=== PATIENT | male | born 1945 | race Caucasian/White ===

== ENCOUNTER → 2020-05-18 11:01 | Outpatient (BNVA) | payer MEDICARE, OTHER, SELFPAY | PROVIDERS: PCP Physician Assistant; Visit Provider Internal Medicine Cardiovascular Disease | DX: R00.1 Bradycardia, unspecified (principal) | CPT/HCPCS: 93005; 99212 ==

== ENCOUNTER 2020-07-14 10:42 | Outpatient (REF) | payer MEDICARE, OTHER, SELFPAY ==
--- NOTE | ~2020-07-14 | MR_ITS ---
EXAMINATION: MR CERVICAL SPINE WITHOUT CONTRAST CLINICAL INFORMATION: Cervical disc degeneration. COMPARISON: Cervical spine MRI from 12/13/2017. TECHNIQUE: MRI of the cervical spine was obtained using routine sequences without contrast. FINDINGS: Mild degenerative retrolisthesis of C3 on C4. Mild degenerative anterolisthesis of C4 on C5. Otherwise, normal anatomic alignment. Moderate degenerative disc disease at C5-C6. Mild degenerative disc disease at all additional cervical levels. Associated mild mixed Modic type discogenic endplate changes including minimal Modic type I discogenic edema at C5-C6. Mild marrow edema within the C5-C6 facets suggestive of degenerative stress reaction. The vertebral body heights are well-maintained. No spinal cord signal abnormalities. Limited evaluation of the soft tissues of the neck without demonstrated abnormalities. The flow voids of the major cervical vessels are maintained. Normal appearance of the cervicomedullary junction and visualized posterior fossa. SPINAL LEVELS: C2-C3: Mild disc-osteophyte complex. There is moderate left and mild right uncovertebral joint arthropathy. There is severe left and mild right facet joint arthropathy. There is moderate left and no right neural foraminal stenosis. There is no spinal canal stenosis. C3-C4: Moderate disc-osteophyte complex. There is moderate bilateral uncovertebral joint arthropathy. There is mild bilateral facet joint arthropathy. There is moderate to severe bilateral neural foraminal stenosis. There is no spinal canal stenosis. C4-C5: Moderate disc-osteophyte complex. There is mild right and no left uncovertebral joint arthropathy. There is moderate bilateral facet joint arthropathy. There is mild to moderate left and no right neural foraminal stenosis. There is no spinal canal stenosis. C5-C6: Moderate disc-osteophyte complex eccentric to the right. There is moderate bilateral uncovertebral joint arthropathy. There is moderate to severe left and moderate right facet joint arthropathy. There is moderate to severe bilateral neural foraminal stenosis. There is flattening the ventral cord with no overt spinal canal stenosis. C6-C7: Mild disc-osteophyte complex. There is mild bilateral uncovertebral joint arthropathy. There is severe left and deca-hc-ahdbhbcb right facet joint arthropathy. There is moderate to severe left and mild right neural foraminal stenosis. There is no spinal canal stenosis. C7-T1: Mild disc-osteophyte complex. There is no uncovertebral joint arthropathy. There is moderate to severe left and mild right facet joint arthropathy. There is no neural foraminal stenosis. There is no spinal canal stenosis. 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 Most notably, there are moderate to severe neural foraminal stenoses from C2-C7. No overt spinal canal stenosis. Overall, degenerative changes are similar to exam from 2018.
== END 2020-07-14 10:43 | disposition home or self-care (01) ==
LOC: HO.MRI 10:42
PROVIDERS: PCP Physician Assistant; Visit Provider Physician Assistant
DX: M50.30 Other cervical disc degeneration, unspecified cervical region (principal)
CPT/HCPCS: 72141

== ENCOUNTER 2020-09-04 21:35 | Emergency (ER) | payer OTHER, MEDICARE, SELFPAY ==
[2020-09-04 21:57] VITALS: BP 196/90; PULSE 51; RESP 18; TEMP 36.7; O2SAT 99; BMI 25.1
--- NOTE | 2020-09-04 22:46 | ECG_ITS ---
Test Reason : HTN Blood Pressure : / mmHG Vent. Rate : 041 BPM Atrial Rate : 041 BPM P-R Int : 210 ms QRS Dur : 112 ms QT Int : 450 ms P-R-T Axes : 032 -37 006 degrees QTc Int : 371 ms Marked sinus bradycardia with 1st degree A-V block Left axis deviation Abnormal ECG When compared with ECG of 21-OCT-2018 13:18, No significant change was found Referred By: Nguyen Phillip Electronically Signed By:CLAUDIA ORTIZ
--- NOTE | 2020-09-04 23:28 | ED_ITS ---
HPI - General Adult General Chief complaint: General Medical Stated complaint: High blood pressure Time Seen by Provider: 09/04/20 22:46 Source: patient Mode of arrival: ambulatory History of Present Illness HPI narrative: 75-year-old male who presents with noted hypertension. Patient states that he was having a spirited discussion with a friend of his on the phone and noted that when he brought his head up that he had a slight visual d isturbance that was very transient in nature and never recurred after that isolated incident. He states he has had a similar sensation previously when his contacts have become dry and denies any associated lightheadedness, headache, dizziness, chest pain/palpitations, or any gait instability afterwards while walking or changing position. Patient sources that he has a known condition where if he keeps his head in a flexed position it causes an affect on his neck such that when he extends his head backwards he can have headache as well as feeling somewhat lightheaded. This slight visual disturbance prompted him to take his blood pressure at which time he noted that it was elevated with a sy stolic in the 190s. Patient has longstanding bradycardia, ?all my life?, and currently is being treated for hypertension with losartan and endorses that he does not usually take his blood pressure late in the evening. Patient denies any further episodes of visual disturbance, any feelings of dizziness or lightheadedness, or gait instability since the transient event. To be clear, patient denies any loss of vision/partial loss of vision or double vision. Related Data Home Medications Medication Instructions Recorded Confirmed acetaminophen 325 mg tablet 650 mg PO Q6H PRN 03/04/20 03/04/20 celecoxib 200 mg capsule 200 mg PO DAILY 03/04/20 03/04/20 Previous Rx's Medication Instructions Recorded losartan 25 mg tablet 25 mg PO DAILY #90 tab 06/20/20 Allergies Allergy/AdvReac Type Severity Reaction Status Date / Time No Known Allergies Allergy Verified 05/18/20 11:20 Review of Systems Review of Systems: Pertinent positives and negatives as stated in HPI and 10 point review of systems is otherwise negative. [facility] Past Medical History Source: nursing notes reviewed Medical History Bradycardia Chronic back pain Chronic neck pain Hypertension Surgical History H/O hemicolectomy History of hernia surgery History of shoulder surgery S/P excision of lipoma Family History Family History Father No problems noted. Mother Colon cancer Social History Social History Smoking Status: Never smoker Advance Directives: No Advance Directives Information Provided: No Physical Exam Vital Signs: Vital Signs: Last Vital Signs Temp 98.1 F 09/04/20 21:57 Pulse 51 09/04/20 21:57 Resp 18 09/04/20 21:57 BP 196/90 H 09/04/20 21:57 Pulse Ox 99 09/04/20 21:57 Body Mass Index 25.1 VITAL SIGNS: Reviewed. GENERAL: Well developed, well nourished, in no acute distress. HEAD: Normocephalic/atraumatic EYES: PERRLA, EOMI intact without pain, no nystagmus OROPHARYNX: no oral lesions noted, posterior pharynx clear NECK: Supple, no adenopathy LUNGS: Normal breath sounds. No adventitious sounds or accessory muscle use. SpO2<99> CARDIOVASCULAR: Regular rate and rhythm without noted murmurs, no JVD or lower extremity edema. ABDOMEN: Soft, non-tender, non-distended with bowel sounds. NEUROLOGIC: Alert and oriented x 4. Strength and sensation to light touch were grossly intact x 4, no pronator drift, no facial asymmetry, cranial nerves 2-12 are grossly intact, past pointing without deficits, heel to moscoso without deficits, no observed gait/trunk ataxia. Course Course Course Narrative: 75-year-old male with history and clinical presentation hypertensive episode noted when patient experienced transient visual disturbance to suggest intracranial pathology. Review of all investigations negative for any acute findings and at this time no indication for imaging studies. All results discussed with the patient at bedside and he was strongly encouraged to follow-up with his primary care provider for re-evaluation as well as being encouraged to return should he experience any recurrence or new symptoms. Medical Decision Making Lab Data Result diagrams: 09/04/20 23:35 09/04/20 23:35 Labs: Lab Results 09/04/20 09/04/20 09/04/20 Range/Units 23:35 23:35 23:37 WBC 6.0 (4.8-10.8) X10*3/uL RBC 5.26 (4.60-5.80) X10*6/uL Hgb 15.7 (14.0-18.0) g/dl Hct 45.3 (42-52) % MCV 86.1 (80-98) fL MCH 29.8 (27.0-33.0) pg MCHC 34.7 (31.0-36.0) g/dl RDW 12.5 (11.0-16.0) % Plt Count 185 (160-400) X10*3/uL MPV 9.4 (9.4-12.4) fL Immature Gran % (Auto) 0.3 (0.0-0.4) % Neut % (Auto) 50.9 (45-73) % Lymph % (Auto) 36.3 (20-40) % [place] % (Auto) 9.5 (2-11) % Eos % (Auto) 2.7 (0-4) % Baso % (Auto) 0.3 (0-2) % Lymph # (Auto) 2.2 (1.2-4.9) X10*3/uL [place] # (Auto) 0.6 (0.1-1.2) X10*3/uL Eos # (Auto) 0.2 (0.0-0.4) X10*3/uL Baso # (Auto) 0.0 (0.0-0.2) X10*3/uL Abs Immat Gran (auto) 0.02 (0.00-0.03) X10*3/uL Absolute Neuts (auto) 3.1 (2.0-8.3) X10*3/uL Absolute Nucleated RBC 0.000 (0.0-0.012) X10*3/uL Nucleated RBC % (auto) 0.0 (0.0-0.2) /100WBC Sodium 143 (135-145) mmol/L Potassium 4.6 (3.3-5.1) mmol/L Chloride 105 (96-108) mmol/L Carbon Dioxide 28 (22-29) mmol/L Anion Gap 15 (12-20) BUN 13 (9-16) mg/dL Creatinine 1.00 (0.5-1.4) mg/dL Estim Creat Clear Calc 67.9 Estimated GFR > 60 Random Glucose 100 (60-115) mg/dL Calcium 9.4 (8.4-10.2) mg/dL Total Bilirubin 0.6 (0.0-1.0) mg/dL AST 27 (5-37) U/L ALT 30 (0-40) U/L Alkaline Phosphatase 66 (39-117) U/L Total Protein 7.7 (6.5-8.0) g/dL Albumin 4.7 (3.5-5.0) g/dL Urine Color COLORLESS Urine Appearance CLEAR Urine pH 6.5 (5.0-8.0) Ur Specific [place] <= 1.005 (1.005-1.025) Urine Protein NEG (NEG-TRACE) MG/DL Urine Glucose (UA) NEG (NEG) MG/DL Urine Ketones NEG (NEG) MG/DL Urine Blood NEG (NEG) Urine Nitrite NEG (NEG) Ur Leukocyte Esterase NEG (NEG) ECG Data Attestation: I personally reviewed and interpreted this ECG as follows: Prior ECG tracings: available for review (10/21/2018 no acute changes on comparison.) Interpretation: Sinus bradycardia, HR-41, no evidence of acute ischemia, CA is prolonged but chronic, QRS-112 and consistent on comparison, QTC within normal limits Discharge Plan Discharge Clinical Impression: HTN (hypertension), Visual disturbance Patient Disposition: Home, Self-Care Instructions: Hypertension in the Older Adult (ED) Additional Instructions: 1. Resume all home medications as prescribed. 2. Please follow-up with your primary care provider for re-evaluation in the next 2-3 days. 3. Please do not hesitate to return to the emergency department should you have recurrence or new symptoms. Prescriptions: No Action losartan 25 mg tablet 25 mg PO DAILY Qty: 90 RF: 0 celecoxib 200 mg capsule 200 mg PO DAILY RF: 0 acetaminophen [Tylenol] 325 mg tablet 650 mg PO Q6H PRNRF: 0 Referrals: Jose Peñaloza PA-C [Primary Care Provider] - 2 days
[2020-09-04 23:38] LABS: Basophils Percent Auto 0.3 % (0-2); Eosinophils Absolute Auto 0.2 X10*3/uL (0.0-0.4); Eosinophils Percent Auto 2.7 % (0-4); Hematocrit 45.3 % (42-52); Hemoglobin 15.7 g/dl (14.0-18.0); Imm Gran Abs Auto 0.02 X10*3/uL (0.00-0.03); Imm Gran Pct Auto 0.3 % (0.0-0.4); Lymphocytes Absolute Auto 2.2 X10*3/uL (1.2-4.9); Lymphocytes Percent Auto 36.3 % (20-40); MANUAL DIFF FLAG NO; Mean Corpuscular HGB Conc 34.7 g/dl (31.0-36.0); Mean Corpuscular Hemoglobin 29.8 pg (27.0-33.0); Mean Corpuscular Volume 86.1 fL (80-98); Mean Platelet Volume 9.4 fL (9.4-12.4); Monocytes Absolute Auto 0.6 X10*3/uL (0.1-1.2); Monocytes Percent Auto 9.5 % (2-11); Neutrophils Absolute Auto 3.1 X10*3/uL (2.0-8.3); Neutrophils Percent Auto 50.9 % (45-73); Platelet Count 185 X10*3/uL (160-400); Red Blood Count 5.26 X10*6/uL (4.60-5.80); Red Cell Distribution Width 12.5 % (11.0-16.0)
[2020-09-04 23:51] LABS: Glucose Urine UA NEG (NEG); Leukocyte Esterase Urine NEG (NEG); Nitrite Urine NEG (NEG); PH 6.5 (5.0-8.0); Specific Gravity - Urine <= 1.005 (1.005-1.025); Urine Blood NEG (NEG); Urine Ketones NEG (NEG); Urine Protein NEG (NEG-TRACE)
[2020-09-04 23:53] LABS: Appearance Urine CLEAR; Color Urine COLORLESS; UACC Culture Trigger NO
[2020-09-05 00:16] LABS: Alanine Aminotransferase 30 U/L (0-40); Albumin Level 4.7 g/dL (3.5-5.0); Alkaline Phosphatase 66 U/L (39-117); Anion Gap 15 (12-20); Aspartate Amino Transferase 27 U/L (5-37); Bilirubin Total 0.6 mg/dL (0.0-1.0); Blood Urea Nitrogen 13 mg/dL (9-16); Calcium 9.4 mg/dL (8.4-10.2); Carbon Dioxide 28 mmol/L (22-29); Chloride 105 mmol/L (96-108); Creatinine Clr Calc Pharmacy 67.9; Estimated Glomerular Filt Rate > 60; Glucose Random 100 mg/dL (60-115); Potassium 4.6 mmol/L (3.3-5.1); Sodium 143 mmol/L (135-145); Total Protein 7.7 g/dL (6.5-8.0)
[2020-09-05 01:07] VITALS: BP 161/85; PULSE 45; RESP 16; O2SAT 96
== END 2020-09-05 01:36 | disposition home or self-care (01) ==
PROVIDERS: Emergency Provider Student in an Organized Health Care Education/Training Program; PCP Physician Assistant
DX: I10 Essential (primary) hypertension (principal); H53.9 Unspecified visual disturbance
CPT/HCPCS: 36415; 80053; 81003; 85025; 93005; 99283

== ENCOUNTER 2020-10-28 11:09 | Outpatient (REF) | payer MEDICARE, SELFPAY ==
[2020-10-28 12:59] LABS: Hematocrit 42.9 % (42-52); Hemoglobin 14.5 g/dl (14.0-18.0); Mean Corpuscular HGB Conc 33.8 g/dl (31.0-36.0); Mean Corpuscular Hemoglobin 29.2 pg (27.0-33.0); Mean Corpuscular Volume 86.5 fL (80-98); Mean Platelet Volume 10.1 fL (9.4-12.4); Platelet Count 174 X10*3/uL (160-400); Red Blood Count 4.96 X10*6/uL (4.60-5.80); Red Cell Distribution Width 12.6 % (11.0-16.0); White Blood Count 4.9 X10*3/uL (4.8-10.8)
[2020-10-28 13:15] LABS: Alanine Aminotransferase 20 U/L (0-40); Albumin Level 4.3 g/dL (3.5-5.0); Alkaline Phosphatase 61 U/L (39-117); Anion Gap 12 (12-20); Aspartate Amino Transferase 19 U/L (5-37); Blood Urea Nitrogen 18 mg/dL (9-16); Calcium 9.2 mg/dL (8.4-10.2); Carbon Dioxide 28 mmol/L (22-29); Chloride 104 mmol/L (96-108); Cholesterol 188 mg/dL; Estimated Glomerular Filt Rate > 60; Glucose Fasting 93 mg/dL (60-99); HDL Cholesterol 54 mg/dL; LDL Cholesterol Calculated 118 mg/dl; Potassium 4.3 mmol/L (3.3-5.1); Sodium 140 mmol/L (135-145); Total Protein 6.7 g/dL (6.5-8.0); Triglycerides 80 mg/dL
[2020-10-28 13:34] LABS: Creatinine Urine 48.93 mg/dL; Microalbumin Urine < 5.0 mg/L
[2020-10-28 13:37] LABS: Prostate Specific Antigen Scr 0.91 ng/mL (<0.05-4.0); TSH reflex Free T4 0.46 uIU/mL (0.32-4.0)
== END 2020-10-28 11:10 | disposition home or self-care (01) ==
LOC: HO.LAB 11:09
PROVIDERS: PCP Physician Assistant; Visit Provider Physician Assistant
DX: Z12.5 Encounter for screening for malignant neoplasm of prostate (principal); I10 Essential (primary) hypertension
CPT/HCPCS: 36415; 80053; 80061; 82043; 84153; 84443; 85027

== ENCOUNTER 2020-11-24 16:21 | Outpatient (REF) | payer MEDICARE, OTHER, SELFPAY ==
--- NOTE | ~2020-11-24 | XR_ITS ---
EXAMINATION: XR FOOT, RIGHT CLINICAL INFORMATION: Pain right foot COMPARISON: None TECHNIQUE: AP, lateral, and oblique views of the right foot. FINDINGS: No acute fracture or dislocation. Probable sesamoid occurring off the proximal medial navicular. Mild degeneration first MTP joint. No bony erosion or osteopenia. XR/XR foot RT min 3V IMPRESSION: No acute fracture or dislocation. There is probable sesamoid bone occurring off the proximal navicular medially. Point palpation would be recommended here. There is some mild lucency but again this may represent the patient's baseline
== END 2020-11-24 16:22 | disposition home or self-care (01) ==
LOC: HO.HMGCX 16:21
PROVIDERS: PCP Physician Assistant; Visit Provider Hospitalist
DX: M79.671 Pain in right foot (principal)
CPT/HCPCS: 73630

== ENCOUNTER → 2021-03-27 10:06 | Outpatient (BNVA) | payer MEDICARE, OTHER, SELFPAY | PROVIDERS: PCP Physician Assistant; Referring Provider Physician Assistant; Visit Provider Internal Medicine Cardiovascular Disease | DX: I10 Essential (primary) hypertension (principal); R00.1 Bradycardia, unspecified; I44.0 Atrioventricular block, first degree; G89.29 Other chronic pain; M54.9 Dorsalgia, unspecified; M54.2 Cervicalgia; Z79.899 Other long term (current) drug therapy | CPT/HCPCS: 99212 ==

== ENCOUNTER 2021-07-12 11:38 | Outpatient (REF) | payer MEDICARE, OTHER, SELFPAY ==
[2021-07-12 12:12] LABS: Hematocrit 46.9 % (42.0-52.0); Mean Corpuscular HGB Conc 34.1 g/dl (31.0-36.0); Mean Corpuscular Volume 85.1 fL (80.0-98.0); Mean Platelet Volume 9.8 fL (9.4-12.4); Platelet Count 185 X10*3/uL (160-400); Red Blood Count 5.51 X10*6/uL (4.60-5.80); Red Cell Distribution Width 12.3 % (11.0-16.0); White Blood Count 5.9 X10*3/uL (4.8-10.8)
[2021-07-12 12:42] LABS: Alanine Aminotransferase 27 U/L (0-40); Albumin Level 4.7 g/dL (3.5-5.0); Alkaline Phosphatase 68 U/L (39-117); Anion Gap 12 (12-20); Aspartate Amino Transferase 26 U/L (5-37); Bilirubin Total 0.9 mg/dL (0.0-1.0); Blood Urea Nitrogen 14 mg/dL (9-16); Carbon Dioxide 29 mmol/L (22-29); Chloride 102 mmol/L (96-108); Cholesterol 209 mg/dL; Estimated Glomerular Filt Rate > 60; Glucose Fasting 104 mg/dL (60-99); HDL Cholesterol 49 mg/dL; LDL Cholesterol Calculated 139 mg/dl; Potassium 4.3 mmol/L (3.3-5.1); Sodium 139 mmol/L (135-145); Total Protein 7.4 g/dL (6.5-8.0); Triglycerides 105 mg/dL
[2021-07-12 12:44] LABS: Creatinine Urine 150.41 mg/dL; Microalbum/Creatinine Ratio Ur 3.3 ug/mg cr
[2021-07-12 13:02] LABS: Prostate Specific Antigen Scr 1.16 ng/mL (<0.05-4.0); TSH reflex Free T4 1.25 uIU/mL (0.32-4.0)
== END 2021-07-12 11:39 | disposition home or self-care (01) ==
LOC: HO.LAB 11:38
PROVIDERS: PCP Physician Assistant; Visit Provider Physician Assistant
DX: Z12.5 Encounter for screening for malignant neoplasm of prostate (principal); I10 Essential (primary) hypertension
CPT/HCPCS: 36415; 80053; 80061; 82043; 84153; 84443; 85027

== ENCOUNTER 2022-03-07 18:54 | Outpatient (REF) | payer MEDICARE, OTHER, SELFPAY ==
--- NOTE | ~2022-03-07 | MR_ITS ---
EXAMINATION: MR SHOULDER WITHOUT CONTRAST, RIGHT CLINICAL INFORMATION: Right shoulder pain. Prior decompression. Pain with movement. COMPARISON: Most recent right shoulder radiographs dated 08/20/2017 and right shoulder MRI dated 05/06/2015. TECHNIQUE: MRI of the shoulder without contrast was performed on a high-field scanner. FINDINGS: ROTATOR CUFF: Complete, full-thickness supraspinatus tendon tear extending into the anterior aspect of the infraspinatus tendon, similar or slightly more prominent when compared to the prior MRI. This measures up to 3.9 cm in AP dimension with retraction of the torn tendon fibers proximal to the glenohumeral articulation. Prominent subscapularis tendinosis with distal articular surface partial tearing measuring up to 3.3 cm in ML dimension, increased in prominence when compared to the prior examination. Moderate supraspinatus muscle atrophy. BICEPS: Proximal long head biceps tendinosis with flattening and medial subluxation as it drapes over the lesser tuberosity consistent with longitudinal partial tearing. Findings are similar when compared to the prior examination. CORACOACROMIAL ARCH: The undersurface of the acromion is flat with lateral downsloping and bony remodeling of the acromial undersurface consistent with chronic superior humeral head subluxation. Findings are increased when compared to the prior examination. Fxhibbsz-ov-vnltws acromioclavicular osteoarthritis. LABRUM/CAPSULE: Degenerative signal redemonstrated within the superior labrum with possible nondisplaced undersurface tearing of the posterosuperior labrum, increased in prominence when compared to the prior examination. Intact inferior joint capsule. GLENOHUMERAL JOINT/MARROW: Chronic superior subluxation of the humeral head with bony remodeling of the acromial undersurface related to the rotator cuff tendon tears. Diffuse articular cartilage thinning and signal heterogeneity with areas of near full-thickness loss. Marginal osteophytes. Jtqsf-jd-[id number] joint effusion with synovitis. Findings have progressed when compared to the prior MRI. MR/MR shoulder RT wo con IMPRESSION: 1. Complete, full-thickness tear of the supraspinatus tendon extending into the anterior aspect of the infraspinatus tendon, similar or slightly more prominent when compared to the prior examination. The torn tendon fibers are retracted proximal to the glenohumeral articulation. Moderate supraspinatus muscle atrophy. 2. Prominent subscapularis tendinosis with distal articular surface partial tearing, increased in prominence when compared to the prior examination. 3. Proximal long head biceps tendinosis with medial subluxation as it drapes over the lesser tuberosity, similar when compared to the prior examination. 4. Moderate glenohumeral osteoarthritis with a [id number]-[id number] joint effusion and synovitis, progressed when compared to the prior examination. Chronic superior subluxation of the humeral head with bony remodeling of the acromial undersurface, increased. 5. Qpdyereu-ee-ykqioj acromioclavicular osteoarthritis, increased when compared to the prior examination. 6. Degenerative signal within the superior labrum with possible nondisplaced undersurface tearing of the posterosuperior labrum, increased in prominence when compared to the prior examination.
== END 2022-03-07 18:55 | disposition home or self-care (01) ==
LOC: HO.MRI 18:54
PROVIDERS: Visit Provider Physician Assistant
DX: M75.121 Complete rotator cuff tear or rupture of right shoulder, not specified as traumatic (principal)
CPT/HCPCS: 73221

== ENCOUNTER → 2022-04-09 10:53 | Outpatient (BNVA) | payer MEDICARE, OTHER, SELFPAY | PROVIDERS: PCP Physician Assistant; Visit Provider Internal Medicine Cardiovascular Disease | DX: I10 Essential (primary) hypertension (principal); R00.1 Bradycardia, unspecified | CPT/HCPCS: 93005; 99212 ==

== ENCOUNTER 2022-08-28 10:56 | Outpatient (REF) | payer MEDICARE, OTHER, SELFPAY ==
[2022-08-28 12:20] LABS: Hematocrit 42.8 % (42.0-52.0); Hemoglobin 14.5 g/dl (14.0-18.0); Mean Corpuscular HGB Conc 33.9 g/dl (31.0-36.0); Mean Corpuscular Hemoglobin 29.2 pg (27.0-33.0); Mean Corpuscular Volume 86.1 fL (80.0-98.0); Mean Platelet Volume 9.9 fL (9.4-12.4); Platelet Count 185 X10*3/uL (160-400); Red Blood Count 4.97 X10*6/uL (4.60-5.80); Red Cell Distribution Width 12.7 % (11.0-16.0); White Blood Count 7.1 X10*3/uL (4.8-10.8)
[2022-08-28 12:59] LABS: Alanine Aminotransferase 16 U/L (0-40); Albumin Level 4.2 g/dL (3.5-5.0); Alkaline Phosphatase 68 U/L (39-117); Anion Gap 14 (12-20); Aspartate Amino Transferase 16 U/L (5-37); Bilirubin Total 1.1 mg/dL (0.0-1.0); Blood Urea Nitrogen 18 mg/dL (9-16); Calcium 9.1 mg/dL (8.4-10.2); Carbon Dioxide 27 mmol/L (22-29); Chloride 105 mmol/L (96-108); Cholesterol 178 mg/dL; Estimated Glomerular Filt Rate > 60; Glucose Fasting 93 mg/dL (60-99); HDL Cholesterol 46 mg/dL; LDL Cholesterol Calculated 118 mg/dl; Potassium 4.5 mmol/L (3.3-5.1); Prostate Specific Antigen Scr 1.02 ng/mL (<0.05-4.0); Sodium 141 mmol/L (135-145); TSH reflex Free T4 0.81 uIU/mL (0.32-4.0); Total Protein 6.4 g/dL (6.5-8.0); Triglycerides 71 mg/dL
== END 2022-08-28 10:57 | disposition home or self-care (01) ==
LOC: HO.LAB 10:56
PROVIDERS: PCP Physician Assistant; Visit Provider Physician Assistant
DX: I10 Essential (primary) hypertension (principal); Z12.5 Encounter for screening for malignant neoplasm of prostate
CPT/HCPCS: 36415; 80053; 80061; 84153; 84443; 85027

== ENCOUNTER → 2022-09-12 09:44 | Outpatient (REF) | payer MEDICARE, OTHER, SELFPAY ==
--- NOTE | 2022-09-12 09:48 | CA_ITS ---
Transthoracic Echocardiogram Patient (Last, First, Middle): Shantanu Phillips W Gender: Male Date of : 1945 Age: 77 Procedure Date: 09/12/2022 Procedure Type: Transthoracic Echocardiogram Location: OP Height: 177.8 cm Weight: 77.11 kg BSA: 1.95 m2 Heart Rate: 45 bpm BP: 138 / 70 mmHg Design Inserter: SB Referring MD: Jose Peñaloza PA-C Symptoms: R01.1 - Cardiac murmur, unspecified Study Quality: Adequate ECG Rhythm: Bradycardia Conclusions: - The left ventricular systolic function is normal. The calculated ejection fraction is 68% by biplane method. - There is moderate septal asymmetric hypertrophy. - Mildly increased right ventricular cavity size. Some hypokinesis towards the apical portion. - There is mild aortic valve regurgitation. - There is mild dilatation of the ascending aorta measuring 4.00 cm. Findings Left Ventricle Normal left ventricular cavity size. There is mildly increased left ventricular wall thickness. The left ventricular systolic function is normal. The calculated ejection fraction is 68% by biplane method. There is no evidence of regional wall motion abnormalities. Diastolic function is normal for age. There is moderate septal asymmetric hypertrophy. LV peak GLS 20.9% (normal). Right Ventricle Mildly increased right ventricular cavity size. There is normal right ventricular systolic function. Some hypokinesis towards the apical portion. Atria Both atria are normal in size. Aortic Valve There is a normal trileaflet aortic valve. There is mild calcification of the aortic valve. There is no aortic valve stenosis. There is mild aortic valve regurgitation. Mitral Valve The mitral valve appears normal. There is trace mitral valve regurgitation. There is no mitral valve stenosis. Pulmonic Valve There is trace pulmonic valve regurgitation. Tricuspid Valve Normal tricuspid valve structure. There is mild tricuspid valve regurgitation. There is no evidence of pulmonary hypertension. Great Vessels There is mild dilatation of the ascending aorta measuring 4.00 cm. Small plaque is seen in the sino tubular ridge. Venous The inferior vena cava is mildly dilated and collapses greater than 50% with inspiration. Pericardium/Pleural There is no evidence of pericardial effusion. Prior Study Comparison No prior study available for comparison. Measurements 2D Linear Measurements IVSd: 1.52 0.6-0.9/0.6-1.0 cm LVIDd: 5.29 3.9-5.3/4.2-5.9 cm LVIDd Index: 2.71 2.4-3.2/2.2-3.1 cm/m2 LVIDs: 3.33 2.0-3.6 cm LVPWd: 1.04 0.7-1.1 cm LA Diam: 4.20 2.7-3.8/3.0-4.0 cm LAIDs Index: 2.15 1.5-2.3 cm/m2 LV Mass: 349.13 67-162/88-224 g LV Mass Index: 179.04 43-95/49-115 g/m2 LVOT Diam: 2.00 3.0+(-)1.3 cm 2D Systolic Function EF 4C: 69.30 >55% EF 2C: 68.60 >55% EF BiP: 68.20 >55% Mitral Valve MV Pk E: 0.81 MV PK A: 0.63 MV Decel Time: 253.00 E/A: 1.30 E'Lateral: 9.25 E'Medial: 5.77 E/E' Med: 14.10 E/E' Lat: 8.80 PHT: 74.00 MVA PHT: 2.97 Decel Limestone: 3.21 Aortic Valve AoV Pk Godwin: 2.13 AoV Mn Godwin: 1.37 AoV VTI: 0.46 AoV Pk Grad: 18.00 Aov Mn Grad: 9.00 HANNAH Cont.VTI: 2.16 AI Pk Godwin: 4.54 AI VTI: 3.82 AI Limestone: 1.65 AI Alias Godwin: 0.39 AI RV - PISA: 19.00 ERO - PISA: 5.00 LVOT LVOT Pk Godwin: 1.31 LVOT Mn Godwin: 0.88 LVOT VTI: 0.32 LVOT Pk Grad: 7.00 LVOT Mn Grad: 4.00 LVOT Diam: 2.00 LVOT Area: 3.14 Diastolic Function MV Pk E: 0.81 MV Pk A: 0.63 E/A: 1.30 E'Medial: 5.77 E/E' Med: 14.10 E' Laterial: 9.25 E/E' Lat: 8.80 Right Ventricle TAPSE (mm): 29.50 TVS' Godwin: 14.80 Tricuspid Valve TR Pk Godwin: 2.51 TR Pk Grad: 25.00 RA Press: 8.00 RVSP: 33.00 Great Vessels Aorta Sinus of Valsalva: 3.30 2.0-3.5 cm Ao Asc: 4.00 2.1-3.4 cm Pulmonary Veins Pulm Vein S/D 0.60 Pulmonary Valve PV Pk Godwin: 1.32 Peak PV Grad: 7.00 Updated in Other Vendor System with Status of Final Thuan Hunt MD electronically signed on 09/14/2022 12:02:30 PM with status of Final
== END ==
LOC: HO.CARD 09:44
PROVIDERS: PCP Physician Assistant; Visit Provider Physician Assistant
DX: R01.1 Cardiac murmur, unspecified (principal)
CPT/HCPCS: 93306; 93356

== ENCOUNTER 2023-04-10 09:48 | Outpatient (AMB) | payer MEDICARE, OTHER, SELFPAY ==
--- NOTE | 2023-04-10 09:51 | MHC.OFFVIS ---
Intake Vital Signs 04/10/23 09:53 Height 5 ft 11 in Weight 174 lb 2.643 oz BMI 24.3 BP 154/84 H Blood Pressure Location Lt brachial Position Sitting Pulse 36 L Intake Visit Reasons: 1 year fu Intake Note: 1 year follow up Clinic Physician Required: No Accompanied by: Self / Same As Patient Allergies No Known Allergies Allergy (Verified 04/10/23 12:33) Medication List - Last Reconciled 04/10/23 by Raul Winter MD acetaminophen (Tylenol) 650 mg PO BID PRN carisoprodol (Soma) 250 mg PO BEDTIME PRN 30 days losartan 50 mg PO BID 90 days meloxicam 7.5 mg PO DAILY 30 days HPI HPI Comments History of Present Illness Details 78-year-old gentleman who was seen for management of bradycardia. He said he has had slow heart rates all his life. His average heart rate is in 40s to 50s. He has been active and exercises regularly without any functional limitations. He has no exertional shortness of breath or chest discomfort. He has no dizziness episode with exertion. Recently he had a viral illness and while he was sick he had lightheadedness when changing his posture. This has improved and he does not have any further symptoms. 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 ECG 04/2019: Sinus bradycardia with first degree AV block, HR 41/min, LAFB. He was sent for a Holter monitor. Holter monitor showed underlying rhythm of sinus bradycardia with average heart rate of 48 beats per minute. 80% time his heart rate was under 60 beats per minute. 1.2 sec pause was noticed and 770 PVCs were noticed. Patient had no symptoms. 04/10/23: Today he returns for follow-up. He has no chest discomfort shortness of breath. Continues to be active without any exertional issues. In particular no dizziness or syncope. EKG in the office is showing heart rate of 36. With just leg raises for few seconds his heart rate went to 60s. Interestingly he has right bundle-branch block on the ECG along with left anterior fascicular block. [facility] Medical History (Updated 10/26/22 @ 10:32 by MEL Wne) Medicare annual wellness visit, initial Hypertension Chronic neck pain Chronic back pain Bradycardia Right otitis media Surgical History History of colonoscopy S/P excision of lipoma History of shoulder surgery H/O hemicolectomy History of hernia surgery Family History Father No problems noted. Mother Colon cancer Social History Housing: House Alcohol intake: former Patient Tobacco Use Status: Never used Tobacco e-Cigarette/Vaping Use: Never Used Second Hand Smoke Exposure: No service: Yes Current occupational status: retired Cognitive needs: No Hearing needs: No Vision needs: No Review of Systems Const Denies weakness ENT Denies dizziness Card Denies chest pain, Denies chest pain with activity, Denies syncope, Denies rapid heart rate, Denies pedal edema, Denies edema, Denies leg edema, Denies lightheadedness, Denies palpitations, Denies dyspnea, Denies dyspnea on exertion and Denies orthopnea Resp Denies cough, Denies dyspnea and Denies dyspnea on exertion GI Denies hematochezia and Denies change in stool character Musc Denies abnormal gait, Denies muscle cramps, Denies muscle weakness, Denies numbness, Denies radiating pain into limb and Denies tingling Neuro Denies abnormal gait, Denies dizziness, Denies syncope, Denies numbness, Denies tingling and Denies weakness Endo Denies palpitations Physical Exam Vital Signs: Last Vital Signs Pulse 36 L 04/10/23 09:53 BP 154/84 H 04/10/23 09:53 BMI result Body Mass Index 24.3 GENERAL APPEARANCE: in no acute distress, well developed, well nourished. NECK/THYROID: no carotid bruit, no jugular venous distention. SKIN: no suspicious lesions, warm and dry. HEART: no murmurs, regular rate, bradycardic. LUNGS: clear to auscultation bilaterally. ABDOMEN: normal, bowel sounds present, soft, nontender, nondistended. EXTREMITIES: no clubbing, cyanosis, or edema. PERIPHERAL PULSES: equal. NEUROLOGIC: nonfocal, alert and oriented. PSYCH: mood/affect full range. Office Procedures EKG Details: Sinus bradycardia 36 beats per minute, right bundle-branch block, left anterior fascicular block, QTC 395 milliseconds. Right bundle-branch block is new compared to before. [id number], Complete Assessment & Plan Assessment & Plan (1) HTN (hypertension): Code(s): I10 - Essential (primary) hypertension Qualifiers: Hypertension type: primary hypertension Qualified Code(s): I10 - Essential (primary) hypertension (2) Sinus bradycardia: Code(s): R00.1 - Bradycardia, unspecified Plan Pleasant 78 year gentleman who is here for follow-up. He has history of asymptomatic sinus bradycardia. His heart rate by ECG today is 36. During the examination it is heart rate was in 40s which increased to 60s just by simple leg raises for few seconds. He is asymptomatic. He does have right bundle-branch block which is new compared to before. Previously had left anterior fascicular block. I have discussed with him that he has progressive conduction system disease. He continues to be active and asymptomatic. His home heart rate readings are as high as 80s at times with activity. I will check a 7 day Holter monitor on him to make sure that he is not getting any long pauses. He will see us back in few months. Thank you for allowing me to participate in the care of your patient. Please feel free to contact me if you have any questions. Orders: Orders ECG 7 day holter monitor Today R00.1 - Bradycardia, unspecified Coding Level of Care Code Est Pt Level 4 (44574) Diagnoses Primary hypertension I10 Hypertension type: primary hypertension Sinus bradycardia R00.1 CPT Codes EKG - CPT: 74816-[id number], Complete ([id number])
[2023-04-10 09:53] VITALS: BP 154/84; PULSE 36; BMI 24.3
== END 2023-04-10 10:23 | disposition home or self-care (01) ==
PROVIDERS: Visit Provider Internal Medicine Cardiovascular Disease
DX: I10 Essential (primary) hypertension (principal); R00.1 Bradycardia, unspecified
CPT/HCPCS: 93010; 99214

== ENCOUNTER → 2023-04-10 09:48 | Outpatient (BNVA) | payer MEDICARE, OTHER, SELFPAY | PROVIDERS: Visit Provider Internal Medicine Cardiovascular Disease | DX: I10 Essential (primary) hypertension (principal); R00.1 Bradycardia, unspecified | CPT/HCPCS: 93005; 99212 ==

== ENCOUNTER 2023-04-10 11:39 | Outpatient (AMB) | payer MEDICARE, OTHER, SELFPAY ==
--- NOTE | 2023-04-10 11:53 | MHC.PC.OV ---
Vital Signs 04/10/23 11:54 Height 5 ft 11 in Weight 173 lb BMI 24.1 BP 126/60 Blood Pressure Location Lt brachial Position Sitting Pulse 48 L Pulse Source Pulse Oximeter Oxygen Delivery Method Room Air Intake Visit Reasons: f/u HTN Filler Wiper Required: No Accompanied by: Self / Same As Patient Allergies No Known Allergies Allergy (Verified 04/10/23 12:33) Medication List - Last Reconciled 04/10/23 by Jose Peñaloza PA-C acetaminophen (Tylenol) 650 mg PO BID PRN carisoprodol (Soma) 250 mg PO BEDTIME PRN 30 days losartan 50 mg PO BID 90 days meloxicam 7.5 mg PO DAILY 30 days Tobacco use date assessed: 09/27/22 Fall risk assessment: No Falls in past year Last assessed Fall Risk: 04/10/23 Dental Screening Dental Screen Date: 04/10/23 Did you have a dental visit in the last 12 months?: Yes Did you have a dental problem in the last 6 months where you did not have access to dental care?: No Was dental information given to patient?: Patient has dentist HPI f/u HTN HPI Details Apolinar is a 78-year-old male here today for a follow-up visit.? Patient has a past medical history significant for hypertension and degenerative disc disease of the cervical spine, h/o of colon cancer. . Bradycardia: , has been asymptomatic, Has been undergoing testing with cardiology. Echocardiogram and Holter monitor without significant findings. .. HTN: Patient's blood pressure today in office acceptable. .. History of colon cancer:? Has had a history of a colectomy and has been in remission? 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 recently had a CEA through the [place] and it was not elevated. .. Degenerative disc disease of the spine:? He is followed by neck specialist.? Has done multiple rounds of physical therapy with decent affect.? He does use Soma on a p.r.n. basis for his pain. [facility] Medical History (Updated 10/26/22 @ 10:32 by MEL Wen) Medicare annual wellness visit, initial Hypertension Chronic neck pain Chronic back pain Bradycardia Right otitis media Surgical History History of colonoscopy S/P excision of lipoma History of shoulder surgery H/O hemicolectomy History of hernia surgery Family History Father No problems noted. Mother Colon cancer Social History Housing: House Alcohol intake: former Patient Tobacco Use Status: Never used Tobacco e-Cigarette/Vaping Use: Never Used Second Hand Smoke Exposure: No service: Yes Current occupational status: retired Cognitive needs: No Hearing needs: No Vision needs: No Questionnaire Thrive Questionnaire Date Thrive assessed: 08/28/22 SHWETHA-7 AMB Questionnaire SHWETHA-7 Date SHWETHA - 7 assessed: 08/28/22 Source: Developed by Drs. Lee Hines, Zahra Joseph, Fitz Stephenson and colleagues, with an educational mayank from [employer]. Review of Systems Const Denies headache(s) Eyes Denies loss of vision ENT Denies vertigo, Denies dizziness, Denies headache(s) and Denies sore throat Card Denies chest pain, Denies leg edema and Denies lightheadedness Resp Denies cough, Denies hemoptysis and Denies wheezing GI Denies abdominal pain, Denies melena, Denies constipation, Denies diarrhea and Denies vomiting Denies dysuria, Denies urinary frequency and Denies urinary urgency Musc Denies arthralgias, Denies joint swelling, Denies numbness and Denies tingling Neuro Denies Abnormal speech present, Denies behavioral changes, Denies vertigo, Denies dizziness, Denies headache(s), Denies loss of vision, Denies memory loss, Denies numbness and Denies tingling Psych Denies anxiety, Denies behavioral changes, Denies depression, Denies memory loss and Denies panic attacks Loco/Lymph Denies easy bleeding and Denies easy bruising Aller/Immun Denies wheezing Physical exam (Primary Care) Vital Signs: Last Vital Signs Pulse 48 L 04/10/23 11:54 BP 126/60 04/10/23 11:54 Oxygen Delivery Method Room Air 04/10/23 11:54 BMI result Body Mass Index 24.1 Tobacco/Smoking Status: Tobacco use Status Tobacco use date assessed 09/27/22 04/10/23 11:55 Patient Tobacco Use Status Never used Tobacco 04/10/23 11:55 e-Cigarette/Vaping Use Never Used 04/10/23 11:55 Thrive Assessment: Date of Thrive Assessment Date Thrive assessed 08/28/22 04/10/23 11:55 Const General: healthy appearing, no acute distress, alert and awake Nutritional Appearance: well nourished Orientation/consciousness: oriented to person, oriented to place and oriented to time HENMT Ears: TM's normal bilaterally General nose exam: Normal nasal mucous membranes and turbinates present Eyes Conjunctivae: conjunctivae normal Sclerae: sclerae normal Pupils: Equal, round and reactive pupils present Neck Neck: Yes no lymphadenopathy and Yes no JVD Thyroid: Thyroid normal Carotids: no bruits Resp Effort & Inspection: normal respiratory effort and not tachypneic Auscultation: no crackles, no rales, no rhonchi and no wheezes Cardio Rate: regular rate Rhythm: regular rhythm Heart sounds: no murmurs and normal S1 and S2 GI Palpation (GI): Soft to palpation, nontender, no hepatomegaly and no splenomegaly Auscultation: normal bowel sounds Skin General skin exam: no rashes or lesions noted and dry skin Neuro General: oriented to person, oriented to place and oriented to time Cranial nerves: Yes Equal, round and reactive pupils present Speech: No Abnormal speech present Gait exam (Neuro): Normal gait present Motor exam (neuro): no tremor noted Extrem Right upper extremity: full ROM Left upper extremity: full ROM Right lower extremity: full ROM; no edema Left lower extremity: full ROM; no edema Psych Mental Status: mental status grossly normal Speech and movement: Normal speech and movement present Affect: normal affect Attitude: cooperative Thought process: Normal thought process present Office Procedures Flu Questionnaire Does the patient have a severe egg allergy?: No Does the patient have severe life threatening allergies?: No Does the patient have a fever or illness today?: No Has the patient ever had Guillain-Byron Syndrome?: No Has the patient ever had any past reaction to a flu shot?: No Immunizations flu vacc [id number] 6mos up(PF) 60 mcg(15 mcgx4)/0.5 mL IM syringe Performing Provider: Jose Peñaloza PA-C Performing Location: [facility] Administered by: GAY Sebastian on 04/10/23 12:23 Dose Route Admin Location Dispensed Lot Number Expiration Date 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 Home blood pressures have been stable. Will continues current dose of losartan with goal blood pressure remain below 140/90 (2) DDD (degenerative disc disease), cervical: Code(s): M50.30 - Other cervical disc degeneration, unspecified cervical region Plan: Continues with the use of meloxicam 7.5 mg and p.r.n. use of Soma for his degenerative disc disease in his cervical spine. (3) Insomnia: Code(s): G47.00 - Insomnia, unspecified Qualifiers: Insomnia type: primary Qualified Code(s): F51.01 - Primary insomnia Plan: He does use zolpidem on a very limited p.r.n. basis for his sleep. Orders: Orders Influenza [id number] Immunization 04/10/23 Z23 - Encounter for immunization Microalbumin, Random (w Creat) 04/10/23 I10 - Essential (primary) hypertension Complete Blood Count no Diff 04/10/23 I10 - Essential (primary) hypertension Prostate Specific Antigen Scr 04/10/23 I10 - Essential (primary) hypertension, Z12.5 - Encounter for screening for malignant neoplasm of prostate Comprehensive [place]. Panel Fast 04/10/23 I10 - Essential (primary) hypertension Medications: New zolpidem 10 mg PO BEDTIME 10 days PRN 10 tabs 0RF sleep F51.01 - Primary insomnia Changed From carisoprodol (Soma) 250 mg PO BEDTIME 30 days PRN 30 tabs 0RF muscle pain M50.30 - Other cervical disc degeneration, unspecified cervical region To carisoprodol (Soma) 250 mg PO BEDTIME 14 days 14 tabs 0RF muscle pain M50.30 - Other cervical disc degeneration, unspecified cervical region Coding Level of Care Code Est Pt Level 4 (40125) Diagnoses Primary hypertension I10 Hypertension type: primary hypertension DDD (degenerative disc disease), cervical M50.30 Primary insomnia F51.01 Insomnia type: primary
[2023-04-10 11:54] VITALS: BP 126/60; PULSE 48; BMI 24.1
== END 2023-04-10 12:50 | disposition home or self-care (01) ==
PROVIDERS: PCP Nurse Practitioner Family; Visit Provider Physician Assistant
DX: Z23 Encounter for immunization (principal)
CPT/HCPCS: 90471; 90686; 99214

== ENCOUNTER → 2023-04-22 10:42 | Outpatient (REF) | payer MEDICARE, OTHER, SELFPAY ==
--- NOTE | 2023-04-22 10:46 | HM_ITS ---
Conclusion: 1. Patient was monitored for total period of 7 days and 22 hours 2. Baseline was normal sinus rhythm with average heart rate of 52 beats per minute 3. Frequent sinus bradycardia noted with 77% of time heart rate below 60 beats per minute with no significant pauses 4. Occasional PACs noted with total burden of 0.35% and rare PVCs noted 5. Patient marked the diary multiple times but no reported symptoms, correlating with sinus rhythm or sinus bradycardia MTDD
== END ==
LOC: HO.CARD 10:42
PROVIDERS: PCP Physician Assistant; Visit Provider Internal Medicine Cardiovascular Disease
DX: R00.1 Bradycardia, unspecified (principal)
CPT/HCPCS: 93242

== ENCOUNTER → 2023-04-22 10:46 | Outpatient (BNV) | payer MEDICARE, OTHER, SELFPAY | PROVIDERS: PCP Physician Assistant; Visit Provider Internal Medicine Cardiovascular Disease | DX: R00.1 Bradycardia, unspecified (principal) | CPT/HCPCS: 93248 ==

== ENCOUNTER 2023-04-22 12:22 | Emergency (ER) | payer OTHER, MEDICARE, SELFPAY ==
--- NOTE | 2023-04-22 13:03 | ED.EAR ---
HPI - Ear Problem General Chief complaint: Ear Problems Stated complaint: Loss of hearing in right ear Time Seen by Provider: 04/22/23 13:10 Source: patient Mode of arrival: ambulatory Limitations: no limitations History of Present Illness HPI Narrative: 78 yo male with a history of hypertension presents the ER with complaints of muffled hearing to the right ear and mild earache. Patient reports in the last 2 weeks he had a recent URI which seems to be resolved. Since recovering from that he has noticed some change in his hearing to the right ear and a mild earache. He has been using a topical nasal spray with continued symptoms. Related Data Home Medications Medication Instructions Recorded Confirmed acetaminophen 325 mg tablet 650 mg PO BID PRN 03/27/21 04/10/23 (Tylenol) Previous Rx's Medication Instructions Recorded meloxicam 7.5 mg tablet 7.5 mg PO DAILY 30 days #30 tabs 08/28/22 losartan 50 mg tablet 50 mg PO BID 90 days #180 tabs 03/20/23 carisoprodol 250 mg tablet (Soma) 250 mg PO BEDTIME muscle pain 14 04/10/23 days #14 tabs doxycycline monohydrate 100 mg 200 mg (2 x 100 mg) PO ONCE 1 day 04/16/23 capsule #2 caps ramelteon 8 mg tablet 8 mg PO BEDTIME 15 days #15 tabs 04/16/23 Allergies Allergy/AdvReac Type Severity Reaction Status Date / Time No Known Allergies Allergy Verified 04/10/23 12:33 Review of Systems Review of Systems: Yes all other systems are reviewed and are negative Constitutional: Constitutional: Reports no additional constitutional complaints, Denies body ache(s), Denies chills, Denies fever(s), Denies headache(s) and Denies weakness Eyes: Eyes: Reports no additional eye complaints and Denies change in vision ENT: Reports system reviewed and no additional complaints, except as documented, Denies dizziness, Reports otalgia, Denies headache(s), Reports hearing loss, Denies nasal congestion, Denies nasal discharge and Denies neck pain Cardiovascular: Cardiovascular: Reports no additional cardiovascular complaints, Denies chest pain, Denies leg edema and Denies dyspnea Respiratory: Respiratory: Reports no additional respiratory complaints, Denies cough and Denies dyspnea Gastrointestinal: Gastrointestinal: Reports no additional gastrointestinal complaints, Denies abdominal pain, Denies diarrhea, Denies nausea and Denies vomiting Genitourinary: Genitourinary: Denies urinary incontinence Musculoskeletal: Musculoskeletal: Reports no additional musculoskeletal complaints, Denies back pain, Denies arthralgias, Denies joint swelling, Denies neck pain, Denies numbness and Denies tingling Integumentary/Breasts: Skin/Breast: Reports system reviewed and no additional complaints, except as docu and Denies rash Neurologic: Reports system reviewed and no additional complaints, except as documented, Denies Abnormal speech present, Denies dizziness, Denies headache(s), Denies numbness, Denies tingling and Denies weakness [facility] Past Medical History Attestation statement: The following information was validated with the patient. Source: old records reviewed and nursing notes reviewed Medical History Medicare annual wellness visit, initial Hypertension Chronic neck pain Chronic back pain Bradycardia Right otitis media Surgical History History of colonoscopy S/P excision of lipoma History of shoulder surgery H/O hemicolectomy History of hernia surgery Family History Family History Father No problems noted. Mother Colon cancer Social History Housing: House Alcohol intake: former Patient Tobacco Use Status: Never used Tobacco e-Cigarette/Vaping Use: Never Used Second Hand Smoke Exposure: No Advance Directives: No Advance Directives Information Provided: Yes service: Yes Current occupational status: retired Cognitive needs: No Hearing needs: No Vision needs: No Physical Exam Vital Signs: Vital Signs: Last Vital Signs Temp 97.4 F 04/22/23 13:04 Pulse 50 04/22/23 13:04 Resp 18 04/22/23 13:04 BP 145/72 H 04/22/23 13:04 Pulse Ox 99 04/22/23 13:04 O2 Del Method Room Air 04/22/23 13:04 BMI result Body Mass Index 25.6 Const: General: cooperative, healthy appearing, comfortable and no acute distress Orientation/consciousness: patient oriented x3 Limitations: no limitations HEENT: Head: Yes normal to inspection Ears: hearing grossly normal bilaterally, TM normal on the left, EAC's normal, mastoids normal, no periauricular adenopathy and TM abnormal bulging and wth effusion; not erythematous and not perforated General nose exam: Normal external nose present Face and sinus: Yes normal facial exam Mouth: Normal oral and palatal mucosa present Throat: Yes posterior oropharynx normal, Yes tonsils normal and Yes uvula midline Eyes: General: appearance normal, both eyes and all related structures Pupils: Equal, round and reactive pupils present Neck: Neck: Yes normal visual inspection, Yes full ROM, Yes no lymphadenopathy and Yes no meningeal signs Chest: Chest palpation & inspection: normal inspection of the chest Resp: Effort & Inspection: normal respiratory effort Auscultation: clear to auscultation bilaterally Cardio: Rate: regular rate Rhythm: regular rhythm Peripheral pulses: Peripheral pulses 2+ throughout GI: Inspection: Yes normal to inspection Palpation (GI): Soft to palpation and nontender Auscultation: normal bowel sounds Back/Spine/Pelvis: Thoracic/Lumbar Spine: thoracic and lumbar spine normal to inspection Skin: General skin exam: no rashes or lesions noted Neuro: General: patient oriented x3, no meningeal signs, no focal motor deficits and normal sensation to monofilament Cranial nerves: Yes Equal, round and reactive pupils present Cognition (Neuro): normal cognition Speech: No Abnormal speech present Gait exam (Neuro): Normal gait present Motor exam (neuro): 5/5 motor strength present throughout Extrem: General: Yes normal to inspection Course Course Course Narrative: \ Medical Decision Making Medical Decision Making [facility] Narrative: 78 yo male with a history of hypertension presents the ER with complaints of muffled hearing to the right ear and mild earache. Patient reports in the last 2 weeks he had a recent URI which seems to be resolved. Since recovering from that he has noticed some change in his hearing to the right ear and a mild earache. He has been using a topical nasal spray with continued symptoms. Right ear effusion. No evidence of AOM or otitis externa. Mastoids normal. No periauricular lymphadenopathy. Likely secondary to recent URI Recommend continue nasal spray, recommend add Claritin or Zyrtec, recommend follow-up with primary care in several weeks for any continued symptoms as he may need outpatient hearing testing. Differential Diagnosis Differential Diagnoses: The differential diagnosis associated with the presentation includes Ear effusion No evidence of AOM, otitis externa, malignant otitis externa, mastoiditis Admission/Observation Consideration of admission/observation: Escalation of care including admission/observation considered No evidence of mastoiditis, malignant otitis externa requiring advanced imaging, emergent ENT consultation Tests considered The following testing was considered but not selected: No evidence of mastoiditis, malignant otitis externa requiring advanced imaging, Prescription Management I considered prescription management with: Antibiotic Chronic Conditions Patient?s care impacted by: Hypertension Discharge Plan Discharge Clinical Impression: Acute effusion of right ear Patient Disposition: Home, Self-Care Instructions: Hearing Loss (ED), Earache (ED) Additional Instructions: Continue nasal spray Consider adding Claritin or Zyrtec For any continued symptoms follow-up with primary care doctor for outpatient hearing test Prescriptions: No Action losartan 50 mg tablet 50 mg PO BID 90 Days Qty: 180 0RF ramelteon 8 mg tablet 8 mg PO BEDTIME 15 Days Qty: 15 0RF doxycycline monohydrate 100 mg capsule 200 mg PO ONCE 1 Days Qty: 2 0RF acetaminophen [Tylenol] 325 mg tablet 650 mg PO BID PRN carisoprodol [Soma] 250 mg tablet 250 mg PO BEDTIME 14 Days Qty: 14 0RF meloxicam 7.5 mg tablet 7.5 mg PO DAILY 30 Days Qty: 30 3RF Referrals: Jose Peñaloza PA-C [Primary Care Provider] - 2 weeks
[2023-04-22 13:04] VITALS: BP 145/72; PULSE 50; RESP 18; TEMP 36.3; O2SAT 99; BMI 25.6
== END 2023-04-22 13:26 | disposition home or self-care (01) ==
PROVIDERS: Emergency Provider Emergency Medicine; PCP Physician Assistant
DX: H92.01 Otalgia, right ear (principal); I10 Essential (primary) hypertension
CPT/HCPCS: 99282

== ENCOUNTER 2023-04-25 11:43 | Outpatient (AMB) | payer MEDICARE, OTHER, SELFPAY ==
[2023-04-25 11:44] VITALS: BP 126/70; PULSE 44; O2SAT 99; BMI 25.5
--- NOTE | 2023-04-25 11:44 | A.OFFPC_ITS ---
Vital Signs 04/25/23 11:44 Height 5 ft 10 in Weight 178 lb BMI 25.5 BP 126/70 Blood Pressure Location Lt brachial Position Sitting Pulse 44 L Pulse Source Pulse Oximeter Pulse Oximetry (%) 99 Oxygen Delivery Method Room Air Intake Visit Reasons: Right Ear Blockage Intake Note: pt seen in the ER 04/22 with right ear discomfort, no relief. Allergies No Known Allergies Allergy (Verified 04/25/23 11:47) Tobacco use date assessed: 04/25/23 Fall risk assessment: No Falls in past year Last assessed Fall Risk: 04/25/23 HPI Right Ear Blockage HPI Details Patient is a 78-year-old male who presents today with right ear blocked sensation for the past 5 days and fullness, no pain. Patient of BERYL Peñaloza. patient reports that he went to the emergency department couple days ago for the same symptoms and was discharged home with Claritin and told to take nasal spray. Patient reports still continued symptoms. No problems with his left ear. Here for an evaluation. Reports intermittent dizziness. Was diagnosed with effusion of right ear. Reports intermittent clear nasal discharge. Would like to have a ENT referral. [facility] Medical History Medicare annual wellness visit, initial Hypertension Chronic neck pain Chronic back pain Bradycardia Right otitis media Surgical History History of colonoscopy S/P excision of lipoma History of shoulder surgery H/O hemicolectomy History of hernia surgery Family History Father No problems noted. Mother Colon cancer Social History Housing: House Alcohol intake: former Patient Tobacco Use Status: Never used Tobacco e-Cigarette/Vaping Use: Never Used Second Hand Smoke Exposure: No service: Yes Current occupational status: retired Cognitive needs: No Hearing needs: No Vision needs: No Questionnaire Thrive Questionnaire Date Thrive assessed: 08/28/22 AUDIT C Alcohol Use Questionnaire (AUDIT-C) 1. How often do you have a drink containing alcohol?: Never 2. How many drinks containing alcohol do you have on a typical day when you are drinking?: 1 or 2 (0) 3. How often do you have six or more drinks on one occasion?: Never Total Score: 0 Score Reviewed/Action Taken: No SHWETHA-7 AMB Questionnaire SHWETHA-7 Date SHWETHA - 7 assessed: 08/28/22 Source: Developed by Drs. Lee Hines, Zahra Joseph, Fitz Stephenson and colleagues, with an educational mayank from [employer]. Review of Systems Const Denies body aches, Denies chills, Denies fever(s) and Denies headache(s) ENT Reports as per HPI, Denies dizziness, Denies otalgia, Denies headache(s), Reports nasal discharge, Denies sinus pain and Denies sore throat Card Denies chest pain, Denies edema, Denies lightheadedness and Denies dyspnea Resp Denies cough, Denies dyspnea and Denies wheezing GI Denies abdominal pain Musc Denies myalgias Neuro Denies dizziness and Denies headache(s) Aller/Immun Denies wheezing Physical exam (Primary Care) Vital Signs: Last Vital Signs Pulse 44 L 04/25/23 11:44 BP 126/70 04/25/23 11:44 Pulse Ox 99 04/25/23 11:44 Oxygen Delivery Method Room Air 04/25/23 11:44 BMI result Body Mass Index 25.5 Tobacco/Smoking Status: Tobacco use Status Tobacco use date assessed 04/25/23 04/25/23 11:50 Patient Tobacco Use Status Never used Tobacco 04/25/23 11:50 e-Cigarette/Vaping Use Never Used 04/25/23 11:50 Thrive Assessment: Date of Thrive Assessment Date Thrive assessed 08/28/22 04/25/23 11:50 Const General: cooperative and no acute distress Orientation/consciousness: patient oriented x3 HENMT Other: Mild fluid noted behind right TM, no erythema, no cerumen Head: Yes normocephalic and Yes atraumatic Ears: TM normal on the left Face and sinus: Yes sinuses nontender Mouth: oropharynx normal and moist mucous membranes Throat: Yes posterior oropharynx normal Eyes General: appearance normal, both eyes and all related structures Neck Neck: Yes normal visual inspection and Yes full ROM Resp Effort & Inspection: normal respiratory effort and able to speak in complete sentences Auscultation: clear to auscultation bilaterally, no crackles, no rales, no rhonchi and no wheezes Cardio Rate: regular rate Rhythm: regular rhythm Heart sounds: S1 normal heart sound present and S2 normal heart sound present GI Auscultation: normal bowel sounds Neuro General: patient oriented x3 Gait exam (Neuro): Normal gait present Extrem General: Yes full ROM Assessment and Plan Assessment & Plan (1) Sensation of fullness in right ear: Code(s): H93.8X1 - Other specified disorders of right ear Plan: Mild fluid noted behind right TM, no erythema. Patient is to continue Claritin daily. He also has been using nasal spray daily - does not remember the name- reports similar to Flonase. ENT referral placed per patient's request. Signs and symptoms reviewed when to notify provider or go to the emergency department. No need for antibiotic at this time. Orders: Referrals Ear/Nose/Throat Referral H93.8X1 - Other specified disorders of right ear Coding Level of Care Code Est Pt Level 3 (97644) Diagnoses Sensation of fullness in right ear H93.8X1
== END 2023-04-25 12:37 | disposition home or self-care (01) ==
LOC: HO.HMGH 11:43
PROVIDERS: PCP Physician Assistant; Visit Provider Nurse Practitioner Family
DX: H93.8X1 Other specified disorders of right ear (principal)
CPT/HCPCS: 99213

== ENCOUNTER 2023-05-28 11:11 | Outpatient (REF) | payer MEDICARE, OTHER, SELFPAY ==
[2023-05-28 11:46] LABS: Hematocrit 43.5 % (42.0-52.0); Mean Corpuscular HGB Conc 34.5 g/dl (31.0-36.0); Mean Corpuscular Hemoglobin 29.6 pg (27.0-33.0); Mean Platelet Volume 9.8 fL (9.4-12.4); Platelet Count 174 X10*3/uL (160-400); Red Blood Count 5.06 X10*6/uL (4.60-5.80); White Blood Count 4.7 X10*3/uL (4.8-10.8)
[2023-05-28 12:39] LABS: Alanine Aminotransferase 24 U/L (0-40); Albumin Level 4.3 g/dL (3.5-5.0); Alkaline Phosphatase 64 U/L (39-117); Anion Gap 10 (12-20); Aspartate Amino Transferase 25 U/L (5-37); Bilirubin Total 0.7 mg/dL (0.0-1.0); Blood Urea Nitrogen 15 mg/dL (9-16); Calcium 9.2 mg/dL (8.4-10.2); Carbon Dioxide 28 mmol/L (22-29); Chloride 107 mmol/L (96-108); Estimated Glomerular Filt Rate > 60; Glucose Fasting 88 mg/dL (60-99); Potassium 3.8 mmol/L (3.3-5.1); Sodium 141 mmol/L (135-145); Total Protein 6.9 g/dL (6.5-8.0)
[2023-05-28 12:59] LABS: Creatinine Urine 75.68 mg/dL; Microalbumin Urine < 5.0 mg/L
[2023-05-28 13:22] LABS: Prostate Specific Antigen Scr 1.37 ng/mL (<0.05-4.0)
[2023-05-29 09:24] LABS: Lyme Abs Screen <0.90 index
== END 2023-05-28 11:12 | disposition home or self-care (01) ==
LOC: HO.LAB 11:11
PROVIDERS: PCP Physician Assistant; Visit Provider Physician Assistant
DX: I10 Essential (primary) hypertension (principal); T14.8XXA Other injury of unspecified body region, initial encounter; W57.XXXA Bitten or stung by nonvenomous insect and other nonvenomous arthropods, initial encounter; Y93.9 Activity, unspecified; Y92.9 Unspecified place or not applicable; Y99.9 Unspecified external cause status; Z12.5 Encounter for screening for malignant neoplasm of prostate
CPT/HCPCS: 36415; 80053; 82570; 84153; 85027; 86617; 86618

== ENCOUNTER 2023-10-10 09:46 | Outpatient (AMB) | payer MEDICARE, OTHER, SELFPAY ==
--- NOTE | 2023-10-10 10:06 | A.OFFPC_ITS ---
Vital Signs 10/10/23 10:07 10/10/23 10:28 Height 5 ft 10 in Weight 172 lb BMI 24.7 BP 150/72 H 140/86 H Blood Pressure Location Lt brachial Position Sitting Pulse 47 L Pulse Source Pulse Oximeter Pulse Oximetry (%) 99 Oxygen Delivery Method Room Air Intake Visit Reasons: 6mth f/u Drying Room Supervisor Required: No Accompanied by: Self / Same As Patient Allergies No Known Allergies Allergy (Verified 10/10/23 10:29) Medication List - Last Reconciled 10/10/23 by Jose Peñaloza PA-C acetaminophen (Tylenol) 650 mg PO BID PRN carisoprodol (Soma) 250 mg PO BEDTIME 14 days losartan 50 mg PO BID 90 days meloxicam 7.5 mg PO DAILY 30 days ramelteon 8 mg PO BEDTIME 15 days zolpidem 10 mg PO BEDTIME PRN Tobacco use date assessed: 10/10/23 Fall risk assessment: No Falls in past year Last assessed Fall Risk: 10/10/23 Dental Screening Dental Screen Date: 10/10/23 Did you have a dental visit in the last 12 months?: Yes Did you have a dental problem in the last 6 months where you did not have access to dental care?: No Was dental information given to patient?: Patient has dentist HPI 6mth f/u HPI Details Apolinar is a 78-year-old male here today for a follow-up visit.? Patient has a past medical history significant for hypertension and degenerative disc disease of the cervical spine, h/o of colon cancer. Concern--> does receive been found to have sensorineural hearing loss in his right ear to which she attributes to his time in the . He is considering amplification and will soon be seeing a specialist in [place] for his hearing issue. He does get disoriented at times especially when he changes in head movements. The symptoms are concerning for vertigo and we did discuss possibly starting vestibular therapy. Bradycardia: , has been asymptomatic, Has been undergoing testing with cardiology. Echocardiogram and Holter monitor without significant findings. .. HTN: Patient's blood pressure today in office slightly elevated. He reports that home blood pressures have been 120s to 130 systolic. .. History of colon cancer:? Has had a history of a colectomy and has been in remission? 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 recently had a CEA through the [facility] and it was not elevated. .. Degenerative disc disease of the spine:? He is followed by neck specialist.? Has done multiple rounds of physical therapy with decent affect.? He does use Soma on a p.r.n. basis for his pain [facility] Medical History Medicare annual wellness visit, initial Hypertension Chronic neck pain Chronic back pain Bradycardia Right otitis media Surgical History History of colonoscopy S/P excision of lipoma History of shoulder surgery H/O hemicolectomy History of hernia surgery Family History Father No problems noted. Mother Colon cancer Social History Housing: House Alcohol intake: former Patient Tobacco Use Status: Never used Tobacco e-Cigarette/Vaping Use: Never Used Second Hand Smoke Exposure: No service: Yes Current occupational status: retired Cognitive needs: No Hearing needs: No Vision needs: No Questionnaire PHQ-9 Over the last 2 weeks, how often have you been bothered by any of the following problems? 1. Little interest or pleasure in doing things: not at all 2. Feeling down, depressed, or hopeless: not at all 3. Trouble falling or staying asleep, or sleeping too much: not at all 4. Feeling tired or having little energy: not at all 5. Poor appetite or overeating: not at all 6. Feeling bad about yourself - or that you are a failure or have let yourself or your family down: not at all 7. Trouble concentrating on things, such as reading the newspaper or watching television: not at all 8. Moving or speaking so slowly that other people could have noticed. Or the opposite - being so fidgety or restless that you have been moving around a lot more than usual: not at all 9. Thoughts that you would be better off or of hurting yourself in some way: not at all Total score: 0 Depression Screening Interpretation: Negative Depression Screening Done: Yes 35828 - PHQ-9 Billing: Yes Source: Developed by Drs. Lee Hines, Zahra Joseph, Fitz Stephenson and colleagues, with an educational mayank from [employer]. Thrive Questionnaire Date Thrive assessed: 10/10/23 I am a: Patient What is your living situation today?: I have a steady place to live Within the past 12 months, did the food you bought not last and you didn't have the money to get more?: Never true Within the past 12 months, did you worry whether your food would run out before you got money to buy more?: Never true Do you have trouble paying for medicines?: No Do you have trouble getting transportation to medical appointments?: No Do you have trouble paying your heating and electricity bill?: No Do you have trouble taking care of your child, family member or friend?: No Do you have trouble with day-to-day activities such as bathing, preparing meals, shopping, managing finances, etc.?: No Are you currently unemployed and looking for a job?: No Are you interested in more education?: No Please select the resources that you would like help with: None Currently or been in a relationship where the following occur: no concerns reported THRIVE Score: 0 AUDIT C Alcohol Use Questionnaire (AUDIT-C) 1. How often do you have a drink containing alcohol?: Never 2. How many drinks containing alcohol do you have on a typical day when you are drinking?: 1 or 2 (0) 3. How often do you have six or more drinks on one occasion?: Never Total Score: 0 Score Reviewed/Action Taken: No SHWETHA-7 AMB Questionnaire SHWETHA-7 Date SHWETHA - 7 assessed: 10/10/23 Feeling nervous, anxious, or on edge: 0 = Not at all Not being able to stop or control worryin = Not at all Worrying too much about different things: 0 = Not at all Trouble relaxin = Not at all Being so restless that it is hard to sit still: 0 = Not at all Becoming easily annoyed or irritable: 0 = Not at all Feeling afraid as if something awful might happen: 0 = Not at all Total SHWETHA-7 score (0-4 normal; 5-9 mild; 10-14 moderate; 15-21 severe): 0 Source: Developed by Zahra VasquesW. Jake, Fitz Stephenson and colleagues, with an educational mayank from [employer]. SHWETHA-7 Assessment Billing SHWETHA-7 Assessment Tool: SHWETHA-7 Assessment 89043 Review of Systems Const Denies headache(s) Eyes Denies loss of vision ENT Reports vertigo, Reports dizziness, Denies headache(s), Reports neck pain and Denies sore throat Card Denies chest pain, Denies leg edema and Denies lightheadedness Resp Denies cough, Denies hemoptysis and Denies wheezing GI Denies abdominal pain, Denies melena, Denies constipation, Denies diarrhea and Denies vomiting Denies dysuria, Denies urinary frequency and Denies urinary urgency Musc Details: + neck pain Denies arthralgias, Denies joint swelling, Reports neck pain, Denies numbness and Denies tingling Neuro Denies Abnormal speech present, Denies behavioral changes, Reports vertigo, Reports dizziness, Denies headache(s), Denies loss of vision, Denies memory loss, Denies numbness and Denies tingling Psych Denies anxiety, Denies behavioral changes, Denies depression, Denies memory loss and Denies panic attacks Loco/Lymph Denies easy bleeding and Denies easy bruising Aller/Immun Denies wheezing Physical exam (Primary Care) Vital Signs: Last Vital Signs Pulse 47 L 10/10/23 10:07 BP 140/86 H 10/10/23 10:28 Pulse Ox 99 10/10/23 10:07 Oxygen Delivery Method Room Air 10/10/23 10:07 BMI result Body Mass Index 24.7 Tobacco/Smoking Status: Tobacco use Status Tobacco use date assessed 10/10/23 10/10/23 10:21 Patient Tobacco Use Status Never used Tobacco 10/10/23 10:07 e-Cigarette/Vaping Use Never Used 10/10/23 10:07 PHQ-9: PHQ-9 Score PHQ-9: Total score 0 10/10/23 10:24 Depression Screening Interpretation: Negative Thrive Assessment: Date of Thrive Assessment Date Thrive assessed 10/10/23 10/10/23 10:21 Currently or been in a relationship where the following occur: no concerns reported Const General: healthy appearing, no acute distress, alert and awake Nutritional Appearance: well nourished Orientation/consciousness: oriented to person, oriented to place and oriented to time HENNH Ears: TM's normal bilaterally General nose exam: Normal nasal mucous membranes and turbinates present Eyes Conjunctivae: conjunctivae normal Sclerae: sclerae normal Pupils: Equal, round and reactive pupils present Neck Neck: Yes no lymphadenopathy and Yes no JVD Thyroid: Thyroid normal Carotids: no bruits Resp Effort & Inspection: normal respiratory effort and not tachypneic Auscultation: no crackles, no rales, no rhonchi and no wheezes Cardio Rate: regular rate Rhythm: regular rhythm Heart sounds: no murmurs and normal S1 and S2 GI Palpation (GI): Soft to palpation, nontender, no hepatomegaly and no splenomegaly Auscultation: normal bowel sounds Skin General skin exam: no rashes or lesions noted and dry skin Neuro General: oriented to person, oriented to place and oriented to time Cranial nerves: Yes Equal, round and reactive pupils present Speech: No Abnormal speech present Gait exam (Neuro): Normal gait present Motor exam (neuro): no tremor noted Extrem Right upper extremity: full ROM Left upper extremity: full ROM Right lower extremity: full ROM; no edema Left lower extremity: full ROM; no edema Psych Mental Status: mental status grossly normal Speech and movement: Normal speech and movement present Affect: normal affect Attitude: cooperative Thought process: Normal thought process present Assessment and Plan Assessment & Plan (1) HTN (hypertension): Code(s): I10 - Essential (primary) hypertension Qualifiers: Hypertension type: primary hypertension Qualified Code(s): I10 - Essential (primary) hypertension Plan: Patient blood pressure slightly elevated today in office. Home blood pressures at home have been stable. Will continues current dose of losartan with goal blood pressure remain below 140/90 (2) DDD (degenerative disc disease), cervical: Code(s): M50.30 - Other cervical disc degeneration, unspecified cervical region Plan: Continues with the use of meloxicam 7.5 mg and p.r.n. use of Soma for his degenerative disc disease in his cervical spine. (3) Insomnia: Code(s): G47.00 - Insomnia, unspecified Qualifiers: Insomnia type: primary Qualified Code(s): F51.01 - Primary insomnia Plan: He does use zolpidem on a very limited p.r.n. basis for his sleep. (4) Borderline high cholesterol: Code(s): E78.9 - Disorder of lipoprotein metabolism, unspecified Plan: Has a history of borderline high cholesterol. Will continue to follow fasting lipid panel. Goal total cholesterol to be below 200 (5) Sensorineural hearing loss (SNHL) of right ear: Code(s): H90.5 - Unspecified sensorineural hearing loss Qualifiers: Contralateral hearing status: unspecified Qualified Code(s): H90.5 - Unspecified sensorineural hearing loss Plan: As per HPI patient has been found to have sensorineural hearing loss in his right ear. Has follow-up with ENT specialist. He is interested in a 2nd opinion in [place] . Due to his hearing deficit in his right ear he does often become disoriented especially with changes in his head movements. Signs and symptoms concerning for vertigo and is willing to try vestibular therapy (6) BPPV (benign paroxysmal positional vertigo): Code(s): H81.10 - Benign paroxysmal vertigo, unspecified ear Qualifiers: Laterality: right Qualified Code(s): H81.11 - Benign paroxysmal vertigo, right ear Orders: Orders Lipid Panel Today E78.9 - Disorder of lipoprotein metabolism, unspecified Complete Blood Count no Diff Today I10 - Essential (primary) hypertension Comprehensive [place]. Panel Fast Today I10 - Essential (primary) hypertension PT Evaluation and Treatment Today H81.11 - Benign paroxysmal vertigo, right ear Medications: Refilled carisoprodol (Soma) 250 mg PO BEDTIME 14 days 14 tabs 0RF muscle pain M50.30 - Other cervical disc degeneration, unspecified cervical region ramelteon 8 mg PO BEDTIME 15 days 15 tabs 0RF F51.01 - Primary insomnia Patient Instructions: Goal: Blood pressure to remain below 140/90 Barriers: Adherence to physical activity and healthy eating habits. Coding Level of Care Code Est Pt Level 4 (51293) Diagnoses Primary hypertension I10 Hypertension type: primary hypertension DDD (degenerative disc disease), cervical M50.30 Primary insomnia F51.01 Insomnia type: primary Borderline high cholesterol E78.9 Sensorineural hearing loss (SNHL) of right ear, unspecified hearing status on contralateral side H90.5 Contralateral hearing status: unspecified Benign paroxysmal positional vertigo of right ear H81.11 Laterality: right Additional Codes SHWETHA-7 Assessment Billing - SHWETHA-7 Assessment Tool: SHWETAH-7 Assessment 85389 ([id number])
[2023-10-10 10:07] VITALS: BP 150/72; PULSE 47; O2SAT 99; BMI 24.7
[2023-10-10 10:28] VITALS: BP 140/86
== END 2023-10-10 10:53 | disposition home or self-care (01) ==
PROVIDERS: PCP Physician Assistant; Visit Provider Physician Assistant
DX: I10 Essential (primary) hypertension (principal); M50.30 Other cervical disc degeneration, unspecified cervical region; F51.01 Primary insomnia; E78.9 Disorder of lipoprotein metabolism, unspecified; H90.5 Unspecified sensorineural hearing loss; H81.11 Benign paroxysmal vertigo, right ear
CPT/HCPCS: 99214

== ENCOUNTER 2023-10-10 10:57 | Outpatient (REF) | payer MEDICARE, OTHER, SELFPAY ==
[2023-10-10 11:46] LABS: Hematocrit 42.4 % (42.0-52.0); Hemoglobin 14.5 g/dl (14.0-18.0); Mean Corpuscular HGB Conc 34.2 g/dl (31.0-36.0); Mean Corpuscular Hemoglobin 29.5 pg (27.0-33.0); Mean Corpuscular Volume 86.2 fL (80.0-98.0); Platelet Count 179 X10*3/uL (160-400); Red Blood Count 4.92 X10*6/uL (4.60-5.80); Red Cell Distribution Width 12.7 % (11.0-16.0); White Blood Count 5.7 X10*3/uL (4.8-10.8)
[2023-10-10 12:51] LABS: Alanine Aminotransferase 20 U/L (0-40); Albumin Level 4.3 g/dL (3.5-5.0); Alkaline Phosphatase 65 U/L (39-117); Anion Gap 9 (12-20); Aspartate Amino Transferase 20 U/L (5-37); Bilirubin Total 0.8 mg/dL (0.0-1.0); Blood Urea Nitrogen 18 mg/dL (9-16); Carbon Dioxide 28 mmol/L (22-29); Chloride 109 mmol/L (96-108); Cholesterol 175 mg/dL (<200); Estimated Glomerular Filt Rate > 60; Glucose Fasting 93 mg/dL (60-99); HDL Cholesterol 52 mg/dL (>40); LDL Cholesterol Calculated 110 mg/dL (<100); Potassium 4.3 mmol/L (3.3-5.1); Sodium 142 mmol/L (135-145); Total Protein 6.7 g/dL (6.5-8.0); Triglycerides 69 mg/dL (<150)
[2023-10-10 12:53] LABS: Creatinine Urine 212.31 mg/dL; Microalbum/Creatinine Ratio Ur 3.2 ug/mg cr (<30)
== END 2023-10-10 10:58 | disposition home or self-care (01) ==
LOC: HO.LAB 10:57
PROVIDERS: PCP Physician Assistant; Visit Provider Physician Assistant
DX: E78.9 Disorder of lipoprotein metabolism, unspecified (principal); I10 Essential (primary) hypertension
CPT/HCPCS: 36415; 80053; 80061; 82043; 82570; 85027

== ENCOUNTER 2023-11-26 11:08 | Outpatient (AMB) | payer MEDICARE, OTHER, SELFPAY ==
--- NOTE | 2023-11-26 11:15 | A.OFFPC_ITS ---
Intake Visit Reasons: SWV G0439 Allergies No Known Allergies Allergy (Verified 10/10/23 10:29) Tobacco use date assessed: 10/10/23 Dental Screening Dental Screen Date: 10/10/23 [facility] Medical History Medicare annual wellness visit, initial Hypertension Chronic neck pain Chronic back pain Bradycardia Right otitis media Surgical History History of colonoscopy S/P excision of lipoma History of shoulder surgery H/O hemicolectomy History of hernia surgery Family History Father No problems noted. Mother Colon cancer Social History Housing: House Alcohol intake: former Patient Tobacco Use Status: Never used Tobacco e-Cigarette/Vaping Use: Never Used Second Hand Smoke Exposure: No service: Yes Current occupational status: retired Cognitive needs: No Hearing needs: No Vision needs: No Questionnaire Thrive Questionnaire Date Thrive assessed: 10/10/23 SHWETHA-7 AMB Questionnaire SHWETHA-7 Date SHWETHA - 7 assessed: 10/10/23 Source: Developed by Drs. Lee Hines, Zahra Joseph, Fitz Stephenson and colleagues, with an educational mayank from [employer]. Physical exam (Primary Care) Tobacco/Smoking Status: Tobacco use Status Tobacco use date assessed 10/10/23 10/10/23 10:21 Patient Tobacco Use Status Never used Tobacco 10/10/23 10:07 e-Cigarette/Vaping Use Never Used 10/10/23 10:07 Thrive Assessment: Date of Thrive Assessment Date Thrive assessed 10/10/23 10/10/23 10:21 Coding
[2023-11-26 11:29] VITALS: BP 120/60; PULSE 60; O2SAT 97; BMI 25.0
--- NOTE | 2023-11-26 11:29 | A.OFFVIS_ITS ---
Intake Vital Signs 11/26/23 11:29 Height 5 ft 10 in Weight 174 lb BMI 25.0 BP 120/60 Blood Pressure Location Lt brachial Position Sitting Pulse 60 Pulse Source Pulse Oximeter Pulse Oximetry (%) 97 Oxygen Delivery Method Room Air Intake Visit Reasons: [facility] G0439 Supervisor Filling And Packing Required: No Accompanied by: Self / Same As Patient Allergies No Known Allergies Allergy (Verified 11/26/23 11:41) Medication List - Last Reconciled 11/26/23 by Jose Pñealoza PA-C acetaminophen (Tylenol) 650 mg PO BID PRN carisoprodol (Soma) 250 mg PO BEDTIME 14 days losartan 50 mg PO BID 90 days meloxicam 7.5 mg PO DAILY 30 days ramelteon 8 mg PO BEDTIME 15 days zolpidem 10 mg PO BEDTIME PRN HPI SWV G0439 HPI Details Apolinar is a 78-year-old male here today for an annual wellness visit. ? Patient has a past medical history significant for hypertension and degenerative disc disease of the cervical spine, h/o of colon cancer. [place] of care was reviewed with the patient and he was provided with a screening schedule. End of life planning was discussed with the patient and he was provided with healthcare proxy and MOLST forms - patient unsure if he has these forms at home, so new forms were given to the patient. Colon cancer screening: Has a personal history colon cancer, Followed by gastroenterology and gets colonoscopies every 3-5 years Vaccines up-to-date with all vaccines HPI Comments History of Present Illness Details reviewed past medical history- yes reviewed surgical / hospitalization history- yes reviewed current medications- yes reviewed family history- yes home safety throw rugs? grab bars? raised toilet seat? working smoke detectors? activities of daily living difficulty bathing or showering? difficulty dressing? difficulty using the toilet? difficulty getting in and out of bed? difficulty walking? receives help from other person's with any of the above tasks? instrumental activities of daily living uses telephone - gets to place out of walking distance- go shopping for groceries- repairs own meals- does own minor home maintenance- does own laundry- does own housework- manages own money- currently takes medication- end of life planning discussed advanced directives- yes advanced directives on file? discussed wishes expressed in advanced directives. fall risk have you had any falls with injuries in the past year? have you had 2 or more falls in the past year? fall risk assessment: [facility] Medical History Medicare annual wellness visit, initial Hypertension Chronic neck pain Chronic back pain Bradycardia Right otitis media Surgical History History of colonoscopy S/P excision of lipoma History of shoulder surgery H/O hemicolectomy History of hernia surgery Family History Father No problems noted. Mother Colon cancer Social History Housing: House Alcohol intake: former Patient Tobacco Use Status: Never used Tobacco e-Cigarette/Vaping Use: Never Used Second Hand Smoke Exposure: No service: Yes Current occupational status: retired Cognitive needs: No Hearing needs: No Vision needs: No Questionnaire Medicare Wellness Checkup [age] What gender do you identify with?: male During the past 4 weeks, how much have you been bothered by emotional problems such as feeling anxious, depressed, irritable, sad or downhearted, and blue?: not at all During the past 4 weeks, has your physical & emotional health limited your social activities with family, friends, neighbors, or groups?: not at all During the past 4 weeks, how much bodily pain have you generally had?: mild pain During the past 4 weeks, was someone available to help you if you needed & wanted help?: yes, as much as I wanted During the past 4 weeks, what was the hardest physical activity you could do for at least 2 minutes?: heavy Can you get to places out of walking distance without help? (For eg., can you travel alone on buses, taxis or drive your car?): Yes Can you go shopping for groceries or clothes without someone's help?: Yes Can you prepare your own meals?: Yes Can you do your housework without help?: Yes Because of any health problems, do you need the help of another person with your personal care needs such as eating, bathing, dressing or getting around the house?: No Can you handle your own money without help?: Yes During the past 4 weeks, how would you rate your health in general?: excellent During the past 4 weeks how have things been going for you?: very well; could hardly better Are you having difficulties driving your car?: no Do you always fasten your seat belt when you are in a car?: yes, usually During past 4 weeks, have you been bothered by the following: never: Falling or dizzy when standing up, Sexual problems?, Trouble eating well?, Teeth or denture problems? and Problems using the telephone? and seldom: Tiredness or fatigue? Have you fallen 2 or more times in the past year?: No Are you afraid of falling?: No Are you a smoker?: no During the past 4 weeks, how many drinks of wine, beer, or other alcoholic beverages did you have?: no alcohol at all Do you exercise for about 20 minutes 3 or more times a week?: yes, all the time Have you been given information to help with the following?: yes: Keeping track of your medications? and no: Hazards in your house that might hurt you? How often do you have trouble taking medicines the way you have been told to take them?: I always take medicine as prescribed How confident are you that you can control & manage most of your health problems?: very confident What is your race?: White Mini Mental State Exam (MMSE) Orientation What is the (year) (season) (date) (day) (month)?: year Where are we (state) (county) (town or city) (hospital) (floor)?: county and town or city Attention & Calculation (CHOOSE ONE) Spell WORLD backwards (DLROW): 5 letters Score Score: 8 Activity of Daily Living Bathing - sponge bath, tub bath or shower: receives no assistance (gets in/out by self, if usual bathing means Dressing - getting clothes from closets & drawers, including inner/outer garments & fasteners.: gets clothes & gets completely dressed without help Toileting - going to the 'toilet room' for urine/bowel elimination & cleaning self/arranging clothes: goes to toilet room, cleans self, arranges clothes without help Transfer: moves in & out of bed and chair without help (may use support object) Continence: controls urination/bowel movements completely by self Feeding: feeds self without help Total Score: 0 Information obtained from: patient Using telephone: independent Traveling: independent Shopping: independent Preparing meals: independent Housework: independent Taking medicine: independent Managing money: independent PHQ-9 Over the last 2 weeks, how often have you been bothered by any of the following problems? 1. Little interest or pleasure in doing things: not at all 2. Feeling down, depressed, or hopeless: not at all 3. Trouble falling or staying asleep, or sleeping too much: several days 4. Feeling tired or having little energy: several days 5. Poor appetite or overeating: not at all 6. Feeling bad about yourself - or that you are a failure or have let yourself o r your family down: not at all 7. Trouble concentrating on things, such as reading the newspaper or watching television: not at all 8. Moving or speaking so slowly that other people could have noticed. Or the opposite - being so fidgety or restless that you have been moving around a lot more than usual: not at all 9. Thoughts that you would be better off or of hurting yourself in some way: not at all Total score: 2 Depression Screening Interpretation: Negative Depression Screening Done: Yes 51346 - PHQ-9 Billing: Yes Source: Developed by Drs. Lee Hines, Zahra Joseph, Fitz henry nd colleagues, with an educational mayank from [employer]. Physical Exam Vital Signs: Last Vital Signs Pulse 60 11/26/23 11:29 BP 120/60 11/26/23 11:29 Pulse Ox 97 11/26/23 11:29 Oxygen Delivery Method Room Air 11/26/23 11:29 BMI result Body Mass Index 25.0 HEENT Other: hearing screening whisper test- past Eyes Other: vision screening- 20/20 OS OD OU Other: urinary incontinence? no Neuro Other: balance Romberg- normal tandem walk test- able walk-in turned test- able rise from sit to stand- within 2 seconds Assessment & Plan Assessment & Plan (1) Medicare annual wellness visit, subsequent: Code(s): Z00.00 - Encounter for general adult medical examination without abnormal findings Plan: As per HPI Plan As per HPI Orders: Orders Comprehensive [place]. Panel Fast 3 Months I10 - Essential (primary) hypertension Complete Blood Count no Diff 3 Months I10 - Essential (primary) hypertension Lipid Panel 3 Months E78.9 - Disorder of lipoprotein metabolism, unspecified Medications: Changed From zolpidem 10 mg PO BEDTIME insomnia To zolpidem 10 mg PO BEDTIME PRN 15 tabs 0RF insomnia 15 days From carisoprodol (Soma) 250 mg PO BEDTIME 14 days 14 tabs 0RF muscle pain M50.30 - Other cervical disc degeneration, unspecified cervical region To carisoprodol (Soma) 250 mg PO BEDTIME PRN 20 tabs 0RF muscle pain 20 days M50.30 - Other cervical disc degeneration, unspecified cervical region Quality Reporting (2019) Depression/Bipolar (159/160/161/177) PHQ-9: Total score: 2 Coding Level of Care Code Medicare Subsequent (G0439) Diagnoses Medicare annual wellness visit, subsequent Z00.00
== END 2023-11-26 12:11 | disposition home or self-care (01) ==
PROVIDERS: PCP Physician Assistant; Visit Provider Physician Assistant
DX: Z00.00 Encounter for general adult medical examination without abnormal findings (principal)
CPT/HCPCS: G0439

== ENCOUNTER 2023-11-27 08:00 | Outpatient (RCR) | payer MEDICARE, OTHER, SELFPAY ==
[2023-10-16 09:23] VITALS: BP 158/73
== END 2024-01-20 08:24 | disposition home or self-care (01) ==
LOC: HO.PT 08:00
PROVIDERS: PCP Physician Assistant; Visit Provider Physician Assistant
DX: H81.11 Benign paroxysmal vertigo, right ear (principal)
CPT/HCPCS: 95992; 97112; 97161

== ENCOUNTER 2024-01-01 08:36 | Outpatient (REF) | payer MEDICARE, OTHER, SELFPAY ==
--- NOTE | ~2024-01-01 | XR_ITS ---
EXAMINATION: XR LUMBOSACRAL SPINE XR SACRUM AND COCCYX XR HIP, LEFT CLINICAL INFORMATION: Low back pain. Left hip pain. COMPARISON: None available. TECHNIQUE: Three views of the lumbosacral spine. 2 views of the sacrum and 2 views of the coccyx were obtained. Two views of the left hip. FINDINGS: There is a question of vague, patchy sclerotic densities involving the iliac bones, proximal left femur, and possibly the lumbar spine, equivocal. Cannot confirm or exclude subtle sclerotic neoplasm (for example, prostate cancer). Recommend clinical correlation. Nuclear bone scan may be of use for further evaluation if clinically indicated. Moderate multilevel lumbar disc and facet degenerative change. Mild lumbar levocurvature. Vertebral body heights appear maintained. No spondylolysis or spondylolisthesis is seen. No hip fracture or dislocation is identified. The soft tissues appear unremarkable. XR/XR sacrum coccyx min 2V IMPRESSION: Findings as above. Electronically signed by: Gunnar Dwyer MD 01/26/2024 01:59 PM EDT RP
--- NOTE | ~2024-01-01 | XR_ITS ---
EXAMINATION: XR LUMBOSACRAL SPINE XR SACRUM AND COCCYX XR HIP, LEFT CLINICAL INFORMATION: Low back pain. Left hip pain. COMPARISON: None available. TECHNIQUE: Three views of the lumbosacral spine. 2 views of the sacrum and 2 views of the coccyx were obtained. Two views of the left hip. FINDINGS: There is a question of vague, patchy sclerotic densities involving the iliac bones, proximal left femur, and possibly the lumbar spine, equivocal. Cannot confirm or exclude subtle sclerotic neoplasm (for example, prostate cancer). Recommend clinical correlation. Nuclear bone scan may be of use for further evaluation if clinically indicated. Moderate multilevel lumbar disc and facet degenerative change. Mild lumbar levocurvature. Vertebral body heights appear maintained. No spondylolysis or spondylolisthesis is seen. No hip fracture or dislocation is identified. The soft tissues appear unremarkable. XR/XR hip LT min 2V IMPRESSION: Findings as above. Electronically signed by: Gunnar Dwyer MD 01/26/2024 01:59 PM EDT
--- NOTE | ~2024-01-01 | XR_ITS ---
EXAMINATION: XR LUMBOSACRAL SPINE XR SACRUM AND COCCYX XR HIP, LEFT CLINICAL INFORMATION: Low back pain. Left hip pain. COMPARISON: None available. TECHNIQUE: Three views of the lumbosacral spine. 2 views of the sacrum and 2 views of the coccyx were obtained. Two views of the left hip. FINDINGS: There is a question of vague, patchy sclerotic densities involving the iliac bones, proximal left femur, and possibly the lumbar spine, equivocal. Cannot confirm or exclude subtle sclerotic neoplasm (for example, prostate cancer). Recommend clinical correlation. Nuclear bone scan may be of use for further evaluation if clinically indicated. Moderate multilevel lumbar disc and facet degenerative change. Mild lumbar levocurvature. Vertebral body heights appear maintained. No spondylolysis or spondylolisthesis is seen. No hip fracture or dislocation is identified. The soft tissues appear unremarkable. XR/XR lumbar spine 2-3V IMPRESSION: Findings as above. Electronically signed by: Gunnar Dwyer MD 01/26/2024 01:59 PM EDT
== END 2024-01-01 08:37 | disposition home or self-care (01) ==
LOC: HO.XRAY 08:36
PROVIDERS: PCP Physician Assistant; Visit Provider Physician Assistant
DX: M25.552 Pain in left hip (principal); M54.50 Low back pain, unspecified; M53.3 Sacrococcygeal disorders, not elsewhere classified
CPT/HCPCS: 72100; 72220; 73502

== ENCOUNTER 2024-02-09 16:42 | Outpatient (REF) | payer MEDICARE, OTHER, SELFPAY ==
--- NOTE | ~2024-02-09 | MR_ITS ---
EXAMINATION: MR PELVIS WITHOUT AND WITH CONTRAST CLINICAL INFORMATION: Question sclerotic densities on recent radiographs COMPARISON: Radiographs 01/01/2024 TECHNIQUE: MRI of the pelvis is performed without and with intravenous administration of 7 mL of Gadavist. FINDINGS: There are no suspicious bone lesions. No stress reaction, fracture, or evidence of avascular necrosis. No hip joint effusion. Mild bilateral hip osteoarthritis. Gluteus minimus insertional tendinitis, left greater than right. Tendinopathy/tendinitis of the left hamstring origin with edema/enhancement and minimal partial tearing. No acute muscle strain or tear. No adenopathy. Mildly enlarged and heterogeneous prostate. Sigmoid diverticulosis. Multilevel degenerative disc disease and facet arthrosis of the visualized lumbar spine. MR/MR pelvis wo/w con IMPRESSION: 1. No suspicious bone lesions. 2. Mild bilateral hip osteoarthritis. 3. Gluteus minimus insertional tendinitis, left greater than right. 4. Tendinopathy/tendinitis of the left hamstring origin with minimal partial tearing. Electronically signed by: Rodrigo Chavez MD 02/14/2024 10:24 AM EDT
[2024-02-09] MEDS: gadobutroL 7.5 ML VIAL IVPUSH (17:32)
== END 2024-02-09 16:43 | disposition home or self-care (01) ==
LOC: HO.MRI 16:42
PROVIDERS: PCP Physician Assistant; Visit Provider Physician Assistant
DX: M89.9 Disorder of bone, unspecified (principal)
CPT/HCPCS: 72197; A9585

== ENCOUNTER 2024-02-20 08:43 | Outpatient (AMB) | payer MEDICARE, OTHER, SELFPAY ==
--- NOTE | 2024-02-20 08:44 | MHC.PC.OV ---
Intake Visit Reasons: Discuss MRI results Intake Note: Patient is here to follow up on Discuss MRI results. 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: No Medical Social Worker: Not Required per policy Accompanied by: Self / Same As Patient Allergies No Known Allergies Allergy (Verified 02/20/24 09:27) Medication List - Last Reconciled 02/20/24 by Jose Peñaloza PA-C acetaminophen (Tylenol) 650 mg PO BID PRN carisoprodol (Soma) 250 mg PO BEDTIME PRN 20 days losartan 50 mg PO BID 90 days meloxicam 7.5 mg PO DAILY 30 days ramelteon 8 mg PO BEDTIME 15 days zolpidem 10 mg PO BEDTIME PRN 15 days Tobacco use date assessed: 10/10/23 Fall risk assessment: No Falls in past year Last assessed Fall Risk: 02/20/24 Dental Screening Dental Screen Date: 10/10/23 HPI Discuss MRI results HPI Details Patient is a 79-year-old male being evaluated today via telephone. Recently gotten MRI of pelvis due to a noted bone lesion on his pelvis, of note had history of colon cancer. Fortunately is pelvis MRI did not show any concerning pelvic bone lesion He reports he is more interested in his SI joint and low back as he has been having lower back pain with radicular symptoms. Of note in his pelvis MRI does show a gluteus tendinitis to which he would like physical therapy for. [facility] Medical History Medicare annual wellness visit, initial Hypertension Chronic neck pain Chronic back pain Bradycardia Right otitis media Surgical History History of colonoscopy S/P excision of lipoma History of shoulder surgery H/O hemicolectomy History of hernia surgery Family History Father No problems noted. Mother Colon cancer Social History Housing: House Alcohol intake: former Patient Tobacco Use Status: Never used Tobacco e-Cigarette/Vaping Use: Never Used Second Hand Smoke Exposure: No service: Yes Current occupational status: retired Cognitive needs: No Hearing needs: No Vision needs: No Questionnaire Thrive Questionnaire Date Thrive assessed: 10/10/23 SHWETHA-7 AMB Questionnaire SHWETHA-7 Date SHWETHA - 7 assessed: 10/10/23 Source: Developed by Drs. Lee Hines, Zahra Joseph, Fitz Stephenson and colleagues, with an educational mayank from [email or web address]. Review of Systems Const Denies headache(s) Eyes Denies loss of vision ENT Denies vertigo, Denies dizziness, Denies headache(s) and Denies sore throat Card Denies chest pain, Denies leg edema and Denies lightheadedness Resp Denies cough, Denies hemoptysis and Denies wheezing GI Denies abdominal pain, Denies melena, Denies constipation, Denies diarrhea and Denies vomiting Denies dysuria, Denies urinary frequency and Denies urinary urgency Musc Reports back pain, Reports arthralgias, Denies joint swelling, Denies numbness and Denies tingling Neuro Denies behavioral changes, Denies vertigo, Denies dizziness, Denies headache(s), Denies loss of vision, Denies memory loss, Denies numbness and Denies tingling Psych Denies anxiety, Denies behavioral changes, Denies depression, Denies memory loss and Denies panic attacks Loco/Lymph Denies easy bleeding and Denies easy bruising Aller/Immun Denies wheezing Physical exam (Primary Care) Tobacco/Smoking Status: Tobacco use Status Tobacco use date assessed 10/10/23 02/20/24 08:45 Patient Tobacco Use Status Never used Tobacco 02/20/24 08:45 e-Cigarette/Vaping Use Never Used 02/20/24 08:45 Thrive Assessment: Date of Thrive Assessment Date Thrive assessed 10/10/23 02/20/24 08:45 Telehealth Telehealth Telehealth Platform: Telephone Location of provider rendering services: practice address Location of patient: address on file Patient Identification confirmed using: Name, : Yes Telehealth method: voice only Patient verbally consented to treatment: Yes Patient verbally consented to billing insurance company: Yes Patient informed of any privacy concerns related to visit: Yes Minutes spent on Phone/Video with Pt.: 11 Assessment and Plan Assessment & Plan (1) Gluteal tendinitis: Code(s): M76.00 - Gluteal tendinitis, unspecified hip Qualifiers: Laterality: left Qualified Code(s): M76.02 - Gluteal tendinitis, left hip Plan: As per HPI patient MRI of his pelvis did show gluteus minimus tendinosis on the left side. He will likely benefit from formal physical therapy Orders: Orders PT Evaluation and Treatment 02/20/24 M76.02 - Gluteal tendinitis, left hip Coding Level of Care Code Tele Est Pt Level 3 (90898) Diagnoses Gluteal tendinitis of left buttock M76.02 Laterality: left
== END 2024-02-20 12:46 | disposition home or self-care (01) ==
LOC: HO.HMCH 08:43
PROVIDERS: PCP Physician Assistant; Visit Provider Physician Assistant
DX: M76.02 Gluteal tendinitis, left hip (principal)

== ENCOUNTER → 2024-02-20 08:43 | Outpatient (BNVA) | payer MEDICARE, OTHER, SELFPAY | PROVIDERS: PCP Physician Assistant; Visit Provider Physician Assistant ==

== ENCOUNTER 2024-04-13 09:42 | Outpatient (AMB) | payer MEDICARE, OTHER, SELFPAY ==
--- NOTE | 2024-04-13 09:46 | A.OFFVIS_ITS ---
Vital Signs 04/13/24 09:47 Height 5 ft 10 in Weight 170 lb 3.15 oz BMI 24.4 BP 130/62 Blood Pressure Location Lt brachial Position Sitting Pulse 56 Pulse Source Monitor Intake Visit Reasons: 1 yr f/up Intake Note: 1 yr f/up Book Agent Required: No Accompanied by: Self / Same As Patient Allergies No Known Allergies Allergy (Verified 02/20/24 09:27) Medication List - Last Reconciled 04/13/24 by Raul Winter MD acetaminophen (Tylenol) 650 mg PO BID PRN carisoprodol (Soma) 250 mg PO BEDTIME PRN 20 days losartan 50 mg PO BID 90 days meloxicam 7.5 mg PO DAILY 30 days zolpidem 10 mg PO BEDTIME PRN 15 days HPI Comments Details: 79-year-old gentleman who was seen for management of bradycardia. He said he has had slow heart rates all his life. His average heart rate is in 40s to 50s. He has been active and exercises regularly without any functional limitations. He has no exertional shortness of breath or chest discomfort. He has no dizziness episode with exertion. Recently he had a viral illness and while he was sick he had lightheadedness when changing his posture. This has improved and he does not have any further symptoms. 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 ECG 04/2019: Sinus bradycardia with first degree AV block, HR 41/min, LAFB. He was sent for a Holter monitor. Holter monitor showed underlying rhythm of sinus bradycardia with average heart rate of 48 beats per minute. 80% time his heart rate was under 60 beats per minute. 1.2 sec pause was noticed and 770 PVCs were noticed. Patient had no symptoms. 04/10/23: Today he returns for follow-up. He has no chest discomfort shortness of breath. Continues to be active without any exertional issues. In particular no dizziness or syncope. EKG in the office is showing heart rate of 36. With just leg raises for few seconds his heart rate went to 60s. Interestingly he has right bundle-branch block on the ECG along with left anterior fascicular block. 04/13/2024: He is here for follow-up. He had 7 day Holter monitor in 03/2023. He was noted to have frequent sinus bradycardia with 77% of time heart rate below 60 beats per minute without any significant pauses. He was completely asymptomatic throughout the 7 day period. He continues to be asymptomatic. No chest pain or shortness of breath. No syncope. He has some vertigo like feeling and also had some issue with his right ear and has lost hearing in that ear. [facility] Medical History Medicare annual wellness visit, initial Hypertension Chronic neck pain Chronic back pain Bradycardia Right otitis media Surgical History History of colonoscopy S/P excision of lipoma History of shoulder surgery H/O hemicolectomy History of hernia surgery Family History Father No problems noted. Mother Colon cancer Social History Housing: House Alcohol intake: former Patient Tobacco Use Status: Never used Tobacco e-Cigarette/Vaping Use: Never Used Second Hand Smoke Exposure: No service: Yes Current occupational status: retired Cognitive needs: No Hearing needs: No Vision needs: No Review of Systems Const Denies chills, Denies fatigue, Denies fever(s), Denies frequent falls, Denies weakness, Denies weight gain and Denies weight loss ENT Denies dizziness Card Denies chest pain, Denies leg edema, Denies lightheadedness, Denies palpitations, Denies dyspnea and Denies dyspnea on exertion Resp Denies cough, Denies dyspnea and Denies dyspnea on exertion GI Denies hematochezia Musc Denies abnormal gait, Denies muscle weakness, Denies numbness, Denies radiating pain into limb and Denies tingling Neuro Denies abnormal gait, Denies dizziness, Denies frequent falls, Denies numbness, Denies tingling and Denies weakness Endo Denies fatigue and Denies palpitations Physical Exam Vital Signs: BMI result Body Mass Index 24.4 GENERAL APPEARANCE: in no acute distress, well developed, well nourished. NECK/THYROID: no carotid bruit, no jugular venous distention. SKIN: no suspicious lesions, warm and dry. HEART: no murmurs, regular rate, bradycardic. LUNGS: clear to auscultation bilaterally. ABDOMEN: normal, bowel sounds present, soft, nontender, nondistended. EXTREMITIES: no clubbing, cyanosis, or edema. PERIPHERAL PULSES: equal. NEUROLOGIC: nonfocal, alert and oriented. PSYCH: mood/affect full range. Office Procedures EKG Details: Sinus bradycardia 56 beats per minute, left anterior fascicular block, right bundle-branch block, QRS duration 160 millisecond, QTC 426 milliseconds. [id number], Complete Assessment & Plan Assessment & Plan (1) HTN (hypertension): Code(s): I10 - Essential (primary) hypertension Category: Medical Qualifiers: Hypertension type: primary hypertension Qualified Code(s): I10 - Essential (primary) hypertension (2) Sinus bradycardia: Code(s): R00.1 - Bradycardia, unspecified Category: Medical (3) Bifascicular block: Code(s): I45.2 - Bifascicular block Category: Medical Plan 79 year gentleman with chronic sinus bradycardia with bifascicular block on EKG. He has been asymptomatic. Physically active and has no exertional issues. EKGs showing right bundle-branch block and left anterior fascicular block with heart rate in 50s. He has vertigo but no lightheadedness or syncopal episode. I have discussed in detail that with bifascicular block if he has any syncopal episode or gets lightheaded or dizzy we may have to have some discussions and further workup and he may require pacemaker placement at that stage. Currently, stable and we will continue to monitor closely. He will see us back in a year. Thank you for allowing me to participate in the care of your patient. Please feel free to contact me if you have any questions. Coding Level of Care Code Est Pt Level 4 (34065) Diagnoses Primary hypertension I10 Hypertension type: primary hypertension Sinus bradycardia R00.1 Bifascicular block I45.2 CPT Codes EKG - CPT: 62258-[id number], Complete ([id number])
[2024-04-13 09:47] VITALS: BP 130/62; PULSE 56; BMI 24.4
== END 2024-04-13 10:27 | disposition home or self-care (01) ==
PROVIDERS: PCP Nurse Practitioner Family; Visit Provider Internal Medicine Cardiovascular Disease
DX: I10 Essential (primary) hypertension (principal); R00.1 Bradycardia, unspecified; I45.2 Bifascicular block
CPT/HCPCS: 93010; 99214

== ENCOUNTER → 2024-04-13 09:42 | Outpatient (BNVA) | payer MEDICARE, OTHER, SELFPAY | PROVIDERS: PCP Nurse Practitioner Family; Visit Provider Internal Medicine Cardiovascular Disease | DX: I10 Essential (primary) hypertension (principal); I45.2 Bifascicular block; R00.1 Bradycardia, unspecified; R94.31 Abnormal electrocardiogram [ECG] [EKG] | CPT/HCPCS: 93005; 99212 ==

== ENCOUNTER 2024-04-14 07:48 | Outpatient (RCR) | payer MEDICARE, OTHER, SELFPAY ==
--- NOTE | 2024-03-18 10:28 | MHC.PT.EP ---
[facility] [place] Office [place] Office [place] Office [address] [phone] F: [phone] F: [phone] F: [phone] F: [phone] Physical Therapy Plan of Care Date of Evaluation: 03/18/24 Date of Surgery: Diagnosis: gluteal tendonitis L hip Assessment: 79 y/o male referred to PT with gluteal tendinopathy L side. S/s consistent with lumbar dysfunction, gluteal tendinopathy resulting in pain and difficulty with prolonged driving, prolonged sitting, walking, stairs, and sleeping secondary to decreased lumbar/ hip AROM, decreased core/ hip strength, pain, impaired posture and impaired gait pattern. Recommend PT 2x/week for 6 weeks to address impairments, implement HEP, and optimize functional mobility Frequency and Duration: The patient will be seen 2x/week for 6 weeks Short Term Goals: 3 weeks I with HEP Pt will demonstrate SLR with no hip pain x 20 reps Rubber Cutter Goals: 6 weeks I with hEP and self management of sx Pt will be able to ambulate > 20 minutes with pain < 3/10 Pt will be able to drive > 20 minutes with pain < 3/10 Pt will improve LEFS to 64/80 (IR 54/80) Treatment Plan: Modalities to reduce pain, spasms and effusion. Manual therapy to restore motion and function. Therapeutic exercise to improve strength and flexibility. Neuromuscular re-education for posture and balance. Therapeutic activities to return to functional activities of daily living. Electronically signed by: Yoli Haynes PT Please sign and return to therapist. Thank you for your referral.
--- NOTE | 2024-06-04 10:42 | MHC.PT.DC ---
[facility] [place] Office [place] Office [place] Office [address] Mariana Aranda [address] [phone] F: [phone] F: [phone] F: [phone] F: [phone] Physical Therapy Discharge Report Diagnosis: gluteal tendonitis L hip Date of Surgery: Date of Evaluation: 03/18/24 Date of Discharge: 06/04/24 Treatments to Date: 6 Cancellations to Date: 0 No Shows to Date: 0 Discharge Status: Independent with HEP Discharge Summary: Pt appropriate for d/c to I HEP. Reviewed tendon and muscle healing performing nonaggressive stretches and finding correct amount of load to improve muscle healing and strength (should be tired by last 2 reps). Discussed which exercises most beneficial to focus on HEP. Electronically signed by: Yoli Haynes PT Please sign and return to therapist. Thank you for your referral.
== END 2024-06-04 10:42 | disposition home or self-care (01) ==
LOC: HO.PT 07:48
PROVIDERS: PCP Physician Assistant; Visit Provider Physician Assistant
DX: M76.02 Gluteal tendinitis, left hip (principal)
CPT/HCPCS: 97110; 97162; 97530

== ENCOUNTER 2024-04-14 09:23 | Outpatient (AMB) | payer MEDICARE, OTHER, SELFPAY ==
[2024-04-14 09:58] VITALS: BP 128/60; PULSE 60; O2SAT 98; BMI 24.1
--- NOTE | 2024-04-14 09:58 | MHC.PC.OV ---
Vital Signs 04/14/24 09:58 Height 5 ft 10 in Weight 168 lb BMI 24.1 BP 128/60 Blood Pressure Location Lt brachial Position Sitting Pulse 60 Pulse Source Pulse Oximeter Pulse Oximetry (%) 98 Oxygen Delivery Method Room Air Intake Visit Reasons: f/u htn Cutter Machine Tender Required: No Accompanied by: Self / Same As Patient Allergies No Known Allergies Allergy (Verified 04/14/24 10:00) Medication List - Last Reconciled 04/14/24 by Jose Peñaloza PA-C acetaminophen (Tylenol) 650 mg PO BID PRN carisoprodol (Soma) 250 mg PO BEDTIME PRN 20 days losartan 50 mg PO BID 90 days meloxicam 7.5 mg PO DAILY 30 days zolpidem 10 mg PO BEDTIME PRN 15 days Tobacco use date assessed: 10/10/23 Fall risk assessment: No Falls in past year Last assessed Fall Risk: 04/14/24 Dental Screening Dental Screen Date: 10/10/23 HPI f/u htn HPI Details Apolinar is a 79-year-old male here today for a follow-up visit.? Patient has a past medical history significant for hypertension and degenerative disc disease of the cervical spine, h/o of colon cancer. Concern--> currently in physical therapy for his left gluteal tendinitis. He feels it is helping some. Bradycardia: , has been asymptomatic, Has been undergoing testing with cardiology. Echocardiogram and Holter monitor without significant findings. Otherwise asymptomatic He did discuss the possibility of getting a pacemaker down line. .. HTN: Patient's blood pressure today in office acceptable. He reports that home blood pressures have been 120s to 130 systolic. .. History of colon cancer:? Has had a history of a colectomy and has been in remission? 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 [facility]. .. Degenerative disc disease of the spine:? He is followed by neck specialist.? Has done multiple rounds of physical therapy with decent affect.? He does use Soma on a p.r.n. basis for his pain [facility] Medical History Medicare annual wellness visit, initial Hypertension Chronic neck pain Chronic back pain Bradycardia Right otitis media Surgical History History of colonoscopy S/P excision of lipoma History of shoulder surgery H/O hemicolectomy History of hernia surgery Family History Father No problems noted. Mother Colon cancer Social History Housing: House Alcohol intake: former Patient Tobacco Use Status: Never used Tobacco e-Cigarette/Vaping Use: Never Used Second Hand Smoke Exposure: No service: Yes Current occupational status: retired Cognitive needs: No Hearing needs: No Vision needs: No Questionnaire Thrive Questionnaire Date Thrive assessed: 10/10/23 SHWETHA-7 AMB Questionnaire SHWETHA-7 Date SHWETHA - 7 assessed: 10/10/23 Source: Developed by Drs. Lee Hines, Zahra Joseph, Fitz Stephenson and colleagues, with an educational mayank from [employer]. Review of Systems Const Denies headache(s) Eyes Denies loss of vision ENT Denies vertigo, Denies dizziness, Denies headache(s) and Denies sore throat Card Denies chest pain, Denies leg edema and Denies lightheadedness Resp Denies cough, Denies hemoptysis and Denies wheezing GI Denies abdominal pain, Denies melena, Denies constipation, Denies diarrhea and Denies vomiting Denies dysuria, Denies urinary frequency and Denies urinary urgency Musc Denies arthralgias, Denies joint swelling, Denies numbness and Denies tingling Neuro Denies Abnormal speech present, Denies behavioral changes, Denies vertigo, Denies dizziness, Denies headache(s), Denies loss of vision, Denies memory loss, Denies numbness and Denies tingling Psych Denies anxiety, Denies behavioral changes, Denies depression, Denies memory loss and Denies panic attacks Loco/Lymph Denies easy bleeding and Denies easy bruising Aller/Immun Denies wheezing Physical exam (Primary Care) Vital Signs: Last Vital Signs Pulse 60 04/14/24 09:58 BP 128/60 04/14/24 09:58 Pulse Ox 98 04/14/24 09:58 Oxygen Delivery Method Room Air 04/14/24 09:58 BMI result Body Mass Index 24.1 Tobacco/Smoking Status: Tobacco use Status Tobacco use date assessed 10/10/23 04/14/24 09:59 Patient Tobacco Use Status Never used Tobacco 04/14/24 09:59 e-Cigarette/Vaping Use Never Used 04/14/24 09:59 Thrive Assessment: Date of Thrive Assessment Date Thrive assessed 10/10/23 04/14/24 09:59 Const General: healthy appearing, no acute distress, alert and awake Nutritional Appearance: well nourished Orientation/consciousness: oriented to person, oriented to place and oriented to time HENMT Ears: TM's normal bilaterally General nose exam: Normal nasal mucous membranes and turbinates present Eyes Conjunctivae: conjunctivae normal Sclerae: sclerae normal Pupils: Equal, round and reactive pupils present Neck Neck: Yes no lymphadenopathy and Yes no JVD Thyroid: Thyroid normal Carotids: no bruits Resp Effort & Inspection: normal respiratory effort and not tachypneic Auscultation: no crackles, no rales, no rhonchi and no wheezes Cardio Rate: regular rate Rhythm: regular rhythm Heart sounds: no murmurs and normal S1 and S2 GI Palpation (GI): Soft to palpation, nontender, no hepatomegaly and no splenomegaly Auscultation: normal bowel sounds Skin General skin exam: no rashes or lesions noted and dry skin Neuro General: oriented to person, oriented to place and oriented to time Cranial nerves: Yes Equal, round and reactive pupils present Speech: No Abnormal speech present Gait exam (Neuro): Normal gait present Motor exam (neuro): no tremor noted Extrem Right upper extremity: full ROM Left upper extremity: full ROM Right lower extremity: full ROM; no edema Left lower extremity: full ROM; no edema Psych Mental Status: mental status grossly normal Speech and movement: Normal speech and movement present Affect: normal affect Attitude: cooperative Thought process: Normal thought process present Coding Level of Care Code Est Pt Level 4 (59383) Diagnoses Primary hypertension I10 Hypertension type: primary hypertension Borderline high cholesterol E78.9 Primary insomnia F51.01 Insomnia type: primary Gluteal tendinitis of left buttock M76.02 Laterality: left Assessment & Plan Assessment & Plan (1) HTN (hypertension): Code(s): I10 - Essential (primary) hypertension Category: Medical Qualifiers: Hypertension type: primary hypertension Qualified Code(s): I10 - Essential (primary) hypertension Plan: Patient's blood pressure acceptable today in office. Will continue his current dose of losartan 50 mg. Goal blood pressures to be below 140/90 (2) Borderline high cholesterol: Code(s): E78.9 - Disorder of lipoprotein metabolism, unspecified Category: Medical Plan: Patient's most recent lipid panel showing borderline high cholesterol. He will continue on doing dietary modifications to reduce his cholesterol. (3) Insomnia: Code(s): G47.00 - Insomnia, unspecified Category: Medical Qualifiers: Insomnia type: primary Qualified Code(s): F51.01 - Primary insomnia Plan: Patient continues to suffer with insomnia and does use zolpidem half to a quarter tablet on an as needed basis with good effect. (4) Gluteal tendinitis: Code(s): M76.00 - Gluteal tendinitis, unspecified hip Category: Medical Qualifiers: Laterality: left Qualified Code(s): M76.02 - Gluteal tendinitis, left hip Plan: As per HPI patient currently in physical therapy for gluteal tendinitis Orders: Orders Magnesium 04/14/24 M76.02 - Gluteal tendinitis, left hip, R25.2 - Cramp and spasm Vitamin B12 and Folate 04/14/24 E53.8 - Deficiency of other specified B group vitamins, M76.02 - Gluteal tendinitis, left hip, R25.2 - Cramp and spasm Medications: Refilled zolpidem 10 mg PO BEDTIME 15 days PRN 15 tabs 0RF insomnia zolpidem 10 mg PO BEDTIME PRN 15 tabs 0RF insomnia 15 days F51.01 - Primary insomnia
== END 2024-04-14 10:19 | disposition home or self-care (01) ==
PROVIDERS: PCP Physician Assistant; Visit Provider Physician Assistant
DX: I10 Essential (primary) hypertension (principal); E78.9 Disorder of lipoprotein metabolism, unspecified; F51.01 Primary insomnia; M76.02 Gluteal tendinitis, left hip

== ENCOUNTER → 2024-04-14 09:23 | Outpatient (BNVA) | payer MEDICARE, OTHER, SELFPAY | PROVIDERS: PCP Physician Assistant; Visit Provider Physician Assistant | DX: I10 Essential (primary) hypertension (principal); E78.9 Disorder of lipoprotein metabolism, unspecified; F51.01 Primary insomnia; M76.02 Gluteal tendinitis, left hip | CPT/HCPCS: 99212 ==

== ENCOUNTER 2024-07-27 14:02 | Outpatient (RCR) | payer MEDICARE, OTHER, SELFPAY | END 2024-10-28 08:44 | disposition home or self-care (01) | LOC: HO.PT 14:02 | PROVIDERS: PCP Physician Assistant; Visit Provider Otolaryngology | DX: R42 Dizziness and giddiness (principal) | CPT/HCPCS: 95992; 97161 ==

== ENCOUNTER 2024-10-12 10:42 | Outpatient (RCR) | payer MEDICARE, OTHER, SELFPAY ==
--- NOTE | 2024-09-15 10:55 | MHC.PT.EP ---
[facility] [place] Office [place] Office [place] Office [address] Mariana Aranda [address] [phone] F: [phone] F: [phone] F: [phone] F: [phone] Physical Therapy Plan of Care Date of Evaluation: 09/15/24 Date of Surgery: N/A Diagnosis: lumbar spine pain (RL) Assessment: pt is a 79 y/o male presenting to physical therapy w/ referring diagnosis of lumbar spine pain. His signs and symptoms seem to be related to multiple LE impairments leading to dysfunction in his lumbar spine/SI area. Impairments include pain, decreased range of motion, decreased strength, impaired functional mobility, impaired postural awareness, and altered ambulation mechanics. pt is a good candidate for skilled PT due to age, potential remediation of impairments, typical disease/condition progression and prognosis, comorbidities, and motivation. pt would benefit from skilled PT intervention to provide a tailored strengthening and stretching exercise program, functional training, gait training, postural re-training, neuromuscular re-education, modalities as needed for pain, equipment safety demonstration. Frequency and Duration: The patient will be seen 2x/wk for 4 wks Short Term Goals: pt will be I w/ HEP to promote self-management of condition. pt will demo proper sitting posture w/ lumbar roll to promote neutral spine w/ seated ADLs/driving. Group Home Goals: pt will report a statistically significant improvement in self-reported outcome measure, [place], to promote return to PLOF. pt will improve B hip IR by at least 10* to promote ease in terminal stance phase during ambulation for reduced back pain w/ walking. Treatment Plan: Modalities to reduce pain, spasms and effusion. Manual therapy to restore motion and function. Therapeutic exercise to improve strength and flexibility. Neuromuscular re-education for posture and balance. Therapeutic activities to return to functional activities of daily living. Electronically signed by: Soo Blanco PT, DPT Please sign and return to therapist. Thank you for your referral.
--- NOTE | 2024-11-10 10:15 | MHC.PT.DC ---
[facility] [place] Office [place] Office [place] Office [address] Mariana Aranda 140 [facility] [phone] F: [phone] F: [phone] F: [phone] F: [phone] Physical Therapy Discharge Report Diagnosis: lumbar spine pain (RL) Date of Surgery: N/A Date of Evaluation: 09/15/24 Date of Discharge: 11/10/24 Treatments to Date: 8 Cancellations to Date: 0 No Shows to Date: 1 Discharge Status: Improved Function Independent with HEP Recommend MD Follow-up Discharge Summary: The patient overall was reporting some improvement in his back pain. He was instructed in a home exercise program focusing on hip mobility and core stability. This therapist also reviewed his personal exercise routine and made modifications for improved spine health. Some barriers to his rehab progression included dizziness with certain positions and situations. He is able to return demonstration of his HEP and is discharged from this plan of care with the recommendation to stay active within his dizziness tolerance. Electronically signed by: Soo Blanco PT, DPT Please sign and return to therapist. Thank you for your referral.
== END 2024-11-10 10:15 | disposition home or self-care (01) ==
LOC: HO.PT 10:42
PROVIDERS: PCP Physician Assistant; Visit Provider Physician Assistant
DX: M48.062 Spinal stenosis, lumbar region with neurogenic claudication (principal)
CPT/HCPCS: 97110; 97112; 97162; 97530

== ENCOUNTER 2024-10-13 09:29 | Outpatient (REF) | payer MEDICARE, OTHER, SELFPAY ==
[2024-10-13 09:52] LABS: Hematocrit 44.3 % (42.0-52.0); Hemoglobin 15.1 g/dl (14.0-18.0); Mean Corpuscular HGB Conc 34.1 g/dl (31.0-36.0); Mean Platelet Volume 9.5 fL (9.4-12.4); Platelet Count 190 X10*3/uL (160-400); Red Blood Count 5.21 X10*6/uL (4.60-5.80); White Blood Count 5.4 X10*3/uL (4.8-10.8)
--- OUTSIDE RECORDS SUMMARY | 2024-10-13 10:24 | XMS_ITS ---
Author Organization [facility] Address [address] [place] [address] Care Team Providers Care Gear Lapper Name Role Phone Jose Peñaloza Primary Care Provider Fernando Ceja Jr Unavailable [phone] Allergies No Known Allergies REASON FOR VISIT Patient presents today for a screening colonoscopy Medications Medication SIG (Take, Route, Frequency, Duration) Notes Start Date End Date Status Losartan Potassium 50 MG TAKE 1 TABLET BY MOUTH TWICE A DAY Oral for 90 Active Tylenol 8 Hour 650 MG as needed Orally every 8 hrs/prn Active Glucosamine Chondr 1500 Complx - 1 capsule Orally BID Active Multi Vitamin/Minerals - as directed Orally once a day Active B Complex - 1/2 capsule Orally once a day Active Vitamin D 1000 UNIT 1 tablet Orally Once a day Active Ambien 10 MG 1/2 tablet at bedtim e as needed Orally prn as needed/rarely use it Active Soma 350 MG 1/2tablet as needed Orally as needed as needed/rarely use it Active Electrolyte SR - as directed Orally Active Social History Alcohol Screen Question Answer Notes Did you have a drink containing alcohol in the p ast year? No Points 0 Interpretation Negative Problems Problem Type SNOMED Code ICD Code Onset Dates Problem Status W/U Status Risk Notes Problem 248628096 Gastroesophageal reflux disease, unspecified whether esophagitis present (K21.9) Active confirmed Vital Signs Temperature 97.7 degrees Fahrenheit 03/23/20 24 Blood pressure systolic 000 mm Hg 03/23/20 24 Blood pressure diastolic 00 mm Hg 024 Height 70 in 03/23/2024 Weight 173 lbs 03/23/2024 BMI 24.82 kg/m2 03/23/2024 Encounters Encounter Location Date Provider Diagnosis [facility] [address] [place] [id number] 03/23/2024 Fernando Thao Jr Gastroesophageal reflux disease, unspecified whether esophagitis present K21.9 and Colon cancer screening Z12.11 Assessments Encounter Date Diagnosis (ICD Code) Assessment Notes Treatment Notes Treatment Clinical Notes Section Notes 03/23/2024 Gastroesophageal reflux disease, unspecified whether esophagitis present (ICD-10 - K21.9) We discussed gastroesophageal reflux disease today. We discussed diet, lifestyle modifications, and weight management regarding the treatment of reflux. We will arrange upper endoscopy at the same time as colonoscopy. We discussed risks and benefits of both procedures today. He understands these and agrees to proceed. 03/23/2024 Colon cancer screening (ICD-10 - Z12.11) We discussed gastroesophageal reflux disease today. We discussed diet, lifestyle modifications, and weight management regarding the treatment of reflux. We will arrange upper endoscopy at the same time as colonoscopy. We discussed risks and benefits of both procedures today. He understands these and agrees to proceed. Plan Of Treatment Future Test Test Name Order Date UPPER GI ENDOSCOPY 03/23/2024 COLONOSCOPY 03/23/2024 Next Appt Details Follow Up: 1 Year, Reason: Progress Notes * LYDIA FERGUSON WDOB:1945 (79 yo M)Acc No.[id number]:03/23/2024 Progress Notes Patient:?LYDIA FERGUSON Provider:?Fernando Thao MD :1945???Age:79 Y???Sex:Male Frank e:03/23/2024 Address:[facility] [place], [place] Pcp:Jose Peñaloza Subjective: * Chief Complaints: * ???1. Patient presents today for a screening colonoscopy. * HPI: ???New symptom(s):? 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 He has long-standing history of gastroesophageal reflux disease with substernal burning precipitated by typical foods including spicy foods and fatty foods. Symptoms have generally been well-controlled on diet. He has no complaints of dysphagia, hematemesis, or melena. Weight and appetite have been stable. ?He also has a history of colon cancer and last underwent colonoscopy 5 years ago. He is due for followup. He has no complaints of rectal bleeding or change in his bowel habits. There is no abdominal pain. * ROS:?General/Constitutional:?Change in appetite?denies.?Fatigue?denies.?ENT:?Patient denies?difficulty swallowing.?Respiratory:?Patient denies?shortness of breath.?Cardiovascular:?Patient denies?chest pain.?Gastrointestinal:?Comments?See HPI for details.?Genitourinary:?Difficulty urinating?denies.?Incontinence?denies.?Musculoskeletal:?Patient denies?muscle aches.?Skin:?Patient denies?pruritis.?Neurologic:?Patient denies?low back pain.?Psychiatric:?Patient denies?mental or physical abuse.? * Medical History:?Colonoscopy 02/12, normal, five-year followup, Degenerative disc disease involving the neck, colon cancer, status post right colectomy 2005 chemotherapy with Xeloda, Hearing loss right ear. * Surgical History:?inguinal h ernia repair , colectomy, partial , both shoulder surgery , carpal tunnel release-left . * Family History:?Father: dece ased.?Mother: , colon cancer at age 50, diagnosed with Colon cancer.? No family history of liver cancer. * Social History:?Tobacco Use:?Tobacco Use/Smoking?Are you a: nonsmoker.?Drugs/Alcohol:?Alcohol Screen?Did you have a drink containing alcohol in the past year??No,?Points?0,?Interpretation?Negative.?Miscellaneous:?Marital status: . Occupation: retired. * Medications:?Taking Electrol yte SR - Tablet Extended Release as directed Orally , Taking Soma 350 MG Tablet 1/2tablet as needed Orally as needed, Notes: as needed/rarely use it, Taking Ambien 10 MG Tablet 1/2 tablet at bedtime as needed Orally prn, Notes: as needed/rarely use it, Taking Vitamin D 1000 UNIT Tablet 1 tablet Orally Once a day, Taking B Complex - Capsule 1/2 capsule Orally once a day, Taking Multi Vitamin/Minerals - Tablet as directed Orally once a day, Taking Glucosamine Chondr 1500 Complx - Capsule 1 capsule Orally BID, Taking Tylenol 8 Hour 650 MG Tablet Extended Release as needed Orally every 8 hrs/prn, Taking Losartan Potassium 50 MG Tablet TAKE 1 TABLET BY MOUTH TWICE A DAY Oral , Medication List reviewed and reconciled with the patient * Allergies:?N.K.D.A. Objective: * Vitals:?Wt: 173 lbs, Ht: 70 in, BMI:24.82 Index, BP: 000/00 mm Hg, Temp: 97.7. * Examination: ???General Examination: ?GENERAL APPEARANCE:?in no acute distress.?HEAD:?normocephalic.?EYES:?sclera non-icteric.?ORAL CAVITY:?mucosa moist.?NECK/THYROID:?no lymphadenopathy.?SKIN:?anicteric.?HEART:?S1, S2 normal, no murmurs.?LUNGS:?clear to auscultation bilaterally.?CHEST:?normal shape and expansion.?ABDOMEN:?soft, nontender, nondistended, bowel sounds present, no organomegaly .?EXTREMITIES:?no clubbing, cyanosis, or edema.?PSYCH:?cognitive function intact.? Assessment: * Assessment: 1.?Gastroesophageal reflux d isease, unspecified whether esophagitis present - K21.9 (Primary)?2.?Colon cancer screening - Z12.11? We discussed gastroesophagea l reflux disease today. We discussed diet, lifestyle modifications, and weight management regarding the treatment of reflux. We will arrange upper endoscopy at the same time as colonoscopy. We discussed risks and benefits of both procedures today. He understands these and agrees to proceed. Plan: * Treatment: 2.?Colon cancer screening?Procedure: COLONOSCOPY (Ordered for 03/23/2024)* Marleen Miller 03/23/2024 11:1 1:36 AM EDT >pt calling back to book, no med adjustments * Preventive Medicine:? ??Screenings:?Fall Risk Screening?Fall Risk Assessment:?No falls in the past year,?Screening:?No falls in the past year,?Assessment:?Not performed, no reason specified,?Plan of Care:?Not documented, no reason specified.? 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 He has long-standing history of gastroesophageal reflux disease with substernal burning precipitated by typical foods including spicy foods and fatty foods. Symptoms have generally been well-controlled on diet. He has no complaints of dysphagia, hematemesis, or melena. Weight and appetite have been stable. He also has a history of colon cancer and last underwent colonoscopy 5 years ago. He is due for followup. He has no complaints of rectal bleeding or change in his bowel habits. There is no abdominal pain. Examination Category Sub-Category Detail Notes Category Not es General Examination GENERAL APPEARANCE: in no acute di stress HEAD: normocephalic EYES: sclera non-icteric NECK/THYROID: no lymphadenopathy HEART: S1, S2 normal, no mu rmurs CHEST: normal shape and exp ansion LUNGS: clear to auscultatio n bilaterally ABDOMEN: soft, nontender, non distended, bowel sounds present, no organomegaly SKIN: anicteric EXTREMITIES: no clubbing, cyanosi s, or edema PSYCH: cognitive function i ntact ORAL CAVITY: mucosa moist
--- OUTSIDE RECORDS SUMMARY | 2024-10-13 10:24 | XMS_ITS | Patient Health Record ---
Author Organization [facility] Address [address] [place] [address] Care Team Providers Care International Project Manager Name Role Phone Jose Peñaloza Primary Care Provider UnavailFernando Falk Jr Unavailable Allergies No Known Allergies Reason For Referral No Information Medications Medication SIG (Take, Route, Frequency, Duration) [...] Electrolyte SR - as directed Orally Active Immunizations Vaccine Route Administration Date Status Comme nts Influenza Unknown 03/05/2018 Administered Influenza Unknown 02/25/2024 Administered Social History Alcohol Screen Question Answer Notes Did you have a drink containing alcohol in the p ast year? No Points 0 Interpretation Negative Problems Problem Type SNOMED Code ICD Code Onset Dates Problem Status W/U Status Risk Notes Problem [id number] Colon cancer screening (Z12.11) Active confirmed Problem 236252143 Gastroesophageal reflux disease, unspecified whether esophagitis present (K21.9) Active confirmed Vital Signs Temperature 97.7 degrees Fahrenheit 03/23/2024 Blood pressure diastolic 00 mm Hg 03/23/2024 Height 70 in 03/23/2024 Blood pressure systolic 000 mm Hg 03/23/2024 Weight 173 lbs 03/23/2024 BMI 24.82 kg/m2 03/23/2024 Encounters Encounter Location Date Provider Diagnosis [facility] [address] [place] [address] 03/23/2024 Fernando Thao Jr Gastroesophageal reflux disease, unspecified whether esophagitis present K21.9 and Colon cancer screening Z12.11 Assessments Encounter Date Diagnosis (ICD Code) Assessment Notes Treatment Notes Treatment Clinical Notes Section Notes 03/23/2024 Colon cancer screening (ICD-10 - Z12.11) We discussed gastroesophageal reflux disease today. We discussed diet, lifestyle modifications, and weight management regarding the treatment of reflux. We will arrange upper endoscopy at the same time as colonoscopy. We discussed risks and benefits of both procedures today. He understands these and agrees to proceed. 03/23/2024 Gastroesophageal reflux disease, unspecified whether esophagitis [...] Test Name Order Date UPPER GI ENDOSCOPY 07/08/2013 COLONOSCOPY 07/08/2013 COLONOSCOPY 11/05/2018 UPPER GI ENDOSCOPY 03/23/2024 COLONOSCOPY 03/23/2024 Insurance Providers Payer Name Payer Address Payer Phone Subscriber Number Group Number Insured Name Patient Relationship to Insured Coverage Start Date Coverage End Date [facility] [address] [address] [place] [address] [id number] LYDIA FERGUSON Self - patient is the insured [employer] [address] [place] [address] [id number] LYDIA FERGUSON Self - patient is the insured Medical (General) History Medical History History ICD Code Colonoscopy 02/12, normal, five-year foll owup degenerative disc disease involving the neck colon cancer, status post right colectom y 2004 chemotherapy with Xeloda Hearing loss right ear Surgical History Surgery Date(Month/Year) inguinal hernia repair colectomy, partial both shoulder surgery carpal tunnel release-left
--- OUTSIDE RECORDS SUMMARY | 2024-10-13 10:24 | XMS_ITS | Continuity of Care Document ---
Author Name [facility] Organization [facility] Care Team Providers Care Employee Service Officer Name Role Phone [facility] Unavailable Unavailable Problems Combined list of problems from Department of Defense and Veterans Affairs facilities. It does not include entries that were removed or entered in error. Problem Status Onset Date Problem Type Date of Resolution Comments Source Carcinoma of Colon (SCT [id number]) Active 01/30/20 05 Condition Apr 05, 2021 Entered By: RYANN AGARWAL Comment: right hemicolectomy 02-22-2005 [facility] Benign essential hypertension Active Condition [facility] Bradycardia Active Condition October 10, 2020 Entered By: TEDDY NOVA Comment: Sitting average 42-48 [facility] Cervicalgia Active Condition [facility] Degenerative arthritis Active Condition October 10, 2020 Entered By: TEDDY NOVA Comment: C-spine [facility] Hearing Loss (SCT [id number]) Active Condition [facility] Diagnosis: ICD-10-CM H91.90 Unspecified hearing loss, unspecified ear Active Diagnosis [facility] Diagnosis: ICD-10-CM H90.A31 Mix cndct/snrl hear loss,uni,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 Medication Details Route Status Patient Instructions Prescription Expires Prescription Number Last Dispense Date Ordering Provider Order Date Order Qty Source ACETAMINOPH EN TAB TAKE BY MOUTH NEEDED ORAL ACTIVE AVTARJUN STAPLES 2020 [facility] CARISOPRODO L TAB TAKE BY MOUTH ORAL ACTIVE OSHINSBKDINA Chantel 2020 [facility] GLUCOSAMINE /CHONDROITI N CAP/TAB TAKE BY MOUTH ORAL ACTIVE OSHINSKISavitaDINA Chantle 2020 [facility] LOS[place]AN 50MG TAB TAKE ONE TABLET BY MOUTH TWICE DAILY ORAL ACTIVE MARINA AGARWAL 2023 [facility] LUTEIN CAP/TAB TAKE BY MOUTH ORAL ACTIVE OSHINSKOURTNEYSavitaDINA J 2020 [facility] VITAMIN B COMPLEX CAP,ORAL TAKE BY MOUTH ORAL ACTIVE OSHINSKISavitaDINA J 2020 [facility] VITAMIN D3 (CHOLECALCI FEROL) TAB TAKE BY MOUTH ORAL ACTIVE OSMSGIOVANISavitaDINA J 2020 [facility] ZOLPIDEM TARTRATE 5MG TAB TAKE ONE TABLET BY MOUTH ONCE DAILY NEEDED ORAL ACTIVE MARINA AGARWAL 2024 [facility] Allergies, Adverse Reactions, Alerts Combined list of allergies from Department of Defense and Veterans Affairs facilities. It does not include entries that were removed or entered in error. Substance Category Reaction Severity Reaction type Status Date Reported Comments Source CATS Propensity to adverse reaction (finding) [facility] Immunizations Combined list of available immunizations from the Department of Defense and Veterans Affairs facilities. Immunization Series Date Given Administered By Site Reaction Lot Number CVX Code Drug Art Model Status Comments Source INFLUENZA, UNSPECIFIED FORMULATION 2023 88 complet ed Booster for Series, HISTORICA L INFORMATI ON - FROM OTHER PROVIDER, [facility] RESPIRATORY SYNCYTIAL VIRUS (RSV) VACCINE, UNSPECIFIED 1 2023 314 complet ed HISTORICA L INFORMATI ON - FROM OTHER PROVIDER, [facility] INFLUENZA, UNSPECIFIED FORMULATION 2022 88 complet ed Booster for Series, HISTORICA L INFORMATI ON - FROM OTHER PROVIDER, [facility] INFLUENZA, UNSPECIFIED FORMULATION 2021 88 complet ed Completed Series, HISTORICA L INFORMATI ON - FROM PATIENT'S RECALL, [facility] zoster recombinant 2021 BOGDASARIAN, () Not Given zoster recombina nt DoD ZOSTER RECOMBINANT 2 2021 187 complet ed HISTORICA L INFORMATI ON - FROM OTHER PROVIDER, [facility] zoster recombinant 2021 BOGDASARIAN, () Not Given zoster recombina nt DoD ZOSTER RECOMBINANT 1 2021 187 complet ed HISTORICA L INFORMATI ON - FROM OTHER PROVIDER, [facility] zoster recombinant 2021 BOGDASARIAN, () Not Given zoster recombina nt DoD COVID-19 (MODERNA), MRNA, LNP-S, PF, 100 MCG OR 50 MCG DOSE 3 2020 207 complet ed MOD; [id number]; 2 [facility] INFLUENZA VACCINE, QUADRIVALENT, ADJUVANTED 2020 205 complet ed [facility] COVID-19 (MODERNA), MRNA, LNP-S, PF, 100 MCG/0.5 ML DOSE 2 2020 207 complet ed MOD; [id number]; 1 [facility] Influenza vaccine, quadrivalent, adjuvanted 2019 BOGDASARIAN, () Not Given Influenza vaccine, quadrival ent, adjuvante d DoD INFLUENZA, UNSPECIFIED FORMULATION 2019 88 complet ed [facility] PNEUMOCOCCAL CONJUGATE PCV 13 2019 133 complet ed Booster for Series, HISTORICA L INFORMATI ON - FROM OTHER PROVIDER, [facility] zoster recombinant 2019 ANNY, () Not Given zoster recombina nt [facility] influenza, injectable, quadrivalent, preservative free 2018 BOGDASARIAN, () Not Given influenza , injectabl e, quadrival ent, preservat kenia free DoD TDAP 2017 115 complet ed Korem TDAP 2016 115 complet ed Booster for Series, HISTORICA L INFORMATI ON - FROM OTHER PROVIDER, [facility] Vital Signs Combined list of inpatient and outpatient Vital Signs from Department of Defense and Veterans Affairs, ranging from 12 months to all on record, depending upon the facility. Vital Sign Value Date Comments Source SYSTOLIC BLOOD PRESSURE 130 08/19/19 25 10:17:27 [facility] DIASTOLIC BLOOD PRESSURE 80 025 10:17:27 [facility] PULSE OXIMETRY 99 08/18/2024 10:17:27 [facility] WEIGHT 170 08/18/2024 10:17:27 [facility] BMI 24 kg/m2 08/18/2024 10:17:27 [facility] PAIN 5 08/18/2024 10:17:27 [facility] TEMPERATURE 98.4 08/18/2024 10:17:27 [facility] PULSE 50 08/18/2024 10:17:27 [facility] RESPIRATION 16 08/18/2024 10:17:27 [facility] Encounters Combined list of: 1) Encounters from Department of Veterans Affairs facilities going backup to the last 18 months, not all VA inpatient encounters are included; 2) Encounters from the Department of Defense facilities going backup to 280 months. Location Location Details Encounter Type Encounter Number Reason For Visit Attending Provider ADM Date DC Date Status Disposition Source [facility] Outpatient Encounter [id number] 04/22 [facility]counter [id number] 05/07 [facility]counter [id number] 05/10 [facility] [id number] 05/13 [facility]counter [id number] 05/14 [facility]counter [id number] 05/15 [facility] Out[facility] Encounter [id number] CARTER JAIMES SA, RN 05/15 [facility]counter [id number] 05/24 [facility] Out[facility]counter [id number] ALBA SWIFT ISTOPHER Barney 06/04 [facility] Encounter [id number] 06/26 [facility] HEARING AID EXAM BOTH EARS [id number] Diagnos is: ICD-10- CM H90.A31 Mix cndct/s nrl hear loss,un i,r ear w rstrcd hear cntra GERALD Murcia 08/08 [facility] OFFICE O/P EST LOW 20 MIN [id number] Diagnos is: ICD-10- CM H90.3 Sensori neural hearing loss, MARINA Domingo 08/19 [facility] Out[facility]counter [id number] 08/20 [facility] Out[facility]counter [id number] 08/20 [facility] Out[facility] Encounter [id number] 09/01 [facility] HEARING SERVICE [id number] Diagnos is: ICD-10- CM Z46.1 Encount er for fitting and adjustm ent of hearing aid GERALD ROOT 09/03 [facility] Out[facility] Encounter [id number] 09/29 [facility]counter [id number] 09/29 [facility] Out[facility] Encounter [id number] 11/03 [facility] Out[facility] Encounter [id number] 11/03 [facility] HEARING AID FITTING/CH ECKING [id number] Diagnos is: ICD-10- CM Z46.1 Encount er for fitting and adjustm ent of hearing aid SENIOR,TOREY ESTES L 12/16 [facility] Out[facility] Encounter [id number]/18 [facility] HEARING AID EXAM BOTH EARS [id number] Diagnos is: ICD-10- CM Z46.1 Encount er for fitting and adjustm ent of hearing aid YOSELIN DEE L 02/10 [facility] HEARING AID FITTING/CH ECKING [id number] Diagnos is: ICD-10- CM Z46.1 Encount er for fitting and adjustm ent of hearing aid ADI DEEL L 02/24 [facility] Out[facility] Encounter [id number] 03/27 [facility] Out[facility] Encounter [id number] SWIFT,CHR ISTOPHER E 04/13 [facility] HEARING AID REPAIR/MOD IFYING [id number] Diagnos is: ICD-10- CM H90.A31 Mix cndct/s nrl hear loss,un i,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 YOSELIN DEE L 06/30 [facility] Out[facility] Encounter [id number] 07/17 [facility] Out[facility] Encounter [id number] ALBA SWIFT ISTOPHER E 07/22 [facility] Outpatient Encounter [id number] 08/18 [facility] OFFICE O/P EST LOW 20 MIN 1. Diagnos is: ICD-10- CM H91.90 Unspeci fied hearing loss, unspeci fied ear MARINA AGARWAL 08/18 [facility] Social History Combined list of available smoking, tobacco, and other social history from Department of Defense and Veterans Affairs facilities. Social History Type Response Date Comment [facility] e Tobacco smoking status ALIS VA-TOBACCO NEVER USED 08/20/2023 [facility] History of tobacco use VA-TOBACCO NEVER USED 08/21/2022 [facility] History [facility] tobacco use VA-TOBACCO NEVER USED 11/09/2021 [facility] History of tobacco use VA-TOBACCO NEVER USED 10/10/2020 [facility] This section is an empty social history section. DoD
--- OUTSIDE RECORDS SUMMARY | 2024-10-13 10:24 | XMS_ITS ---
Author Name [facility] Address [address] [place] [address] Care Team Providers Care Sock Examiner Name Role Phone MARINA AGARWAL Primary Care Provider Unavail able Insurance Providers: All historical and current Section Date Range: From patient's date of to the date document was created. This section includes the names of all active insurance providers for the patient. Insurance Provider Type of Coverage Plan Name Start of Policy Coverage End of Policy Coverage Group Number Member ID Insurance Provider's Telephone Number Policy Escobar's Name Patient's Relationship to Policy Escobar FOR LIFE TFL* Jan 14, 2016 [id number] PATIENT [facility] MEDICARE ADVANTAGE [facility] ([facility]) May 27, 2020 [id number] [address] PATIENT Selected Encounter This section includes the information on record at [facility] for the Encounter. 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 This section includes future appointments and future orders which are active, pending or scheduled. Future Appointments This section includes appointments that were scheduled to occur 6 months from the date of the Encounter, up to a maximum of 20 appointments. The data comes from all [facility] treatment facilities. Appointment Date/Time Appointment Type Appointme nt Facility Name Aug 18, 2024 10:30 AM AMBULATORY - MEDICINE [facility] [facility] Social History: Smoking Status (Most current) and Tobacco Use (All prior to encounter date) This section includes the most current, and the historical, smoking and tobacco- related health factors from the VA facility where the Encounter took place. Current Smoking Status This section includes the most current smoking, or tobacco-related health factor, from the VA facility where the Encounter took place. Date/Time Current Smoking Status Comment Willard ity Aug 20, 2023 10:30 AM VA-TOBACCO NEVER USED [facility] [place] [facility] Tobacco Use History This section includes a history of the smoking, or tobacco-related health factors, that were collected on or before the date of the Encounter. The data comes from the [facility] facility where the Encounter took place. Date/Time Smoking Status/Tobacco Use Comment F acility Aug 21, 2022 10:30 AM VA-TOBACCO NEVER USED [facility] [facility] Nov 09, 2021 09:43 AM VA-TOBACCO NEVER USED [facility] October 10, 2020 10:57 AM VA-TOBACCO NEVER USED [facility] [place] [facility] Encounter Notes: All associated encounter notes This section contains the clinical notes associated to the Encounter. Date/Time Encounter Note(s) Provider Source Jun 30, 2024 04:14 PM AUDIOLOGY E & M NO TE: LOCAL TITLE: AUDIOLOGY CLINIC STANDARD TITLE: AUDIOLOGY E & M NOTE DATE OF NOTE: JUN 30, 2024@16:14 ENTRY DATE: JUN 30, 2024@16:14:37 AUTHOR: MAYRA DEE EXP COSIGNER: URGENCY: STATUS: COMPLETED was seen June 30, 2024 for updated test. He reports he schedule it as his VSO told him to get one for compensation and pension purposes and he feels left ear may have decreased. He is advised that today's testing is not for benefits examination. Medical history includes: Active problems - Computerized Problem List is the source for the followin. Hearing Loss ([facility] [id number]) 2. Carcinoma of Colon ([facility] [id number]) 3. Bradycardia 4. Benign essential hypertension 5. Cervicalgia 6. Degenerative arthritis Last testing was August 09, 2023. wears 2023 BICROS system. continues to experience tinnitus and denies vertigo. Results of today's testing are as follow: Otoscopy was WNL bilaterally. Pure tone audiometric testing under headphones revealed STABLE hearing sensitivity compared to July 2023 testing. 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 Left ear: Normal hearing 250-3000 Hz with a mild to severe sensorineural hearing loss 0606-8188 Hz. Word recognition scores were excellent left ear (96%) and very poor right ear (4%) with recorded speech presented at 60 and 95 dB HL to the left and right ears, respectively (contralateral masking). Normal tympanograms obtained for both ears. 's right CROS transmitter was missing a dome. This was replaced. counseled on today's test results. Hearing is stable compared to previous testing and aid/CROS are appropriate for type/degree of loss. Re- evaluation is recommended in 1-2 years or sooner with any changes/concerns. /raya/ MAYRA Hilton, CCC-A CHIEF, AUDIOLOGY/CIRCULATOR Signed: 07/01/2024 11:40 MAYRA DEE [facility] [facility]
--- OUTSIDE RECORDS SUMMARY | 2024-10-13 10:24 | XMS_ITS | Data Portability ---
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 [email or web address] Not available 07/15/2024 13:39:27 Plan of Treatment Reminders Order Date Submit Date Provider Last Modified By Organization Details Last Modified Time Details Appointments RECHECK 15 2024 09:30A M Jairo Hdez MD Not available Not available Not available Lab None recorded. Referral physical therapist referral - Evaluate & RxLumbar Stabiliza tion Program 2024 025 [email or web address] Not available 09/08/2024 13:18:15 physical therapist referral - Evaluate & RxLumbar Stabiliza tion Program 2023 024 [email or web address] 4 Not available 03/17/2024 12:19:20 Procedures None recorded. Surgeries None recorded. Imaging XR, lumbar spine, 2 view - rm 325 4v lspine 2023 024 [email or web address] 4 [facility] Office, [address], [facility] [address], [place], [address], 03/17/2024 12:19:20 MRI, lumbar spine, w/o contrast - MRI LSPINE W/O CONTRAST EVAL FOR NUMBNESS AND TINGLING 2023 024 [facility] ([facility] [address], [place], [address], 03/31/2024 14:28:51 XR, foot, 3 or more view - RIGHT FOOT /ANKLE 5V WB , ROOM 102 . NEW PATIENT 2023 024 [facility], [address], [address], [place], [address], 02/07/2024 16:18:07 XR, ankle, 2 view 2023 024 [facility], [address], [address], [place], [address], 02/07/2024 16:18:07 Medication Orders Ambien 10 mg tablet 2024 025 [email or web address] [facility][id number], [address] [place], [address], 09/09/2024 09:17:00 Celebrex 100 mg capsule 2023 024 [email or web address] 4 [facility]1230, [address] [place], [address], 03/17/2024 12:19:20 Patient TargetsNo targets recorded. Patient InstructionsNo instructions recorded. Reason for Referral Physical Therapist Referral for Lumbar radiculopathy Evaluate & RxLumbar Stabilization Program Referring Physician: Jairo Hdez, Orthopedic Surgery, [id number] Encounter Date: 03/17/2024 Physical Therapist Referral for Spinal stenosis of lumbar region Evaluate & RxLumbar Stabilization Program Referring Physician: Jairo Hdez, Orthopedic Surgery, Encounter Date: 09/08/2024 Results Created Date Observation Date Name Description Value Unit Range Abnormal Flag Note LastModifiedBy Organization Detail LastModifiedTime 01/25/20 24 03/07/2022 imagi ng/di agnos tic resul t No observ ation record ed. [email or web address] Not Available 12/27 01:59:21 01/25/20 24 03/07/2022 imagi ng/di agnos tic resul t No observ ation record ed. [email or web address] Not Available 12/27 01:59:22 02/07/20 24 02/07/2024 XR, foot, 3 or more view [email or web address]:/ [email or web address] ?Encry pted=s hAaTro YD8dLq bEUv6g %2BXZw aYqtaq 0bqfl% 2Fg9IQ a4ajBk vP9nXo QUaueC m3YtLR Fv[facility]8[place] HZtai3 7i5864 AC0Kqa n6NVaq mKiQtr MwF INTERFACE [facility] [address], [place], [address], 02/07/2024 09:58:48 02/07/20 24 02/07/2024 XR, foot, 3 or more view [email or web address]:/ [email or web address] ?Encry pted=s hAaTro YD8dLq bEUv6g %2BXZw aYqtaq 0bqfl% 2Fg9IQ a4ajBk vP9nXo QUaueC m3YtLR FvZl06 [address] Streettai3 2a2986 AC0Kqa n6NVaq mKiQtr MwF INTERFACE [facility] [address], [place], [address], 02/07/2024 09:58:50 02/07/20 24 02/07/2024 XR, ankle , 2 view [email or web address]:/ [email or web address] ?Encry pted=s hAaTro YD8dLq bEUv6g %2BXZw aYqtaq 0bqfl% 2Fg9IQ a4ajBk vP9nXo QUaueC m3YtLR FvZlgJ JJ8[place] HZtai3 0s1830 AC0Kqa n6NVaq nKiQtr MwF INTERFACE [facility] [address], [place], [address], 02/07/2024 10:01:47 02/07/20 24 02/07/2024 XR, ankle , 2 view [email or web address]:/ [email or web address] ?Encry pted=s hAaTro YD8dLq bEUv6g %2BXZw aYqtaq 0bqfl% 2Fg9IQ a4ajBk vP9nXo QUaueC m3YtLR FvZlJ [address] 4a7125 AC0Kqa n6NVaq nKiQtr MwF INTERFACE [facility] [address], [place], [address], 02/07/2024 10:01:50 03/17/20 24 03/17/2024 XR, lumba r spine , 2 view [email or web address]:/ [email or web address] ?Encry pted=s hAaTro YD8dLq bEUv6g %2BXZw aYqtaq 0bqfl% 2Fg9IQ a4ajBk vP9nXo QUaueC m3YtLR FvZl06 [address]tai[address] 2c5363 AC0Kqa 3SGVqG mKiQtr MwF INTERFACE [facility] [address], [place], [address], 03/17/2024 09:01:42 03/17/20 24 03/17/2024 XR, lumba r spine , 2 view [email or web address]:/ [email or web address] ?Encry pted=s hAaTro YD8dLq bEUv6g %2BXZw aYqtaq 0bqfl% 2Fg9IQ a4ajBk vP9nXo QUaueC m3YtLR FvZlgJ JJ8mAn HZtai3 2r7621 AC0Kqa 3SGVqG mKiQtr MwF INTERFACE [facility] [address], [place], [address], 03/17/2024 09:01:44 03/19/2003/19/2024 MRI, lumba r spine , w/o contr ast No observ ation record ed. BARCODE Not Available 2023 08:54:56 03/31/2003/30/2024 MRI, lumba r spine , w/o contr ast [facility] Access ion Number : [id number] Patien t Name: Shantanu Phillips Record Number : [id number] Date of : 1944 Date of Exam: 2023 Referr ing Physic michael: Jairo Horn [address] [facility], [facility] [address] Exam: MR Lumbar Spine (C-) CPT 77508 Room Descri ption: [facility] Verio 3.0T HISTOR Y: Numbne ss and tingli ng. Back pain. TECHNI QUE: Multip lanar multis equenc e MRI of the lumbar spine withou t contra st. COMPAR JOSE MIGUEL: No prior studie s are availa ble for compar jose miguel at [facility] . FINDIN GS: A mild leftwa rd curvat ure of the lumbar spine is presen t. There is mild degene rative bety listhe sis of L2 on L3, L3 on L4, and L4 on L5. The lumbar verteb ral bodies are normal in height . Congen ital narrow ing of the spinal canal due to shorte sara pedicl es. The L3-L4 and L5-S1 discs are modera te-sev erely dimini shed in height . Mild loss of height of L1-L2 and modera te loss of height of L2-L3. Mild right and modera te loss of height of L4-L5. Margin al osteop hytes, facet arthro ses, and vacuum disc phenom enon are presen t at multip le levels . Modic type I endpla te change at L1-L2, L2-L3, and L3-L4. The visual ized lower thorac ic cord is normal in signal . No acute parasp inal or retrop eriton eal abnorm ality. At T11-T1 2, there is a right wrapper and preserver ior disc protru johnnie on the sagitt al images with mild centra l canal narrow ing. Left facet arthro sis with mild left forami nal narrow ing. At T12-L1 , there is a broad wrapper and preserver ior disc protru johnnie on the sagitt al images with mild centra l canal narrow ing. L1-L2: Concen tric disc-o steoph yte comple x asymme tric to the left wrapper and preserver iorly. Mild left centra l canal and subart icular recess narrow ing. Crowdi ng of the left L2 nerve roots withou t incide nt. Minima l right and mild left forami nal narrow ing. L2-L3: Concen tric disc-o steoph yte comple x, facet arthro sis, and ligame ntum flavum infold ing. Modera te centra l canal narrow ing. Crowdi ng of the L3 nerve roots withou t defini te imping ement. Mild-m oderat e forami nal narrow ing. Mild crowdi ng of the exitin g right L2 nerve roots. L3-L4: Concen tric disc-o steoph yte comple x, facet arthro sis, and ligame ntum flavum infold ing. Modera te centra l canal stenos is with a trefoi l config uratio n of the thecal sac. Subart icular recess narrow ing with crowdi ng of the right L4 nerve roots. Modera te right and mild left forami nal narrow ing. L4-L5: Concen tric disc-o steoph yte comple x. Facet arthro sis. Mild-m oderat e centra l canal narrow ing. Trefoi l config uratio n the thecal sac withou t denisse sing nerve root imping ement. Mild forami nal narrow ing. L5-S1: Concen tric disc-o steoph yte comple x asymme tric to the left wrapper and preserver iorly with a superi mposed left wrapper and preserver ior disc protru johnnie. Mild left centra l canal narrow ing with crowdi ng of the left S1 nerve roots, which are slight ly displa patsy wrapper and preserver iorly. No right and mild-m oderat e left forami nal narrow ing with crowdi ng of the left extra forami nal L5 nerve roots. IMPRES JOHNNIE: Degene rative change s of the lumbar spine with multil evel centra l canal and forami nal narrow ing as detail ed above. These findin gs can be correl ated with the patien t's sympto ms and neurol ogical examin ation. Electr onical ly Signed By: Clifford Goodwin MD [facility] ([facility]) [address], [place], [address], 04/15/2024 11:16:59 04/07/20 24 03/30/2024 MRI, lumba r spine , w/o contr ast No observ ation record ed. [facility] ([facility]) [address], [place], [place], [address], 04/15/2024 11:15:15 06/02/19 25 06/02/2024 MRI, pelvi s, w/o contr ast No observ ation record ed. [email or web address] Not Available 2024 11:17:22 06/11/19 25 06/11/2024 XR, hip + pelvi s, unila teral , 2 or 3 view No observ ation record ed. [email or web address] Not Available 2024 14:22:40 Result Notes None recorded. Problems Name Problem SNOMED Code Status Onset Date Resolution Date Notes Provider Name and Address Organization Details Recorded Time Lumbar radiculop athy 443501288 Active 2023 Jairo Hdez MD [address], [place], [address] , [facility] 4 09:53:54 Pain of sacroilia c joint 152978519 Active 2023 Jairo Hdez MD [address], [place], [address] , [facility] 4 09:53:54 Lumbar spondylos is 429858504 Active 2023 Jairo Hdez MD [address], [place], [address] , [facility] 4 09:53:56 Disorder of tendon 68210108 Active 2023 Jairo Hdez MD [address], [place], [address] , [facility] 4 09:56:33 Strain of tendon of muscle of hip 079924975 Active 2023 Jairo Hdez MD [address], [place], [address] , [facility] 4 12:41:49 Lumbar spondylol isthesis 807943471735 102 Active 2023 Jairo Hdez MD [address], [place], [address] , [facility] 4 12:41:51 Spinal stenosis of lumbar region 30442727 Active 2023 Jairo Hdez MD [address], [place], [address] , [facility] 4 12:41:52 Hamstring injury 513658014 Active 2024 Jairo Hdez MD [address], [place], [address] , [facility] 5 09:30:49 Strain of muscle of hip 593614031 Active 2024 Jairo Hdez MD [address], [place], [address] , [facility] 5 09:31:08 Greater trochante connor pain syndrome 3953777 Active 2024 Jairo Hdez MD [address], [place], [address] , [facility] 5 09:31:21 Insomnia 214687358 Active 2024 Jairo Hdez MD [address], [place], [address] , [facility] 5 09:31:27 Acquired trigger finger of left little finger 424925443411 100 Active 2014 Problem Code: M65.352; Problem Code Type: ICD-10; Status: 'A'; Not Available [facility] 4 11:57:45 Problem Notes None recorded. Procedures Surgical History Date Name Laterality Status Provider Name and Address Organization Details Recorded Time 5 JZHip completed José Manuel Luz PA-C [address], [place], [address], [facility] 07/15/2024 13:39:21 4 Sports Knee 4&1 completed Clarke Hernandez PA-C [address], [place], [address], [facility] 12/26/2023 11:18:00 8 Shoulder Surgery completed [facility] 03/17/2024 08:53:37 6 Other completed [facility] 03/17/2024 08:53:37 1 Shoulder Surgery completed [facility] 03/17/2024 08:53:37 1 Other completed [facility] 03/17/2024 08:53:37 Imaging Results Imaging Date Name Status LastModified by Organiz ation Details LastModified Time 03/07/2022 imaging/diagn ostic result completed Information not available 01/25/2024 01:59:21 03/07/2022 imaging/diagn ostic result completed Information not available 01/25/2024 01:59:22 02/07/2024 XR, foot, 3 or more view completed [facility] [address], [place], [address], 02/07/2024 09:58:48 02/07/2024 XR, foot, 3 or more view completed [facility] [address], [place], [address], 02/07/2024 09:58:50 02/07/2024 XR, ankle, 2 view completed [facility] [address], [place], [address], 02/07/2024 10:01:47 02/07/2024 XR, ankle, 2 view completed [facility] [address], [place], [address], 02/07/2024 10:01:50 03/17/2024 XR, lumbar spine, 2 view completed [facility] [address], [place], [address], 03/17/2024 09:01:42 03/17/2024 XR, lumbar spine, 2 view completed [facility] [address], [place], [address], 03/17/2024 09:01:44 03/19/2024 MRI, lumbar spine, w/o contrast completed [facility] Information not available 03/19/2024 08:54:56 03/30/2024 MRI, lumbar spine, w/o contrast completed [facility] [address], [place], [address], 04/15/2024 11:16:59 03/30/2024 MRI, lumbar spine, w/o contrast completed [facility] [address], [place], [address], 04/15/2024 11:15:15 06/02/2024 MRI, pelvis, w/o contrast completed Information not available 06/02/2024 11:17:22 06/11/2024 XR, hip + pelvis, unilateral, 2 or 3 view completed Information not available 06/11/2024 14:22:40 Procedure Notes None recorded. Medical Equipment None Reported. Allergies No known drug allergies Medications Name Sig Start Date Stop Date Status Note LastModified by Organization Details LastModified Time losartan 50 mg tablet TAKE 1 TABLET BY MOUTH TWICE A DAY active Not Available Not Available No t Available prednisone 5 mg tablet PLEASE SEE ATTACHED FOR DETAILED DIRECTION S 03/15 completed Not Available Not Available Not Available triamcinolo ne acetonide 0.1 % topical cream PLEASE SEE ATTACHED FOR DETAILED DIRECTION S active Not Available Not Available No t Available meloxicam 7.5 mg tablet TAKE 1 TABLET BY MOUTH DAILY FOR 30 DAYS 09/02 completed Not Available Not Available Not Available doxycycline monohydrate 100 mg capsule TAKE 2 CAPSULES BY MOUTH ONCE 03/15 completed Not Available Not Available Not Available pseudoephed rine-guaife nesin ER 80-700 mg tablet,exte nded release 1-2 Q 4-[address] WHILE ON THIS MEDICATIO N 12/20 completed Statu s: 'Curr ent'; Not Available Not Available Not Available fluocinonid e 0.05 % topical solution APPLY TO SCALP TWICE A DAY NEEDED ITCH/RASH active Not Available Not Available No t Available celecoxib 100 mg capsule TAKE 1 CAPSULE BY MOUTH TWICE A DAY FOR 30 DAYS 09/02 completed Not Available Not Available Not Available Ambien 10 mg tablet Take 10 mg as needed by oral route at bedtime for 21 days. 2024 active Not Available Not Available Not Avai lable Soma active Not Available Not Availa ble Not Available carisoprodo l 250 mg tablet TAKE 1 TABLET BY MOUTH AT BEDTIME NEEDED FOR MUSCLE PAIN 09/08 completed Not Available Not Available Not Available oxycodone HCl-oxycodo ne-ASA 1 tab po qid prn painDO NOT DRIVE WHILE ON THIS MEDICATIO N 12/20 completed Statu s: 'Curr ent'; Not Available Not Available Not Available Vitals Date Recorded Body height Body mass index (BMI) Body weight Provider Name and Address Organization Details Last Updated DateTime 02/07/2024 177.8 cm 25.8 kg/m2 41889.63 g Kassandra Rees [facility] 02/07/2024 09:50:57 Date Recorded Body height Body mass index (BMI) Body weight Provider Name and Address Organization Details Last Updated DateTime 03/17/2024 177.8 cm 25.8 kg/m2 73185.63 g [facility] 03/17/2024 08:53:44 Date Recorded Body height Body mass index (BMI) Body weight Provider Name and Address Organization Details Last Updated DateTime 05/12/2024 177.8 cm 25.8 kg/m2 89233.63 g Gigi ko [facility] 05/12/2024 08:49:13 Date Recorded Body height Body mass index (BMI) Body weight Provider Name and Address Organization Details Last Updated DateTime 07/15/2024 177.8 cm 25.8 kg/m2 82721.63 g Brandon Pablo [facility] 07/15/2024 10:16:18 Date Recorded Body height Body mass index (BMI) Body weight Provider Name and Address Organization Details Last Updated DateTime 09/08/2024 177.8 cm 25.8 kg/m2 85739.63 g [facility] 09/08/2024 09:03:56 Social History Question Answer Notes LastModified by [employer] Details LastModified Time What Is Your Relationship Status? [email or web address] Information not available 03/17/2024 How Many Years Have You Smoked Tobacco? 0 [email or web address] Information not available 03/17/2024 Sex: Unknown Functional Status Question Answer Note LastModified by [employer] Details LastModified Time How many times per week do you consume alcohol? Less than 1 time per week [email or web address] Information not available 03/17/2024 Do you use any illicit or recreational drugs? No [email or web address] Information not available 03/17/2024 Do you or have you ever used any other forms of tobacco or nicotine? No [email or web address] Information not available 03/17/2024 Mental Status None recorded. Family History Nothing Reported. Medical History Condition Response Allergies/Hayfever N Coronary Artery Disease N Anxiety/Depression N Breathing or lung disorders N Emphysema N Nerve Disorders N Thyroid Problems N COPD N Pacemaker N Anemia N Kidney/Bladder Problems N Vascular Disease N Heart Trouble N Heart Attack (OR) N Gastrointestinal Disease N Cholesterol N Diabetes N Autoimmune disease N Bleeding Disorder N Orthotics N Arthritis N Seizures/Epilepsy N Blood Clot N AIDS/HIV N Congestive Heart Failure (CHF) N Acid Reflux (GERD) N Cancer N Stroke N Asthma N Circulation Problems N Peripheral Vascular Disease N Sleep Apnea N Hepatitis N Heart Disease N Rheumatoid Arthritis N Arrhythmia N Pulmonary Embolism N Headaches N Fibromyalgia N Hypertension Y Osteoporosis N Past Encounters Encounter ID Performer Location Encounter Start Date Encounter Closed Date Diagnosis/Indication Diagnosis SNOMED-CT Code Diagnosis ICD10 Code Diagnosis Note [id number] [facility] [address] [place] [address] 12/26/2023 09:11:04 01/20/2024 14:11:11 Pain of right knee joint 5714756573 48087 M25.561 Pes anseri nus bursitis of right knee 7546893605 612730 M70.51 You have been provided with a cortisone injection in order to reduce the pain and inflammati on that you are experienci ng. The injection consists of two medication s. Cortisone (an anti-infla mmatory that will take 48-72 hours to take effect) and Lidocaine (a numbing agent that will last 2-3 hours). Please note that not everyone will have a lasting response following the injection. PATIENT INSTRUCTIO NSOnce the Lidocaine wears off, you may have an increase in your pain. I recommend icing the affected area for 20 minutes 3-4 times per day.It is recommende d that you refrain from any high level activities using the joint or limb that was injected for approximat carlos 24-48 hours. Normal day-to-day activities are generally not a problem.PO SSIBLE SIDE EFFECTSInd ividuals with dark complexion s may experience some skin discolorat ion locally at the site of the injection. There is the possibilit y of an increase in discomfort within 48 hours following the injection. This is called a ? f lare? . To help minimize the chances of this, please see the post-injec tion instructio ns above.Ther e is a less than 1% chance of an infection. If you notice any signs of infection (redness, warmth, drainage, fever greater than 100 degrees) please call our office or contact us through the portal [facility]. [id number] MD [facility] [address] [place] [address] 02/07/2024 09:42:55 02/28/2024 13:54:43 Pain in right foot 2725265419 80452 M79.006 [id number] Jairo Hdez MD [place] [address] [place] [address] 03/17/2024 08:31:41 04/01/2024 18:03:41 Lumbar radiculopathy 826269562 M54.16 Pain of sa croiliac joint 344560716 M53.3 Lumbar spondylosis 46553 0009 M47.816 Disorder of tendon 13611 002 M67.764 [id number] Jairo Hdez MD [place] [address] [place] [address] 05/12/2024 08:15:28 06/06/2024 09:02:54 Spinal stenosis of lumbar region 46133713 M48.062 Lumbar spondylolisthesis 9028197685 52202 M43.16 Lumbar spondylosis 35897 0009 M47.816 Strain of tendon of muscle of hip 774890318 S76.019A [id number] [facility] [address] [place] [address] 07/15/2024 10:07:49 07/31/2024 09:32:54 Pain of sacroiliac joint 180491829 M53.3 [id number] Jairo Hdez MD [facility] [place] [address] [place] [address] 09/08/2024 08:53:01 09/23/2024 09:12:13 Spinal stenosis of lumbar region 14005733 M48.062 Insomnia 708722161 G47.0 0 Hamstring injury 1602465 09 M76.899 Strain of muscle of hip 816792748 S76.011A ?DIAG NOSES:1. Lumbar spinal stenosis with spondylosi s2. Left proximal hamstring tendinopat hy - status post injection with mild improvemen t3. Left greater trochanter ic bursitis4. Left IT band syndrome5. Right adductor strain6. Insomnia PLAN:1. New prescripti on for physical therapy to address multiple musculoske letal conditions . We discussed home exercises to include stretching and foam rolling until he can begin physical therapy.2. Continue acetaminop hen and Celebrex as needed3. Activities as tolerated4 . Prescripti on for Ambien provided until PCP follow-up5 . Follow-up appointmen t in 3 months after completion of physical therapy ICD-10: M48.06 - Spinal stenosis, lumbar regionICD- 10: M70.72 - Other bursitis of hip, left hipICD-10: M76.32 - Iliotibial band syndrome, left legICD-10: M76.02 - Gluteal tendinitis , left hipICD-10: M62.451 - Muscle wasting and atrophy, right thighICD-1 0: G47.00 - Insomnia, unspecifie d Greater tr ochanteric pain syndrome 7604035 M70.62 Health Concerns Section Related Observation LastModified by Organization Detai ls LastModified Time None Recorded Concern Status LastModified by Organization Details LastModified Time None Recorded Advance Directives Directive None Recorded Payers Encounter Date Sequence Insurance Name Policy Number Policy Escobar Covered Member ID Escobar Member ID Guarantor Name 02/07/2024 1 [facility] (MEDICARE REPLACEMENT/ ADVANTAGE - PPO) [id number] Shantanu Vivian Phillips [id number] Shantanu Phillips 02/07/2024 2 [employer] (MEDICARE SUPPLEMENT) Shantanu Phillips [id number] Shantanu Phillips 03/17/2024 1 [facility] (MEDICARE REPLACEMENT/ ADVANTAGE - PPO) [id number] Shantanu Phillips [id number] Shantanu Phillips 03/17/2024 2 [employer] (MEDICARE SUPPLEMENT) Shantanu Phillips [id number] Shantanu Phillips 05/12/2024 1 [facility] (MEDICARE REPLACEMENT/ ADVANTAGE - PPO) [id number] Shantanu Phillips [id number] Shantanu Phillips 05/12/2024 2 [facility] (MEDICARE SUPPLEMENT) Shantanu Phillips [id number] Shantanu Phillips 07/15/2024 1 [facility] (MEDICARE REPLACEMENT/ ADVANTAGE - PPO) [id number] Shantanu Phillips [id number] Shantanu Phillips 07/15/2024 2 [facility] (MEDICARE SUPPLEMENT) Shantanu Phillips [id number] Shantanu Phillips 09/08/2024 1 [facility] (MEDICARE REPLACEMENT/ ADVANTAGE - PPO) [id number] Shantanu Phillips [id number] Shantanu Phillips 09/08/2024 2 [facility] (MEDICARE SUPPLEMENT) Shantanu Phillips [id number] Shantanu Phillips Notes Date Note Type Note Provider Name and Address Organization Details Recorded Time 4 text/html Chief complaint: Right leg pain, lower back pain History of present illness: The patient is a very pleasant 78-year-old gentleman, 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 He does a remote history of a fairly significant sprain in the [employer] many years ago. He reports he was on crutches for about 3 months. He has done relatively well with regard to his right foot pain until this past year. Patient denies any pain in the foot when ambulating. He spent symptoms primarily occur at nighttime. He develops pain on the lateral part of the foot that seems to radiate up the leg into the buttock. He describes severe pain and spasms throughout the leg. He needs to get up and walk to make it resolved and often needs to take a warm shower. He does not have the symptoms with activity. 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 He does bring with him an x-ray report today which I have been able to review although I cannot access the images. These were obtained at [facility]. Report makes note of lumbar spine disease but also specifically mentions sclerotic lesions throughout the pelvis with concern for possible bony metastasis of a sclerosing neoplasm such as prostate cancer. A nuclear bone scan has been recommended. He reports he is following up at [facility] for this and believes the bone scan has been scheduled. He has not yet seen anyone to evaluate his lumbar spine. Again he specifically denies any pain in the foot when ambulating. Patient's past medical, surgical, social history is as noted on the intake sheet. I have reviewed this sheet and discussed contents with the patient. There are no changes Physical exam: Patient in no acute distress, alert and oriented. Mood and affect appropriate On standing examination there is symmetric physiologic valgus of the hindfoot bilaterally with neutral forefoot position Bilaterally there is painless passive range of motion of the ankle, subtalar, and transverse tarsal jointsThere is some talonavicular joint stiffness noted in the right foot but no pain with passive range of motion Focused examination right lower extremity there is no swelling, erythema, ecchymoses There is a prominent medial navicular tuberosity, mildly tender to touch. Most consistent with accessory navicular There is no tenderness at the tarsometatarsal joints No tenderness over the Achilles insertion no tenderness along the peroneal tendons On motor exam he has 5 out of 5 strength dorsiflexion, plantarflexion, inversion, eversion Sensation is intact to light touch in all distributions throughout the foot and ankle Toes are warm and well-perfused with palpable DP and PT pulses Imaging: AP, lateral, oblique weightbearing imaging of the right ankle was obtained today in office. AP and oblique weightbearing imaging of the right ankle demonstrates no evidence of acute fracture or degenerative change. Tibiotalar mortise is symmetric with no talar tilt or shift. There is some calcification noted in the syndesmotic region which could represent sequela of prior injury. 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 Tarsometatarsal joints are in anatomic alignment. No significant forefoot midfoot or hindfoot deformity is noted. Impression: ? Right leg pain of unclear etiology; suspect neurogenic possibly related to lumbar spine disease Plan: ? I reviewed today's physical examination and imaging findings with the patient. I am confident the source of his pain is not his right ankle or his foot. His x-ray report from [facility] is highly concerning and I have encouraged him to follow-up and get his bone scan. ? I would like to have him evaluated by our spine team. I suspect he has fairly significant degenerative change in the lumbar spine. However, there is possibility of lumbar spine metastasis or lesion, based on his history and the wording of the x-ray report. Again I am not able to review the images ? He will follow-up with the foot and ankle team as needed moving forward Thalia Demarco MD [address] [place] [address] [address], [place], [address], [facility] 02/07/2024 17:46:40 4 text/html Lumbar Spine Evaluation for 79-year-old Male with Back Pain and Leg Spasms Subjective:Mr. Phillips is a 79-year-old male presenting for lumbar spine evaluation. 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 The patient states that while his neck is stable, he has experienced recent changes in his back symptoms. In March, he began experiencing nocturnal leg spasms, which he had not experienced before. He also reports new onset of throbbing pain in the sacroiliac (SI) joint area bilaterally, more pronounced on the right side, which has been present for the last 2-3 months. The patient describes difficulty sitting comfortably, especially in the car, due to pain in the buttock region.The patient also mentions a history of foot impingement from an ankle injury during his [employer] service, as well as some knee pain.Regarding treatment, the patient reports using Soma occasionally at night and taking Tylenol for pain management. He has not engaged in physical therapy recently.The patient denies any allergies and states that ibuprofen has worked well for him in the past, though he's been advised it may not be the best option. He reports having a high pain threshold, with his current pain levels rarely exceeding 5/10 and not completely incapacitating him. Denies bowel/bladder incontinence and saddle anesthesia.?PFMSH and ROS has been reviewed, updated, and is located in the patient? s chart. PHYSICAL EXAM:Respiration Rate 14-16Height and Weight per aboveNormal Development without evidence of gross deformitiesOriented to person/place/timeNormal mood and affectNo swelling in bilateral lower extremitiesNormal heel toe gaitHead and Neck: Neck was supple without evidence of defects. No atrophy of the neck was visualized. Spine:Examination of the spine demonstrated no crepitation with palpation of the spinous process.The patient was able to bend at the waist to 50 degrees. No instability of the spine was demonstrated on physical exam. The spine had good strength and tone.No scars noted. No skin or hair changes?Right Lower Extremity:No defects or tenderness. No pain with internal rotation and external rotation of the hip.Negative tenderness over the greater trochanteric bursa.Negative straight leg raise.No evidence of hip subluxation or impingement.Negative FELIPE.Strength Exam:5/5 hip flexion5/5 knee extension5/5 ankle dorsiflexion5/5 Extensor Hallucis Longus5/5 plantar flexion?Left Lower Extremity:No defects or tenderness. No pain with internal rotation and external rotation of the hip.Negative tenderness over the greater trochanteric bursa.Negative straight leg raise.No evidence of hip subluxation or impingement.Negative FELIPE.Strength Exam:5/5 hip flexion5/5 knee extension5/5 ankle dorsiflexion5/5 Extensor Hallucis Longus5/5 plantar flexion?Achilles and Patella reflexes were 2+ and symmetric.Normal sensation to light touch from L2-S1.Negative Clonus. Objective:Physical Examination:- Gait: Normal- Back: Tenderness noted over the SI joint area bilaterally, more pronounced on the right- Hamstring: Left proximal hamstring and gluteus tenderness noted- Neurological: Normal strength in lower extremities, intact sensation- Special Tests: Positive for SI joint pain with provocation ?I independently reviewed 2 view radiographs of the lumbar spine obtained today to include AP, latera and note spondylosis. Disc degeneration noted. No fractures. Imaging:- X-ray of pelvis: Shows level pelvis, mild arthritis in SI joints, and some disc degeneration in the lumbar spine I independently reviewed MRI of pelvis previously performed on February 09, 2024 which notes hip osteoarthritis no suspicious bone lesions. Gluteal tendinitis left greater than right hamstring tendinitis Minimal tearing. Disc degeneration in the visualized spine -Lumbar spine MRI: Not available, last one performed over a year ago Assessment and Plan:1. Lumbar Spine Pain/spondylosis with possible radiculopathy:- Order new MRI of the lumbar spine to evaluate for nerve compression and disc pathology- Initiate physical therapy focusing on core strengthening and lumbar stabilization- Consider SI joint injection for diagnostic and therapeutic purposes if symptoms persist 2. Sacroiliac Joint Pain:- Continue conservative management with NSAIDs and physical therapy- Reassess after MRI results and completion of physical therapy course 3. Left Proximal Hamstring Pain/gluteal tendinopathy/ Possible Tendinopathy:- Include in physical therapy plan for targeted stretching and strengthening- Monitor response to conservative treatment 4. Medication Management:- Prescribe Celebrex 100mg capsules, to be taken twice daily as needed for pain and inflammation- Continue Tylenol as needed, up to 3000mg daily- May continue Soma as previously prescribed for nighttime use 5. Follow-up:- Schedule return visit in 6 weeks to review MRI results and progress with physical therapy- Adjust treatment plan as necessary based on findings and response to current interventions Additional Notes:Patient is a retired [employer] with a complex medical history related to his service. Current management focuses on conservative measures, with surgery not anticipated at this time given the patient's functional status and pain levels. ? Jairo Hdez MD [address] [place] [address] Suite [facility], [place], [address], [facility] - [facility] 03/17/2024 09:57:01 4 text/html Lumbar Spine Evaluation for 79-year-old Male with Back Pain and Leg Spasms Subjective:Mr. Phillips is a 79-year-old male here for follow up lumbar spine evaluation. 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 The patient states that while his neck pain is currently stable, he has experienced recent changes in his back symptoms. In March, he began experiencing nocturnal leg spasms, which he had not experienced before. He also reports new onset of throbbing pain in the sacroiliac (SI) joint area bilaterally, more pronounced on the left side, which has been present for the last 3 months. The patient describes difficulty sitting comfortably, especially in the car, due to pain in the buttock region. Back pain radiates to the left thigh with shock sensations.The patient also mentions a history of foot impingement from an ankle injury during his [employer] service, as well as some knee pain.Regarding treatment, the patient reports using Soma occasionally at night and taking Tylenol for pain management. He has not engaged in physical therapy recently.The patient denies any allergies and states that ibuprofen has worked well for him in the past, though he's been advised it may not be the best option. New lumbar MRI for review today. Denies bowel/bladder incontinence and saddle anesthesia.?PFMSH and ROS has been reviewed, updated, and is located in the patient? s chart. PHYSICAL EXAM:Respiration Rate 14-16Height and Weight per aboveNormal Development without evidence of gross deformitiesOriented to person/place/timeNormal mood and affectNo swelling in bilateral lower extremitiesNormal heel toe gaitHead and Neck: Neck was supple without evidence of defects. No atrophy of the neck was visualized. Spine:Examination of the spine demonstrated no crepitation with palpation of the spinous process.The patient was able to bend at the waist to 50 degrees. No instability of the spine was demonstrated on physical exam. The spine had good strength and tone.No scars noted. No skin or hair changes?Right Lower Extremity:No defects or tenderness. No pain with internal rotation and external rotation of the hip.Negative tenderness over the greater trochanteric bursa.Negative straight leg raise.No evidence of hip subluxation or impingement.Negative FELIPE.Strength Exam:5/5 hip flexion5/5 knee extension5/5 ankle dorsiflexion5/5 Extensor Hallucis Longus5/5 plantar flexion?Left Lower Extremity:No defects or tenderness. No pain with internal rotation and external rotation of the hip.Negative tenderness over the greater trochanteric bursa.Negative straight leg raise.No evidence of hip subluxation or impingement.Negative FELIPE.Strength Exam:5/5 hip flexion5/5 knee extension5/5 ankle dorsiflexion5/5 Extensor Hallucis Longus5/5 plantar flexion?Achilles and Patella reflexes were 2+ and symmetric.Normal sensation to light touch from L2-S1.Negative Clonus. - Gait: Normal- Back: Tenderness noted over the SI joint area bilaterally, more pronounced on the right- Hamstring: Left proximal hamstring and gluteus tenderness noted- Neurological: Normal strength in lower extremities, intact sensation- Special Tests: Positive for SI joint pain with provocation ?I independently reviewed 2 view radiographs of the lumbar spine obtained to include AP, lateral and note spondylosis. Disc degeneration noted. No fractures. Spondylolisthesis noted at L2-3, L3-4, and L4-5. Facet arthropathy. Imaging:- X-ray of pelvis: Shows level pelvis, mild arthritis in SI joints, and some disc degeneration in the lumbar spine I independently reviewed MRI of pelvis previously performed on February 09, 2024 which notes hip osteoarthritis no suspicious bone lesions. Gluteal tendinitis left greater than right hamstring tendinitisMinimal tearing. Disc degeneration in the visualized spine -Lumbar spine MRI: Not available, last one performed over a year ago. I independently reviewed L-spine MRI dated March 30, 2024 and note degenerative changes. Anterior listhesis of L2 on L3 and L3 on L4 and L4 on L5. L3-4, L4-5 and L5-S1 discs are severely diminished in height of the discs also have loss of height. Multiple levels of varying degrees of central spinal stenosis from T11-T12 to L5-S1. Diffuse facet arthropathy. Multiple levels of nerve impingement. Assessment and Plan:1. Lumbar spinal stenosis, disc degeneration, facet arthropathy, neurogenic claudication, radiculopathy:- MRI confirms the diagnoses above- We discussed the MRI findings in detail. 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 2. Sacroiliac Joint Pain/sclerosis:- Continue conservative management with NSAIDs and physical therapy 3. Left Proximal Hamstring Pain/gluteal tendinopathy/ Possible Tendinopathy:- Include in physical therapy plan for targeted stretching and strengthening- Monitor response to conservative treatment-Refer to colleague for ultrasound-guided proximal hamstring tendon corticosteroid injection. 4. Medication Management:- Continue Celebrex 100mg capsules, to be taken twice daily as needed for pain and inflammation- Continue Tylenol as needed, up to 3000mg daily- May continue Soma as previously prescribed for nighttime use 5. Follow-up:- Schedule return visit in 4 months to review MRI results and progress with physical therapy- Adjust treatment plan as necessary based on findings and response to current interventions Additional Notes:Patient is a retired [employer] with a complex medical history related to his service. Current management focuses on conservative measures, with surgery not anticipated at this time given the patient's functional status and pain levels. ? 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 Jairo Hdez MD [address] [place] [address] [address] [facility], [place], [address], [facility] - [facility] 09/08/2024 09:32:44
--- OUTSIDE RECORDS SUMMARY | 2024-10-13 10:25 | XMS_ITS ---
Author Name [facility] Organization [facility] [place] Address [address] [place] [address] Care Team Providers Care Building Rental Superintendent Name Role Phone MARINA AGARWAL Primary Care [...] [facility] TFL* Jan 14, 2016 [id number] PATIENT [facility] ([facility]) MEDICARE ADVANTAGE [facility] ([facility]) May 27, 2020 [id number] PATIENT Selected Encounter This section includes the information on record at [place] for the Encounter. Date/Time Encounter Type Encounter Description Reason Provider Source Feb 11, 2024 01:00 PM HEARING AID EXAM BOTH EARS AUDIOLOGY ICD-10-CM Z46.1 Encounter for fitting and adjustment of hearing aid MAYRA DEE Savita Encounter Template Text not used by [place] Assessments - Encounter Diagnoses This section includes the primary and secondary diagnoses documented for the Encounter. Date/Time Primary/Secondary Diagnosis Diagnosis Name Provider Source Feb 11, 2024 02:18 PM PRIMARY Encounter for fitting and adjustment of hearing aid [facility] DEE [facility] Feb 11, 2024 02:18 PM SECONDARY Sensorineural hearing loss, bilateral MAYRA DEE [facility] Plan of Treatment: Future Appointments (+ 6 months) and Future Tests (+/- 45 days) The Plan of Treatment section includes future care activities for the patient from all [place] treatmentfacilities. This section includes future appointments and future orders which are active, pending or scheduled. Future Appointments This section includes appointments that were scheduled to occur 6 months from the date of the Encounter, up to a maximum of 20 appointments. The data comes from all [place] treatment facilities. Appointment Date/Time Appointment Type Appointme nt Facility Name Feb 25, 2024 11:00 AM AMBULATORY - REHAB MEDICIN E [facility] Jun 30, 2024 03:00 PM AMBULATORY - REHAB MEDICIN E [facility] Social History: Smoking Status (Most current) and [...] took place. Date/Time Current Smoking Status Comment Facil ity Aug 20, 2023 10:30 AM VA-TOBACCO NEVER USED [facility] Tobacco Use History This section includes a history of the smoking, or tobacco-related health factors, that were collected on or before the date of the Encounter. The data comes from the [place] facility where the Encounter took place. Date/Time Smoking Status/Tobacco Use Comment F acility Aug 21, 2022 10:30 AM VA-TOBACCO NEVER USED [facility] Nov 09, 2021 09:43 AM VA-TOBACCO NEVER USED [facility] October 10, 2020 10:57 AM VA-TOBACCO NEVER USED [facility] Encounter Notes: All associated encounter notes This section contains the clinical notes associated to the Encounter. 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 He is dissatisfied with his [place] MYRTLE aid/CROS transmitter as he finds they are not improving his ability to hear. He has also found his [employer] 8 Phone is not compatible with the Génesis aids. 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 After discussion, we agreed to return the Génesis aids and TV system for credit and order Phonak MYRTLE L-R (left) and Phonak CROS (right) which has more chance for phone compatibility and with TV streamer. would like rechargeable and denies pacemaker implant. Once the new devices are received, should be contacted to book fitting with THIS CLINICIAN. We discussed trying these aids with phone with caveat that the phone may need to be upgraded for optimal function with any aid on contract. He agreed. /raya/ MAYRA Hilton, CCC-A CHIEF, AUDIOLOGY/TRANSFORMATION COACH Signed: 02/11/2024 14:18 02/20/2024 ADDENDUM STATUS: COMPLETED Hearing aids received and certified, upcoming appointment scheduled on 02/25/2024. Hearing aids placed in black cabinet. /raya/ DIANA VIRGEN Audiology Health Professional Architect Signed: 02/20/2024 09:13 MAYRA DEE [facility]
--- OUTSIDE RECORDS SUMMARY | 2024-10-13 10:25 | XMS_ITS | Encounter Summary ---
Author Name [facility] Address [address] [place] [address] Care Team Providers Care Principal Military Analyst Name Role Phone ANATOLY HAYES Primary Care Provider Unavail able Insurance Providers: [...] Escobar FOR LIFE TFL* Jan 14, 2016 [id number] HAWK FERGUSON PATIENT [facility] ([facility]) MEDICARE ADVANTAGE [facility] ([facility]) May 27, 2020 [id number] HAWK FERGUSON PATIENT Selected Encounter This section includes the information on record at [place] for the Encounter. Date/Time Encounter Type Encounter Description Reason Provider Source Aug 18, 2024 10:30 AM OFFICE O/P EST LOW 20 MIN PRIMARY CARE/MEDICINE ICD-10-CM H91.90 Unspecified hearing loss, unspecified ear ANYWILL ZHAO F IHE Encounter Template Text not used by [place] Assessments - Encounter Diagnoses This section includes the primary and secondary diagnoses documented for the Encounter. Date/Time Primary/Secondary Diagnosis Diagnosis Name Provider Source Aug 18, 2024 10:52 AM PRIMARY Unspecified hearing loss, unspecified ear ANYWILL ZHAO F [place] [facility] [place] [facility] Vital Signs: All taken on the encounter date This section contains inpatient and outpatient Vital Signs collected on the date of the Encounter. Date/Time Temperature Pulse Blood Pressure Respiratory Rate SP02 Pain Height Weight Body Mass Index Source Aug 18, 2024 10:17 AM 98.4 50 130/80 16 99 5 170 24 [place] [facility] [place] [facility] Social History: Smoking Status (Most current) and Tobacco Use (All prior to encounter date) This section includes the most current, and the historical, smoking and tobacco- related health factors from the [place] facility where the Encounter took place. Current Smoking Status This section includes the most current smoking, or tobacco-related health factor, from the [place] facility where the Encounter took place. Date/Time Current Smoking Status Comment Facil ity Aug 20, 2023 10:30 AM VA-TOBACCO NEVER USED [place] [facility] [place] [facility] Tobacco Use History This section includes a history of the smoking, or tobacco-related health factors, that were collected on or before the date of the Encounter. The data comes from the [place] facility where the Encounter took place. Date/Time Smoking Status/Tobacco Use Comment F acility Aug 21, 2022 10:30 AM VA-TOBACCO NEVER USED [place] [facility] [place] [facility] Nov 09, 2021 09:43 AM VA-TOBACCO NEVER USED [place] [facility] [place] [facility] October 10, 2020 10:57 AM VA-TOBACCO NEVER USED [place] [facility] [place] [facility] Encounter Notes: All associated encounter notes This section contains the clinical notes associated to the Encounter. Date/Time Encounter Note(s) Provider Source Aug 18, 2024 10:33 AM PHYSICIAN SOFTWARE DATABASE ARCHITECT NOTE: LOCAL TITLE: PA NOTE STANDARD TITLE: PHYSICIAN SOFTWARE DATABASE ARCHITECT NOTE DATE OF NOTE: AUG 18, 2024@10:33 ENTRY DATE: AUG 18, 2024@10:33:10 AUTHOR: ANATOLY HAYES COSIGNER: URGENCY: STATUS: COMPLETED CC/HPI/A/P: 79 year old MALE here in follow-up for; hearing loss audio here. Allother care outside. He has pain in both legs, has had much outside workup. Declines GEROFIT and Yoga. shots at [facility] in [place]..he will send with proxy as well Eye exam at [facility]. Review of systems: Patient reports no changes from Usual State Of Health/[facility], in meds or any admissions. Active problems - Computerized Problem List is the source for the followin. Hearing Loss ([facility] [id number]) 2. 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 Bradycardia Sitting average 42-48 4. Benign essential hypertension 5. Cervicalgia 6. Degenerative arthritis C-spine SERVICE CONNECTED % - 60 VA and Non VA meds were reconciled with the patient who left with a corrected copy. See medication page for details. Active and Recently Outpatient Medications (excluding Supplies): Active Non-VA Medications Status ====== 1) Non-VA ACETAMINOPHEN TAB BY MOUTH NEEDED ACTIVE 2) Non-VA CARISOPRODOL TAB BY MOUTH ACTIVE 3) Non-VA CELECOXIB CAP,ORAL BY MOUTH ACTIVE 4) Non-VA GLUCOSAMINE/CHONDROITIN CAP/TAB BY MOUTH ACTIVE 5) Non-VA LOSARTAN 50MG TAB 50MG BY MOUTH TWICE DAILY ACTIVE 6) Non-VA LUTEIN CAP/TAB BY MOUTH ACTIVE 7) Non-VA VITAMIN B COMPLEX CAP,ORAL BY MOUTH ACTIVE 8) Non-VA VITAMIN D3 (CHOLECALCIFEROL) TAB BY MOUTH ACTIVE 98.4 F [36.9 C] (08/18/2024 10:17) 50 (08/18/2024 10:17) 16 (08/18/2024 10:17) 130/80 (08/18/2024 10:17) 5 (08/18/2024 10:17) 70 in [177.8 cm] (12/21/2021 12:57) 170 lb [77.11 kg] (08/18/2024 10:17) BMI: 24.4 Neuro: Alert and oriented times three, grossly nonfocal, nasolabial folds intact. Please request eye exam from [facility]. /raya/ Anatoly Hayes PA-C STAFF PHYSICIAN SOFTWARE DATABASE ARCHITECT Signed: 08/18/2024 10:52 Receipt Acknowledged By: 08/19/2024 09:52 /raya/ ANATOLY ALLEN LPN, LPN [facility] Aug 18, 2024 10:28 AM ACCOUNTING OF DISCLOSURES NOTE: LOCAL TITLE: STATE PRESCRIPTION DRUG MONITORING PROGRAM STANDARD TITLE: ACCOUNTING OF DISCLOSURES NOTE DATE OF NOTE: AUG 18, 2024@10:28:50 ENTRY DATE: AUG 18, 2024@10:28:50 AUTHOR: ANATOLY HAYES EXP COSIGNER: URGENCY: STATUS: COMPLETED This PDMP query was submitted by Anatoly Hayes. The clinical justification for this PDMP query is to review controlled substances prescribed outside of the [place], and any additional information that may become available, as an important component of standard clinical care, and in accordance with [facility] policy. Patient information was shared with the PDMP [place]. No prescription(s) for controlled substances outside the [place] were found in the last 90 days. /raya/ Anatoly Hayes PA-C STAFF PHYSICIAN SOFTWARE DATABASE ARCHITECT Signed: 08/18/2024 10:50 [facility]AYES [facility] Aug 18, 2024 10:20 AM PREVENTIVE MEDICINE NURSING NOTE: LOCAL TITLE: CLINICAL REMINDERS/NURSING STANDARD TITLE: PREVENTIVE MEDICINE NURSING NOTE DATE OF NOTE: AUG 18, 2024@10:20 ENTRY DATE: AUG 18, 2024@10:20:21 AUTHOR: JOY SWIFT EXP COSIGNER: URGENCY: STATUS: COMPLETED Suicide Screen: C-SSRS Screening [place] Suicide Severity Rating Scale (C-SSRS) screener 1. Over the past month, have you wished you were or wished you could go to sleep and not wake up? No 2. Over the past month, have you had any actual thoughts of killing yourself? No 3. Over the past month, have you been thinking about how you might do this? Response not required due to responses to other questions. 4. Over the past month, have you had these thoughts and had some intention of acting on them? Response not required due to responses to other questions. 5. Over the past month, have you started to work out or worked out the details of how to kill yourself? Response not required due to responses to other questions. 6. If yes, at any time in the past month did you intend to carry out this plan? Response not required due to responses to other questions. 7. In your lifetime, have you ever done anything, started to do anything, or prepared to do anything to end your life (for example, collected pills, obtained a gun, gave away valuables, went to the roof but didn't jump)? No 8. If YES, was this within the past 3 months? Response not required due to responses to other questions. Homelessness/Food Insecurity Screen: In the past 2 months, have you been living in stable housing that you own, rent, or stay in as part of a household? Yes - Living in stable housing. Are you worried or concerned that in the next 2 months you may NOT have stable housing that you own, rent, or stay in as part of a household? No - Not worried about housing near future The reports the following: Within the past 12 months, you worried whether your food would run out before you got money to buy more. Never true Within the past 12 months, the food you bought just didn't last and you didn't have money to get more. Never true Follow Up Colonoscopy: Colonoscopy is due based on information available to this reminder. Patient has arranged or is choosing to arrange a Colonoscopy independent of and w/out assistance from this [place]. being followed by private provider Depression Screening: Perform PHQ-2 A PHQ-2 screen was performed. The score was 0 which is a negative screen for depression. Over the past two weeks, how often have you been bothered by the following problems? 1. Little interest or pleasure in doing things Not at all 2. Feeling down, depressed, or hopeless Not at all Falls & Incontinence Screen: Falls Screen: 4. No falls within the past year. Incontinence Screen No incontinence. Alcohol Use Screen (AUDIT-C): Alcohol Screen: SCREEN FOR ALCOHOL (AUDIT-C) An alcohol screening test (AUDIT-C) was negative (score=0). 1. How often did you have a drink containing alcohol in the past year? Consider a drink to be a 12 ounce can or bottle of regular beer, 8 ounces of malt liquor, a 5 ounce glass of table wine, or a 1.5 ounce shot of liquor (like scotch, gin, or vodka). Never 2. How many drinks containing alcohol did you have on a typical day when you were drinking in the past year? Response not required due to responses to other questions. 3. How often did you have six or more drinks on one occasion in the past year? Response not required due to responses to other questions. /raya/ JOY SWIFT LPN Signed: 08/18/2024 10:22 JOY SWIFT [facility]
--- OUTSIDE RECORDS SUMMARY | 2024-10-13 10:25 | XMS_ITS | Clinical Summary ---
Author Organization [facility] Address [address] [place] [address] [place] [id number] Phone Care Team Providers Care Force Adjustment Supervisor Name Role Phone Jose Peñaloza Primary Care Provider + Allergies No known active allergies Medications losartan (COZAAR) 50 MG tablet Take 1 tablet by mouth 2 (two) times a day. 08/20/2023 Active meloxicam (MOBIC) 7.5 MG tablet TAKE 1 TABLET BY MOUTH DAILY FOR 30 DAYS 09/25/2023 Active b complex vitamins capsule Take 1 capsule by mouth daily. Active multivitamins with minerals- folic acid-lycopene (MEN'S ONE-A-DAY) 400-20-300 mcg Tab Take 1 tablet by mouth daily. Active Social History Tobacco Use Types Packs/Day Years Used Date Smoking Tobacco: Never Tobacco Cessation:Counseling Given: Not Answered Alcohol Use Standard Drinks/Week Comments Not Currently 0 (1 standard drink = 0.6 oz pur e alcohol) Education Answer Date Recorded Are you interested in more education? Not on chani e 09/06/2023 Are you concerned about learning? Not on file 09/06/2023 No 09/06/2023 No 09/06/2023 Digital Access Answer Date Recorded No 09/06/2023 No 09/06/2023 Reliable internet access at home? Not on file 09/06/2023 Device with a working camera? Not on file Sex and Gender Information Value Date Recorded Sex Assigned at Male 09/16/2023 1:25 PM EDT Legal Sex Male 7:34 PM EST Gender Identity Male 09/16/2023 1:25 PM EDT Sexual Orientation Choose not to disclose 2023 1:25 PM EDT Last Filed Vital Signs Vital Sign Reading Time Taken Comments Blood Pressure - - Pulse - - Temperature - - Respiratory Rate - - Oxygen Saturation - - Inhaled Oxygen Concentration - - Weight 79.4 kg (175 lb) 10/15/2023 3:01 PM EDT Height 177.8 cm (5' 10 ) 10/15/2023 3:01 PM EDT Body Mass Index 25.11 10/15/2023 3:01 PM EDT Plan of Treatment Health Maintenance Due Date Last Done Comments CREATININE LEVEL 1947 LIPID PANEL 1947 POTASSIUM LEVEL 1947 DEPRESSION SCREENING 1959 HEPATITIS C SCREENING 1965 PNEUMOCOCCAL VACCINES (50+ years) (2 of 2 - PPSV23) 06/26/2020 06/26/2019 COVID-19 VACCINE (4 - 2023-2 5 season) 2024 05/13/2021, 08/17/2020, 07/20/2020 Adult Td,Tdap Booster 10/30/2027 10/29/2017 , 03/13/2017 ZOSTER VACCINES Completed 11/29/2021, 09/11/2021 RSV VACCINE Completed 06/06/2023 SMOKING STATUS SCREENING (On ce After 26 Yrs) Completed 10/15/2023 HEPATITIS A VACCINES Aged Out No long er eligible based on patient's age to complete this topic HIB VACCINES Aged Out No longer eligi ble based on patient's age to complete this topic MENINGOCOCCAL VACCINES (ACWY) Aged Out No longer eligible based on patient's age to complete this topic MENINGOCOCCAL VACCINES (B) Aged Out N o longer eligible based on patient's age to complete this topic Medical Devices Not on file Insurance MEDICARE REPLACEMENT MEDICARE PART A & B [facility] MEDICARE SUPPLEMENT MEDICARE REPLACEMENT MEDICARE PART A & B [employer] MEDICARE SUPPLEMENT MEDICARE REPLACEMENT MEDICARE PART A & B FOR [employer] MEDICARE SUPPLEMENT [address] [place] [address] MEDICARE REPLACEMENT MEDICARE PART A & B [facility] MEDICARE SUPPLEMENT [facility] MEDICARE REPLACEMENT MEDICARE PART A & B [employer] MEDICARE SUPPLEMENT MEDICARE REPLACEMENT MEDICARE PART A & B [employer] MEDICARE SUPPLEMENT Care Teams Force Adjustment Supervisor Relationship Specialty Start Date End Date Jose Peñaloza PA [address] [place] [address] Drive [address] [place] [address] PCP - General Physician Hand Tapper 09/06/23 Additional Source Comments The information contained in this document represents components of the legal health record. It is not the complete legal health record.[facility]
--- OUTSIDE RECORDS SUMMARY | 2024-10-13 10:25 | XMS_ITS ---
Author Name [facility] [place] [facility] [place] Address [address] [place] [address] Care Team Providers Care Land Surveying Survey Worker Name Role Phone MARINA AGARWAL Primary Care [...] Escobar FOR LIFE TFL* Jan 14, 2016 [id number] [address] FER[place]ON PATIENT [facility] ([facility]) MEDICARE ADVANTAGE [facility] ([facility]) May 27, 2020 [id number] HAWK FERGUSON PATIENT Selected Encounter This section includes the information on record at [place] for the Encounter. Date/Time Encounter Type Encounter Description Reason Provider Source Dec 17, 2023 08:30 AM HEARING AID FITTING/CHECKIN G AUDIOLOGY ICD-10-CM Z46.1 Encounter for fitting and adjustment of hearing aid BREE GRADY Encounter Template Text not used by [place] Assessments - Encounter Diagnoses This section includes the primary and secondary diagnoses documented for the Encounter. Date/Time Primary/Secondary Diagnosis Diagnosis Name Provider Source Dec 17, 2023 11:54 AM PRIMARY Encounter for fitting and adjustment of hearing aid BREE GRADY [facility] Dec 17, 2023 11:54 AM SECONDARY Sensorineural hearing loss, bilateral SENIOR,BREE Lance [facility] Plan of Treatment: Future Appointments (+ 6 months) and Future Tests (+/- 45 days) The Plan of Treatment section includes future care activities for the patient from all [place] [facility] This section includes future appointments and future orders which are active, pending or scheduled. Future Appointments This section includes appointments that were scheduled to occur 6 months from the date of the Encounter, up to a maximum of 20 appointments. The data comes from all [place] treatment facilities. Appointment Date/Time Appointment Type Appointme nt Facility Name Feb 11, 2024 01:00 PM AMBULATORY - [place]ICIN E [place] [facility] Feb 25, 2024 11:00 AM [facility] Social History: Smoking Status (Most current) [...] 20, 2023 10:30 AM VA-TOBACCO [facility] USED [facility] Tobacco Use History This section includes a history of the smoking, or tobacco-related health factors, that were collected on or before the date of the Encounter. The data comes from the [place] facility where the Encounter took place. Date/Time Smoking Status/Tobacco Use Comment F acility Aug 21, 2022 10:30 AM VA-TOBACCO NEVER USED [place] [facility] [place] [facility] Nov 09, 2021 09:43 AM VA-TOBACCO NEVER USED [facility] October 10, 2020 10:57 AM VA-TOBACCO NEVER USED [facility] Encounter Notes: All associated encounter notes This section contains the clinical notes associated to the Encounter. Date/Time Encounter Note(s) Provider Source Dec 17, 2023 07:37 AM AUDIOLOGY E & M NO TE: LOCAL TITLE: AUDIOLOGY CLINIC STANDARD TITLE: AUDIOLOGY E & M NOTE DATE OF NOTE: DEC 17, 2023@07:37 ENTRY DATE: DEC 17, 2023@07:37:55 AUTHOR: BREE GRADY COSIGNER: URGENCY: STATUS: COMPLETED AUDIOLOGY CLINIC Has ADDENDA Dx CODE: Z46.1-Encounter for Fitting/Adjusting Hearing Aid(s); H90.3- Sensorineural Hearing Loss, Bilateral APPOINTMENT TYPE: Hearing Aid Check HISTORY/BACKGROUND: Darwin was seen for a hearing aid follow-up appointment, unaccompanied. He was fit on 09/04/23 with a left ANETTE ASHLEY AI MYRTLE 312 and a right ANETTE ASHLEY AI CROS MYRTLE 312. He scheduled today's appointment for a programming adjustment and counseling regarding his hearing loss. Darwin's audiogram was discussed at length today. All questions were answered and [place] reported good understanding of all topics covered. notes that the hearing aids are too sharp and tinny. Hearing aids were reprogrammed to Anette targets which reduced high-frequency gain. Sound channel account manager settings were set to maximum. He reported improved sound quality. [place] was provided a handout about Bluetooth connectivity and the IPLogic toni. He also inquired about a TV device, noting his still complains that the TV is too loud. A Starlink TV Streamer was ordered in [facility] and will be mailed to [place]'s address on file. He was advised to use the IPLogic toni to activate streaming. He will try out these settings and return for further programming as needed. PLAN/RECOMMENDATION(S): 1. TV Streamer will be mailed to 's address on file upon receipt. Patient Education Education provided on the following topics: Hearing aids Education provided to: P Response to Education: BRIGITTE [place] Patient P Family F Significant Other SO Verbalizes Understanding VU Returns Demonstration RD Performs Independently PI Lacks Comprehension LC Refused Education RE Not Applicable NA /MARLYS [place], [facility]-A STAFF CLIENT SPECIALIST Signed: 12/17/2023 11:54 12/24/2023 ADDENDUM STATUS: COMPLETED TV Streamer received and certified, mailed to address on file today. /raya/ DIANA VIRGEN Audiology Health Application Manager Signed: 12/24/2023 08:29 BREE GRADY [facility]
[2024-10-13 10:34] LABS: Alanine Aminotransferase 26 U/L (0-40); Albumin Level 4.5 g/dL (3.5-5.0); Alkaline Phosphatase 65 U/L (39-117); Anion Gap 10 (12-20); Aspartate Amino Transferase 26 U/L (5-37); Bilirubin Total 0.9 mg/dL (0.0-1.0); Blood Urea Nitrogen 15 mg/dL (9-16); Calcium 9.5 mg/dL (8.4-10.2); Carbon Dioxide 28 mmol/L (22-29); Chloride 107 mmol/L (96-108); Cholesterol 194 mg/dL (<200); Estimated Glomerular Filt Rate > 60; Glucose Fasting 104 mg/dL (60-99); HDL Cholesterol 53 mg/dL (>40); LDL Cholesterol Calculated 124 mg/dL (<100); Magnesium 2.3 mg/dL (1.6-2.6); Potassium 4.7 mmol/L (3.3-5.1); Sodium 140 mmol/L (135-145); Total Protein 7.1 g/dL (6.5-8.0); Triglycerides 87 mg/dL (<150)
[2024-10-13 11:00] LABS: Folate > 20.0 ng/mL (> or = 4.0); Vitamin B12 443 pg/mL (200-900)
[2024-10-13 12:45] LABS: Creatinine Urine 143.09 mg/dL; Microalbum/Creatinine Ratio Ur 4.8 ug/mg cr (<30)
== END 2024-10-13 09:30 | disposition home or self-care (01) ==
LOC: HO.LAB 09:29
PROVIDERS: PCP Physician Assistant; Visit Provider Physician Assistant
DX: I10 Essential (primary) hypertension (principal); E78.9 Disorder of lipoprotein metabolism, unspecified; F51.01 Primary insomnia; K40.90 Unilateral inguinal hernia, without obstruction or gangrene, not specified as recurrent; M76.02 Gluteal tendinitis, left hip; R25.2 Cramp and spasm; E53.8 Deficiency of other specified B group vitamins
CPT/HCPCS: 36415; 80053; 80061; 82043; 82570; 82607; 82746; 83735; 85027; 96127; 99212

== ENCOUNTER 2024-10-13 09:55 | Outpatient (AMB) | payer MEDICARE, OTHER, SELFPAY ==
--- NOTE | 2024-10-13 10:16 | A.OFFPC_ITS ---
Vital Signs 3 10/13/24 10:20 10/13/24 10:23 Height 5 ft 10 in Weight 170 lb 2 oz BMI 24.4 BP 160/80 H 160/72 H Blood Pressure Location Rt brachial Lt brachial Position Sitting Sitting Respiration 16 Pulse 46 L Pulse Source Pulse Oximeter Temp 97.3 F Temp Source Temporal Artery Scan Pulse Oximetry (%) 98 Oxygen Delivery Method Room Air Intake Visit Reasons: f/u hTN Geospatial Scientist Required: No Accompanied by: Self / Same As Patient Allergies No Known Allergies Allergy (Verified 10/13/24 10:37) Medication List - Last Reconciled 10/13/24 by Jose Peñaloza PA-C acetaminophen (Tylenol) 650 mg PO BID PRN carisoprodol (Soma) 250 mg PO BEDTIME PRN 20 days losartan 50 mg PO BID 90 days meloxicam 7.5 mg PO DAILY 30 days zolpidem 10 mg PO BEDTIME PRN 15 days Tobacco use date assessed: 10/10/23 Fall risk assessment: No Falls in past year Last assessed Fall Risk: 10/13/24 Dental Screening Dental Screen Date: 10/13/24 Did you have a dental visit in the last 12 months?: Yes Did you have a dental problem in the last 6 months where you did not have access to dental care?: No Was dental information given to patient?: Patient has dentist HPI f/u hTN 2 HPI0 Details Apolinar is a 79-year-old male here today for a follow-up visit.? Patient has a past medical history significant for hypertension and degenerative disc disease of the cervical spine, h/o of colon cancer. Concern--> reports he has felt a lump over his right groin over the last few weeks. Signs consistent with a inguinal hernia.. He is interested in having this checked out in perhaps surgically repaired. Bradycardia: , has been asymptomatic, Has been undergoing testing with cardiology. Echocardiogram and Holter monitor without significant findings. Otherwise asymptomatic He did discuss the possibility of getting a pacemaker down line. .. HTN: Patient's blood pressure elevated today in office. He reports that home blood pressures have been 120s to 130 systolic. PLAN: Will add on hydrochlorothiazide 12.5 to his med regime for better blood pressure control. .. History of colon cancer:? Has had a history of a colectomy and has been in remission? 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 [facility] and [facility]. .. Degenerative disc disease of the spine:? He is followed by neck specialist.? He is currently in physical therapy for his hip in lower extremity issues.. Has done multiple rounds of physical therapy with decent affect.? He does use Soma on a p.r.n. basis for his pain Laboratory Tests 08/28/22 10/10/23 10/13/24 11:18 11:16 09:41 RBC 5.21 Fasting Glucose 93 104 H Cholesterol 178 175 194 LDL Cholesterol, C alc 110 H 124 H PSA Screen 1.02 [facility] Medical History Medicare annual wellness visit, initial Hypertension Chronic neck pain Chronic back pain Bradycardia Right otitis media Surgical History History of colonoscopy S/P excision of lipoma History of shoulder surgery H/O hemicolectomy History of hernia surgery Family History Father No problems noted. Mother Colon cancer Social History Housing: House Alcohol intake: former Patient Tobacco Use Status: Never used Tobacco e-Cigarette/Vaping Use: Never Used Second Hand Smoke Exposure: No service: Yes Current occupational status: retired Cognitive needs: No Hearing needs: No Vision needs: No Questionnaire PHQ-9 Over the last 2 weeks, how often have you been bothered by any of the following problems? 1. Little interest or pleasure in doing things: not at all 2. Feeling down, depressed, or hopeless: not at all 3. Trouble falling or staying asleep, or sleeping too much: not at all 4. Feeling tired or having little energy: not at all 5. Poor appetite or overeating: not at all 6. Feeling bad about yourself - or that you are a failure or have let yourself or your family down: not at all 7. Trouble concentrating on things, such as reading the newspaper or watching television: not at all 8. Moving or speaking so slowly that other people could have noticed. Or the opposite - being so fidgety or restless that you have been moving around a lot more than usual: not at all 9. Thoughts that you would be better off or of hurting yourself in some way: not at all Total score: 0 Depression Screening Interpretation: Negative Depression Screening Done: Yes 86188 - PHQ-9 Billing: Yes Source: Developed by Drs. Lee Hines, Zahra Joseph, Fitz Stephenson and colleagues, with an educational mayank from [employer]. Thrive Questionnaire Date Thrive assessed: 10/13/24 I am a: Patient What is your living situation today?: I have a steady place to live Within the past 12 months, did the food you bought not last and you didn't have the money to get more?: Never true Within the past 12 months, did you worry whether your food would run out before you got money to buy more?: Never true Do you have trouble paying for medicines?: No Do you have trouble getting transportation to medical appointments?: No Do you have trouble paying your heating and electricity bill?: No Do you have trouble taking care of your child, family member or friend?: No Do you have trouble with day-to-day activities such as bathing, preparing meals, shopping, managing finances, etc.?: No Are you currently unemployed and looking for a job?: No Are you interested in more education?: No Please select the resources that you would like help with: None Currently or been in a relationship where the following occur: No concerns reported THRIVE Score: 0 AUDIT C Alcohol Use Questionnaire (AUDIT-C) 1. How often do you have a drink containing alcohol?: Never 3. How often do you have six or more drinks on one occasion?: Never Total Score: 0 SHWETHA-7 AMB Questionnaire SHWETHA-7 Date SHWETHA - 7 assessed: 10/13/24 Feeling nervous, anxious, or on edge: 0 = Not at all Not being able to stop or control worryin = Not at all Worrying too much about different things: 0 = Not at all Trouble relaxin = Not at all Being so restless that it is hard to sit still: 0 = Not at all Becoming easily annoyed or irritable: 0 = Not at all Feeling afraid as if something awful might happen: 0 = Not at all Total SHWTEHA-7 score (0-4 normal; 5-9 mild; 10-14 moderate; 15-21 severe): 0 Source: Developed by Drs. Lee Hines, Zahra Joseph, Fitz Stephenson and colleagues, with an educational mayank from [employer]. SHWETHA-7 Assessment Billing SHWETHA-7 Assessment Tool: SHWETHA-7 Assessment 47802 Review of Systems Const Denies headache(s) Eyes Denies loss of vision ENT Denies vertigo, Denies dizziness, Denies headache(s) and Denies sore throat Card Denies chest pain, Denies leg edema and Denies lightheadedness Resp Denies cough, Denies hemoptysis and Denies wheezing GI Denies abdominal pain, Denies melena, Denies constipation, Denies diarrhea and Denies vomiting Denies dysuria, Denies urinary frequency and Denies urinary urgency Musc Denies arthralgias, Denies joint swelling, Denies numbness and Denies tingling Neuro Denies Abnormal speech present, Denies behavioral changes, Denies vertigo, Denies dizziness, Denies headache(s), Denies loss of vision, Denies memory loss, Denies numbness and Denies tingling Psych Denies anxiety, Denies behavioral changes, Denies depression, Denies memory loss and Denies panic attacks Loco/Lymph Denies easy bleeding and Denies easy bruising Aller/Immun Denies wheezing Physical exam (Primary Care) Vital Signs: Last Vital Signs Temp 97.3 F 10/13/24 10:20 Pulse 46 L 10/13/24 10:20 Resp 16 10/13/24 10:20 BP 160/72 H 10/13/24 10:23 Pulse Ox 98 10/13/24 10:20 Oxygen Delivery Method Room Air 10/13/24 10:20 BMI result Body Mass Index 24.4 Tobacco/Smoking Status: Tobacco use Status Tobacco use date assessed 10/10/23 10/13/24 10:17 Patient Tobacco Use Status Never used Tobacco 10/13/24 10:17 e-Cigarette/Vaping Use Never Used 10/13/24 10:17 PHQ-9: PHQ-9 Score PHQ-9: Total score 0 10/13/24 10:47 Depression Screening Interpretation: Negative Thrive Assessment: Date of Thrive Assessment Date Thrive assessed 10/13/24 10/13/24 10:17 Currently or been in a relationship where the following occur: No concerns reported Const General: healthy appearing, no acute distress, alert and awake Nutritional Appearance: well nourished Orientation/consciousness: oriented to person, oriented to place and oriented to time HENMT Ears: TM's normal bilaterally General nose exam: Normal nasal mucous membranes and turbinates present Eyes Conjunctivae: conjunctivae normal Sclerae: sclerae normal Pupils: Equal, round and reactive pupils present Neck Neck: Yes no lymphadenopathy and Yes no JVD Thyroid: Thyroid normal Carotids: no bruits Resp Effort & Inspection: normal respiratory effort and not tachypneic Auscultation: no crackles, no rales, no rhonchi and no wheezes Cardio Rate: regular rate Rhythm: regular rhythm Heart sounds: no murmurs and normal S1 and S2 GI Palpation (GI): Soft to palpation, nontender, no hepatomegaly and no splenomegaly Auscultation: normal bowel sounds Male genitals images: 2 1. PALPABLE LUMP NOTED IN THE RIGHT GROIN AREA PARTICULAR WITH INCREASING INTRA-ABDOMINAL PRESSURE. Skin General skin exam: no rashes or lesions noted and dry skin Neuro General: oriented to person, oriented to place and oriented to time Cranial nerves: Yes Equal, round and reactive pupils present Speech: No Abnormal speech present Gait exam (Neuro): Normal gait present Motor exam (neuro): no tremor noted Extrem Right upper extremity: full ROM Left upper extremity: full ROM Right lower extremity: full ROM; no edema Left lower extremity: full ROM; no edema Psych Mental Status: mental status grossly normal Speech and movement: Normal speech and movement present Affect: normal affect Attitude: cooperative Thought process: Normal thought process present Coding Level of Care Code Est Pt Level 4 (96179) Diagnoses Primary hypertension I10 Hypertension type: primary hypertension Borderline high cholesterol E78.9 Primary insomnia F51.01 Insomnia type: primary Right groin hernia K40.90 Additional Codes SHWETHA-7 Assessment Billing - SHWETHA-7 Assessment Tool: SHWETHA-7 Assessment 63775 ([id number]) PHQ-9 - 48126 - PHQ-9 Billing: Yes ([id number]) Assessment & Plan Assessment & Plan (1) HTN (hypertension): Code(s): I10 - Essential (primary) hypertension Category: Medical Qualifiers: Hypertension type: primary hypertension Qualified Code(s): I10 - Essential (primary) hypertension Plan: Patient's blood pressure elevated today in office very will add on hydrochlorothiazide 12.5 for better blood pressure control. Goal blood pressures to be below 140/90 (2) Borderline high cholesterol: Code(s): E78.9 - Disorder of lipoprotein metabolism, unspecified Category: Medical Plan: Patient's most recent lipid panel showing borderline high cholesterol. He will continue on doing dietary modifications to reduce his cholesterol. (3) Insomnia: Code(s): G47.00 - Insomnia, unspecified Category: Medical Qualifiers: Insomnia type: primary Qualified Code(s): F51.01 - Primary insomnia Plan: Patient continues to suffer with insomnia and does use zolpidem half to a quarter tablet on an as needed basis with good effect. (4) Right groin hernia: Code(s): K40.90 - Unilateral inguinal hernia, without obstruction or gangrene, not specified as recurrent Category: Medical Plan: Has palpable defect in the right groin notable on physical exam. Will refer to general surgeon for evaluation and possible surgical fix. Orders: Orders 2 Microalbumin, Random (w Creat) Today I10 - Essential (primary) hypertension Referrals 2 General Surgery Referral K40.90 - Unilateral inguinal hernia, without obstruction or gangrene, not specified as recurrent Medications: New 2 losartan-hydrochlorothiazide 100-12.5 mg 1 tab PO DAILY 90 tabs 1RF 90 days I10 - Essential (primary) hypertension Refilled 2 zolpidem 10 mg PO BEDTIME PRN 15 tabs 2RF insomnia 15 days F51.01 - Primary insomnia Discontinued 2 meloxicam Discontinued Reason: Doctor's Order 7.5 mg PO DAILY 30 days 30 tabs 3RF M50.30 - Other cervical disc degeneration, unspecified cervical region On Hold 2 losartan Hold Comment: Doctor's Order 50 mg PO BID 90 days 180 tabs 2RF I10 - Essential (primary) hypertension Patient Instructions: Goal: Blood pressure to be below 140/90 Barriers: Adherence to physical activity and healthy eating habits
[2024-10-13 10:20] VITALS: BP 160/80; PULSE 46; RESP 16; TEMP 36.3; O2SAT 98; BMI 24.4
[2024-10-13 10:23] VITALS: BP 160/72
--- OUTSIDE RECORDS SUMMARY | 2024-10-13 11:00 | XMS_ITS | Continuity of Care Document ---
Author Name [facility] Organization [facility] Care Team Providers Care Sole Filler Name Role Phone [facility] Unavailable Unavailable Problems Combined list of problems from Department of Defense and Veterans Affairs facilities. It does not include entries that were removed or entered in error. 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) Active 01/30/20 05 Condition Apr 05, 2021 [facility] Hearing Loss (SCT [id number]) Active Condition [facility] [...] MOUTH NEEDED ORAL ACTIVE AVTARJUN STAPLES [facility] CARISOPRODO L TAB TAKE BY MOUTH ORAL ACTIVE OSHINSBKDINA Chantel [facility] GLUCOSAMINE /CHONDROITI N CAP/TAB TAKE BY MOUTH ORAL ACTIVE OSHINSKISavitaDINA Chantel [facility] LOSARTAN 50MG TAB TAKE ONE TABLET BY MOUTH TWICE DAILY ORAL ACTIVE MARINA AGARWAL [facility] LUTEIN CAP/TAB TAKE BY MOUTH ORAL ACTIVE OSHINSKOURTNEYSavitaDINA J [facility] VITAMIN B COMPLEX CAP,ORAL TAKE BY MOUTH ORAL ACTIVE OSHINSKISavitaDINA J [facility] VITAMIN D3 (CHOLECALCI FEROL) TAB TAKE BY MOUTH ORAL ACTIVE OSMSGIOVANISavitaDINA J [facility] ZOLPIDEM TARTRATE 5MG TAB TAKE ONE TABLET BY MOUTH ONCE DAILY NEEDED ORAL ACTIVE MARINA AGARWAL 20[facility] Allergies, Adverse Reactions, Alerts Combined list of allergies from Department of Defense and Veterans Affairs facilities. It does not include entries that were removed or entered in error. Substance Category Reaction Severity Reaction type Status Date Reported Comments Source CATS Propensity to adverse reaction (finding) [facility] Immunizations Combined list of available immunizations from the Department of Defense and Veterans Affairs facilities. Immunization Series Date Given Administered By Site Reaction Lot Number CVX Code Drug Heddler Status Comments Source INFLUENZA, UNSPECIFIED FORMULATION 2023 88 complet ed Booster for Series, HISTORICA L INFORMATI ON - FROM OTHER PROVIDER, [facility] RESPIRATORY SYNCYTIAL VIRUS (RSV) VACCINE, UNSPECIFIED 1 2023 314 complet ed HISTORICA L INFORMATI ON - FROM OTHER PROVIDER, [facility] INFLUENZA, UNSPECIFIED FORMULATION 2022 88 complet ed Booster for Series, HISTORICA L INFORMATI ON - FROM OTHER PROVIDER, [facility] INFLUENZA, UNSPECIFIED FORMULATION 2021 88 complet ed Completed Series, HISTORICA L INFORMATI ON - FROM PATIENT'S RECALL, [facility] zoster recombinant 2021 BOGDASARIAN, () Not Given zoster recombina nt DoD ZOSTER RECOMBINANT 2 2021 187 complet ed HISTORICA L INFORMATI ON - FROM OTHER PROVIDER, [facility] zoster recombinant 2021 BOGDASARIAN, () Not Given zoster recombina nt DoD ZOSTER RECOMBINANT 1 2021 187 complet ed HISTORICA L INFORMATI ON - FROM OTHER PROVIDER, [facility] zoster recombinant 2021 BOGDASARIAN, () Not Given zoster recombina nt DoD COVID-19 (MODERNA), MRNA, LNP-S, PF, 100 MCG OR 50 MCG DOSE 3 2020 207 complet ed MOD; [id number]; 2 [facility] INFLUENZA VACCINE, QUADRIVALENT, ADJUVANTED 2020 205 complet ed [facility] COVID-19 (MODERNA), MRNA, LNP-S, PF, 100 MCG/0.5 ML DOSE 2 2020 207 complet ed MOD; [id number]; 1 [facility] Influenza vaccine, quadrivalent, adjuvanted 2019 BOGDASARIAN, () Not Given Influenza vaccine, quadrival ent, adjuvante d DoD INFLUENZA, UNSPECIFIED FORMULATION 2019 88 complet ed [facility] PNEUMOCOCCAL CONJUGATE PCV 13 2019 133 complet ed Booster for Series, HISTORICA L INFORMATI ON - FROM OTHER PROVIDER, [facility] zoster recombinant 2019 ANNY, () Not Given zoster recombina nt [facility] influenza, injectable, quadrivalent, preservative free 2018 BOGDASARIAN, () Not Given influenza , injectabl e, quadrival ent, preservat kenia free DoD TDAP 2017 115 complet ed [employer] TDAP 2016 115 complet ed Booster for Series, HISTORICA L INFORMATI ON - FROM OTHER PROVIDER, [facility] Vital Signs Combined list of inpatient and outpatient Vital Signs from Department of Defense and Veterans Affairs, ranging from 12 months to all on record, depending upon the facility. Vital Sign Value Date Comments Source SYSTOLIC BLOOD PRESSURE 130 08/19/19 25 10:17:27 [facility] DIASTOLIC BLOOD PRESSURE 80 025 10:17:27 [facility] PULSE OXIMETRY 99 08/18/2024 10:17:27 [facility] [...] 16 08/18/2024 10:17:27 [facility] Encounters Combined list of: 1) Encounters from Department of Veterans Affairs facilities going backup to the last 18 months, not all VA inpatient encounters are included; 2) Encounters from the Department of Defense facilities going backup to 280 months. Location Location Details Encounter Type Encounter Number Reason For Visit Attending Provider ADM Date DC Date Status Disposition Source [facility] Outpatient Encounter [id number] 04/22 [facility] [id number] 05/07 [facility] [id number] 05/10 [facility] [id number] 05/13 [facility] [id number] 05/14 [facility] [id number] 05/15 [facility] [id number] CARTER JAIMES SA, RN 05/15 [facility] [id number] 05/24 [facility] En[facility] [id number] ALBA SWIFT ISTOPHER Barney 06/04 [facility] En[facility] [id number] 06/26 [facility] HEARING AID EXAM BOTH EARS [id number] Diagnos is: ICD-10- CM H90.A31 Mix cndct/s nrl hear loss,un i,r ear w rstrcd hear cntra GERALD Murcia 08/08 [facility] OFFICE O/P EST LOW 20 MIN [id number] Diagnos is: ICD-10- CM H90.3 Sensori neural hearing loss, MARINA Domingo 08/19 [facility] En[facility] [id number] 08/20 [facility] En[facility] [id number] 08/20 [facility] En[facility] [id number] 09/01 [facility] HEAR[facility] SERVICE [id number] Diagnos is: ICD-10- CM Z46.1 Encount er for fitting and adjustm ent of hearing aid GERALD ROOT 09/03 [facility] En[facility] [id number] 09/29 [facility] En[facility] [id number] 09/29 [facility] En[facility] [id number] 11/03 [facility] En[facility] [id number] 11/03 [facility] HEARING AID FITTING/CH ECKING [id number] Diagnos is: ICD-10- CM Z46.1 Encount er for fitting and adjustm ent of hearing aid SENIOR,TOREY ESTES L 12/16 [facility] En[facility] [id number]/18 [facility] HEARING AID EXAM BOTH EARS [id number] Diagnos is: ICD-10- CM Z46.1 Encount er for fitting and adjustm ent of hearing aid YOSELIN DEE L 02/10 [facility] HEARING AID FITTING/CH ECKING [id number] Diagnos is: ICD-10- CM Z46.1 Encount er for fitting and adjustm ent of hearing aid ADI DEEL L 02/24 [facility] En[facility] [id number] 03/27 [facility] En[facility] [id number] SWIFT,CHR ISTOPHER E 04/13 [facility] HEAR[facility] AID REPAIR/MOD IFYING [id number] Diagnos is: ICD-10- CM H90.A31 Mix cndct/s nrl hear loss,un i,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 Diagnos is: ICD-10- CM H91.90 Unspeci fied hearing loss, unspeci fied ear MARINA AGARWAL 08/18 [facility] Social History Combined list of available smoking, tobacco, and other social history from Department of Defense and Veterans Affairs facilities. Social History Type Response Date Comment [facility] e Tobacco smoking status TNIS VA-TOBACCO NEVER USED 08/20/2023 [facility] History of tobacco use VA-TOBACCO NEVER USED 08[facility]21/2022 [facility] History of tobacco use VA-TOBACCO NEVER USED 11/09/2021 [facility] History of tobacco use VA-TOBACCO NEVER USED 10/10/2020 [facility] This section is an empty social history section. DoD
== END 2024-10-13 11:05 | disposition home or self-care (01) ==
LOC: HO.HMCH 09:55
PROVIDERS: PCP Physician Assistant; Visit Provider Physician Assistant
DX: I10 Essential (primary) hypertension (principal); E78.9 Disorder of lipoprotein metabolism, unspecified; F51.01 Primary insomnia; K40.90 Unilateral inguinal hernia, without obstruction or gangrene, not specified as recurrent

== ENCOUNTER 2024-11-23 15:32 | Outpatient (AMB) | payer MEDICARE, OTHER, SELFPAY ==
--- NOTE | 2024-11-23 15:38 | MHC.OFFVIS ---
Vital Signs 11/23/24 15:45 Height 5 ft 10 in Weight 170 lb BMI 24.4 BP 132/60 Blood Pressure Location Lt brachial Position Sitting Pulse 58 Intake Visit Reasons: doc Intake Note: Patient referred by pcp Jose Peñaloza PA-C for Unilateral inguinal hernia. Present for 2m. Patient c/o: coughing makes it bulge out. 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 Instructions: Doctor's Order losartan-hydrochlorothiazide 100-12.5 mg 1 tab PO DAILY 90 days zolpidem 10 mg PO BEDTIME PRN 15 days HPI HPI doc: Details: 79-year-old male referred for a right inguinal hernia. He says he has noticed this discomfort and bulge on his right groin periodically since about 2 months ago. He says that the all seems to be bigger sometimes especially when he is coughing or exerting effort . He had a left inguinal hernia repair about 20 years ago. He also had colon resection about 15 years ago for cancer. He denies any GI complaints. [facility] Medical History Medicare annual wellness visit, initial Hypertension Chronic neck pain Chronic back pain Bradycardia Right otitis media Surgical History History of colonoscopy S/P excision of lipoma History of shoulder surgery H/O hemicolectomy History of hernia surgery Family History Father No problems noted. Mother Colon cancer Social History Housing: House Alcohol intake: former Patient Tobacco Use Status: Never used Tobacco e-Cigarette/Vaping Use: Never Used Second Hand Smoke Exposure: No service: Yes Current occupational status: retired Cognitive needs: No Hearing needs: No Vision needs: No Review of Systems Const Denies chills and Denies fever(s) Card Denies chest pain, Denies dyspnea and Denies dyspnea on exertion Resp Denies cough, Denies dyspnea and Denies dyspnea on exertion GI Denies hematochezia and Denies change in bowel habits Denies hematuria and Denies difficulty urinating Musc Denies back pain and Denies limited range of motion Neuro Denies focal weakness and Denies convulsions Psych Denies depression and Denies mood swings Physical Exam Vital Signs: Last Vital Signs Pulse 58 11/23/24 15:45 BP 132/60 11/23/24 15:45 BMI result Body Mass Index 24.4 Const General: comfortable and no acute distress Orientation/consciousness: patient oriented x3 Neck Neck: Yes no lymphadenopathy Resp Auscultation: clear to auscultation bilaterally Cardio Rhythm: regular rhythm GI Other: Right inguinal hernia, easily reducible Palpation (GI): Soft to palpation, nontender and no guarding Neuro General: patient oriented x3 Assessment & Plan Assessment & Plan (1) Right groin hernia: Code(s): K40.90 - Unilateral inguinal hernia, without obstruction or gangrene, not specified as recurrent Category: Medical Plan: He has a reducible right inguinal hernia. He wants to proceed with repair in view of symptoms. I explained the technique of repair of the right inguinal hernia with mesh. I reviewed the risks including but not limited to bleeding, infections, bowel injury, recurrence, injury to the vas deferens, postop pain, as well as the benefits and alternatives. I explained to him what to expect postoperatively He wants to proceed. He states he is in good health overall. Coding Level of Care Code New Pt Level 3 (52271) Diagnoses Right groin hernia K40.90
--- OUTSIDE RECORDS SUMMARY | 2024-11-23 15:40 | XMS_ITS | Patient Health Record ---
Author Organization [facility] Address [address] [place] [address] Care Team Providers Care Maintenance And Utilities Supervisor Name Role Phone Jose Peñaloza Primary [...] Problem Status W/U Status Risk Notes Problem [id number] Colon cancer screening (Z12.11) Active confirmed Problem [id number] Gastroesophageal reflux disease, unspecified whether esophagitis present (K21.9) Active confirmed Vital Signs Temperature 97.7 degrees Fahrenheit 03/23/2024 Blood pressure diastolic 00 mm Hg 03/23/2024 Height 70 in 03/23/2024 Blood pressure systolic 000 mm Hg 03/23/2024 Weight 173 lbs 03/23/2024 BMI 24.82 kg/m2 03/23/2024 Encounters Encounter Location Date Provider Diagnosis [facility] [address] [place] [address] 03/23/2024 Fernando Thao Jr Gastroesophageal reflux disease, [...] Insured Coverage Start Date Coverage End Date [facility] [address] [address] [place] [address] [id number] LYDIA FERGUSON Self - patient is the insured [employer] [address] [place] [address] [id number] LYDIA FERGUSON Self - patient is the [...]
--- OUTSIDE RECORDS SUMMARY | 2024-11-23 15:40 | XMS_ITS | Data Portability ---
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 Referral physical therapist referral - Evaluate & Rx Lumbar Stabiliza tion Program 2024 025 [email or web address] Not available 09/08/2024 13:18:15 physical therapist referral - Evaluate & Rx Lumbar Stabiliza tion Program 2023 024 [email or web address] 4 Not available 03/17/2024 12:19:20 Procedures None recorded. Surgeries None recorded. Imaging XR, lumbar spine, 2 view - rm 325 4v lspine 2023 024 [email or web address] 4 [facility] Office, [address], [facility] [address], [place], [address], 03/17/2024 12:19:20 MRI, lumbar spine, w/o contrast - MRI LSPINE W/O CONTRAST EVAL FOR NUMBNESS AND TINGLING 2023 024 [facility] [address], [place], [address], 03/31/2024 14:28:51 XR, foot, 3 or more view - RIGHT FOOT /ANKLE 5V WB , ROOM 102 . NEW PATIENT 2023 024 [facility], [address], [address], [place], [address], 02/07/2024 16:18:07 XR, ankle, 2 view [address] [facility], [address], [address], [place], [address], 02/07/2024 16:18:07 Medication Orders Ambien 10 mg tablet 2024 025 [email or web address] [id number], [address] [place], [address], 09/09/2024 09:17:00 Celebrex 100 mg capsule 2023 024 [email or web address] 4 [id number], [address] [place], [address], 03/17/2024 12:19:20 Patient TargetsNo targets recorded. Patient InstructionsNo instructions recorded. Reason for Referral Physical Therapist Referral for Lumbar radiculopathy Evaluate & RxLumbar Stabilization Program Referring Physician: Jairo Hdez, Orthopedic Surgery, [id number] Encounter Date: 03/17/2024 Physical Therapist Referral for [...] XR, foot, 3 or more view http:/ [email or web address] ?Encry pted=s hAaTro YD8dLq bEUv6g %2BXZw aYqtaq 0bqfl% 2Fg9IQ a4ajBk vP9nXo QUaueC m3YtLR FvZl[facility]8[place] HZtai3 7q2116 AC0Kqa n6NVaq mKiQtr MwF INTERFACE [facility] [address], [place], [address], 02/07/2024 09:58:48 02/07/20 24 02/07/2024 XR, foot, 3 or more view http:/ [email or web address] ?Encry pted=s hAaTro YD8dLq bEUv6g %2BXZw aYqtaq 0bqfl% 2Fg9IQ a4ajBk vP9nXo QUaueC m3YtLR FvZlOr[facility] Hospitaltai3 4q6473 AC0Kqa n6NVaq mKiQtr MwF INTERFACE [facility] [address], [place], [address], 02/07/2024 09:58:50 02/07/20 24 02/07/2024 XR, ankle , 2 view http:/ [email or web address] ?Encry pted=s hAaTro YD8dLq bEUv6g %2BXZw aYqtaq 0bqfl% 2Fg9IQ a4ajBk vP9nXo QUaueC m3YtLR FvZlgJ JJ8mAn HZtai3 7m5632 AC0Kqa n6NVaq nKiQtr MwF INTERFACE [facility] [address], [place], [address], 02/07/2024 10:01:47 02/07/20 24 02/07/2024 XR, ankle , 2 view [email or web address]:/ [email or web address] ?Encry pted=s hAaTro YD8dLq bEUv6g %2BXZw aYqtaq 0bqfl% 2Fg9IQ a4ajBk vP9nXo QUaueC m3YtLR FvZlgJ [facility] HZtai3 1m7996 AC0Kqa n6NVaq nKiQtr MwF INTERFACE [facility] [address], [place], [address], 02/07/2024 10:01:50 03/17/20 24 03/17/2024 XR, lumba r spine , 2 view [email or web address]:/ [email or web address] ?Encry pted=s hAaTro YD8dLq bEUv6g %2BXZw aYqtaq 0bqfl% 2Fg9IQ a4ajBk vP9nXo QUaueC m3YtLR FvZl J8[place] HZtai3 9z2810 AC0Kqa 3SGVqG mKiQtr MwF INTERFACE [facility] [address], [place], [address], 03/17/2024 09:01:42 03/17/20 24 03/17/2024 XR, lumba r spine , 2 view http:/ [email or web address] ?Encry pted=s hAaTro YD8dLq bEUv6g %2BXZw aYqtaq 0bqfl% 2Fg9IQ a4ajBk vP9nXo QUaueC m3YtLR FvZlgJ JJ8mAn HZtai3 5x2786 AC0Kqa 3SGVqG mKiQtr MwF INTERFACE [facility] [address], [place], [address], 03/17/2024 09:01:44 03/19/2003/19/2024 MRI, lumba r spine , w/o contr ast No observ ation record ed. BARCODE Not Available 2023 08:54:56 03/31/2003/30/2024 MRI, lumba r spine , w/o contr ast [facility] Access ion Number : [id number] Patien t Name: Shantanu Phillips Record Number : [id number] Date of : 1944 Date of Exam: 2023 Referr ing Physic michael: Jairo Horn [address] [facility], [place] [address] Exam: MR Lumbar Spine (C-) CPT 39496 Room Descri ption: [facility] Verio 3.0T HISTOR Y: Numbne ss and tingli ng. Back pain. TECHNI QUE: Multip lanar multis equenc e MRI of the lumbar spine withou t contra st. COMPAR JOSE MIGUEL: No prior studie s are availa ble for compar jose miguel at [facility] . [...] At T11-T1 2, there is a right classroom monitor ior disc protru johnnie on the sagitt al images with mild centra l canal narrow ing. Left facet arthro sis with mild left forami nal narrow ing. At T12-L1 , there is a broad classroom monitor ior disc protru johnnie on the sagitt al images with mild centra l canal narrow ing. L1-L2: Concen tric disc-o steoph yte comple x asymme tric to the left classroom monitor iorly. Mild left centra l canal and [...] comple x asymme tric to the left classroom monitor iorly with a superi mposed left classroom monitor ior disc protru johnnie. Mild left centra l canal narrow ing with crowdi ng of the left S1 nerve roots, which are slight ly displa patsy classroom monitor iorly. No right and mild-m oderat e [...] onical ly Signed By: Clifford Goodwin MD [facility]) [address] [place], [address], 04/15/2024 11:16:59 04/07/20 24 03/30/2024 MRI, lumba r spine , w/o contr ast No observ ation record ed. [facility]) [address], [place], [address], 04/15/2024 11:15:15 06/02/19 25 06/02/2024 MRI, pelvi s, w/o contr ast No observ ation record ed. [email or web address] Not Available 2024 11:17:22 06/11/19 25 06/11/2024 XR, hip + pelvi s, unila teral , 2 or 3 view No observ ation record ed. [email or web address] Not Available 2024 14:22:40 Result Notes Documentation Provider Name and Address Organization Details Recorded Time Xr, Foot, 3 Or More View : [email or web address] ncrypted=ekPqOkzCU4rBtcNCi 6g%5NTOqiUpjom9horj%2Fg9IQ o4ceSgkY5gJvKEmktEo2JpEKHb JhnLBF1dHbQCrtx12d2339SO8G oip4SMpviGbFaeQbS Not Available [facility] 02/07/2024 09:58:49 Xr, Foot, 3 Or More View : [email or web address] ncrypted=zsXwUubFN5nNraMQp 6g%7LHTgtMtrgl0gncr%2Fg9IQ h3zgDroO6hMoNZlmpVp7JyEFMd CemZFR1fShWGsir37w0437WW3X xyv4DProeArCkrQsL Not Available [facility] 02/07/2024 09:58:51 Xr, Ankle, 2 View : [email or web address] ncrypted=lrMvQwcHO3zHdqMQu 6g%1PGNfqGwjjp4vgqk%2Fg9IQ g1kkLuoJ2oAgAOskkZu8XlTLKp MhtUFB4pRiUMgfg93g6873KA8T too7OJlvwFeEpcCwH Not Available [facility] 02/07/2024 10:01:47 Xr, Ankle, 2 View : [email or web address]?E ncrypted=efFyLbhVE4jPygBGa 6g%0QUEbqIsdgv5uhbc%2Fg9IQ t7vuJhbK0pBbECrodQi1RsZLUy YtdBWC5iRpYWbef56k4831QL4I xvj7HCmbuKxFjpZdR Not Available [facility] 02/07/2024 10:01:51 Xr, Lumbar Spine, 2 View : [email or web address] ncrypted=ygLzZcpST8jXolXAx 6g%1DRUpnDntnh5tiah%2Fg9IQ a2uzJurW6dGgYFjglWr3RjXKMp WflYAD0lEjUMdwn80e0734LR3S tj7CSMvLsLgAgoPuF Not Available [facility] 03/17/2024 09:01:43 Xr, Lumbar Spine, 2 View : [email or web address] ncrypted=neBxZurYK9bVsaTVl 6g%0GOUdnYiawd8yllx%2Fg9IQ h8bxUutN1kBmLWgwzLx8KdIBRe XmrCOO3dIpURrrc83v3895ZF2L ul8QETiAhTpQraKwA Not Available [facility] 03/17/2024 09:01:45 Mri, Lumbar Spine, W/o Contrast : [facility] Accession Number: [id number] Patient Name: Shantanu Phillips Date of : 1945 Date of Exam: 03-30-2024 Referring Physician: Jairo Hdez [address] [place], [place] [address] Exam: MR Lumbar Spine (C-) CPT 73413 Room Description: [facility] Ver 3.0T HISTORY: Numbness and tingling. Back pain. TECHNIQUE: Multiplanar multisequence MRI of the lumbar spine without contrast. COMPARISON: No prior studies are available for comparison at [facility]. FINDINGS: A mild leftward curvature of the lumbar spine is present. There is mild degenerative anterolisthesis of L2 on L3, L3 on L4, and L4 on L5. The lumbar vertebral bodies are normal in height. 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 The L3-L4 and L5-S1 discs are moderate-severely diminished in height. Mild loss of height of L1-L2 and moderate loss of height of L2-L3. Mild right and moderate loss of height of L4-L5. Marginal osteophytes, facet arthroses, and vacuum disc phenomenon are present at multiple levels. Modic type I endplate change at L1-L2, L2-L3, and L3-L4. The visualized lower thoracic cord is normal in signal. No acute paraspinal or retroperitoneal abnormality. At T11-T12, there is a right posterior disc protrusion on the sagittal images with mild central canal narrowing. Left facet arthrosis with mild left foraminal narrowing. At T12-L1, there is a broad posterior disc protrusion on the sagittal images with mild central canal narrowing. L1-L2: Concentric disc-osteophyte complex asymmetric to the left posteriorly. Mild left central canal and subarticular recess narrowing. Crowding of the left L2 nerve roots without incident. Minimal right and mild left foraminal narrowing. L2-L3: Concentric disc-osteophyte complex, facet arthrosis, and ligamentum flavum infolding. Moderate central canal narrowing. Crowding of the L3 nerve roots without definite impingement. Mild-moderate foraminal narrowing. Mild crowding of the exiting right L2 nerve roots. L3-L4: Concentric disc-osteophyte complex, facet arthrosis, and ligamentum flavum infolding. Moderate central canal stenosis with a trefoil configuration of the thecal sac. Subarticular recess narrowing with crowding of the right L4 nerve roots. Moderate right and mild left foraminal narrowing. L4-L5: Concentric disc-osteophyte complex. Facet arthrosis. Mild-moderate central canal narrowing. Trefoil configuration the thecal sac without traversing nerve root impingement. Mild foraminal narrowing. L5-S1: Concentric disc-osteophyte complex asymmetric to the left posteriorly with a superimposed left posterior disc protrusion. Mild left central canal narrowing with crowding of the left S1 nerve roots, which are slightly displaced posteriorly. No right and mild-moderate left foraminal narrowing with crowding of the left extra foraminal L5 nerve roots. IMPRESSION: Degenerative changes of the lumbar spine with multilevel central canal and foraminal narrowing as detailed above. These findings can be correlated with the patient's symptoms and neurological examination. Electronically Signed By: [facility] 04/15/2024 11:17:00 Problems Name Problem SNOMED Code Status Onset Date Resolution Date Notes Provider Name and Address Organization Details Recorded Time Lumbar radiculop athy 992051905 Active 2023 Jairo Hdez MD [address], [place], [address] , [facility] 4 09:53:54 Pain of sacroilia c joint 936264192 Active 2023 Jairo Hdez MD [address], [place], [address] , [facility] 4 09:53:54 Lumbar spondylos is 122381278 Active 2023 Jairo Hdez MD [address], [place], [address] , [facility] 4 09:53:56 Disorder of tendon 60620793 Active 2023 Jairo Hdez MD [address], [place], [address] , [facility] 4 09:56:33 Strain of tendon of muscle of hip 200099536 Active 2023 Jairo Hdez MD [address], [place], [address] , [facility] 4 12:41:49 Lumbar spondylol isthesis 931672608945 102 Active 2023 Jairo Hdez MD [address], [place], [address] , [facility] 4 12:41:51 Spinal stenosis of lumbar region 65230518 Active 2023 Jairo Hdez MD [address], [place], [address] , [facility] 4 12:41:52 Hamstring injury 104737305 Active 2024 Jairo Hdez MD [address], [place], [address] , [facility] 5 09:30:49 Strain of muscle of hip 555787163 Active 2024 Jairo Hdez MD [address], [place], [address] , [facility] 5 09:31:08 Greater trochante connor pain syndrome 2197722 Active 2024 Jairo Hdez MD [address], [place], [address] , [facility] 5 09:31:21 Insomnia 772442313 Active 2024 Jairo Hdez MD [address], [place], [address] , [facility] 5 09:31:27 Acquired trigger finger of left little finger 458993385596 100 Active 2014 Problem Code: M65.352; Problem Code Type: ICD-10; Status: 'A'; Not Available [facility] 4 11:57:45 Problem Notes None recorded. Procedures Surgical History Date Name Laterality Status Provider Name and Address Organization Details Recorded Time 5 JZHip completed José Manuel Luz PA-C [address], [place], [address], [facility] 07/15/2024 13:39:21 4 Sports Knee 4&1 completed Clarke Hernandez PA-C [address], [place], [address], [facility] 12/26/2023 11:18:00 8 Shoulder Surgery completed [facility] 03/17/2024 08:53:37 6 Other completed [facility] 03/17/2024 08:53:37 1 Shoulder Surgery completed [facility] 03/17/2024 08:53:37 1 Other completed [facility] 03/17/2024 08:53:37 Imaging Results None recorded. Procedure Notes None recorded. Medical Equipment None [...] Updated DateTime 07/15/2024 177.8 cm 25.8 kg/m2 46280.63 g [facility] 07/15/2024 10:16:18 Date Recorded Body height Body mass index (BMI) Body weight Provider Name and Address Organization Details Last Updated DateTime 09/08/2024 177.8 cm 25.8 kg/m2 37689.63 g Gigi ko [facility] 09/08/2024 09:03:56 Date Recorded Body height Body mass index (BMI) Body weight Provider Name and Address Organization Details Last Updated DateTime 02/07/2024 177.8 cm 25.8 kg/m2 81980.63 g Kassandra Rees [facility] 02/07/2024 09:50:57 Date Recorded Body height Body mass index (BMI) Body weight Provider Name and Address Organization Details Last Updated DateTime 03/17/2024 177.8 cm 25.8 kg/m2 07027.63 g Brandon Pablo [facility] 03/17/2024 08:53:44 Date Recorded Body height Body mass index (BMI) Body weight Provider Name and Address Organization Details Last Updated DateTime 05/12/2024 177.8 cm 25.8 kg/m2 73945.63 tiffanie ko [place] [facility] 05/12/2024 08:49:13 Social History Question Answer Notes LastModified by Organizat ion Details LastModified Time What Is Your Relationship Status? [email or web address] Information not available 03/17/2024 How Many Years Have You Smoked Tobacco? 0 [email or web address] Information not available 03/17/2024 Sex: Unknown Functional Status Question Answer Note LastModified by Organizat ion Details LastModified Time How many times per week do you consume alcohol? Less than 1 time per week [email or web address] Information not available 03/17/2024 Do you use any illicit or recreational drugs? No Information not available 03/17/2024 Do you or have you ever used any other forms of tobacco or nicotine? No [email or web address] Information not available 03/17/2024 Mental Status None recorded. Family History Nothing Reported. Medical History Condition Response Allergies/Hayfever N Coronary Artery Disease N Anxiety/Depression N Breathing or lung disorders N Emphysema N Nerve Disorders N Thyroid Problems N COPD N Pacemaker N Anemia N Kidney/Bladder Problems N Vascular Disease N Heart Trouble N Heart Attack ([place]) N Gastrointestinal Disease N Cholesterol N Diabetes [...] SNOMED-CT Code Diagnosis ICD10 Code Diagnosis Note [id number] [facility]a[address] [place] [address] 12/26/2023 09:11:04 01/20/2024 14:11:11 Pain of right knee joint 3630402518 05405 M25.561 Pes anseri nus bursitis of right knee 8366498619 438302 M70.51 You have been provided with a [...] following the injection. This is called a flare . To help minimize the chances of this, please see the post-injec tion instructio ns above.Ther e is a less than 1% chance of an infection. If you notice any signs of infection (redness, warmth, drainage, fever greater than 100 degrees) please call our office or contact us through the portal [facility]. [id number] Thalia Demarco MD [facility] [address] [address] [place] [address] 02/07/2024 09:42:55 02/28/2024 13:54:43 Pain in right foot 7804629338 00736 M79.836 [id number] Jairo Hdez MD [facility] [address] [place] [address] 03/17/2024 08:31:41 04/01/2024 18:03:41 Lumbar radiculopathy 321619483 M54.16 Pain of sa croiliac joint 642995791 M53.3 Lumbar spondylosis 60464 0009 M47.816 Disorder of tendon 35992 002 M67.634 [id number] Jairo Hdez MD [address] [address] [place] [address] 05/12/2024 08:15:28 06/06/2024 09:02:54 Spinal stenosis of lumbar region 99977212 M48.062 Lumbar spondylolisthesis 5229902317 01802 M43.16 Lumbar spondylosis 38992 0009 M47.816 Strain of tendon of muscle of hip 481133015 S76.019A [id number] [facility] [address] [place] [address] 07/15/2024 10:07:49 07/31/2024 09:32:54 Pain of sacroiliac joint 900650873 M53.3 [id number] MD ADRI[facility]NE [facility] - [facility] [address] [place] [address] 09/08/2024 08:53:01 09/23/2024 09:12:13 Spinal stenosis of lumbar region 48150733 M48.062 Insomnia 133236614 G47.0 0 Hamstring injury 2971359 09 M76.899 Strain of muscle of hip 325886492 S76.011A DIAGNOSES: 1. Lumbar spinal stenosis with spondylosi s2. Left [...] unspecifie d Greater tr ochanteric pain syndrome 5362034 M70.62 Health Concerns Section Related Observation LastModified by Organization Detai ls LastModified Time None Recorded Concern Status LastModified by Organization Details LastModified Time None Recorded Advance Directives Directive None Recorded Payers Insurance Date Sequence Insurance Name Policy Number Policy Escobar Covered Member ID Escobar Member ID Guarantor Name 09/23/2024 1 [facility] (MEDICARE REPLACEMENT/ ADVANTAGE - PPO) [id number] Shantanu Phillips [id number] Shantanu Phillips 10/01/2024 2 [employer] ( - MEDICARE SUPPLEMENT) Shantanu Phillips [id number] Shantanu Phillips Notes Date Note Type Note Provider Name and Address Organization Details Recorded Time 4 text/html Chief complaint: Right leg pain, lower back pain History of present illness: The patient is a very pleasant 78-year-old gentleman, 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 These were obtained at [facility]. Report makes note of lumbar spine disease but also specifically mentions sclerotic lesions throughout the pelvis with concern for possible bony metastasis of a sclerosing neoplasm such as prostate cancer. A nuclear bone scan has been recommended. He reports he is following up at [place] for this and believes the bone scan [...] midfoot or hindfoot deformity is noted. Impression: Right leg pain of unclear etiology; suspect neurogenic possibly related to lumbar spine disease Plan: I reviewed today's physical examination and imaging findings with the patient. I am confident the source of his pain is not his right ankle or his foot. His x-ray report from [facility] is highly concerning and I have encouraged him to follow-up and get his bone scan. I would like to have him evaluated by our spine team. I suspect he has fairly significant degenerative change in the lumbar spine. However, there is possibility of lumbar spine metastasis or lesion, based on his history and the wording of the x-ray report. Again I am not able to review the images He will follow-up with the foot and ankle team as needed moving forward Thalia Demarco MD [address] [place] [address] [address], [place], [address], [facility] 02/07/2024 17:46:40 4 text/html Lumbar Spine Evaluation for 79-year-old Male with Back Pain and Leg Spasms Subjective:Mr. Phillips is a 79-year-old male presenting for lumbar spine evaluation. 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 Denies bowel/bladder incontinence and saddle anesthesia. PFMSH and ROS has been reviewed, updated, and is located in the patient s chart. PHYSICAL EXAM:Respiration Rate 14-16Height and [...] tone.No scars noted. No skin or hair changes Right Lower Extremity:No defects or tenderness. No pain with internal rotation and external rotation of the hip.Negative tenderness over the greater trochanteric bursa.Negative straight leg raise.No evidence of hip subluxation or impingement.Negative FELIPE.Strength Exam:5/5 hip flexion5/5 knee extension5/5 ankle dorsiflexion5/5 Extensor Hallucis Longus5/5 plantar flexion Left Lower Extremity:No defects or tenderness. No pain with internal rotation and external rotation of the hip.Negative tenderness over the greater trochanteric bursa.Negative straight leg raise.No evidence of hip subluxation or impingement.Negative FELIPE.Strength Exam:5/5 hip flexion5/5 knee extension5/5 ankle dorsiflexion5/5 Extensor Hallucis Longus5/5 plantar flexion Achilles and Patella reflexes were 2+ and symmetric.Normal sensation to light touch from L2-S1.Negative Clonus. Objective:Physical Examination:- Gait: Normal- Back: Tenderness noted over the SI joint area bilaterally, more pronounced on the right- Hamstring: Left proximal hamstring and gluteus tenderness noted- Neurological: Normal strength in lower extremities, intact sensation- Special Tests: Positive for SI joint pain with provocation I independently reviewed 2 view radiographs of the [...] the patient's functional status and pain levels. Jairo Hdez MD [address] [place] [address] [address], [place], [address], [facility] [facility] 03/17/2024 09:57:01 4 text/html Lumbar Spine Evaluation for 79-year-old Male with Back Pain and Leg Spasms Subjective:Mr. Phillips is a 79-year-old male here for follow up lumbar spine evaluation. 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 Denies bowel/bladder incontinence and saddle anesthesia. PFMSH and ROS has been reviewed, updated, and is located in the patient s chart. PHYSICAL EXAM:Respiration Rate 14-16Height and [...] tone.No scars noted. No skin or hair changes Right Lower Extremity:No defects or tenderness. No pain with internal rotation and external rotation of the hip.Negative tenderness over the greater trochanteric bursa.Negative straight leg raise.No evidence of hip subluxation or impingement.Negative FELIPE.Strength Exam:5/5 hip flexion5/5 knee extension5/5 ankle dorsiflexion5/5 Extensor Hallucis Longus5/5 plantar flexion Left Lower Extremity:No defects or tenderness. No pain with internal rotation and external rotation of the hip.Negative tenderness over the greater trochanteric bursa.Negative straight leg raise.No evidence of hip subluxation or impingement.Negative FELIPE.Strength Exam:5/5 hip flexion5/5 knee extension5/5 ankle dorsiflexion5/5 Extensor Hallucis Longus5/5 plantar flexion Achilles and Patella reflexes were 2+ and symmetric.Normal sensation to light touch from L2-S1.Negative Clonus. 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 Jairo Hdez MD [address] [place] [address] [address], [place], [address], [facility] 09/08/2024 09:32:44
--- OUTSIDE RECORDS SUMMARY | 2024-11-23 15:40 | XMS_ITS | Patient Health Record ---
Author Organization [facility] Mayen Address [address] [place] [address] Care Team Providers Care Employee Health Nurse Name Role Phone Rosalino Perez MD Primary Care Provider Jay Mosqueda Unavailable [phone] Reason For Referral No Information Medications Medication SIG (Take, Route, Fr equency, Duration) Notes Start Date End Date Status Aspir-Low 81 MG 1 tablet Orally Once a day; Duration: 30 day(s) Active Glucosamine Active Vitamin D 1000 UNIT 1 tablet Orally Once a day; Duration: 30 day(s) Active Multivitamins as directed Orally Active Tylenol 325 MG 1 tablet as needed O rally every 6 hrs; Duration: 05 days 04/08/2012 Active Problems Problem Type SNOMED Code ICD Code Onset Dates Problem Status W/U Status Risk Notes Problem Flat Foot, Congenital (754.61) Active confirmed Problem Plantar fasciitis (325672899) Plantar Fasciitis (728.71) Active confirmed Plan Of Treatment No Information Insurance Providers Payer Name Payer Address Payer Phone Subscriber Number Group Number Insured Name Patient Relationship to Insured Coverage Start Date Coverage End Date Medicare National Govt Sv[employer] Inc [address] [place] [address] [id number] Shantanu Phillips Self - patient is the insured [facility] -[id number] [address] [address] [place] [address] [id number] Shantanu Phillips Self - patient is the insured for Life [address] [place] [address] [phone] [id number] Shantanu Phillips Self - patient is the insured Medical (General) History Medical History History ICD Code back, hip, knee pain cancer measles chicken pox transfusions Surgical History Surgery Date(Month/Year) shoulder surgery colon
[2024-11-23 15:45] VITALS: BP 132/60; PULSE 58; BMI 24.4
== END 2024-11-23 16:16 | disposition home or self-care (01) ==
PROVIDERS: PCP Physician Assistant; Visit Provider Surgery
DX: K40.90 Unilateral inguinal hernia, without obstruction or gangrene, not specified as recurrent (principal)
CPT/HCPCS: 99203

== ENCOUNTER → 2024-11-23 15:32 | Outpatient (BNVA) | payer MEDICARE, OTHER, SELFPAY | PROVIDERS: PCP Physician Assistant; Visit Provider Surgery | DX: K40.90 Unilateral inguinal hernia, without obstruction or gangrene, not specified as recurrent (principal) | CPT/HCPCS: 99202 ==

== ENCOUNTER 2024-12-15 13:54 | Outpatient (AMB) | payer MEDICARE, OTHER, SELFPAY ==
--- NOTE | 2024-12-15 14:03 | MHC.PC.OV ---
Vital Signs 12/15/24 14:04 Height 5 ft 10 in Weight 171 lb BMI 24.5 BP 130/70 Blood Pressure Location Lt brachial Position Sitting Pulse 46 L Pulse Source Pulse Oximeter Temp 97.3 F Temp Source Temporal Artery Scan Pulse Oximetry (%) 97 Oxygen Delivery Method Room Air Intake Visit Reasons: f/u HTN Intake Note: Patient is here to follow up on HTN. Global Recruiter Required: No Motorbike Courier: Not Required per policy Accompanied by: Self / Same As Patient Allergies No Known Allergies Allergy (Verified 12/15/24 14:21) Medication List - Last Reconciled 12/15/24 by Jose Peñaloza PA-C acetaminophen (Tylenol) 650 mg PO BID PRN carisoprodol (Soma) 250 mg PO BEDTIME PRN 20 days losartan 50 mg PO BID 90 days Held on 10/13/24. Instructions: Doctor's Order losartan-hydrochlorothiazide 100-12.5 mg 1 tab PO DAILY 90 days zolpidem 10 mg PO BEDTIME PRN 15 days Tobacco use date assessed: 12/15/24 Fall risk assessment: No Falls in past year Last assessed Fall Risk: 12/15/24 Dental Screening Dental Screen Date: 10/13/24 HPI f/u HTN HPI Details Apolinar is a 79-year-old male here today for a follow-up visit.? Patient has a past medical history significant for hypertension and degenerative disc disease of the cervical spine, h/o of colon cancer. Concern--> he has recently had a 20% increase in his [facility] disability benefits due to his neck and lower lumbar spine abnormalities related to his time in the [employer]. Also has an upcoming surgery with [facility] [place] [facility] to repair of groin hernia Bradycardia: , has been asymptomatic, Has been undergoing testing with cardiology. Echocardiogram and Holter monitor without significant findings. Otherwise asymptomatic He did discuss the possibility of getting a pacemaker down line. .. HTN: Patient's blood pressure acceptable today in office. He reports that home blood pressures have been 120s to 130 systolic. .. History of colon cancer:? Has had a history of a colectomy and has been in remission? 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 recently had a CEA through the [facility] and it was not elevated. .. Degenerative disc disease of the spine:? He is followed by neck specialist.? He is currently in physical therapy for his hip in lower extremity issues.. Has done multiple rounds of physical therapy with decent affect.? He does use Soma on a p.r.n. basis for his pain [facility] Medical History Medicare annual wellness visit, initial Hypertension Chronic neck pain Chronic back pain Bradycardia Right otitis media Surgical History History of colonoscopy S/P excision of lipoma History of shoulder surgery H/O hemicolectomy History of hernia surgery Family History Father No problems noted. Mother Colon cancer Social History Housing: House Alcohol intake: former Patient Tobacco Use Status: Never used Tobacco e-Cigarette/Vaping Use: Never Used Second Hand Smoke Exposure: No service: Yes Current occupational status: retired Cognitive needs: No Hearing needs: No Vision needs: No Questionnaire Thrive Questionnaire Date Thrive assessed: 10/13/24 I am a: Patient What is your living situation today?: I have a steady place to live Within the past 12 months, did the food you bought not last and you didn't have the money to get more?: Never true Within the past 12 months, did you worry whether your food would run out before you got money to buy more?: Never true Do you have trouble paying for medicines?: No Do you have trouble getting transportation to medical appointments?: No Do you have trouble paying your heating and electricity bill?: No Do you have trouble taking care of your child, family member or friend?: No Do you have trouble with day-to-day activities such as bathing, preparing meals, shopping, managing finances, etc.?: No Are you currently unemployed and looking for a job?: No Are you interested in more education?: No Please select the resources that you would like help with: None Currently or been in a relationship where the following occur: No concerns reported THRIVE Score: 0 SHWETHA-7 AMB Questionnaire SHWETHA-7 Date SHWETHA - 7 assessed: 10/13/24 Source: Developed by Zahra VasquesW. Jake, Fitz Stephenson and colleagues, with an educational mayank from [employer]. Review of Systems Const Denies headache(s) Eyes Denies loss of vision ENT Denies vertigo, Denies dizziness, Denies headache(s) and Denies sore throat Card Denies chest pain, Denies leg edema and Denies lightheadedness Resp Denies cough, Denies hemoptysis and Denies wheezing GI Denies abdominal pain, Denies melena, Denies constipation, Denies diarrhea and Denies vomiting Denies dysuria, Denies urinary frequency and Denies urinary urgency Musc Denies arthralgias, Denies joint swelling, Denies numbness and Denies tingling Neuro Denies Abnormal speech present, Denies behavioral changes, Denies vertigo, Denies dizziness, Denies headache(s), Denies loss of vision, Denies memory loss, Denies numbness and Denies tingling Psych Denies anxiety, Denies behavioral changes, Denies depression, Denies memory loss and Denies panic attacks Loco/Lymph Denies easy bleeding and Denies easy bruising Aller/Immun Denies wheezing Physical exam (Primary Care) Vital Signs: Last Vital Signs Temp 97.3 F 12/15/24 14:04 Pulse 46 L 12/15/24 14:04 BP 130/70 12/15/24 14:04 Pulse Ox 97 12/15/24 14:04 Oxygen Delivery Method Room Air 12/15/24 14:04 BMI result Body Mass Index 24.5 Tobacco/Smoking Status: Tobacco use Status Tobacco use date assessed 12/15/24 12/15/24 14:09 Patient Tobacco Use Status Never used Tobacco 12/15/24 14:09 e-Cigarette/Vaping Use Never Used 12/15/24 14:09 Thrive Assessment: Date of Thrive Assessment Date Thrive assessed 10/13/24 12/15/24 14:09 Currently or been in a relationship where the following occur: No concerns reported Const General: healthy appearing, no acute distress, alert and awake Nutritional Appearance: well nourished Orientation/consciousness: oriented to person, oriented to place and oriented to time HENMT Ears: TM's normal bilaterally General nose exam: Normal nasal mucous membranes and turbinates present Eyes Conjunctivae: conjunctivae normal Sclerae: sclerae normal Pupils: Equal, round and reactive pupils present Neck Neck: Yes no lymphadenopathy and Yes no JVD Thyroid: Thyroid normal Carotids: no bruits Resp Effort & Inspection: normal respiratory effort and not tachypneic Auscultation: no crackles, no rales, no rhonchi and no wheezes Cardio Rate: regular rate Rhythm: regular rhythm Heart sounds: no murmurs and normal S1 and S2 GI Palpation (GI): Soft to palpation, nontender, no hepatomegaly and no splenomegaly Auscultation: normal bowel sounds Skin General skin exam: no rashes or lesions noted and dry skin Neuro General: oriented to person, oriented to place and oriented to time Cranial nerves: Yes Equal, round and reactive pupils present Speech: No Abnormal speech present Gait exam (Neuro): Normal gait present Motor exam (neuro): no tremor noted Extrem Right upper extremity: full ROM Left upper extremity: full ROM Right lower extremity: full ROM; no edema Left lower extremity: full ROM; no edema Psych Mental Status: mental status grossly normal Speech and movement: Normal speech and movement present Affect: normal affect Attitude: cooperative Thought process: Normal thought process present Coding Level of Care Code Est Pt Level 4 (58526) Diagnoses Primary hypertension I10 Hypertension type: primary hypertension Borderline high cholesterol E78.9 Primary insomnia F51.01 Insomnia type: primary Right groin hernia K40.90 Assessment & Plan Assessment & Plan (1) HTN (hypertension): Code(s): I10 - Essential (primary) hypertension Category: Medical Qualifiers: Hypertension type: primary hypertension Qualified Code(s): I10 - Essential (primary) hypertension Plan: Patient's blood pressure acceptable today in office. Has been very good control at home with 110s to 120 systolic readings. He continues with losartan hydrochlorothiazide which seems to have better control of his blood pressure. Goal blood pressures to be below 140/90 (2) Borderline high cholesterol: Code(s): E78.9 - Disorder of lipoprotein metabolism, unspecified Category: Medical Plan: Patient's most recent lipid panel showing borderline high cholesterol. He will continue on doing dietary modifications to reduce his cholesterol. (3) Insomnia: Code(s): G47.00 - Insomnia, unspecified Category: Medical Qualifiers: Insomnia type: primary Qualified Code(s): F51.01 - Primary insomnia Plan: Patient continues to suffer with insomnia and does use zolpidem half to a quarter tablet on an as needed basis with good effect. (4) Right groin hernia: Code(s): K40.90 - Unilateral inguinal hernia, without obstruction or gangrene, not specified as recurrent Category: Medical Plan: Has upcoming surgery with [place] [facility] to repair her groin hernia.. Orders: Orders Prostate Specific Antigen Scr 12/15/24 Z12.5 - Encounter for screening for malignant neoplasm of prostate Lipid Panel 12/15/24 E78.9 - Disorder of lipoprotein metabolism, unspecified [facility]. Panel Fast 12/15/24 I10 - Essential (primary) hypertension Complete Blood Count no Diff 12/15/24 I10 - Essential (primary) hypertension Medications: Refilled zolpidem 10 mg PO BEDTIME PRN 15 tabs 2RF insomnia 15 days F51.01 - Primary insomnia carisoprodol (Soma) 250 mg PO BEDTIME PRN 20 tabs 0RF muscle pain 20 days M50.30 - Other cervical disc degeneration, unspecified cervical region
[2024-12-15 14:04] VITALS: BP 130/70; PULSE 46; TEMP 36.3; O2SAT 97; BMI 24.5
--- OUTSIDE RECORDS SUMMARY | 2024-12-15 15:12 | XMS_ITS | Data Portability ---
Author Organization [place] - [facility], [facility] [place] Address [address] [place] [address] Care Team Providers Care Synchronizer Name Role Phone JOEL MCCORMICK Primary Care [...] 325 4v lspine 2023 024 [email or web address] 4 [facility], [address], [facility] [address], [place], [address], 03/17/2024 12:19:20 MRI, lumbar spine, w/o contrast - MRI LSPINE W/O CONTRAST EVAL FOR NUMBNESS AND TINGLING 2023 024 [facility] ([facility] [address], [place], [address], 03/31/2024 14:28:51 XR, foot, 3 or more view - RIGHT FOOT /ANKLE 5V WB , ROOM 102 . NEW PATIENT 2023 024 [facility], [address], [address], [place], [address], 02/07/2024 16:18:07 XR, ankle, 2 view 2023 024 [facility] [employer] [facility], [address], [address], [place], [address], 02/07/2024 16:18:07 Medication Orders Ambien 10 mg tablet 2024 025 [email or web address] [facility]1230, [address] [place], [address], 09/09/2024 09:17:00 Celebrex 100 mg capsule 2023 024 [email or web address] 4 [facility]1230, [address] [place], [address], 03/17/2024 12:19:20 Patient TargetsNo targets recorded. Patient InstructionsNo instructions recorded. Reason for Referral Physical Therapist Referral for Lumbar radiculopathy Evaluate & RxLumbar Stabilization Program Referring Physician: Jairo Hdez, Orthopedic Surgery, [id number] Encounter Date: 03/17/2024 Physical Therapist Referral for [...] XR, foot, 3 or more view [email or web address] ?Encry pted=s hAaTro YD8dLq bEUv6g %2BXZw aYqtaq 0bqfl% 2Fg9IQ a4ajBk vP9nXo QUaueC m3YtLR FvZlOrlando [facility]8[place] HZtai3 0z5674 AC0Kqa n6NVaq mKiQtr MwF INTERFACE [facility] [address], [place], [address], 02/07/2024 09:58:48 02/07/20 24 02/07/2024 XR, foot, 3 or more view [email or web address] ?Encry pted=s hAaTro YD8dLq bEUv6g %2BXZw aYqtaq 0bqfl% 2Fg9IQ a4ajBk vP9nXo QUaueC m3YtLR FvZlOrlando [facility] Hospital8[facility] Hospitaltai3 4i9267 AC0Kqa n6NVaq mKiQtr MwF INTERFACE [facility] [address], [place], [address], 02/07/2024 09:58:50 02/07/20 24 02/07/2024 XR, ankle , 2 view [email or web address] ?Encry pted=s hAaTro YD8dLq bEUv6g %2BXZw aYqtaq 0bqfl% 2Fg9IQ a4ajBk vP9nXo QUaueC m3YtLR FvZlgJ JJ8mAn HZtai3 5c7031 AC0Kqa n6NVaq nKiQtr MwF INTERFACE [facility] [address], [place], [address], 02/07/2024 10:01:47 02/07/20 24 02/07/2024 XR, ankle , 2 view [email or web address]:/ [email or web address] ?Encry pted=s hAaTro YD8dLq bEUv6g %2BXZw aYqtaq 0bqfl% 2Fg9IQ a4ajBk vP9nXo QUaueC m3YtLR FvZlgJ [facility] HZtai3 3y7807 AC0Kqa n6NVaq nKiQtr MwF INTERFACE [facility] [address], [place], [address], 02/07/2024 10:01:50 03/17/20 24 03/17/2024 XR, lumba r spine , 2 view [email or web address]:/ [email or web address] ?Encry pted=s hAaTro YD8dLq bEUv6g %2BXZw aYqtaq 0bqfl% 2Fg9IQ a4ajBk vP9nXo QUaueC m3YtLR FvZl J8[place]ie HZtai3 7v9309 AC0Kqa 3SGVqG mKiQtr MwF INTERFACE [facility] [address], [place], [address], 03/17/2024 09:01:42 03/17/20 24 03/17/2024 XR, lumba r spine , 2 view http:/ [email or web address] ?Encry pted=s hAaTro YD8dLq bEUv6g %2BXZw aYqtaq 0bqfl% 2Fg9IQ a4ajBk vP9nXo QUaueC m3YtLR FvZlgJ JJ8mAn HZtai3 4z3563 AC0Kqa 3SGVqG mKiQtr MwF INTERFACE [facility] [address], [place], [address], 03/17/2024 09:01:44 03/19/2003/19/2024 MRI, lumba r spine , w/o contr ast No observ ation record ed. BARCODE Not Available 2023 08:54:56 03/31/2003/30/2024 MRI, lumba r spine , w/o contr ast [facility] Access ion Number : [id number] Patien t Name: Shantanu Phillips Record Number : [id number] Date of : 1944 Date of Exam: 2023 Referr ing Physic michael: Jairo Horn [address] [facility], [place] [address] Exam: MR Lumbar Spine (C-) CPT 55246 Room Descri ption: [facility] Verio 3.0T HISTOR Y: Numbne ss and tingli ng. Back pain. TECHNI QUE: Multip lanar multis equenc e MRI of the lumbar spine withou t contra st. COMPAR JOSE MIGUEL: No prior studie s are availa ble for compar jose miguel at [facility] . [...] At T11-T1 2, there is a right basketballs and footballs reverser ior disc protru johnnie on the sagitt al images with mild centra l canal narrow ing. Left facet arthro sis with mild left forami nal narrow ing. At T12-L1 , there is a broad basketballs and footballs reverser ior disc protru johnnie on the sagitt al images with mild centra l canal narrow ing. L1-L2: Concen tric disc-o steoph yte comple x asymme tric to the left basketballs and footballs reverser iorly. Mild left centra l canal and [...] comple x asymme tric to the left basketballs and footballs reverser iorly with a superi mposed left basketballs and footballs reverser ior disc protru johnnie. Mild left centra l canal narrow ing with crowdi ng of the left S1 nerve roots, which are slight ly displa patsy basketballs and footballs reverser iorly. No right and mild-m oderat e [...] onical ly Signed By: Clifford Goodwin MD [facility] ([facility]) [address] [place], [address], 04/15/2024 11:16:59 04/07/20 24 03/30/2024 MRI, lumba r spine , w/o contr ast No observ ation record ed. [facility] ([facility]) [address], [place], [address], 04/15/2024 11:15:15 06/02/19 25 06/02/2024 MRI, pelvi [...] Foot, 3 Or More View : [email or web address] ncrypted=ksSvAjzHW7aCnrVEk 6g%3EAPsfJpxbd2qvfw%2Fg9IQ c7riIqaC2fLzNUyprMv4DwRNAz TtaQBJ1mRmUCzhi25q0004KF6D llh1OEhbdLdVsiQmG Not Available [facility] hospital 02/07/2024 09:58:49 Xr, Foot, 3 Or More View : [email or web address]?E ncrypted=cxTcLupHD5fJczRUt 6g%1KKVcdCsscv2ypgv%2Fg9IQ w7otAakW1cXnSCzkaUi3DbSRDr QloTMY2pRjBIuoh49l2052LJ2B tdr1RQfizZiMzeVyK Not Available [facility] 02/07/2024 09:58:51 Xr, Ankle, 2 View : [email or web address]?E ncrypted=jwStTsyOX4cKrfFTw 6g%7JAIxrTinih0vknv%2Fg9IQ m9zcNntM7jWoIWfmfEy8XlSGEi JbwYAY4aEqPXhdu81n2076XK2J yck7HPcsvNzOmrAfY Not Available [facility] 02/07/2024 10:01:47 Xr, Ankle, 2 View : [email or web address]?E ncrypted=twMcBtzBX4vLyvSAp 6g%9MMNtnYxsgd8kchv%2Fg9IQ u6yjFxzD3xPuUOmmhCj3JhFGHr IutNMG4wYgRDopo15y7116OS6K dvo2UDwsfYzOrcKkB Not Available [facility] 02/07/2024 10:01:51 Xr, Lumbar Spine, 2 View : [email or web address]?E ncrypted=atMoDohIQ2nIjnCUk 6g%6AITszCgozn6anwh%2Fg9IQ b3ppWneZ1oNbCOnhnTc6GnQCTh NnbQAT0aVfKYdzh52k8824DF3M is6ZAKqLbSmZoeYtE Not Available [facility] 03/17/2024 09:01:43 Xr, Lumbar Spine, 2 View : [email or web address]?E ncrypted=jqNyTcbTB1zQgfNZv 6g%3HWEnxSuebz7mtoz%2Fg9IQ f1lcAbtW3eQcXMrjfGm5KnGKQd JbhFOV0bPiRSobf01y4875HM6N nh3EOUfMfRdAqpSiW Not Available [facility] 03/17/2024 09:01:45 Mri, Lumbar Spine, W/o Contrast : [facility] Accession Number: [id number] Patient Name: Shantanu Phillips Date of : 1945 Date of Exam: 03-30-2024 Referring Physician: Jairo Hdez [address] [place], [place] [address] Exam: MR Lumbar Spine (C-) CPT 04970 Room Description: [facility] Ver 3.0T HISTORY: Numbness and tingling. Back pain. TECHNIQUE: Multiplanar multisequence MRI of the lumbar spine without contrast. COMPARISON: No prior studies are available for comparison at [facility]. FINDINGS: A [...] and neurological examination. Electronically Signed By: [facility] 04/15/2024 11:17:00 Problems Name Problem SNOMED Code Status Onset Date Resolution Date Notes Provider Name and Address Organization Details Recorded Time Acquired trigger finger of left little finger 854669462915 100 Active 2014 Problem Code: M65.352; Problem Code Type: ICD-10; Status: 'A'; Not Available [facility] 4 11:57:45 Lumbar radiculop athy 560180065 Active 2023 Jairo Hdez MD [address], [place], [address] , [facility] 4 09:53:54 Pain of sacroilia c joint 241181936 Active 2023 Jairo Hdez MD [address], [place], [address] , [facility] 4 09:53:54 Lumbar spondylos is 151245647 Active 2023 Jaior Hdez MD [address], [place], [address] , [facility] 4 09:53:56 Disorder of tendon 11487541 Active 2023 Jairo Hdez MD [address], [place], [address] , [facility] 4 09:56:33 Strain of tendon of muscle of hip 789587057 Active 2023 Jairo Hdez MD [address], [place], [address] , [facility] 4 12:41:49 Lumbar spondylol isthesis 022132178581 102 Active 2023 Jairo Hdez MD [address], [place], [address] , [facility] 4 12:41:51 Spinal stenosis of lumbar region 77768775 Active 2023 Jairo Hdez MD [address], [place], [address] , [facility] 4 12:41:52 Hamstring injury 511130944 Active 2024 Jairo Hdez MD [address], [place], [address] , [facility] 5 09:30:49 Strain of muscle of hip 761154188 Active 2024 Jairo Hdez MD [address], [place], [address] , [facility] 5 09:31:08 Greater trochante connor pain syndrome 5344742 Active 2024 Jairo Hdez MD [address], [place], [address] , [facility] 5 09:31:21 Insomnia 326427304 Active 2024 Jairo Hdez MD [address], [place], [address] , [facility] 5 09:31:27 Problem Notes None recorded. Procedures Surgical History Date Name Laterality Status Provider Name and Address Organization Details Recorded Time 5 JZHip completed José Manuel Luz PA-C [address], [place], [address], [facility] 07/15/2024 13:39:21 4 Sports Knee 4&1 completed Clarke Hernandez PA-C [address], [place], [address], [facility] 12/26/2023 11:18:00 8 Shoulder Surgery completed [facility] 03/17/2024 08:53:37 6 Other completed [facility] 03/17/2024 08:53:37 1 Shoulder Surgery completed [facility] 03/17/2024 08:53:37 1 Other completed [facility] 03/17/2024 08:53:37 Imaging Results None recorded. [...] Updated DateTime 07/15/2024 177.8 cm 25.8 kg/m2 94652.63 g [facility] 07/15/2024 10:16:18 Date Recorded Body height Body mass index (BMI) Body weight Provider Name and Address Organization Details Last Updated DateTime 09/08/2024 177.8 cm 25.8 kg/m2 04590.63 g Gigi ko [facility] 09/08/2024 09:03:56 Date Recorded Body height Body mass index (BMI) Body weight Provider Name and Address Organization Details Last Updated DateTime 02/07/2024 177.8 cm 25.8 kg/m2 12886.63 g Kassandra Rees [facility] 02/07/2024 09:50:57 Date Recorded Body height Body mass index (BMI) Body weight Provider Name and Address Organization Details Last Updated DateTime 03/17/2024 177.8 cm 25.8 kg/m2 45319.63 g Brandon Pablo [facility] 03/17/2024 08:53:44 Date Recorded Body height Body mass index (BMI) Body weight Provider Name and Address Organization Details Last Updated DateTime 05/12/2024 177.8 cm 25.8 kg/m2 37067.63 tiffanie ko [place] [facility] [place] [facility] 05/12/2024 08:49:13 Social History Question Answer Notes LastModified by Organizat ion Details LastModified Time What Is Your Relationship Status? [email or web address] Information not available 03/17/2024 How Many Years Have You Smoked Tobacco? 0 [email or web address] Information not available 03/17/2024 Sex: Unknown Functional Status Question Answer Note LastModified by Organizat ion Details LastModified Time How many times per week do you consume alcohol? Less than 1 time per week [email or web address] Information not available 03/17/2024 Do you use any illicit or recreational drugs? No [email or web address] Information not available 03/17/2024 Do you or have you ever used any other forms of tobacco or nicotine? No [email or web address] Information not available 03/17/2024 Mental Status None recorded. Family History Nothing Reported. Medical History Condition Response Allergies/Hayfever N Coronary Artery Disease N Breathing or lung disorders N Anxiety/Depression N Emphysema N Nerve Disorders N Thyroid Problems N COPD N Pacemaker N Kidney/Bladder Problems N Anemia N Vascular Disease N Heart Trouble N Gastrointestinal Disease N Heart Attack ([place]) N Cholesterol N Diabetes N Autoimmune disease [...] SNOMED-CT Code Diagnosis ICD10 Code Diagnosis Note [id number] CLINT Montaño [address] [place] [address] 12/26/2023 09:11:04 01/20/2024 14:11:11 Pain of right knee joint 0930070668 74865 M25.561 Pes anseri nus bursitis of right knee 5938903283 021475 M70.51 You have been provided with a [...] office or contact us through the portal [facility]. [id number] Thalia Demarco [facility] [address] [address] [place] [address] 02/07/2024 09:42:55 02/28/2024 13:54:43 Pain in right foot 6416600551 55700 M79.231 [id number] Jairo Hdez MD [place] [address] [place] [address] 03/17/2024 08:31:41 04/01/2024 18:03:41 Lumbar radiculopathy 781706205 M54.16 Pain of sa croiliac joint 411406677 M53.3 Lumbar spondylosis 61972 0009 M47.816 Disorder of tendon 91133 002 M67.630 [id number] Jairo Hdez MD [place] [address] [place] [address] 05/12/2024 08:15:28 06/06/2024 09:02:54 Spinal stenosis of lumbar region 02883092 M48.062 Lumbar spondylolisthesis 3493501528 34109 M43.16 Lumbar spondylosis 94015 0009 M47.816 Strain of tendon of muscle of hip 931429524 S76.019A [id number] CLINT Valenzuela - [address] [place] [address] 07/15/2024 10:07:49 07/31/2024 09:32:54 Pain of sacroiliac joint 613899772 M53.3 [id number] MD ADRIENNE [facility] - [place] [address] [place] [address] 09/08/2024 08:53:01 09/23/2024 09:12:13 Spinal stenosis of lumbar region 23586951 M48.062 Insomnia 940114815 G47.0 0 Hamstring injury 3177440 09 M76.899 Strain of muscle of hip 688182072 S76.011A DIAGNOSES: 1. Lumbar spinal stenosis with [...] unspecifie d Greater tr ochanteric pain syndrome 6942269 M70.62 Health Concerns Section Related Observation LastModified by Organization Detai ls LastModified Time None Recorded Concern Status LastModified by Organization Details LastModified Time None Recorded Advance Directives Directive None Recorded Payers Insurance Date Sequence Insurance Name Policy Number Policy Escobar Covered Member ID Escobar Member ID Guarantor Name 09/23/2024 1 [facility] (MEDICARE REPLACEMENT/ ADVANTAGE - PPO) [id number] Shantanu Phillips [id number] Shantanu Phillips 10/01/2024 2 [employer] LIFE ( - MEDICARE SUPPLEMENT) Shantanu Phillips [id number] Shantanu Phillips Notes Date Note Type Note Provider Name and Address Organization Details Recorded Time 4 text/html Chief complaint: Right leg pain, lower back pain History of present illness: The patient is a very pleasant 78-year-old gentleman, 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 These were obtained at [facility]. Report makes note of lumbar spine disease but also specifically mentions sclerotic lesions throughout the pelvis with concern for possible bony metastasis of a sclerosing neoplasm such as prostate cancer. A nuclear bone scan has been recommended. He reports he is following up at [place] for this and believes the bone scan [...] or his foot. His x-ray report from [facility] is highly concerning and I have encouraged [...] as needed moving forward Thalia Demarco MD [address] [place] [address] [address], [place], [address], [facility] 02/07/2024 17:46:40 4 text/html Lumbar Spine Evaluation for 79-year-old Male with Back Pain and Leg Spasms Subjective:Mr. Phillips is a 79-year-old male presenting for lumbar spine evaluation. 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 Jairo Hdez MD [address] [place] [address] [address], [place], [address], [facility] [place] [facility] 03/17/2024 09:57:01 4 text/html Lumbar Spine Evaluation for 79-year-old Male with Back Pain and Leg Spasms Subjective:Mr. Phillips is a 79-year-old male here for follow up lumbar spine evaluation. 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 Jairo Hdez MD [address] [place] [address] [address], [place], [address], [facility] [place] [facility] 09/08/2024 09:32:44
--- OUTSIDE RECORDS SUMMARY | 2024-12-15 15:13 | XMS_ITS | Patient Health Record ---
Author Organization [facility] Address [address] [place] [address] Care Team Providers Care Aircraft Instrument Mechanic Name Role Phone Jose Peñaloza Primary Care Provider UnavailFernando Falk Jr Unavailable [phone] Allergies No Known Allergies Reason For Referral [...] Problem Status W/U Status Risk Notes Problem 395731405 Colon cancer screening (Z12.11) Active confirmed Problem 877426538 Gastroesophageal reflux disease, unspecified whether esophagitis present (K21.9) Active confirmed Vital Signs Temperature 97.7 degrees Fahrenheit 03/23/2024 Blood pressure diastolic 00 mm Hg 03/23/2024 Height 70 in 03/23/2024 Blood pressure systolic 000 mm Hg 03/23/2024 Weight 173 lbs 03/23/2024 BMI 24.82 kg/m2 03/23/2024 Encounters Encounter Location Date Provider Diagnosis [facility] [address] [place] [address] 03/23/2024 Fernando Thao Jr Gastroesophageal reflux disease, [...] Insured Coverage Start Date Coverage End Date [facility] [address] [address] [place] [address] [id number] LYDIA FERGUSON Self - patient is the insured [employer] [address] [place] [address] [id number] LYDIA FERGUSON Self - patient is the [...]
--- OUTSIDE RECORDS SUMMARY | 2024-12-15 15:13 | XMS_ITS | Clinical Summary ---
Author Organization [facility] Address [address] [place] [address] [place] [address] Phone Care Team Providers Care Industrial Mechanic Name Role Phone Jose Peñaloza Primary [...] MEDICARE REPLACEMENT MEDICARE PART A & B [facility] MEDICARE SUPPLEMENT MEDICARE REPLACEMENT MEDICARE PART A & B [employer] MEDICARE SUPPLEMENT MEDICARE REPLACEMENT MEDICARE PART A & B [employer] MEDICARE SUPPLEMENT [facility] MEDICARE REPLACEMENT [place] [id number] MEDICARE PART A & B [facility] MEDICARE SUPPLEMENT [facility] MEDICARE REPLACEMENT MEDICARE PART A & B [employer] MEDICARE SUPPLEMENT MEDICARE REPLACEMENT MEDICARE PART A & B [employer] MEDICARE SUPPLEMENT Care Teams Industrial Mechanic Relationship Specialty Start Date End Date Jose Peñaloza PA [facility] [place] [address] PCP - General Physician Adjustment Clerk 09/06/23 Additional Source Comments The information contained in this document represents components of the legal health record. It is not the complete legal health record.[facility]
--- OUTSIDE RECORDS SUMMARY | 2024-12-15 15:13 | XMS_ITS | Patient Health Record ---
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 Problem Plantar fasciitis (835255068) Plantar Fasciitis (728.71) Active confirmed Plan Of Treatment No Information Insurance Providers Payer Name Payer Address Payer Phone Subscriber Number Group Number Insured Name Patient Relationship to Insured Coverage Start Date Coverage End Date Medicare [employer] [address] [place] [address] [id number] Shantanu Phillips Self - patient is the insured [facility] -[id number] [address] [address] [place] [address] [id number] Shantanu Phillips Self - patient is the insured for Life [address] [place] [address] [id number] Shantanu Phillips Self - patient is the insured Medical (General) History Medical History History ICD Code back, hip, knee pain cancer measles chicken pox transfusions Surgical History Surgery Date(Month/Year) shoulder surgery colon
== END 2024-12-15 14:36 | disposition home or self-care (01) ==
LOC: HO.HMCH 13:55
PROVIDERS: PCP Physician Assistant; Visit Provider Physician Assistant
DX: I10 Essential (primary) hypertension (principal); E78.9 Disorder of lipoprotein metabolism, unspecified; F51.01 Primary insomnia; K40.90 Unilateral inguinal hernia, without obstruction or gangrene, not specified as recurrent

== ENCOUNTER → 2024-12-15 13:54 | Outpatient (BNVA) | payer MEDICARE, OTHER, SELFPAY | PROVIDERS: PCP Physician Assistant; Visit Provider Physician Assistant | DX: I10 Essential (primary) hypertension (principal); E78.9 Disorder of lipoprotein metabolism, unspecified; F51.01 Primary insomnia; K40.90 Unilateral inguinal hernia, without obstruction or gangrene, not specified as recurrent | CPT/HCPCS: 99212 ==

== ENCOUNTER → 2024-12-29 13:23 | Outpatient (BNV) | payer MEDICARE, OTHER, SELFPAY | PROVIDERS: PCP Physician Assistant; Visit Provider Internal Medicine | DX: I45.2 Bifascicular block (principal); I45.10 Unspecified right bundle-branch block; R00.1 Bradycardia, unspecified | CPT/HCPCS: 93010 ==

== ENCOUNTER → 2025-01-12 06:42 | Day surgery (SDC) | payer MEDICARE, OTHER, SELFPAY ==
--- OUTSIDE RECORDS SUMMARY | 2024-11-28 23:59 | XMS_ITS | Continuity of Care Document ---
Author Organization [facility] Address [address] [place] [address] [address] h[address], [address] [place] [address]- Care Team Providers Care Hospice Community Liaison Name Role Phone Jose Dominguez Primary Care Physician [phone] Encounter [facility] Date(s): 10/29/24 - 11/28/24 [facility] [address] [place] [address] Drive [address] [place], [place] [address] Encounter Type: Triage Allergies, Adverse Reactions, Alerts No Known Allergies Immunizations Given and Recorded Vaccine Date Status Refusal Reason tetanus/diphtheria/pertussis, acel(Tdap) 1 10/29/17 Given Diphth-Tetanus Toxoids Adsorbed(oldterm) 03/28/07 Given 1Result Comment: [10/29/2017] [facility] [phone] financial form signed and put to scanning Medications acetaminophen 650 mg oral tablet, extended release 1 tablet = 650 mg, By Mouth, 2 times a day, # 21 tablet, 0 Refills, Maintenance, 08/31/20 9:41:00 AM EDT, ER Tablet, Partial fill upon patient request if the prescription is for a schedule II opioid drug. Start Date: 08/31/20 Stop Date: 09/07/20 Status: Ordered Quantity: 21.0 Unit: tablet Repeat number: 1 Ambien 5 mg oral tablet 1 tablet = 5 mg, By Mouth, Daily at bedtime, PRN as needed for insomnia, 0 Refills, Maintenance, 08/31/20 9:41:00 AM EDT, Tablet, Partial fill upon patient request if the prescription is for a scheduleII opioid drug. Start Date: 08/31/20 Status: Ordered Repeat number: 1 Carisoprodol By Mouth, 4 times a day, 0 Refills, Maintenance, 10/29/17 11:55:44 AM EDT Start Date: 10/29/17 Status: Ordered Repeat number: 1 celecoxib 200 mg oral capsule 1 capsule = 200 mg, By Mouth, Daily, PRN for pain, # 10 capsule, 0 Refills, Maintenance, 08/31/20 9:40:00 AM EDT, Capsule, Partial fill upon patient request if the prescription is for a schedule II opioid drug. Start Date: 08/31/20 Status: Ordered Quantity: 10.0 Unit: capsule Repeat number: 1 Skelaxin = 800 mg, By Mouth, 0 Refills, Maintenance, 10/29/17 11:55:35 AM EDT Start Date: 10/29/17 Status: Ordered Repeat number: 1 Social History Social History Type Response Smoking Status Never smoker entered on: 10/29/17 Sex Sex Representation Male (finding) Patient Care team information Care Team Personnel Name: Jose Dominguez Position: Reference Physician Member Role: PCP Address: [address] [facility] [address] [place], [place] [address] Telecom: Care Team Related Persons Name: GREGG FERGUSON Insurance Providers Guarantor name: LYDIA FERGUSON Health Plan Information #: 1 Payer: [id number] MEDICARE REPLACEMENT Payer Identifier: [id number] Member Number: [id number] Group Number: [id number] Subscriber Identifier: [id number] Relationship to Subscriber: self Coverage Type: Medicare Managed Care (Includes Medicare Advantage Plans) Coverage Verification Date: NA Telecom: NA Address: NA
--- OUTSIDE RECORDS SUMMARY | 2024-12-04 11:56 | XMS_ITS | Patient Health Record ---
Author Organization [facility] Address [address] [place] [address] Care Team Providers Care Building Service Worker Name Role Phone Jose Peñaloza Primary Care [...] Problem Status W/U Status Risk Notes Problem 076755415 Colon cancer screening (Z12.11) Active confirmed Problem [id number] Gastroesophageal reflux disease, unspecified whether esophagitis present (K21.9) Active confirmed Vital Signs Temperature 97.7 degrees Fahrenheit 03/23/2024 Blood pressure diastolic 00 mm Hg 03/23/2024 Height 70 in 03/23/2024 Blood pressure systolic 000 mm Hg 03/23/2024 Weight 173 lbs 03/23/2024 BMI 24.82 kg/m2 03/23/2024 Encounters Encounter Location Date Provider Diagnosis [facility] [address] [place] [address] 03/23/2024 Fernando Thao Jr Gastroesophageal reflux disease, [...] Insured Coverage Start Date Coverage End Date [facility] [address] [address] [place] [address] [id number] LYDIA FERGUSON Self - patient is the insured [email or web address] [address] [place] [address] [id number] LYDIA FERGUSON Self - patient is the [...]
--- OUTSIDE RECORDS SUMMARY | 2024-12-04 11:56 | XMS_ITS | Patient Health Record ---
Author Organization [facility] Address [address] [place] [address] Care Team Providers Care Correspondence Specialist Name Role Phone Rosalino ePrez MD Primary Care Provider Jay Mosqueda Unavailable [phone] Reason For Referral No Information Medications Medication [...] Problem Status W/U Status Risk Notes Problem Congenital pes planus (72281674) Flat Foot, Congenital (754.61) Active confirmed Problem Plantar fasciitis (718380861) Plantar Fasciitis (728.71) Active confirmed Plan Of Treatment No Information Insurance Providers Payer Name Payer Address Payer Phone Subscriber Number Group Number Insured Name Patient Relationship to Insured Coverage Start Date Coverage End Date Medicare National Govt Svcs Inc [address] [place] [id number] Shantanu Phillips Self - patient is the insured [facility] [address] [address] [place] [address] [id number] Shantanu Phillips Self - patient is the insured for Life [address] [place] [address] [id number] Shantanu Phillips Self - patient is the insured Medical (General) History Medical History History ICD Code back, hip, knee pain cancer measles chicken pox transfusions Surgical History Surgery Date(Month/Year) shoulder surgery colon
--- OUTSIDE RECORDS SUMMARY | 2024-12-04 11:56 | XMS_ITS | Data Portability ---
Author Organization [place] - [facility], [facility] [place] Address [address] [place] [address] Care Team Providers Care Utility Spray Operator Name Role Phone JOEL MCCORMICK Primary Care [...] 325 4v lspine 2023 024 [email or web address] 4 [facility] Office, [address], [facility] [address], [place], [address], 03/17/2024 12:19:20 MRI, lumbar spine, w/o contrast - MRI LSPINE W/O CONTRAST EVAL FOR NUMBNESS AND TINGLING 2023 024 [facility] ([facility] [address], [place], [address], 03/31/2024 14:28:51 XR, foot, 3 or more view - RIGHT FOOT /ANKLE 5V WB , ROOM 102 . NEW PATIENT 2023 024 [facility], [address], [address], [place], [address], 02/07/2024 16:18:07 XR, ankle, 2 view [address] [facility], [address], [address], [place], [address], 02/07/2024 16:18:07 Medication Orders Ambien 10 mg tablet 2024 025 [email or web address] [facility][id number], [address] [place], [address], 09/09/2024 09:17:00 Celebrex 100 mg capsule 2023 024 [email or web address] 4 [facility]12[facility], [address] [place], [address], 03/17/2024 12:19:20 Patient TargetsNo targets recorded. Patient InstructionsNo instructions recorded. Reason for Referral Physical Therapist Referral for Lumbar radiculopathy Evaluate & RxLumbar Stabilization Program Referring Physician: Jairo Hdez, Orthopedic Surgery, [id number] Encounter Date: 03/17/2024 Physical Therapist Referral for [...] XR, foot, 3 or more view [email or web address] ?Encry pted=s hAaTro YD8dLq bEUv6g %2BXZw aYqtaq 0bqfl% 2Fg9IQ a4ajBk vP9nXo QUaueC m3YtLR FvZlAd[facility]8[place] HZtai3 9o1231 AC0Kqa n6NVaq mKiQtr MwF INTERFACE [facility] [address], [place], [address], 02/07/2024 09:58:48 02/07/20 24 02/07/2024 XR, foot, 3 or more view [email or web address] ?Encry pted=s hAaTro YD8dLq bEUv6g %2BXZw aYqtaq 0bqfl% 2Fg9IQ a4ajBk vP9nXo QUaueC m3YtLR FvZlAdventHealth [facility]chase ER8[facility] Hospitaltai3 1o3673 AC0Kqa n6NVaq mKiQtr MwF INTERFACE [facility] [address], [place], [address], 02/07/2024 09:58:50 02/07/20 24 02/07/2024 XR, ankle , 2 view [email or web address] ?Encry pted=s hAaTro YD8dLq bEUv6g %2BXZw aYqtaq 0bqfl% 2Fg9IQ a4ajBk vP9nXo QUaueC m3YtLR FvZlgJ JJ8mAn HZtai3 1t1538 AC0Kqa n6NVaq nKiQtr MwF INTERFACE [facility] [address], [place], [address], 02/07/2024 10:01:47 02/07/20 24 02/07/2024 XR, ankle , 2 view [email or web address] ?Encry pted=s hAaTro YD8dLq bEUv6g %2BXZw aYqtaq 0bqfl% 2Fg9IQ a4ajBk vP9nXo QUaueC m3YtLR FvZlgJ [facility] HZtai3 2c4200 AC0Kqa n6NVaq nKiQtr MwF INTERFACE [facility] [address], [place], [address], 02/07/2024 10:01:50 03/17/20 24 03/17/2024 XR, lumba r spine , 2 view [email or web address]:/ [email or web address] ?Encry pted=s hAaTro YD8dLq bEUv6g %2BXZw aYqtaq 0bqfl% 2Fg9IQ a4ajBk vP9nXo QUaueC m3YtLR FvZl [facility] HZtai3 2l0264 AC0Kqa 3SGVqG mKiQtr MwF INTERFACE [facility] [address], [place], [address], 03/17/2024 09:01:42 03/17/20 24 03/17/2024 XR, lumba r spine , 2 view [email or web address] ?Encry pted=s hAaTro YD8dLq bEUv6g %2BXZw aYqtaq 0bqfl% 2Fg9IQ a4ajBk vP9nXo QUaueC m3YtLR FvZlgJ JJ8mAn HZtai3 4d2717 AC0Kqa 3SGVqG mKiQtr MwF INTERFACE [facility] [address], [place], [address], 03/17/2024 09:01:44 03/19/2003/19/2024 MRI, lumba r spine , w/o contr ast No observ ation record ed. BARCODE Not Available 2023 08:54:56 03/31/2003/30/2024 MRI, lumba r spine , w/o contr ast [facility] Access ion Number : [id number] Patien t Name: Shantanu Phillips Record Number : [id number] Date of : 1944 Date of Exam: 2023 Referr ing Physic michael: Jairo Horn [address] [facility], [place] [address] Exam: MR Lumbar Spine (C-) CPT 81625 Room Descri ption: [facility] Verio 3.0T HISTOR Y: Numbne ss and tingli ng. Back pain. TECHNI QUE: Multip lanar multis equenc e MRI of the lumbar spine withou t contra st. COMPAR JOSE MIGUEL: No prior studie s are availa ble for compar jose miguel at [facility] . FINDIN [...] At T11-T1 2, there is a right marketing researcher ior disc protru johnnie on the sagitt al images with mild centra l canal narrow ing. Left facet arthro sis with mild left forami nal narrow ing. At T12-L1 , there is a broad marketing researcher ior disc protru johnnie on the sagitt al images with mild centra l canal narrow ing. L1-L2: Concen tric disc-o steoph yte comple x asymme tric to the left marketing researcher iorly. Mild left centra l canal and [...] comple x asymme tric to the left marketing researcher iorly with a superi mposed left marketing researcher ior disc protru johnnie. Mild left centra l canal narrow ing with crowdi ng of the left S1 nerve roots, which are slight ly displa patsy marketing researcher iorly. No right and mild-m oderat e [...] onical ly Signed By: Clifford Goodwin MD [facility] ([facility]) [address] [place], [address], 04/15/2024 11:16:59 04/07/20 24 03/30/2024 MRI, lumba r spine , w/o contr ast No observ ation record ed. [facility]) [address], [place], [address], 04/15/2024 11:15:15 06/02/19 25 06/02/2024 MRI, pelvi [...] Foot, 3 Or More View : [email or web address] ncrypted=ruNwYjhSQ5fDzrPPc 6g%1NRQcwAkgdy3tevm%2Fg9IQ o6euIbhJ8rVjLWgxuAq1PsDYXc YrxEAV4tJaFPftq02x3510PK2J kfu9AVprrDvOtqIrT Not Available [facility] 02/07/2024 09:58:49 Xr, Foot, 3 Or More View : [email or web address] ncrypted=ceDhQrzOW1lDfcFXq 6g%2LFQdoPyhle0tyky%2Fg9IQ d5jwWflM7wCcBHtkyQa2QhVHAi GinSCC9jRzLHscs30q1747UE8Q uce3KWairItYcjYmZ Not Available [facility] 02/07/2024 09:58:51 Xr, Ankle, 2 View : [email or web address] ncrypted=epOyFvxYL8aOgiVCn 6g%2ZTRbaMgcbp4lljj%2Fg9IQ n2uqTjvY8yMpBThyvOd8KcNWPc WkpKHT1hDsJBecy90i4782FR2W ybk4XPtnaJvJeaFfA Not Available [facility] 02/07/2024 10:01:47 Xr, Ankle, 2 View : [email or web address] ncrypted=muOkRniGK1nCnwFOi 6g%2WLVrlMaipx1jyop%2Fg9IQ i7iuQqvD8fZzSYzmbFm5FxSOOn QkqAVC1aToRKorj10c4092ON1W woz5ZAbvkQxRnhAzF Not Available [facility] 02/07/2024 10:01:51 Xr, Lumbar Spine, 2 View : [email or web address] ncrypted=bgJrSreBK0zRlnTEk 6g%4ZQXmrDljls7yjjf%2Fg9IQ v4rdLfqL4gOfHJpleQi6HvOBGi ZtgGDS7hIiRSonj28v6568DX1A dv8UCIwPtNuXwqGbU Not Available [facility] 03/17/2024 09:01:43 Xr, Lumbar Spine, 2 View : [email or web address]?E ncrypted=htAhRsiEL8xVdmNJy 6g%9DJVljFgmxz5sqif%2Fg9IQ n9grHyqR9zOiCMgwxVr2CtCVYj UhiYJB6mEaNAsob10a3064MV4U tv2YBNcCvJhRedZzG Not Available [facility] 03/17/2024 09:01:45 Mri, Lumbar Spine, W/o Contrast : [facility] Number: [id number] Patient Name: Shantanu Phillips Date of : 1945 Date of Exam: 03-30-2024 Referring Physician: Jairo Hdez [address] [place], [place] [address] Exam: MR Lumbar Spine (C-) CPT 44215 Room Description: [facility] Ver 3.0T HISTORY: Numbness and tingling. Back pain. TECHNIQUE: Multiplanar multisequence MRI of the lumbar spine without contrast. COMPARISON: No prior studies are available for comparison at [facility]. FINDINGS: A mild [...] and neurological examination. Electronically Signed By: [facility] 04/15/2024 11:17:00 Problems Name Problem SNOMED Code Status Onset Date Resolution Date Notes Provider Name and Address Organization Details Recorded Time Lumbar radiculop athy 838952483 Active 2023 Jairo Hdez MD [address], [place], [address] , [facility] 4 09:53:54 Pain of sacroilia c joint 705035479 Active 2023 Jairo Hdez MD [address], [place], [address] , [facility] 4 09:53:54 Lumbar spondylos is 965169475 Active 2023 Jairo Hdez MD [address], [place], [address] , [facility] 4 09:53:56 Disorder of tendon 07285609 Active 2023 Jairo Hdez MD [address], [place], [address] , [facility] 4 09:56:33 Strain of tendon of muscle of hip 094186426 Active 2023 Jairo Hdez MD [address], [place], [address] , [facility] 4 12:41:49 Lumbar spondylol isthesis 908462812422 102 Active 2023 Jairo Hdez MD [address], [place], [address] , [facility] 4 12:41:51 Spinal stenosis of lumbar region 02573721 Active 2023 Jairo Hdez MD [address], [place], [address] , [facility] 4 12:41:52 Hamstring injury 327295921 Active 2024 Jairo Hdez MD [address], [place], [address] , [facility] 5 09:30:49 Strain of muscle of hip 532481707 Active 2024 Jairo Hdez MD [address], [place], [address] , [facility] 5 09:31:08 Greater trochante connor pain syndrome 6971980 Active 2024 Jairo Hdez MD [address], [place], [address] , [facility] 5 09:31:21 Insomnia 609373372 Active 2024 Jairo Hdez MD [address], [place], [address] , [facility] 5 09:31:27 Acquired trigger finger of left little finger 952700577993 100 Active 2014 Problem Code: M65.352; Problem Code Type: ICD-10; Status: 'A'; Not Available [facility] 4 11:57:45 Problem Notes None recorded. Procedures Surgical History Date Name Laterality Status Provider Name and Address Organization Details Recorded Time 5 JZHip completed José Manuel Luz PA-C [address], [place], [address], [facility] 07/15/2024 13:39:21 4 Sports Knee 4&1 completed Clarke Hernandez PA-C [address], [place], [address], [facility] 12/26/2023 11:18:00 8 Shoulder Surgery completed [facility] 03/17/2024 08:53:37 6 Other completed [facility] 03/17/2024 08:53:37 1 Shoulder Surgery completed [facility] 03/17/2024 08:53:37 1 Other completed [facility] 03/17/2024 08:53:37 Imaging Results None recorded. [...] Updated DateTime 07/15/2024 177.8 cm 25.8 kg/m2 87312.63 g [facility] 07/15/2024 10:16:18 Date Recorded Body height Body mass index (BMI) Body weight Provider Name and Address Organization Details Last Updated DateTime 09/08/2024 177.8 cm 25.8 kg/m2 10418.63 g Gigi ko [facility] 09/08/2024 09:03:56 Date Recorded Body height Body mass index (BMI) Body weight Provider Name and Address Organization Details Last Updated DateTime 02/07/2024 177.8 cm 25.8 kg/m2 58173.63 g Kassandra Rees [facility] 02/07/2024 09:50:57 Date Recorded Body height Body mass index (BMI) Body weight Provider Name and Address Organization Details Last Updated DateTime 03/17/2024 177.8 cm 25.8 kg/m2 30245.63 g Brandon Pablo [facility] 03/17/2024 08:53:44 Date Recorded Body height Body mass index (BMI) Body weight Provider Name and Address Organization Details Last Updated DateTime 05/12/2024 177.8 cm 25.8 kg/m2 30841.63 tiffanie ko [place] [facility] 05/12/2024 08:49:13 Social History Question Answer Notes LastModified by Organizat ion Details LastModified Time What Is Your Relationship Status? [email or web address] Information not available 03/17/2024 How Many Years Have You Smoked Tobacco? 0 [email or web address] Information not available 03/17/2024 Sex: Unknown Functional Status Question Answer Note LastModified by Organizat ion Details LastModified Time How many times per week do you consume alcohol? Less than 1 time per week [email or web address] Information not available 03/17/2024 Do you use any illicit or recreational drugs? No [email or web address] Information not available 03/17/2024 Do you or have you ever used any other forms of tobacco or nicotine? No [email or web address] Information not available 03/17/2024 Mental Status None recorded. Family History Nothing Reported. Medical History Condition Response Coronary Artery Disease N Anxiety/Depression N Emphysema N COPD N Pacemaker N Vascular Disease N Heart Trouble N Gastrointestinal Disease N Autoimmune disease N Orthotics N Arthritis N Blood Clot N Acid Reflux (GERD) N Cancer N Stroke N Circulation Problems N Rheumatoid Arthritis N Arrhythmia N Headaches N Fibromyalgia N Allergies/Hayfever N Breathing or lung disorders N Nerve Disorders N Thyroid Problems N Kidney/Bladder Problems N Anemia N Heart Attack ([place]) N Cholesterol N Diabetes N Bleeding Disorder N Seizures/Epilepsy N AIDS/HIV N Congestive Heart Failure (CHF) N Asthma N Peripheral Vascular Disease N Sleep Apnea N Hepatitis N Heart Disease N Pulmonary Embolism N Hypertension Y Osteoporosis N Past Encounters Encounter ID Performer Location Encounter Start Date Encounter Closed Date Diagnosis/Indication Diagnosis SNOMED-CT Code Diagnosis ICD10 Code Diagnosis Note [id number] [facility] [address] [place] [address] 12/26/2023 09:11:04 01/20/2024 14:11:11 Pain of right knee joint 5668866535 17384 M25.561 Pes anseri nus bursitis of right knee 7821784268 901120 M70.51 You have been provided with a [...] office or contact us through the portal [facility]. [id number] Th[facility] Dem[facility]co [facility] [address] [place] [address] 02/07/2024 09:42:55 02/28/2024 13:54:43 Pain in right foot 9773729050 39684 M79.121 [id number] Jairo Hdez MD [facility] [address] [place] [address] 03/17/2024 08:31:41 04/01/2024 18:03:41 Lumbar radiculopathy 269846978 M54.16 Pain of sa croiliac joint 501123450 M53.3 Lumbar spondylosis 83533 0009 M47.816 Disorder of tendon 58247 002 M67.143 [id number] Jairo Hdez MD [facility] [address] [place] [address] 05/12/2024 08:15:28 06/06/2024 09:02:54 Spinal stenosis of lumbar region 28025626 M48.062 Lumbar spondylolisthesis 5735332930 55745 M43.16 Lumbar spondylosis 31548 0009 M47.816 Strain of tendon of muscle of hip 117471929 S76.019A [id number] [facility] [address] [place] [address] 07/15/2024 10:07:49 07/31/2024 09:32:54 Pain of sacroiliac joint 092709893 M53.3 [id number] MD ADRIEN[facility] - [facility] [address] [place] [address] 09/08/2024 08:53:01 09/23/2024 09:12:13 Spinal stenosis of lumbar region 86533176 M48.062 Insomnia 954460419 G47.0 0 Hamstring injury 8639839 09 M76.899 Strain of muscle of hip 983621780 S76.011A DIAGNOSES: 1. Lumbar spinal stenosis with [...] unspecifie d Greater tr ochanteric pain syndrome 3681138 M70.62 Health Concerns Section Related Observation LastModified by Organization Detai ls LastModified Time None Recorded Concern Status LastModified by Organization Details LastModified Time None Recorded Advance Directives Directive None Recorded Payers Insurance Date Sequence Insurance Name Policy Number Policy Escobar Covered Member ID Escobar Member ID Guarantor Name 09/23/2024 1 [facility] (MEDICARE REPLACEMENT/ ADVANTAGE - PPO) [id number] Shantanu Phillips [id number] Shantanu Phillips 10/01/2024 2 [employer] ( - MEDICARE SUPPLEMENT) Shantanu Phillips [id number] Shantanu Phillips Notes Date Note Type Note Provider Name and Address Organization Details Recorded Time 4 text/html Chief complaint: Right leg pain, lower back pain History of present illness: The patient is a very pleasant 78-year-old gentleman, 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 These were obtained at [facility]. Report makes note of lumbar spine disease but also specifically mentions sclerotic lesions throughout the pelvis with concern for possible bony metastasis of a sclerosing neoplasm such as prostate cancer. A nuclear bone scan has been recommended. He reports he is following up at [place] for this and believes the bone scan [...] or his foot. His x-ray report from [facility] is highly concerning and I have [...] as needed moving forward Thalia Demarco MD [address] [place] [address] [address], [place], [address], [facility] 02/07/2024 17:46:40 4 text/html Lumbar Spine Evaluation for 79-year-old Male with Back Pain and Leg Spasms Subjective:Mr. Phillips is a 79-year-old male presenting for lumbar spine evaluation. 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 Jairo Hdez MD [address] [place] [address] [address], [place], [address], [facility] 03/17/2024 09:57:01 4 text/html Lumbar Spine Evaluation for 79-year-old Male with Back Pain and Leg Spasms Subjective:Mr. Phillips is a 79-year-old male here for follow up lumbar spine evaluation. 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 Jairo Hdez MD [address] [place] [address] [address], [place], [address], [facility] 09/08/2024 09:32:44
--- NOTE | 2024-12-29 | ECG_ITS ---
Test Reason : PREOP Blood Pressure : */* mmHG Vent. Rate : 43 BPM Atrial Rate : 43 BPM P-R Int : 204 ms QRS Dur : 160 ms QT Int : 482 ms P-R-T Axes : 58 -54 -7 degrees QTcB Int : 407 ms Marked sinus bradycardia Right bundle branch block Left anterior fascicular block Bifascicular block Abnormal ECG When compared with ECG of 04-Sep-2020 22:59, (RBBB and left anterior fascicular block) is now Present Referred By: Thalia Abbasi Electronically Signed By: CLAUDIA ORTIZ
[2024-12-29 12:40] VITALS: BP 157/73; PULSE 46; RESP 18; O2SAT 99; BMI 24.8
--- NOTE | 2024-12-29 12:48 | HO.ANESPROP2 ---
Documented by User: Thalia Abbasi NP 12/30/24 10:18 HPI - Anesthesia Eval Consult details Narrative: 79yo M for Right Repair Hernia Inguinal Reducible with mesh, 01/12/25 No recent illness No CP/SOB with mowing lawn Follows [facility] for patric, bifasicular block. Asymptomatic and follows yearly. Last office visit 03/2024, pt reported vertigo symptoms. Plan to monitor with possibility of pacer in future if dizzy/syncope. 1 year routine f/u. 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 No previous surgery, degenerative disease on imaging and pain BPPV r/t sudden hearing loss > 1 year. Has resolved. Case reviewed with [facility] Active Problems Active Problems: All Active Problems Right groin hernia (Acute) Muscle cramping (Acute) Bifascicular block (Acute) Gluteal tendinitis (Acute) Lesion of pelvic bone (Acute) Sacral pain (Acute) Lumbar spine pain (Acute) Left hip pain (Acute) BPPV (benign paroxysmal positional vertigo) (Acute) Sensorineural hearing loss (SNHL) of right ear (Acute) Borderline high cholesterol (Acute) Sensation of fullness in right ear (Acute) Medicare annual wellness visit, subsequent (Acute) Systolic murmur (Acute) GERD (gastroesophageal reflux disease) (Acute) Tear of right supraspinatus tendon (Acute) Insomnia (Acute) H/O colon cancer, stage I (Acute) Pain of right heel (Acute) HTN (hypertension) (Acute) Sinus bradycardia (Acute) Sciatica (Acute) DDD (degenerative disc disease), cervical (Acute) Past Medical History Medical History SNHL (sensorineural hearing loss) Systolic murmur Sinus bradycardia DDD (degenerative disc disease), cervical Borderline high cholesterol BPPV (benign paroxysmal positional vertigo) Left anterior fascicular block (LAFB) GERD (gastroesophageal reflux disease) RBBB (right bundle branch block) Colon cancer Hypertension Chronic neck pain Chronic back pain Family History Family History Father No problems noted. Mother Colon cancer Family history of problems with anesthesia: No Surgical History Surgical History History of carpal tunnel release History of colonoscopy S/P excision of lipoma History of shoulder surgery H/O hemicolectomy History of hernia surgery History of Problems with Anesthesia: No Social History Social History Housing: House Are you a primary palliative care nurse practitioner to a significant other at home: No Do you presently have visiting nurse or other home services: No Alcohol intake: former Comment: advised of trip hazard Patient Tobacco Use Status: Never used Tobacco e-Cigarette/Vaping Use: Never Used Second Hand Smoke Exposure: No Use of substances other than those prescribed or required for medical reasons: No Have you been hit, kicked, punched, or otherwise hurt by someone within the past year? If so, by whom?: No Spiritual Healthcare Practices: no [facility] Practices: no Cultural Healthcare Practices: no Are you DNR?: No Advance Directives: No (spouse is primary contact) Advance Directives Information Provided: Yes Advance Directives on File: No Poor oral hygiene: No service: Yes Current occupational status: retired Cognitive needs: No Hearing needs: No Vision needs: No Meds Allergies Allergy/AdvReac Type Severity Reaction Status Date / Time No Known Allergies Allergy Verified 01/12/25 07:45 Home Medications ?Medication ?Instructions ?Recorded ?Confirmed ?Last Taken ?Type acetaminophen 650 mg 650 mg PO Q12H 12/29/24 01/12/25 Unknown History tablet,extended release cholecalciferol (vitamin D3) 25 25 mcg PO DAILY 12/29/24 01/12/25 Unknown History mcg (1,000 unit) capsule (Vitamin D3) glucosamine sulfate 500 mg tablet 500 mg PO DAILY 12/29/24 01/12/25 Unknown History (Glucosamine) magnesium oxide 400 mg PO BEDTIME 12/29/24 01/12/25 Unknown History multivitamin 1 tab PO DAILY 12/29/24 01/12/25 Unknown History Exam Height,Weight and Vital Signs: Vital Signs Pulse Rate 46 L 12/29/24 12:40 Respiratory Rate 18 12/29/24 12:40 Blood Pressure 157/73 H 12/29/24 12:40 Pulse Oximetry 99 12/29/24 12:40 Oxygen Delivery Method Room Air 12/29/24 12:40 Pertinent Lab Results Pertinent Lab Results: Laboratory Tests 10/13/24 09:41 WBC 5.4 Hgb 15.1 Hct 44.3 Plt Count 190 Sodium 140 Potassium 4.7 Chloride 107 Carbon Dioxide 28 BUN 15 Creatinine 0.98 Narrative Narrative: EKG 12/2024 Vent. Rate : 43 BPM Atrial Rate : 43 BPM P-R Int : 204 ms QRS Dur : 160 ms QT Int : 482 ms P-R-T Axes : 58 -54 -7 degrees QTcB Int : 407 ms Marked sinus bradycardia Right bundle branch block Left anterior fascicular block Bifascicular block Abnormal ECG When compared with ECG of 04-Sep-2020 22:59, (RBBB and left anterior fascicular block) is now Present MR cervical spine wo con 2020 IMPRESSION: Moderate multilevel degenerative spondyloarthropathy of the cervical spine as described in detail above. Most notably, there are moderate to severe neural foraminal stenoses from C2-C7. No overt spinal canal stenosis. Airway Mallampati Class: I TM Dist: >3cm Neck ROM: Limited (See HPI) Loose/Missing/Broken Teeth: No (Molars crowned) Heart: Patric, RR Lungs: CTAB Assessment and Plan Assessment Anesthesia Assessment: Anesthesia Plan Discussed and PAT Visit Final Anesthetic Review Family History of Problems with Anesthesia: No History of Problems with Anesthesia: No Documented by User: Lulu Hebert MD 01/12/25 08:43 [facility] Past Medical History Medical History SNHL (sensorineural hearing loss) Systolic murmur Sinus bradycardia DDD (degenerative disc disease), cervical Borderline high cholesterol BPPV (benign paroxysmal positional vertigo) Left anterior fascicular block (LAFB) GERD (gastroesophageal reflux disease) RBBB (right bundle branch block) Colon cancer Hypertension Chronic neck pain Chronic back pain Family History Family History Father No problems noted. Mother Colon cancer Surgical History Surgical History History of carpal tunnel release History of colonoscopy S/P excision of lipoma History of shoulder surgery H/O hemicolectomy History of hernia surgery Social History Social History Housing: House Are you a primary palliative care nurse practitioner to a significant other at home: No Do you presently have visiting nurse or other home services: No Alcohol intake: former Comment: advised of trip hazard Patient Tobacco Use Status: Never used Tobacco e-Cigarette/Vaping Use: Never Used Second Hand Smoke Exposure: No Use of substances other than those prescribed or required for medical reasons: No Have you been hit, kicked, punched, or otherwise hurt by someone within the past year? If so, by whom?: No Spiritual Healthcare Practices: no [facility] Practices: no Cultural Healthcare Practices: no Are you DNR?: No Advance Directives: No (spouse is primary contact) Advance Directives Information Provided: Yes Advance Directives on File: No Poor oral hygiene: No service: Yes Current occupational status: retired Cognitive needs: No Hearing needs: No Vision needs: No Meds Allergies Allergy/AdvReac Type Severity Reaction Status Date / Time No Known Allergies Allergy Verified 01/12/25 07:45 Home Medications ?Medication ?Instructions ?Recorded ?Confirmed ?Last Taken ?Type acetaminophen 650 mg 650 mg PO Q12H 12/29/24 01/12/25 Unknown History tablet,extended release cholecalciferol (vitamin D3) 25 25 mcg PO DAILY 12/29/24 01/12/25 Unknown History mcg (1,000 unit) capsule (Vitamin D3) glucosamine sulfate 500 mg tablet 500 mg PO DAILY 12/29/24 01/12/25 Unknown History (Glucosamine) magnesium oxide 400 mg PO BEDTIME 12/29/24 01/12/25 Unknown History multivitamin 1 tab PO DAILY 12/29/24 01/12/25 Unknown History Assessment and Plan Final Anesthetic Review NPO: Yes ASA Class: III Final Preanesthetic Review: No Changes in Pt Med Stat, Meds/Allgs Chart Reviewed, Consent Obtained/Reviewed and Anes Risks/Benef Reviewed Patient Risk: Intermediate Procedure Risk: Intermediate Anesthetic Plan Anesthetic Plan: GA and Agree w/ Assess. and Plan Disposition: Standard PACU
[2025-01-12 06:59] VITALS: BMI 24.3
[2025-01-12 07:24] VITALS: BP 137/62; PULSE 39; RESP 15; TEMP 36.6; O2SAT 99
[2025-01-12] MEDS: Lactated Ringers 1,000 ML 100 ML IVCONT (07:41)
--- NOTE | 2025-01-12 08:25 | MHC.SHP ---
Pre-Procedural Eval Section A - 24 Hr Update-Section A only Date of Service: 01/12/25 Section B - Complete if H&P > 30 days Chief Complaint: Unilateral inguinal hernia, without obstruction Details of Present Illness: Reducible right groin hernia, for repair today in view of symptoms Relevant Social History: None Present Medications: None Medical History: Significant History (Vertigo, GERD, back pain, arthritis) Allergies: Allergies Allergy/AdvReac Type Severity Reaction Status Date / Time No Known Allergies Allergy Verified 01/12/25 07:45 Review of Systems Sugical H&P ROS: Negative: Constitution, Cardiovascular and Respiratory Exam Surgical H&P Exam: Normal: Heart, Normal: Lungs and Normal: Extremities and Significant Findings: Abdomen (Right inguinal hernia reducible) Plan Diagnosis/Plan: Unchanged I have reviewed the history and physical and performed a pertinent physical examination on my patient. No changes have occurred unless specified. Time Spent With Patient Time: Total time managing care of this patient today ____ minutes.
--- NOTE | 2025-01-12 09:03 | PM.EVENT ---
Event Note Date of Service: 01/12/25 Event Note: Patient has known bradycardia However, heart rate currently in the mid to high 30s Procedure is canceled by Anesthesiology in view of the risk of severe patric cardia requiring pacing Time Spent With Patient Time: Total time managing care of this patient today ____ minutes.
--- NOTE | 2025-01-12 09:05 | PC.NURSE ---
Addendum entered by Michelle You RN 01/12/25 09:36: pt to follow up with his own custodial manager. sent home after iv out. Original Note: anesthesia made aware of heart rate into the 30's. surgery cancelled at this time
== END | disposition home or self-care (01) ==
PROVIDERS: PCP Physician Assistant; Visit Provider Surgery
DX: K40.90 Unilateral inguinal hernia, without obstruction or gangrene, not specified as recurrent (principal); Z53.09 Procedure and treatment not carried out because of other contraindication; R00.1 Bradycardia, unspecified; I45.10 Unspecified right bundle-branch block; I44.4 Left anterior fascicular block
CPT/HCPCS: 93005; J0131; J0690; J2003; J2704; J2795

== ENCOUNTER → 2025-01-22 08:47 | Outpatient (REF) | payer MEDICARE, OTHER, SELFPAY ==
--- NOTE | 2025-01-22 08:50 | CA_ITS ---
Acquisition Time: 2025-01-22 09:06:25 Total Exercise Time: 00:08:36 Test Indications: BRADYCARDIA Medications: LOSARTAN Protocol: KISHA Max HR: 117 BPM 81% of Pred: 143 BPM Max BP: 180/70 mmHG Max Work Load: 10.1 METS Exercise stress test with exercise 8 mins 36 secs of Kisha Protocol, achieving 81% MPHR, with reports of mild fatigue, with isolated PACs, with normotensive response to exercise. Without any EKG changes meeting criteria for ischemia. In recovery, pt feeling back to baseline. Test reviewed with Dr. Hunt. Referred By: Scott Salvador Electronically Signed By: Scott Salvador
--- OUTSIDE RECORDS SUMMARY | 2025-01-22 09:34 | XMS_ITS | Continuity of Care Document ---
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 It does not include entries that were removed or entered in error. Problem Status Onset Date Problem Type Date of Resolution Comments Source Carcinoma of Colon (SCT 258773438) Active 01/30/20 05 Condition Apr 05, 2021 [facility] (SCT 65473619) [facility] [...] MOUTH NEEDED ORAL ACTIVE AVTARJUN STAPLES 2020 [facility] CARISOPRODO L TAB TAKE BY MOUTH ORAL ACTIVE OSHINSBKDINA Chantel 2020 [facility] GLUCOSAMINE /CHONDROITI N CAP/TAB TAKE BY MOUTH ORAL ACTIVE OSHINSKISavitaDINA Chantel 2020 [facility] LOSARTAN 50MG TAB TAKE ONE TABLET BY MOUTH TWICE DAILY ORAL ACTIVE MARINA AGARWAL 2023 [facility] LUTEIN CAP/TAB TAKE BY MOUTH ORAL ACTIVE OSHINSKOURTNEYSavitaDINA J 2020 [facility] VITAMIN B COMPLEX CAP,ORAL TAKE BY MOUTH ORAL ACTIVE OSHINSKISavitaDINA J 2020 [facility] VITAMIN D3 (CHOLECALCI FEROL) TAB TAKE BY MOUTH ORAL ACTIVE OSTNGIOVANISavitaDINA J 2020 [facility] ZOLPIDEM TARTRATE 5MG TAB TAKE ONE TABLET BY MOUTH ONCE DAILY NEEDED ORAL ACTIVE MARINA AGARWAL 2024 [facility] Allergies, Adverse Reactions, Alerts Combined list of allergies from Department of Defense and Veterans Affairs facilities. It does not include entries that were removed or entered in error. Substance Category Reaction Severity Reaction type Status Date Reported Comments Source CATS Propensity to adverse reaction (finding) [facility]initis [facility] Immunizations Combined list of available immunizations from the Department of Defense and Veterans Affairs facilities. Immunization Series Date Given Administered By Site Reaction Lot Number CVX Code Drug Precision Structural Metal Fitter Status Comments Source INFLUENZA, UNSPECIFIED FORMULATION 2023 88 complet ed Booster for Series, HISTORICA L INFORMATI ON - FROM OTHER PROVIDER, [facility] RESPIRATORY SYNCYTIAL VIRUS (RSV) VACCINE, UNSPECIFIED 1 2023 314 complet ed HISTORICA L INFORMATI ON - FROM OTHER PROVIDER, [facility] INFLUENZA, UNSPECIFIED FORMULATION 2022 88 complet ed Booster for Series, HISTORICA L INFORMATI ON - FROM OTHER PROVIDER, [facility] INFLUENZA, UNSPECIFIED FORMULATION 2021 88 complet ed Completed Series, HISTORICA L INFORMATI ON - FROM PATIENT'S RECALL, [facility] zoster recombinant 2021 BOGDASARIAN, () Not Given zoster recombina nt DoD ZOSTER RECOMBINANT 2 2021 187 complet ed HISTORICA L INFORMATI ON - FROM OTHER PROVIDER, [facility] zoster recombinant 2021 BOGDASARIAN, () Not Given zoster recombina nt DoD ZOSTER RECOMBINANT 1 2021 187 complet ed HISTORICA L INFORMATI ON - FROM OTHER PROVIDER, [facility] zoster recombinant 2021 BOGDASARIAN, () Not Given zoster recombina nt DoD COVID-19 (MODERNA), MRNA, LNP-S, PF, 100 MCG OR 50 MCG DOSE 3 2020 207 complet ed MOD; [id number]; 2 [facility] INFLUENZA VACCINE, QUADRIVALENT, ADJUVANTED 2020 205 complet ed [facility] COVID-19 (MODERNA), MRNA, LNP-S, PF, 100 MCG/0.5 ML DOSE 2 2020 207 complet ed MOD; [id number]; 1 [facility] Influenza vaccine, quadrivalent, adjuvanted 2019 BOGDASARIAN, () Not Given Influenza vaccine, quadrival ent, adjuvante d DoD INFLUENZA, UNSPECIFIED FORMULATION 2019 88 complet ed [facility] PNEUMOCOCCAL CONJUGATE PCV 13 2019 133 complet ed Booster for Series, HISTORICA L INFORMATI ON - FROM OTHER PROVIDER, [facility] zoster recombinant 2019 ANNY, () Not Given zoster recombina nt [facility] influenza, injectable, quadrivalent, preservative free 2018 BOGDASARIAN, () Not Given influenza , injectabl e, quadrival ent, preservat kenia free DoD TDAP 2017 115 complet ed MaidSafe TDAP 2016 115 complet ed Booster for Series, HISTORICA L INFORMATI ON - FROM OTHER PROVIDER, [facility] Vital Signs Combined list of inpatient and outpatient Vital Signs from Department of Defense and Veterans Affairs, ranging from 12 months to all on record, depending upon the facility. Vital Sign Value Date Comments Source SYSTOLIC BLOOD PRESSURE 130 08/19/19 25 10:17:27 [facility] DIASTOLIC BLOOD PRESSURE 80 025 10:17:27 [facility] PULSE OXIMETRY 99 08/18/2024 10:17:27 [facility] WEIGHT 170 08/18/2024 10:17:27 [facility] BMI 24 kg/m2 08/18/2024 10:17:27 [facility] PAIN 5 08/18/2024 10:17:27 [facility] TEMPERATURE 98.4 08/18/2024 10:17:27 [facility] PULSE 50 08/18/2024 10:17:27 [facility] RESPIRATION 16 08/18/2024 10:17:27 [facility] Encounters Combined list of: 1) Encounters from Department of Veterans Affairs facilities going backup to the last 18 months, not all VA inpatient encounters are included; 2) Encounters from the Department of Defense facilities going backup to 280 months. 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 GERALD ROOT 08/08 [facility] OFFICE O/P EST LOW 20 MIN [id number] Diagnos is: ICD-10- CM H90.3 Sensori neural hearing loss, MARINA Domingo 08/19 [facility] Out[facility]counter [id number] 08/20 [facility]counter [id number] 08/20 [facility] Out[facility] Encounter [id number] 09/01 [facility] HEARING SERV[facility] [id number] Diagnos is: ICD-10- CM Z46.1 Encount er for fitting and adjustm ent of hearing aid GERALD ROOT 09/03 [facility] Encounter [id number] 09/29 [facility] [id number] 09/29 [facility] Out[facility] Encounter [id number] 11/03 [facility] Encounter [id number] 11/03 [facility] HEARING AID FITTING/CH ECKING [id number] Diagnos is: ICD-10- CM Z46.1 Encount er for fitting and adjustm ent of hearing aid TOREY GRADY MEERA L 12/16 [facility] Out[facility] Encounter [id number] 12/18 [facility] HEARING AID EXAM BOTH EARS [id number] Diagnos is: ICD-10- CM Z46.1 Encount er for fitting and adjustm ent of hearing aid YOSELIN DEE L 02/10 [facility] HEARING AID FITTING/CH ECKING [id number] Diagnos is: ICD-10- CM Z46.1 Encount er for fitting and adjustm ent of hearing aid YOSELIN DEE L 02/24 [facility] Out[facility] Encounter [id number] 03/27 [facility] Out[facility] Encounter [id number] ALBA SWIFT ISTOPHER E 04/13 [facility] HEARING AID REPAIR/MOD IFYING [id number] Diagnos is: ICD-10- CM H90.A31 Mix cndct/s nrl hear loss,un i,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 YOSELIN DEE L 06/30 [facility] Outpatient Encounter [id number] 07/17 [facility] Outpatient Encounter [id number] JAMISON,ALBA ISTOPHER E 07/22 [facility] Outpatient Encounter [id number] 08/18 [facility] OFFICE O/P EST LOW 20 MIN [id number] Diagnos is: ICD-10- CM H91.90 Unspeci fied hearing loss, unspeci fied ear MARINA AGARWAL F 08/18 [facility] Social History Combined list of available smoking, tobacco, and other social history from Department of Defense and Veterans Affairs facilities. Social History Type Response Date Comment Sourc e Tobacco smoking status NHIS VA-TOBACCO NEVER USED 08/20/2023 [facility] History of tobacco use VA-TOBACCO NEVER USED 08/21/2022 [facility] History of tobacco use VA-TOBACCO NEVER USED 11/09/2021 [facility] History of tobacco use VA-TOBACCO NEVER USED 10/10/2020 [facility] This section is an empty social history section. DoD
--- OUTSIDE RECORDS SUMMARY | 2025-01-22 09:42 | XMS_ITS | Patient Health Record ---
Author Organization [facility] Address [address] [place] [address] Care Team Providers Care Semi Conductor Assembler Name Role Phone Jose Peñaloza Primary Care Provider UnavailFernando Falk Jr Unavailable [phone] Allergies No Known Allergies Reason For Referral [...] Problem Status W/U Status Risk Notes Problem [id number] Colon cancer screening (Z12.11) Active confirmed Problem [id number] Gastroesophageal reflux disease, unspecified whether esophagitis present (K21.9) Active confirmed Vital Signs Temperature 97.7 degrees Fahrenheit 03/23/2024 Blood pressure diastolic 00 mm Hg 03/23/2024 Height 70 in 03/23/2024 Blood pressure systolic 000 mm Hg 03/23/2024 Weight 173 lbs 03/23/2024 BMI 24.82 kg/m2 03/23/2024 Encounters Encounter Location Date Provider Diagnosis [facility] [address] [place] [address] 03/23/2024 Fernando Thao Jr Gastroesophageal reflux disease, [...] Insured Coverage Start Date Coverage End Date [facility] [address] [address] [place] [address] [id number] LYDIA FERGUSON Self - patient is the insured [employer] [address] [place] [address] [id number] LYDIA FERGUSON Self - patient is the [...]
--- OUTSIDE RECORDS SUMMARY | 2025-01-22 09:42 | XMS_ITS | Patient Health Record ---
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 Name Role Phone Rosalino Perez MD Primary Care Provider Jay Mosqueda Unavailable [phone] Reason For Referral No Information Medications Medication [...] Status Risk Notes Problem Congenital pes planus (27842606) Flat Foot, Congenital (754.61) Active confirmed Problem Plantar fasciitis (423444065) Plantar Fasciitis (728.71) Active confirmed Plan Of Treatment No Information Insurance Providers Payer Name Payer Address Payer Phone Subscriber Number Group Number Insured Name Patient Relationship to Insured Coverage Start Date Coverage End Date [employer] [address] [place] [phone] [id number] Shantanu Phillips Self - patient is the insured [facility] [address] [address] [place] [address] [id number] Shantanu Phillips Self - patient is the insured for Life [address] [place] [address] [id number] Shantanu Phillips Self - patient is the insured Medical (General) History Medical History History ICD Code back, hip, knee pain cancer measles chicken pox transfusions Surgical History Surgery Date(Month/Year) shoulder surgery colon
--- OUTSIDE RECORDS SUMMARY | 2025-01-22 09:43 | XMS_ITS | Clinical Summary ---
Author Organization [facility] Address [address] [place] [address] [place] [phone] Phone Care Team Providers Care Foster Parent Name Role Phone Jose Peñaloza Primary Care [...] PPSV23) 06/26/2020 06/26/2019 COVID-19 VACCINE (4 - season) 2024 05/13/2021, 08/17/2020, 07/20/2020 INFLUENZA VACCINE (#1) 2024 3, 03/13/2023, 03/03/2022, Additional history exists Adult Td,Tdap Booster 10/30/2027 10/29/2017, 017 ZOSTER VACCINES Completed 11/29/2021, 09/11/2021 RSV VACCINE Completed 06/06/2023 SMOKING STATUS SCREENING (Once After 26 Yrs) Completed 10/15/2023 HEPATITIS A [...] topic Medical Devices Not on file Insurance [facility] MEDICARE REPLACEMENT MEDICARE PART A & B [facility] MEDICARE [facility] Address: [id number] [place] [address] MEDICARE REPLACEMENT MEDICARE PART A & B [facility] MEDICARE SU[facility] Address: [address] [address] MEDICARE REPLACEMENT MEDICARE PART A & B FOR LIFE MEDICARE SUPPLEMENT Member Subscriber Plan / Payer (Ef fective 2023-Present) Name:Shantanu Phillips Relation to Subscriber:Self Name:Shantanu Phillips Payer ID:[id number] (NAIC) Group ID:Not on file Type:O Address: [address] [phone] [facility] MEDICARE REPLACEMENT MEDICARE PART A & B [facility] MEDICARE [facility] Address: [phone] [place] [address] [facility] MEDICARE REPLACEMENT [place] [id number] MEDICARE PART A & B [employer] [facility] MEDICARE [facility] Address: [address] [address] MEDICARE REPLACEMENT MEDICARE PART A & B FOR LIFE MEDICARE SUPPLEMENT Care Teams Foster Parent Relationship Specialty Start Date End Date Jose Peñaloza PA [address] [place] [address] PCP - General Physician Docket Specialist 09/06/23 Additional Source Comments The information contained in this document represents components of the legal health record. It is not the complete legal health record.[facility]
== END ==
LOC: HO.CARD 08:47
PROVIDERS: PCP Physician Assistant
DX: R00.1 Bradycardia, unspecified (principal)
CPT/HCPCS: 93017

== ENCOUNTER → 2025-01-22 08:50 | Outpatient (BNV) | payer MEDICARE, OTHER, SELFPAY | PROVIDERS: PCP Physician Assistant | DX: I49.1 Atrial premature depolarization (principal) | CPT/HCPCS: 93016; 93018 ==

== ENCOUNTER 2025-01-27 10:45 | Outpatient (AMB) | payer MEDICARE, OTHER, SELFPAY ==
[2025-01-27 11:03] VITALS: BP 130/58; PULSE 47; BMI 24.5
--- NOTE | 2025-01-27 11:03 | A.OFFVIS_ITS ---
Vital Signs 01/27/25 11:03 Height 5 ft 10 in Weight 171 lb 1.259 oz BMI 24.5 BP 130/58 L Blood Pressure Location Lt brachial Position Sitting Pulse 47 L Pulse Source Monitor Intake Visit Reasons: f/up-low heart rate/ Dr Norman surgery Senior Field Engineer Required: No Accompanied by: Self / Same As Patient Allergies No Known Allergies Allergy (Verified 01/12/25 07:45) Medication List - Last Reconciled 01/27/25 by Raul Winter MD acetaminophen ER 650 mg PO Q12H carisoprodol (Soma) 250 mg PO BEDTIME PRN 20 days cholecalciferol (vitamin D3) (Vitamin D3) 25 mcg PO DAILY glucosamine sulfate (Glucosamine) 500 mg PO DAILY ibuprofen 600 mg PO Q6H PRN losartan 50 mg PO BID 90 days magnesium oxide 400 mg PO BEDTIME multivitamin 1 tab PO DAILY zolpidem 10 mg PO BEDTIME PRN 15 days HPI Comments Details: 79-year-old gentleman who was seen for management of bradycardia. He said he has had slow heart rates all his life. His average heart rate is in 40s to 50s. He has been active and exercises regularly without any functional limitations. He has no exertional shortness of breath or chest discomfort. He has no dizziness episode with exertion. Recently he had a viral illness and while he was sick he had lightheadedness when changing his posture. This has improved and he does not have any further symptoms. 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 ECG 04/2019: Sinus bradycardia with first degree AV block, HR 41/min, LAFB. He was sent for a Holter monitor. Holter monitor showed underlying rhythm of sinus bradycardia with average heart rate of 48 beats per minute. 80% time his heart rate was under 60 beats per minute. 1.2 sec pause was noticed and 770 PVCs were noticed. Patient had no symptoms. 04/10/23: Today he returns for follow-up. He has no chest discomfort shortness of breath. Continues to be active without any exertional issues. In particular no dizziness or syncope. EKG in the office is showing heart rate of 36. With just leg raises for few seconds his heart rate went to 60s. Interestingly he has right bundle-branch block on the ECG along with left anterior fascicular block. 04/13/2024: He is here for follow-up. He had 7 day Holter monitor in 03/2023. He was noted to have frequent sinus bradycardia with 77% of time heart rate below 60 beats per minute without any significant pauses. He was completely asymptomatic throughout the 7 day period. He continues to be asymptomatic. No chest pain or shortness of breath. No syncope. He has some vertigo like feeling and also had some issue with his right ear and has lost hearing in that ear. 01/27/2025: He is here for follow-up. He recently went for hernia surgery and apparently was noticed to be bradycardic with heart rate of 39 beats per minute. The surgery was canceled and his primary care physician referred him to electrophysiology for further assessment and maybe pacemaker placement. He con tinues to be asymptomatic. He has been physically active and has no exertional issues. We did a exercise stress test on him where he was able to achieve 10.1 metabolic equivalents with appropriate rise in his heart rate to 117 beats per minute. He also had appropriate rise in blood pressure during stress testing. He did not have any chest discomfort shortness of breath. No fatigue. He is saying he is seeing Dr. Garcia today from electrophysiology at [facility]. [facility] Medical History SNHL (sensorineural hearing loss) Systolic murmur Sinus bradycardia DDD (degenerative disc disease), cervical Borderline high cholesterol BPPV (benign paroxysmal positional vertigo) Left anterior fascicular block (LAFB) GERD (gastroesophageal reflux disease) RBBB (right bundle branch block) Colon cancer Hypertension Chronic neck pain Chronic back pain Surgical History History of carpal tunnel release History of colonoscopy S/P excision of lipoma History of shoulder surgery H/O hemicolectomy History of hernia surgery Family History Father No problems noted. Mother Colon cancer Social History Housing: House Are you a primary home health care worker to a significant other at home: No Do you presently have visiting nurse or other home services: No Alcohol intake: former Comment: advised of trip hazard Patient Tobacco Use Status: Never used Tobacco e-Cigarette/Vaping Use: Never Used Second Hand Smoke Exposure: No service: Yes Current occupational status: retired Cognitive needs: No Hearing needs: No Vision needs: No Review of Systems Const Denies chills, Denies fatigue, Denies fever(s), Denies frequent falls, Denies weakness, Denies weight gain and Denies weight loss ENT Denies dizziness Card Denies chest pain, Denies leg edema, Denies lightheadedness, Denies palpitations, Denies dyspnea and Denies dyspnea on exertion Resp Denies cough, Denies dyspnea and Denies dyspnea on exertion GI Denies hematochezia Musc Denies abnormal gait, Denies muscle weakness, Denies numbness, Denies radiating pain into limb and Denies tingling Neuro Denies abnormal gait, Denies dizziness, Denies frequent falls, Denies numbness, Denies tingling and Denies weakness Endo Denies fatigue and Denies palpitations Physical Exam Vital Signs: Last Vital Signs Pulse 47 L 01/27/25 11:03 BP 130/58 L 01/27/25 11:03 BMI result Body Mass Index 24.5 GENERAL APPEARANCE: in no acute distress, well developed, well nourished. NECK/THYROID: no carotid bruit, no jugular venous distention. SKIN: no suspicious lesions, warm and dry. HEART: no murmurs, regular rate, bradycardic. LUNGS: clear to auscultation bilaterally. ABDOMEN: normal, bowel sounds present, soft, nontender, nondistended. EXTREMITIES: no clubbing, cyanosis, or edema. PERIPHERAL PULSES: equal. NEUROLOGIC: nonfocal, alert and oriented. PSYCH: mood/affect full range. Office Procedures EKG Details: Sinus bradycardia 47 beats per minute, right bundle-branch block, left anterior fascicular block. QTc 405 msec. [id number], Complete Assessment & Plan Assessment & Plan (1) HTN (hypertension): Code(s): I10 - Essential (primary) hypertension Category: Medical Qualifiers: Hypertension type: primary hypertension Qualified Code(s): I10 - Essential (primary) hypertension (2) Sinus bradycardia: Code(s): R00.1 - Bradycardia, unspecified Category: Medical (3) Bifascicular block: Code(s): I45.2 - Bifascicular block Category: Medical Plan 79-year-old gentleman who is here for follow-up. He has chronic bifascicular block and sinus bradycardia which is asymptomatic. He is physically active and has no exertional symptoms. He came for hernia repair and was noticed to be bradycardic and surgery was canceled. Off note he did not have any hypotension or symptoms. Since then he has had an exercise stress test where he was able to exercise to 10.1 metabolic equivalents and achieved a heart rate of 117 beats per minute. He has appropriate rise in his heart rate with exercise and his blood pressure also elevated with exercise. I think he is asymptomatic from the bifascicular block. He is also seeing electrophysiology today at [facility]. In my opinion he does not need a pacemaker and surgery can be done with low to intermediate risk for perioperative complications. Cardiology consultation team is available if there is any concerns during surgery. Short-term dopamine use or scopolamine patch (for anticholinergic effects) can be used if bradycardia is of concern but I think it would be quite unlikely that he will have any hemodynamic issues from bradycardia. He will see us back in few months. I will follow up on his consultation with Dr. Garcia at [facility]. Thank you for allowing me to participate in the care of your patient. Please feel free to contact me if you have any questions. Coding Level of Care Code Est Pt Level 4 (66938) Diagnoses Primary hypertension I10 Hypertension type: primary hypertension Sinus bradycardia R00.1 Bifascicular block I45.2 CPT Codes EKG - CPT: 59417-[id number], Complete ([id number])
--- OUTSIDE RECORDS SUMMARY | 2025-01-27 12:28 | XMS_ITS | Continuity of Care Document ---
Author Name [facility] Organization [facility] Care Team Providers Care Media Operator Name Role Phone [facility] Unavailable Unavailable Problems Combined list of problems from Department of Defense and Veterans Affairs facilities. It does not include entries that were removed or entered in error. Problem Status Onset Date Problem Type Date of Resolution Comments Source Carcinoma of Colon (SCT 164399785) Active 01/30/20 05 Condition Apr 05, 2021 [facility] Hearing Loss (SCT 81896743) Active Condition [facility] [...] MOUTH NEEDED ORAL ACTIVE AVTARJUN STAPLES [facility] CARISOPRODO L TAB TAKE BY MOUTH ORAL ACTIVE OSHINSBKDINA Chantel 2020 [facility] GLUCOSAMINE /CHONDROITI N CAP/TAB TAKE BY MOUTH ORAL ACTIVE OSHINSKISavitaDINA Chantel 2020 [facility] LOSARTAN 50MG TAB TAKE ONE TABLET BY MOUTH TWICE DAILY ORAL ACTIVE MARINA AGARWAL 2023 [facility] LUTEIN CAP/TAB TAKE BY MOUTH ORAL ACTIVE OSHINSKOURTNEYSavitaDINA J 2020 [facility] VITAMIN B COMPLEX CAP,ORAL TAKE BY MOUTH ORAL ACTIVE OSHINSKISavitaDINA J 2020 [facility] VITAMIN D3 (CHOLECALCI FEROL) TAB TAKE BY MOUTH ORAL ACTIVE OSIAGIOVANISavitaDINA J 2020 [facility] ZOLPIDEM TARTRATE 5MG TAB TAKE ONE TABLET BY MOUTH ONCE DAILY NEEDED ORAL ACTIVE MARINA AGARWAL 2024 [facility] Allergies, Adverse Reactions, Alerts Combined list of allergies from Department of Defense and Veterans Affairs facilities. It does not include entries that were removed or entered in error. Substance Category Reaction Severity Reaction type Status Date Reported Comments Source CATS Propensity to adverse reaction (finding) [facility]initis [facility] Immunizations Combined list of available immunizations from the Department of Defense and Veterans Affairs facilities. Immunization Series Date Given Administered By Site Reaction Lot Number CVX Code Drug Gps Field Data Collector Status Comments Source INFLUENZA, UNSPECIFIED FORMULATION 2023 88 complet ed Booster for Series, HISTORICA L INFORMATI ON - FROM OTHER PROVIDER, [facility] RESPIRATORY SYNCYTIAL VIRUS (RSV) VACCINE, UNSPECIFIED 1 2023 314 complet ed HISTORICA L INFORMATI ON - FROM OTHER PROVIDER, [facility] INFLUENZA, UNSPECIFIED FORMULATION 2022 88 complet ed Booster for Series, HISTORICA L INFORMATI ON - FROM OTHER PROVIDER, [facility] INFLUENZA, UNSPECIFIED FORMULATION 2021 88 complet ed Completed Series, HISTORICA L INFORMATI ON - FROM PATIENT'S RECALL, [facility] ZOSTER RECOMBINANT 2 2021 187 complet ed HISTORICA L INFORMATI ON - FROM OTHER PROVIDER, [facility] zoster recombinant 2021 BOGDASARIAN, () Not Given zoster recombina nt DoD ZOSTER RECOMBINANT 1 2021 187 complet ed HISTORICA L INFORMATI ON - FROM OTHER PROVIDER, [facility] zoster recombinant 2021 BOGDASARIAN, () Not Given zoster recombina nt DoD zoster recombinant 2021 BOGDASARIAN, () Not Given zoster recombina nt DoD COVID-19 (MODERNA), MRNA, LNP-S, PF, 100 MCG OR 50 MCG DOSE 3 2020 207 complet ed MOD; [id number]; 2 [facility] INFLUENZA VACCINE, QUADRIVALENT, ADJUVANTED 2020 205 complet ed [facility] COVID-19 (MODERNA), MRNA, LNP-S, PF, 100 MCG/0.5 ML DOSE 2 2020 207 complet ed MOD; [id number]; 1 [facility] Influenza vaccine, quadrivalent, adjuvanted 2019 BOGDASARIAN, () Not Given Influenza vaccine, quadrival ent, adjuvante d [facility] INFLUENZA, UNSPECIFIED FORMULATION 2019 88 complet ed [facility] PNEUMOCOCCAL CONJUGATE PCV 13 2019 133 complet ed Booster for Series, HISTORICA L INFORMATI ON - FROM OTHER PROVIDER, [facility] zoster recombinant 2019 ANNY, () Not Given zoster recombina nt [facility] influenza, injectable, quadrivalent, preservative free 2018 BOGDASARIAN, () Not Given influenza , injectabl e, quadrival ent, preservat kenia free DoD TDAP 2017 115 complet ed Akdemia TDAP 2016 115 complet ed Booster for Series, HISTORICA L INFORMATI ON - FROM OTHER PROVIDER, [facility] Vital Signs Combined list of inpatient and outpatient Vital Signs from Department of Defense and Veterans Affairs, ranging from 12 months to all on record, depending upon the facility. Vital Sign Value Date Comments Source SYSTOLIC BLOOD PRESSURE 130 08/19/19 25 10:17:27 [facility] DIASTOLIC BLOOD PRESSURE 80 025 10:17:27 [facility] PULSE OXIMETRY 99 08/18/2024 10:17:27 [facility] WEIGHT 170 08/18/2024 10:17:27 [facility] BMI 24 kg/m2 08/18/2024 10:17:27 [facility] PAIN 5 08/18/2024 10:17:27 [facility] TEMPERATURE 98.4 08/18/2024 10:17:27 [facility] PULSE 50 08/18/2024 10:17:27 [facility] RESPIRATION 16 08/18/2024 10:17:27 [facility] Encounters Combined list of: 1) Encounters [...] Disposition Source [facility] Outpatient Encounter [id number] ALBA SWIFT ISTOPHER E 06/04 [facility] En[facility] [id number] 06/26 [facility] HEARING AID EXAM BOTH EARS [id number] Diagnos is: ICD-10- CM H90.A31 Mix cndct/s nrl hear loss,un i,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 GERALD ROOT 08/08 [facility] OFFICE O/P EST LOW 20 MIN [id number] Diagnos is: ICD-10- CM H90.3 Sensori neural hearing loss, MARINA Domingo 08/19 [facility] Out[facility]counter [id number] 08/20 [facility]counter [id number] 08/20 [facility] En[facility] [id number] 09/01 [facility] HEARING SERVICE [id number] Diagnos is: ICD-10- CM Z46.1 Encount er for fitting and adjustm ent of hearing aid GERALD ROOT 09/03 [facility] En[facility] [id number] 09/29 [facility]counter [id number] 09/29 [facility] En[facility] [id number] 11/03 [facility] Encounter [id number] 11/03 [facility] HEARING AID FITTING/CH ECKING [id number] Diagnos is: ICD-10- CM Z46.1 Encount er for fitting and adjustm ent of hearing aid TOREY GRADY MEERA L 12/16 [facility] Out[facility] En[facility] [id number] 12/18 [facility] HEARING AID EXAM BOTH EARS [id number] Diagnos is: ICD-10- CM Z46.1 Encount er for fitting and adjustm ent of hearing aid YOSELIN DEE L 02/10 [facility] HEARING AID FITTING/CH ECKING [id number] Diagnos is: ICD-10- CM Z46.1 Encount er for fitting and adjustm ent of hearing aid YOSELIN DEE L 02/24 [facility] Out[facility] Encounter [id number] 03/27 [facility] Out[facility] Encounter [id number] ALBA SWIFT ISTOPHER E 04/13 [facility] HEARING AID REPAIR/MOD IFYING [id number] Diagnos is: ICD-10- CM H90.A31 Mix cndct/s nrl hear loss,un i,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 YOSELIN DEE L 06/30 [facility] Outpatient Encounter [id number] 07/17 [facility] Outpatient Encounter [id number] JAMISON,ALBA ISTOPHER E 07/22 [facility] Outpatient Encounter [id number] 08/18 [facility] OFFICE O/P EST LOW 20 MIN [id number] Diagnos is: ICD-10- CM H91.90 Unspeci fied hearing loss, unspeci fied ear MARINA AGARWAL F 08/18 [facility] Social History Combined list of available smoking, tobacco, and other social history from Department of Defense and Veterans Affairs facilities. Social History Type Response Date Comment Sourc e Tobacco smoking status NHIS VA-TOBACCO NEVER USED 08/20/2023 [facility] History of tobacco use VA-TOBACCO NEVER USED 08/21/2022 [facility] History of tobacco use VA-TOBACCO NEVER USED 11/09/2021 [facility] History of tobacco use VA-TOBACCO NEVER USED 10/10/2020 [facility] This section is an empty social history section. DoD
--- OUTSIDE RECORDS SUMMARY | 2025-01-27 12:32 | XMS_ITS | Patient Health Record ---
Author Organization [facility] Address [address] [place] [address] Care Team Providers Care Family Development Specialist Name Role Phone Rosalino Perez MD Primary Care Provider Jay Mosqueda Unavailable [phone] Reason For Referral No Information Medications Medication [...] Problem Status W/U Status Risk Notes Problem Information temporarily unavailable Flat Foot, Congenital (754.61) Active confirmed Problem Information temporarily unavailable Plantar Fasciitis (728.71) Active confirmed Plan Of Treatment No Information Insurance Providers Payer Name Payer Address Payer Phone Subscriber Number Group Number Insured Name Patient Relationship to Insured Coverage Start Date Coverage End Date Medicare National [employer] [address] [place] [address] [phone] [id number] Shantanu Phillips Self - patient is the insured [facility] -[id number] [address] [address] [place] [address] [id number] Shantanu Phillips Self - patient is the insured for Life [address] [place] [id number] [phone] [id number] Shantanu Phillips Self - patient is the insured Medical (General) History Medical History History ICD Code back, hip, knee pain cancer measles chicken pox transfusions Surgical History Surgery Date(Month/Year) shoulder surgery colon
--- OUTSIDE RECORDS SUMMARY | 2025-01-27 12:33 | XMS_ITS | Clinical Summary ---
Author Organization [facility] Address [address] [place] [address] [place] [address] Phone Care Team Providers Care General Ledger Bookkeeper Name Role Phone Jose Peñaloza Primary Care [...] (2 of 2 - PPSV23) 06/26/2020 06/26/2019 INFLUENZA VACCINE (#1) 2024 , 03/13/2023, 03/03/2022, Additional history exists COVID-19 VACCINE (2024- season) 2025 05/13/2021, 08/17/2020, 07/20/2020 Adult Td,Tdap Booster 10/30/2027 10/29/2017, 017 ZOSTER [...] topic Medical Devices Not on file Insurance [facility] MEDICARE REPLACEMENT MEDICARE PART A & B Member Subscriber Plan / Payer (Ef fective 2012-Present) Name:Shantanu Phillips Member ID:[id number] Relation to Subscriber:Self Name:Shantanu Phillips Subscriber ID:[id number] Payer ID:[id number] Group ID:Not on file Type:Medicare Address: [employer] [facility] [address] [place] [phone] [facility] MEDICARE SUPPLEMENT [facility] Address: [id number] [place] [address] MEDICARE REPLACEMENT MEDICARE PART A & B FOR LIFE MEDICARE SUPPLEMENT [facility] Address: [address] [address] MEDICARE REPLACEMENT MEDICARE PART A & B FOR LIFE MEDICARE SUPPLEMENT Member Subscriber Plan / Payer (Ef fective 2023-Present) Name:Shantanu Phillips Relation to Subscriber:Self Name:Shantanu Phillips Payer ID:[id number] (NAIC) Group ID:Not on file Type:O Address: [address] [phone] [facility] MEDICARE REPLACEMENT MEDICARE PART A & B Member Subscriber Plan / Payer (Ef fective 2012-Present) Name:Shantanu Phillips Member ID:[id number] Relation to Subscriber:Self Name:Shantanu Phillips Subscriber ID:[id number] Payer ID:[id number] Group ID:Not on file Type:Medicare Address: [facility] Care Team Connect [facility] [address] [place] [phone] [facility] MEDICARE SUPPLEMENT [facility] Address: [id number] [place] [address] [facility] MEDICARE REPLACEMENT [id number] MEDICARE PART A & B FOR LIFE MEDICARE SUPPLEMENT [facility] Address: [address] [address] MEDICARE REPLACEMENT MEDICARE PART A & B FOR LIFE MEDICARE SUPPLEMENT Care Teams General Ledger Bookkeeper Relationship Specialty Start Date End Date Jose Peñaloza PA [address] [place] [address] PCP - General Physician Joy Operator 09/06/23 Additional Source Comments The information contained in this document represents components of the legal health record. It is not the complete legal health record.[facility]
== END 2025-01-27 11:53 | disposition home or self-care (01) ==
LOC: HO.HCS 10:45
PROVIDERS: PCP Physician Assistant; Visit Provider Internal Medicine Cardiovascular Disease
DX: I10 Essential (primary) hypertension (principal); R00.1 Bradycardia, unspecified; I45.2 Bifascicular block
CPT/HCPCS: 93010; 99214

== ENCOUNTER → 2025-01-27 10:45 | Outpatient (BNVA) | payer MEDICARE, OTHER, SELFPAY | PROVIDERS: PCP Physician Assistant; Visit Provider Internal Medicine Cardiovascular Disease | DX: I45.2 Bifascicular block (principal); R00.1 Bradycardia, unspecified; I10 Essential (primary) hypertension | CPT/HCPCS: 93005; 99212 ==

== ENCOUNTER 2025-02-03 10:14 | Outpatient (AMB) | payer MEDICARE, OTHER, SELFPAY ==
--- NOTE | 2025-02-03 10:20 | MHC.PC.OV ---
Vital Signs 02/03/25 10:21 Height 5 ft 10 in Weight 170 lb 6 oz BMI 24.4 BP 132/82 Blood Pressure Location Lt brachial Position Sitting Pulse 54 Pulse Source Pulse Oximeter Temp 97.5 F Temp Source Temporal Artery Scan Pulse Oximetry (%) 98 Oxygen Delivery Method Room Air Intake Visit Reasons: Annual PE - see comments Allergies No Known Allergies Allergy (Verified 02/03/25 10:32) Medication List - Last Reconciled 02/03/25 by Jose Peñaloza PA-C acetaminophen ER 650 mg PO Q12H carisoprodol (Soma) 250 mg PO BEDTIME PRN 20 days cholecalciferol (vitamin D3) (Vitamin D3) 25 mcg PO DAILY glucosamine sulfate (Glucosamine) 500 mg PO DAILY ibuprofen 600 mg PO Q6H PRN losartan 50 mg PO BID 90 days magnesium oxide 400 mg PO BEDTIME multivitamin 1 tab PO DAILY zolpidem 10 mg PO BEDTIME PRN 15 days Tobacco use date assessed: 12/15/24 Fall risk assessment: No Falls in past year Last assessed Fall Risk: 02/03/25 Dental Screening Dental Screen Date: 10/13/24 Did you have a dental visit in the last 12 months?: Yes Did you have a dental problem in the last 6 months where you did not have access to dental care?: No Was dental information given to patient?: Patient has dentist HPI Annual PE - see comments HPI Details Apolinar is a 79-year-old male here today for a routine annual physical.? Patient has a past medical history significant for hypertension and degenerative disc disease of the cervical spine, h/o of colon cancer. Bradycardia: Continues to be asymptomatic. patient has followed up with cardiac preventive medicine officer and was deemed not a candidate for a pacemaker. His hernia surgery was rescheduled. Echocardiogram and Holter monitor without significant findings. He did discuss the possibility of getting a pacemaker down line. .. HTN: Patient's blood pressure acceptable today in office. He reports that home blood pressures have been 120s to 130 systolic. .. History of colon cancer:? Has had a history of a colectomy and has been in remission? Does follow biomedical equipment support specialist and gets colonoscopies every 3-5 years. [facility]. .. Degenerative disc disease of the spine:? He is followed by neck specialist.? He is currently in physical therapy for his hip in lower extremity issues.. Has done multiple rounds of physical therapy with decent affect.? He does use Soma on a p.r.n. basis for his pain. Colon cancer screening: Has a personal history colon cancer, Followed by gastroenterology and gets colonoscopies every 3-5 years Vaccines up-to-date with all vaccines [facility] Medical History (Reviewed 02/03/25 @ 10:25 by Zahira Pendleton [facility]) SNHL (sensorineural hearing loss) Systolic murmur Sinus bradycardia DDD (degenerative disc disease), cervical Borderline high cholesterol BPPV (benign paroxysmal positional vertigo) Left anterior fascicular block (LAFB) GERD (gastroesophageal reflux disease) RBBB (right bundle branch block) Colon cancer Hypertension Chronic neck pain Chronic back pain Surgical History History of carpal tunnel release History of colonoscopy S/P excision of lipoma History of shoulder surgery H/O hemicolectomy History of hernia surgery Family History Father No problems noted. Mother Colon cancer Social History Housing: House Are you a primary post acute care registered nurse to a significant other at home: No Do you presently have visiting nurse or other home services: No Alcohol intake: former Comment: advised of trip hazard Patient Tobacco Use Status: Never used Tobacco e-Cigarette/Vaping Use: Never Used Second Hand Smoke Exposure: No service: Yes Current occupational status: retired Cognitive needs: No Hearing needs: No Vision needs: No Questionnaire PHQ-9 Over the last 2 weeks, how often have you been bothered by any of the following problems? 1. Little interest or pleasure in doing things: not at all 2. Feeling down, depressed, or hopeless: not at all 3. Trouble falling or staying asleep, or sleeping too much: not at all 4. Feeling tired or having little energy: not at all 5. Poor appetite or overeating: not at all 6. Feeling bad about yourself - or that you are a failure or have let yourself or your family down: not at all 7. Trouble concentrating on things, such as reading the newspaper or watching television: not at all 8. Moving or speaking so slowly that other people could have noticed. Or the opposite - being so fidgety or restless that you have been moving around a lot more than usual: not at all 9. Thoughts that you would be better off or of hurting yourself in some way: not at all Total score: 0 Depression Screening Interpretation: Negative Depression Screening Done: Yes Source: Developed by Drs. Lee Hines, Zahra Joseph, Fitz Stephenson and colleagues, with an educational mayank from [employer]. Thrive Questionnaire Date Thrive assessed: 10/13/24 I am a: Patient What is your living situation today?: I have a steady place to live Within the past 12 months, did the food you bought not last and you didn't have the money to get more?: Never true Within the past 12 months, did you worry whether your food would run out before you got money to buy more?: Never true Do you have trouble paying for medicines?: No Do you have trouble getting transportation to medical appointments?: No Do you have trouble paying your heating and electricity bill?: No Do you have trouble taking care of your child, family member or friend?: No Do you have trouble with day-to-day activities such as bathing, preparing meals, shopping, managing finances, etc.?: No Are you currently unemployed and looking for a job?: No Are you interested in more education?: No Please select the resources that you would like help with: None Currently or been in a relationship where the following occur: No concerns reported THRIVE Score: 0 AUDIT C Alcohol Use Questionnaire (AUDIT-C) 1. How often do you have a drink containing alcohol?: Never 3. How often do you have six or more drinks on one occasion?: Never Total Score: 0 SHWETHA-7 AMB Questionnaire SHWETHA-7 Date SHWETHA - 7 assessed: 10/13/24 Feeling nervous, anxious, or on edge: 0 = Not at all Not being able to stop or control worryin = Not at all Worrying too much about different things: 0 = Not at all Trouble relaxin = Not at all Being so restless that it is hard to sit still: 0 = Not at all Becoming easily annoyed or irritable: 0 = Not at all Feeling afraid as if something awful might happen: 0 = Not at all Total SHWETHA-7 score (0-4 normal; 5-9 mild; 10-14 moderate; 15-21 severe): 0 Source: Developed by Drs. Lee Hines, Zahra Joseph, Fitz Stephenson and colleagues, with an educational mayank from [employer]. Review of Systems Const Denies body aches, Denies chills, Denies excessive sweating, Denies fatigue, Denies fever(s) and Denies headache(s) Eyes Denies blurry vision ENT Denies dysphagia, Denies vertigo, Denies dizziness, Denies headache(s), Denies hearing loss and Denies tinnitus Card Denies chest pain, Denies chest pain with activity, Denies syncope, Denies irregular heart rhythm and Denies dyspnea Resp Denies chest congestion, Denies cough, Denies hemoptysis, Denies dyspnea and Denies wheezing GI Denies abdominal pain, Denies melena, Denies hematochezia, Denies coffee ground emesis, Denies dysphagia, Denies diarrhea, Denies nausea and Denies vomiting Denies difficulty urinating, Denies dysuria, Denies urinary frequency, Denies urinary hesitancy and Denies urinary urgency Musc Denies arthralgias, Denies limited range of motion, Denies muscle cramps and Denies muscle weakness Skin/Breast Denies rash and Denies skin ulcer Neuro Denies Abnormal speech present, Denies confusion, Denies vertigo, Denies dizziness, Denies syncope, Denies headache(s), Denies memory loss and Denies seizure-like activity Psych Denies anxiety, Denies confusion, Denies depression, Denies memory loss, Denies panic attacks and Denies paranoia Endo Denies excessive sweating, Denies fatigue, Denies flushing, Denies polydipsia and Denies polyuria Aller/Immun Denies wheezing Physical exam (Primary Care) Vital Signs: Last Vital Signs Temp 97.5 F 02/03/25 10:21 Pulse 54 02/03/25 10:21 BP 132/82 02/03/25 10:21 Pulse Ox 98 02/03/25 10:21 Oxygen Delivery Method Room Air 02/03/25 10:21 BMI result Body Mass Index 24.4 Tobacco/Smoking Status: Tobacco use Status Tobacco use date assessed 12/15/24 02/03/25 10:27 Patient Tobacco Use Status Never used Tobacco 02/03/25 10:27 e-Cigarette/Vaping Use Never Used 02/03/25 10:27 PHQ-9: PHQ-9 Score PHQ-9: Total score 0 02/03/25 10:34 Depression Screening Interpretation: Negative Thrive Assessment: Date of Thrive Assessment Date Thrive assessed 10/13/24 02/03/25 10:27 Currently or been in a relationship where the following occur: No concerns reported Const General: cooperative, comfortable, no acute distress, alert and awake; No confusion Orientation/consciousness: oriented to person, oriented to place, patient oriented x3 and No confusion HENMT Head: Yes normocephalic Ears: external ears normal and TM's normal bilaterally Face and sinus: No sinus tenderness Mouth: Normal oral and palatal mucosa present and tongue normal Teeth and gingiva: dentition normal and gingiva normal Throat: Yes posterior oropharynx normal, Yes tonsils normal and Yes uvula midline Eyes Conjunctivae: conjunctivae normal Sclerae: sclerae normal Pupils: Equal, round and reactive pupils present EOM: EOMs intact bilaterally Direct Ophthalmoscopy: No no photophobia Neck Neck: Yes no lymphadenopathy, No tender and Yes no JVD Thyroid: Thyroid normal Carotids: no bruits Chest Chest palpation & inspection: no tenderness Resp Effort & Inspection: normal respiratory effort, no audible wheezes, not labored and no stridor Auscultation: no crackles, no rales, no rhonchi and no wheezes Cardio Jugular venous distension: no JVD Rate: regular rate, not bradycardic and not tachycardic Rhythm: regular rhythm Bruits: no carotid bruits Peripheral pulses: Peripheral pulses 2+ throughout GI Inspection: Yes normal to inspection, No abdominal wall ecchymosis and No visible herniation Palpation (GI): Soft to palpation, nontender, no guarding, not rigid and No hepatosplenomegaly present Auscultation: normoactive bowel sounds General: Yes no CVA tenderness Back/Spine/Pelvis Back: no CVA tenderness and No back tenderness Cervical Spine: cervical ROM normal Thoracic/Lumbar Spine: thoracic and lumbar spine normal to inspection, straight leg raise negative bilaterally, No thoraco-lumbar ROM limited and No lumbar spinal tenderness Skin Lesions: no lesions Rashes: no rashes Wounds: no wounds Neuro General: oriented to person, oriented to place, patient oriented x3, CN's II-XI intact bilaterally and No confusion Cranial nerves: Yes Equal, round and reactive pupils present and Yes Normal accommodation reflex present Cognition (Neuro): normal cognition Speech: No Abnormal speech present Gait exam (Neuro): Normal gait present Motor exam (neuro): 5/5 motor strength present throughout Extrem Right upper extremity: full ROM; no cyanosis Left upper extremity: full ROM; no cyanosis Right lower extremity: no edema Left lower extremity: no edema Psych Appearance: grossly normal Mental Status: mental status grossly normal Affect: normal affect Attitude: cooperative Thought process: Normal thought process present Coding Level of Care Code Est Pt Prev Care >65y(91940) Diagnoses Annual physical exam Z00.00 Bifascicular block I45.2 Primary hypertension I10 Hypertension type: primary hypertension Borderline high cholesterol E78.9 Primary insomnia F51.01 Insomnia type: primary Right groin hernia K40.90 Assessment & Plan Assessment & Plan (1) Annual physical exam: Code(s): Z00.00 - Encounter for general adult medical examination without abnormal findings Category: Medical Plan: As per HPI (2) Bifascicular block: Code(s): I45.2 - Bifascicular block Category: Medical Plan: Patient evaluated by electrophysiology cardiac surgeon Dr. Garcia and was deemed not a candidate for pacemaker. Does have right bundle-branch block. Testing stable on does have appropriate heart rates during exertion Continues to be asymptomatic and heart rate seems to be stable. His inguinal hernia surgery has been rescheduled (3) HTN (hypertension): Code(s): I10 - Essential (primary) hypertension Category: Medical Qualifiers: Hypertension type: primary hypertension Qualified Code(s): I10 - Essential (primary) hypertension Plan: Patient's blood pressure acceptable today in office. Has been very good control at home with 110s to 120 systolic readings. He continues on losartan 100 mg daily with good effect. Goal blood pressures to be below 140/90 (4) Borderline high cholesterol: Code(s): E78.9 - Disorder of lipoprotein metabolism, unspecified Category: Medical Plan: Patient's most recent lipid panel showing borderline high cholesterol. He will continue on doing dietary modifications to reduce his cholesterol. (5) Insomnia: Code(s): G47.00 - Insomnia, unspecified Category: Medical Qualifiers: Insomnia type: primary Qualified Code(s): F51.01 - Primary insomnia Plan: Patient continues to suffer with insomnia and does use zolpidem half to a quarter tablet on an as needed basis with good effect. (6) Right groin hernia: Code(s): K40.90 - Unilateral inguinal hernia, without obstruction or gangrene, not specified as recurrent Category: Medical Plan: Has upcoming surgery with [place] [facility] surgeons to repair her groin hernia.. Medications: Refilled zolpidem 10 mg PO BEDTIME PRN 15 tabs 2RF insomnia 15 days F51.01 - Primary insomnia
[2025-02-03 10:21] VITALS: BP 132/82; PULSE 54; TEMP 36.4; O2SAT 98; BMI 24.4
--- OUTSIDE RECORDS SUMMARY | 2025-02-03 12:26 | XMS_ITS | Patient Health Record ---
Author Organization 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 Problem Plantar fasciitis (599724015) Plantar Fasciitis (728.71) Active confirmed Plan Of Treatment No Information Insurance Providers Payer Name Payer Address Payer Phone Subscriber Number Group Number Insured Name Patient Relationship to Insured Coverage Start Date Coverage End Date Medicare National [employer] [address] [place] [phone] [id number] Shantanu Phillips Self - patient is the insured [id number] [address] [address] [place] [address] [id number] Shantanu Phillips Self - patient is the insured for Life [address] [place] [address] [id number] Shantanu Phillips Self - patient is the insured Medical (General) History Medical History History ICD Code back, hip, knee pain cancer measles chicken pox transfusions Surgical History Surgery Date(Month/Year) shoulder surgery colon
--- OUTSIDE RECORDS SUMMARY | 2025-02-03 12:26 | XMS_ITS | Patient Health Record ---
Author Organization [facility] Address [address] [place] [address] Care Team Providers Care Bench Examiner Name Role Phone Jose Peñaloza Primary Care [...] Problem Status W/U Status Risk Notes Problem 771478376 Colon cancer screening (Z12.11) Active confirmed Problem 291162343 Gastroesophageal reflux disease, unspecified whether esophagitis present (K21.9) Active confirmed Vital Signs Temperature 97.7 degrees Fahrenheit 03/23/2024 Blood pressure diastolic 00 mm Hg 03/23/2024 Height 70 in 03/23/2024 Blood pressure systolic 000 mm Hg 03/23/2024 Weight 173 lbs 03/23/2024 BMI 24.82 kg/m2 03/23/2024 Encounters Encounter Location Date Provider Diagnosis [facility] [address] [place] [address] 03/23/2024 Fernando Thao Jr Gastroesophageal reflux disease, [...] Insured Coverage Start Date Coverage End Date [facility] [address] [address] [place] [address] [id number] LYDIA FERGUSON Self - patient is the insured [employer] [address] [place] [address] [id number] LYDIA FERGUSON Self - patient is the [...]
--- OUTSIDE RECORDS SUMMARY | 2025-02-03 12:26 | XMS_ITS | Clinical Summary ---
Author Organization [facility] Address [address] [place] [address] [place] [address] Phone Care Team Providers Care Tube Puller Name Role Phone Jose Peñaloza Primary Care [...] topic Medical Devices Not on file Insurance [facility] MEDICARE REPLACEMENT MEDICARE PART A & B [facility] MEDICARE SUPPLEMENT [facility] Address: [id number] [place] [address] MEDICARE REPLACEMENT MEDICARE PART A & B FOR LIFE MEDICARE SUPPLEMENT [facility] Address: [address] [address] [place] [address] MEDICARE PART A & B FOR LIFE MEDICARE SUPPLEMENT Member Subscriber Plan / Payer (Ef fective 2023-Present) Name:Shantanu Phillips Relation to Subscriber:Self Name:Shantanu Phillips Payer ID:[id number] (NAIC) Group ID:Not on file Type:O Address: [place] [phone] [facility] MEDICARE REPLACEMENT MEDICARE PART A & B [facility] MEDICARE SUPPLEMENT [facility] Address: [id number] [place] [address] [facility] MEDICARE REPLACEMENT [place] [id number] MEDICARE PART A & B FOR LIFE MEDICARE SUPPLEMENT [facility] Address: [address] [address] MEDICARE REPLACEMENT MEDICARE PART A & B FOR LIFE MEDICARE SUPPLEMENT Care Teams Tube Puller Relationship Specialty Start Date End Date Jose Peñaloza PA [address] [place] [address] PCP - General Physician Mail Reader 09/06/23 Additional Source Comments The information contained in this document represents components of the legal health record. It is not the complete legal health record.[facility]
== END 2025-02-03 10:51 | disposition home or self-care (01) ==
LOC: HO.HMCH 10:15
PROVIDERS: PCP Physician Assistant; Visit Provider Physician Assistant
DX: Z00.00 Encounter for general adult medical examination without abnormal findings (principal); I45.2 Bifascicular block; I10 Essential (primary) hypertension; E78.9 Disorder of lipoprotein metabolism, unspecified; F51.01 Primary insomnia; K40.90 Unilateral inguinal hernia, without obstruction or gangrene, not specified as recurrent

== ENCOUNTER → 2025-02-03 10:14 | Outpatient (BNVA) | payer MEDICARE, OTHER, SELFPAY | PROVIDERS: PCP Physician Assistant; Visit Provider Physician Assistant | DX: Z00.00 Encounter for general adult medical examination without abnormal findings (principal); I45.2 Bifascicular block; I10 Essential (primary) hypertension; F51.01 Primary insomnia; K40.90 Unilateral inguinal hernia, without obstruction or gangrene, not specified as recurrent | CPT/HCPCS: 96127; 99397 ==

== ENCOUNTER 2025-02-23 10:14 | Day surgery (SDC) | payer MEDICARE, OTHER, SELFPAY ==
--- OUTSIDE RECORDS SUMMARY | 2025-02-02 07:14 | XMS_ITS | Patient Health Record ---
Author Organization [facility] Address [address] [place] [address] Care Team Providers Care Radiopharmacist Name Role Phone Jose Peñaloza Primary Care Provider UnavailFernando Falk Jr Unavailable [phone] Allergies No Known Allergies Reason For Referral [...] Problem Status W/U Status Risk Notes Problem 395708297 Colon cancer screening (Z12.11) Active confirmed Problem 113753978 Gastroesophageal reflux disease, unspecified whether esophagitis present (K21.9) Active confirmed Vital Signs Temperature 97.7 degrees Fahrenheit 03/23/2024 Blood pressure diastolic 00 mm Hg 03/23/2024 Height 70 in 03/23/2024 Blood pressure systolic 000 mm Hg 03/23/2024 Weight 173 lbs 03/23/2024 BMI 24.82 kg/m2 03/23/2024 Encounters Encounter Location Date Provider Diagnosis [facility] [address] [place] [address] 03/23/2024 Fernando Thao Jr Gastroesophageal reflux disease, [...] Insured Coverage Start Date Coverage End Date [facility] [address] [address] [place] [address] [id number] LYDIA FERGUSON Self - patient is the insured [employer] [address] [place] [address] [id number] LYDIA FERGUSON Self - patient is the [...]
--- OUTSIDE RECORDS SUMMARY | 2025-02-02 07:14 | XMS_ITS | Clinical Summary ---
Author Organization [facility] Address [address] [place] [address] [place] [address] Phone Care Team Providers Care Polysomnographic Technologist Name Role Phone Jose Peñaloza Primary Care [...] topic Medical Devices Not on file Insurance [facility] MEDICARE REPLACEMENT MEDICARE PART A & B [facility] MEDICARE SUPPLEMENT [facility] Address: [id number] [place] [address] MEDICARE REPLACEMENT MEDICARE PART A & B FOR LIFE MEDICARE SUPPLEMENT [facility] Address: [address] [address] MEDICARE REPLACEMENT MEDICARE PART A & B FOR LIFE MEDICARE SUPPLEMENT Member Subscriber Plan / Payer (Ef fective 2023-Present) Name:Shantanu Phillips Relation to Subscriber:Self Name:Shantanu Phillips Payer ID:[id number] (NAIC) Group ID:Not on file Type:O Address: [address] [id number] [facility] MEDICARE REPLACEMENT MEDICARE PART A & B [facility] MEDICARE SUPPLEMENT [facility] Address: [id number] [place] [address] [facility] MEDICARE REPLACEMENT [place] [id number] MEDICARE PART A & B FOR LIFE MEDICARE SUPPLEMENT [facility] Address: [address] [address] MEDICARE REPLACEMENT MEDICARE PART A & B FOR LIFE MEDICARE SUPPLEMENT Care Teams Polysomnographic Technologist Relationship Specialty Start Date End Date Jose Peñaloza PA [address] [place] [address] PCP - General Physician Merchandise Clerk 09/06/23 Additional Source Comments The information contained in this document represents components of the legal health record. It is not the complete legal health record.[facility]
--- OUTSIDE RECORDS SUMMARY | 2025-02-02 07:14 | XMS_ITS | Patient Health Record ---
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) Active confirmed Problem Plantar fasciitis (523550686) Plantar Fasciitis (728.71) Active confirmed Plan Of Treatment No Information Insurance Providers Payer Name Payer Address Payer Phone Subscriber Number Group Number Insured Name Patient Relationship to Insured Coverage Start Date Coverage End Date Medicare [employer] [address] [facility] [place] [phone] [id number] Shantanu Phillips Self - patient is the insured [id number] [address] [address] [place] [address] [phone] [id number] Shantanu Phillips Self - patient is the insured for Life [address] [place] [address] [id number] Shantanu Phillips Self - patient is the insured Medical (General) History Medical History History ICD Code back, hip, knee pain cancer measles chicken pox transfusions Surgical History Surgery Date(Month/Year) shoulder surgery colon
[2025-02-19 10:11] VITALS: BMI 24.4
--- NOTE | 2025-02-22 11:55 | HO.ANESPROP2 ---
Documented by User: Thalia Abbasi NP 02/22/25 12:01 HPI - Anesthesia Eval Consult details Narrative: 80yo M for Right Repair Hernia Inguinal Reducible with mesh Previously cx'd 12/2024 on DOS for bradycardia (mid to high 30's). Sent for cardiac eval and possible pacer. Follows [facility] Cardiology for Bifasicular block. Optimized to proceed with surgery ...exercise stress test where he was able to exercise to 10.1 metabolic equivalents and achieved a heart rate of 117 beats per minute. He has appropriate rise in his heart rate with exercise and his blood pressure also elevated with exercise. I think he is asymptomatic from the bifascicular block. He is also seeing electrophysiology today at [facility]. In my opinion he does not need a pacemaker and surgery can be done with low to intermediate risk for perioperative complications. Cardiology consultation team is available if there is any concerns during surgery. Short-term dopamine use or scopolamine patch (for anticholinergic effects) can be used if bradycardia is of concern but I think it would be quite unlikely that he will have any hemodynamic issues from bradycardia. Eval by [facility] EP 01/2025: He remains completely asymptomatic and despite some baseline sinus bradycardia?he does have a relatively?appropriate chronotropic?response with exertion?as manifested by his recent?exercise treadmill test.? In addition to?some mild sinus node dysfunction?he also suffers from bifascicular block but has never had any demonstration?of?second or third-degree heart block.? I do not believe a pacemaker is indicated at this time?and have discussed with Shantanu that if he were to develop any?cardiac symptoms (exertional chest pain, dyspnea,?dizziness or syncope)?this may represent progression of his underlying?conduction system disease?and pacemaker may be indicated at that time. [facility] Active Problems Active Problems: All Active Problems Annual physical exam (Acute) Right groin hernia (Acute) Muscle cramping (Acute) Bifascicular block (Acute) Gluteal tendinitis (Acute) Lesion of pelvic bone (Acute) Sacral pain (Acute) Lumbar spine pain (Acute) Left hip pain (Acute) BPPV (benign paroxysmal positional vertigo) (Acute) Sensorineural hearing loss (SNHL) of right ear (Acute) Borderline high cholesterol (Acute) Sensation of fullness in right ear (Acute) Medicare annual wellness visit, subsequent (Acute) Systolic murmur (Acute) GERD (gastroesophageal reflux disease) (Acute) Tear of right supraspinatus tendon (Acute) Insomnia (Acute) H/O colon cancer, stage I (Acute) Pain of right heel (Acute) HTN (hypertension) (Acute) Sinus bradycardia (Acute) Sciatica (Acute) DDD (degenerative disc disease), cervical (Acute) Past Medical History Medical History SNHL (sensorineural hearing loss) Systolic murmur Sinus bradycardia DDD (degenerative disc disease), cervical Borderline high cholesterol BPPV (benign paroxysmal positional vertigo) Left anterior fascicular block (LAFB) GERD (gastroesophageal reflux disease) RBBB (right bundle branch block) Colon cancer Hypertension Chronic neck pain Chronic back pain Family History Family History Father No problems noted. Mother Colon cancer Family history of problems with anesthesia: No Surgical History Surgical History History of carpal tunnel release History of colonoscopy S/P excision of lipoma History of shoulder surgery H/O hemicolectomy History of hernia surgery History of Problems with Anesthesia: No Social History Social History Housing: House Are you a primary home care rn to a significant other at home: No Do you presently have visiting nurse or other home services: No Alcohol intake: former Comment: advised of trip hazard Patient Tobacco Use Status: Never used Tobacco e-Cigarette/Vaping Use: Never Used Second Hand Smoke Exposure: No Use of substances other than those prescribed or required for medical reasons: No Advance Directives: No Advance Directives Information Provided: Yes service: Yes Current occupational status: retired Cognitive needs: No Hearing needs: No Vision needs: No Meds Allergies Allergy/AdvReac Type Severity Reaction Status Date / Time No Known Allergies Allergy Verified 02/03/25 10:32 Home Medications ?Medication ?Instructions ?Recorded ?Confirmed ?Last Taken ?Type acetaminophen 650 mg 650 mg PO Q12H 12/29/24 02/23/25 02/21/25 08:00 History tablet,extended release cholecalciferol (vitamin D3) 25 25 mcg PO DAILY 12/29/24 02/23/25 02/23/25 08:00 History mcg (1,000 unit) capsule (Vitamin D3) glucosamine sulfate 500 mg tablet 500 mg PO DAILY 12/29/24 02/23/25 02/23/25 08:00 History (Glucosamine) magnesium oxide 400 mg PO BEDTIME 12/29/24 02/23/25 02/22/25 08:00 History multivitamin 1 tab PO DAILY 12/29/24 02/23/25 02/22/25 18:00 History Exam Height,Weight and Vital Signs: Height 5 ft 10 in Weight 77.111 kg Narrative Narrative: EKG 01/2025 Details: Sinus bradycardia 47 beats per minute, right bundle-branch block, left anterior fascicular block. QTc 405 msec. Exercise Stress 01/2025 Protocol: JAS Max HR: 117 BPM 81% of Pred: 143 BPM Max BP: 180/70 mmHG Max Work Load: 10.1 METS Exercise stress test with exercise 8 mins 36 secs of Jas Protocol, achieving 81% MPHR, with reports of mild fatigue, with isolated PACs, with normotensive response to exercise. Without any EKG changes meeting criteria for ischemia. In recovery, pt feeling back to baseline. Test reviewed with Dr. Hunt. Holter 2022 1. Patient was monitored for total period of 7 days and 22 hours 2. Baseline was normal sinus rhythm with average heart rate of 52 beats per minute 3. Frequent sinus bradycardia noted with 77% of time heart rate below 60 beats per minute with no significant pauses 4. Occasional PACs noted with total burden of 0.35% and rare PVCs noted 5. Patient marked the diary multiple times but no reported symptoms, correlating with sinus rhythm or sinus bradycardia Assessment and Plan Assessment Anesthesia Assessment: Chart Reviewed Final Anesthetic Review Family History of Problems with Anesthesia: No History of Problems with Anesthesia: No Documented by User: Roger Reich MD 02/23/25 11:39 [facility] Past Medical History Medical History SNHL (sensorineural hearing loss) Systolic murmur Sinus bradycardia DDD (degenerative disc disease), cervical Borderline high cholesterol BPPV (benign paroxysmal positional vertigo) Left anterior fascicular block (LAFB) GERD (gastroesophageal reflux disease) RBBB (right bundle branch block) Colon cancer Hypertension Chronic neck pain Chronic back pain Family History Family History Father No problems noted. Mother Colon cancer Surgical History Surgical History History of carpal tunnel release History of colonoscopy S/P excision of lipoma History of shoulder surgery H/O hemicolectomy History of hernia surgery Social History Social History Housing: House Are you a primary home care rn to a significant other at home: No Do you presently have visiting nurse or other home services: No Alcohol intake: former Comment: advised of trip hazard Patient Tobacco Use Status: Never used Tobacco e-Cigarette/Vaping Use: Never Used Second Hand Smoke Exposure: No Use of substances other than those prescribed or required for medical reasons: No Advance Directives: No Advance Directives Information Provided: Yes service: Yes Current occupational status: retired Cognitive needs: No Hearing needs: No Vision needs: No Meds Allergies Allergy/AdvReac Type Severity Reaction Status Date / Time No Known Allergies Allergy Verified 02/03/25 10:32 Home Medications ?Medication ?Instructions ?Recorded ?Confirmed ?Last Taken ?Type acetaminophen 650 mg 650 mg PO Q12H 12/29/24 02/23/25 02/21/25 08:00 History tablet,extended release cholecalciferol (vitamin D3) 25 25 mcg PO DAILY 12/29/24 02/23/25 02/23/25 08:00 History mcg (1,000 unit) capsule (Vitamin D3) glucosamine sulfate 500 mg tablet 500 mg PO DAILY 12/29/24 02/23/25 02/23/25 08:00 History (Glucosamine) magnesium oxide 400 mg PO BEDTIME 08/05/25 09/30/25 09/29/25 08:00 History multivitamin 1 tab PO DAILY 12/29/24 02/23/25 02/22/25 18:00 History Exam Airway Mallampati Class: III TM Dist: >3cm Neck ROM: Full Loose/Missing/Broken Teeth: No Assessment and Plan Assessment Anesthesia Assessment: Anesthesia Plan Discussed Final Anesthetic Review NPO: Yes ASA Class: III Final Preanesthetic Review: No Changes in Pt Med Stat, Meds/Allgs Chart Reviewed, Consent Obtained/Reviewed and Anes Risks/Benef Reviewed Patient Risk: Intermediate Procedure Risk: Low Anesthetic Plan Anesthetic Plan: GA Disposition: Standard PACU
[2025-02-23 10:35] VITALS: BMI 24.1
[2025-02-23] MEDS: Lactated Ringers 1,000 ML 100 ML IVCONT (10:53)
[2025-02-23 10:54] VITALS: BP 108/72; PULSE 46; RESP 16; TEMP 36.8; O2SAT 99
--- NOTE | 2025-02-23 11:06 | MHC.SHP ---
Pre-Procedural Eval Section A - 24 Hr Update-Section A only Date of Service: 02/23/25 Section B - Complete if H&P > 30 days Chief Complaint: Unilateral inguinal hernia, without obstruction Details of Present Illness: For repair of a reducible right inguinal hernia; previously canceled because of the bradycardia; cleared by patient relations representative Relevant Family History (Specify if Yes): No Relevant Social History: None Present Medications: see Short Stay Collaborative assessment Medical History: Significant History (Bradycardia, vertigo, hypertension, degenerative disc disease) Allergies: Allergies Allergy/AdvReac Type Severity Reaction Status Date / Time No Known Allergies Allergy Verified 02/03/25 10:32 Review of Systems Sugical H&P ROS: Negative: Constitution, Cardiovascular and Respiratory Exam Surgical H&P Exam: Normal: Heart and Normal: Lungs and Significant Findings: Abdomen (Right inguinal hernia reducible) Plan Diagnosis/Plan: Unchanged I have reviewed the history and physical and performed a pertinent physical examination on my patient. No changes have occurred unless specified. Time Spent With Patient Time: Total time managing care of this patient today ____ minutes.
--- NOTE | 2025-02-23 12:28 | P.OP_ITS ---
Operative Note Operative Note Date of Service: 02/23/25 Narrative: Preop diagnosis: Right inguinal hernia, reducible Postop diagnosis: Right inguinal hernia, reducible, direct Procedure: Repair of right inguinal hernia with mesh Surgeon: Theo Norman MD civil engineering assistant: BERYL Devine The patient is a 74-year-old male with a reducible mass in the right groin consistent with a right inguinal hernia. He understood the technique of the planned procedure. He was aware of the risks, benefits, and alternatives. He was brought to the operating room. He was placed supine under general anesthesia via laryngeal mask airway. The right groin was prepped and draped in the usual sterile fashion. A surgical time-out was done. The patient received cefazolin 2 g IV preoperatively . I infiltrated the planned line of incision with lidocaine 1%. I made a short incision in the skin along an imaginary line from the anterior superior iliac spine to the pubic ramus with a blade 15. This has carried down with electrocautery through the full-thickness of the skin and subcutaneous fat until the external oblique was visualized. I bluntly dissected the external oblique to define the external ring. I made a short incision on the external oblique overlying the inguinal canal with a blade 15. This incision was extended inferomedially to connect with the external ring. I applied hemostats on the divided edges of the aponeurosis. I did blunt dissection of the underside of the aponeurosis to create space for the mesh. The spermatic cord was seen along with the hernia. The hernia contained fat. This was going through the i floor of the canal consistent with a direct hernia. I bluntly dissected this cord and its contents with my index finger until was able to pass a [place] drain around this. This Teresa drain was used for retraction I then identified the vas deferens and the accompanying vessels. I gently dissected the hernia contents off of the rest of the cord until I was able to reduce this through the defect on the floor.I reinforced the defect on the floor with a large sized Prolene plug. The plug was secured with Prolene 2 sutures to the shelving edge of the inguinal ligament laterally and the internal oblique superiorly medially. I reinforced the floor of the canal with a keyhole mesh. The tails of the mesh were passed around the cord at the level of the internal ring and secured together around the cord with Prolene 2-0 sutures. I secured the mesh to the shelving edge of the inguinal ligament laterally and the internal oblique superiorly medially as well as the pubic ramus inferomedially with Prolene 2-0 sutures. The Teresa drain was removed. I irrigated. Once hemostasis was confirmed, I reapposed the the external oblique aponeurosis with a running 2-0 stitch to re-create the external ring. The subcutaneous layer was reapposed with Polysorb 3-0 simple interrupted sutures. Skin closure was achieved with Polysorb 4-0 subcuticular running stitch The area was infiltrated with Marcaine 0.5% for postop analgesia. Dressings were applied and the procedure was completed The patient tolerated the procedure well. There were no immediate complications. Initial and final counts of sponges and instruments were correct. Estimated blood loss was less than 25 cc. The patient was extubated without difficulty and transferred to the recovery room with stable vital signs.
[2025-02-23 12:40] VITALS: BP 150/70; PULSE 54; RESP 14; TEMP 36.6; O2SAT 98
[2025-02-23 12:45] VITALS: BP 137/63; PULSE 48; RESP 14; O2SAT 98
[2025-02-23 12:50] VITALS: BP 127/58; BP 132/61; PULSE 52; PULSE 53; RESP 14; RESP 16; O2SAT 100; O2SAT 98
[2025-02-23 13:05] VITALS: BP 140/80; PULSE 48; RESP 16; TEMP 36.6; O2SAT 99
[2025-02-23] MEDS: oxyCODONE HCl Immed Release 5 MG TABLET PO (13:17)
== END 2025-02-23 13:44 | disposition home or self-care (01) ==
PROVIDERS: PCP Physician Assistant; Visit Provider Surgery
PROC: (CPT 49505; principal; 2025-02-23 14:20)
DX: K40.90 Unilateral inguinal hernia, without obstruction or gangrene, not specified as recurrent (principal); I10 Essential (primary) hypertension; R00.1 Bradycardia, unspecified; G89.29 Other chronic pain; M54.9 Dorsalgia, unspecified; Z79.899 Other long term (current) drug therapy
CPT/HCPCS: 49505; C1781; J0131; J0690; J1100; J2003; J2405; J2704; J2795; J3010

== ENCOUNTER → 2025-02-23 10:14 | Outpatient (BNV) | payer MEDICARE, OTHER, SELFPAY | PROVIDERS: PCP Physician Assistant; Visit Provider Surgery | DX: K40.90 Unilateral inguinal hernia, without obstruction or gangrene, not specified as recurrent (principal) | CPT/HCPCS: 49505 ==

== ENCOUNTER 2025-03-10 11:11 | Outpatient (AMB) | payer MEDICARE, OTHER, SELFPAY ==
--- NOTE | 2025-03-10 11:15 | MHC.OFFVIS ---
Vital Signs 03/10/25 11:25 Weight 171 lb BP 170/79 H Blood Pressure Location Rt brachial Position Sitting Pulse 52 Intake Visit Reasons: S/P RIH w/mesh Intake Note: Patient here s/p Repair of right inguinal hernia with mesh. Patient c/o: pain/tenderness when clothing rubs on incision area. Steri strips in place. Taking Tylenol and Ibuprofen as needed. Surgery (): 02-23-2025 Senior Director Creative Services Required: No Accompanied by: Self / Same As Patient Allergies No Known Allergies Allergy (Verified 03/10/25 11:25) HPI HPI S/P RIH w/mesh: Details: Patient reports he is doing well. Initially had some pain and swelling that extended down into his testicle but this has resolved. Now currently not experiencing pain other than with some ambulation such as doing the dishes and bending over. Does describe some discomfort when his pants rub against the incision site. He has been supplementing with ibuprofen and Tylenol, no longer requiring oxycodone. Bowel function and appetite are at baseline. He does have some soft stools, but attributes this to his previous colon resection, soft loose stools are his baseline. Denies fevers or chills. Denies any drainage or bleeding from the incision site, has been keeping it dressing covered due to the pain with his clothes. Has not been doing heavy lifting [facility] Medical History SNHL (sensorineural hearing loss) Systolic murmur Sinus bradycardia DDD (degenerative disc disease), cervical Borderline high cholesterol BPPV (benign paroxysmal positional vertigo) Left anterior fascicular block (LAFB) GERD (gastroesophageal reflux disease) RBBB (right bundle branch block) Colon cancer Hypertension Chronic neck pain Chronic back pain Surgical History (Updated 03/10/25 @ 12:39 by London Guerra PA-C) Hx of right inguinal hernia repair (02/23/25) History of carpal tunnel release History of colonoscopy S/P excision of lipoma History of shoulder surgery H/O hemicolectomy History of hernia surgery Family History Father No problems noted. Mother Colon cancer Social History Housing: House Are you a primary child care director to a significant other at home: No Do you presently have visiting nurse or other home services: No Alcohol intake: former Comment: COUNTS CORRECT Patient Tobacco Use Status: Never used Tobacco e-Cigarette/Vaping Use: Never Used Second Hand Smoke Exposure: No service: Yes Current occupational status: retired Cognitive needs: No Hearing needs: No Vision needs: No Review of Systems Const All systems reviewed & are unremarkable except as noted in HPI and below Physical Exam Vital Signs: Last Vital Signs Pulse 52 03/10/25 11:25 BP 170/79 H 03/10/25 11:25 Const General: comfortable and no acute distress Orientation/consciousness: patient oriented x3 GI Other: Right inguinal hernia repair site: Incision appears to be healing well. Steri-Strips removed in office, incision is clean dry intact, no surrounding erythema, no fluid collection, mildly tender to palpation. Mild edema inferiorly Neuro General: patient oriented x3 Assessment & Plan Assessment & Plan (1) S/P inguinal hernia repair: Comment: Right inguinal hernia repair with mesh (Dr. Norman 02/23/2025) Code(s): Z98.890 - Other specified postprocedural states; Z87.19 - Personal history of other diseases of the digestive system Category: Medical Plan 72-year-old male s/p right inguinal hernia repair with Dr. Norman on 02/23/25 returning to the office for routine follow up. Patient doing well, initially had some pain and swelling around the incision site and extending into the testicles that has resolved. Additionally notes some discoloration of the testicles that has also resolved. Otherwise his pain is generally well controlled, no longer requiring oxycodone, is only using Tylenol ibuprofen as needed. He does have some pain with bending over and to contact with his clothes. This is appropriate this stage, reassured him that this will improve with time. On exam the abdomen is soft and benign, incision site is clean dry and intact. There is some mild edema it is appropriate at this stage postoperatively the incision site is otherwise doing well and not concerning for infection. We will continue with activity restrictions no heavy lifting greater than 15-20 lb until 04/06/2025. Patient is agreeable to this plan. He will follow up in 3 weeks or sooner with any questions or concerns. Coding Level of Care Code Global (73128) Diagnoses S/P inguinal hernia repair Z98.890; Z87.19
[2025-03-10 11:25] VITALS: BP 170/79; PULSE 52
--- OUTSIDE RECORDS SUMMARY | 2025-03-10 13:50 | XMS_ITS | Patient Health Record ---
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 Problem Plantar fasciitis (118821817) Plantar Fasciitis (728.71) Active confirmed Plan Of Treatment No Information Insurance Providers Payer Name Payer Address Payer Phone Subscriber Number Group Number Insured Name Patient Relationship to Insured Coverage Start Date Coverage End Date Medicare [employer] [address] [facility] [id number] [phone] [id number] Shantanu Phillips Self - patient is the insured [facility] [address] [address] [place] [address] [id number] Shantanu Phillips Self - patient is the insured for Life [address] [place] [address] [phone] [id number] Shantanu Phillips Self - patient is the insured Medical (General) History Medical History History ICD Code back, hip, knee pain cancer measles chicken pox transfusions Surgical History Surgery Date(Month/Year) shoulder surgery colon
--- OUTSIDE RECORDS SUMMARY | 2025-03-10 13:51 | XMS_ITS | Clinical Summary ---
Author Organization [facility] Address [address] [place] [address] [place] [address] Phone Care Team Providers Care Aluminum Pool Installer Name Role Phone Jose Peñaloza Primary Care [...] topic Medical Devices Not on file Insurance [facility] MEDICARE REPLACEMENT MEDICARE PART A & B [facility] MEDICARE SUPPLEMENT [facility] Address: [id number] [place] [address] MEDICARE REPLACEMENT MEDICARE PART A & B FOR LIFE MEDICARE SUPPLEMENT [facility] Address: [address] [address] MEDICARE REPLACEMENT MEDICARE PART A & B FOR LIFE MEDICARE SUPPLEMENT Member Subscriber Plan / Payer (Ef fective 2023-Present) Name:Shantanu Phillips Relation to Subscriber:Self Name:Shantanu Phillips Payer ID:[id number] (NAIC) Group ID:Not on file Type:O Address: [place] [phone] [facility] MEDICARE REPLACEMENT MEDICARE PART A & B [facility] MEDICARE SUPPLEMENT [facility]. [facility] Address: [id number] [place] [address] [facility] MEDICARE REPLACEMENT [place] [id number] MEDICARE PART A & B FOR LIFE MEDICARE SUPPLEMENT C[facility] Address: [address] [address] MEDICARE REPLACEMENT MEDICARE PART A & B FOR LIFE MEDICARE SUPPLEMENT Care Teams Aluminum Pool Installer Relationship Specialty Start Date End Date Jose Peñaloza PA [address] [place] [address] PCP - General Physician Ball Points Inspector 09/06/23 Additional Source Comments The information contained in this document represents components of the legal health record. It is not the complete legal health record.[facility]
--- OUTSIDE RECORDS SUMMARY | 2025-03-10 13:51 | XMS_ITS | Patient Health Record ---
Author Organization [facility] Address [address] [place] [address] Care Team Providers Care Volunteer Services Assistant Name Role Phone Jose Peñaloza Primary Care Provider Unavailab Fernando Washburn Jr Unavailable Allergies No Known Allergies Reason For Referral No Information Medications Medication SIG (Take, Route, Frequency, Duration) Notes Start Date End Date Status Losartan Potassium 50 MG TAKE 1 TABLET BY MOUTH TWICE A DAY Oral; Duration: 90 Active Tylenol 8 Hour 650 MG [...] Problem Status W/U Status Risk Notes Problem Colon cancer screening (754828060) Colon cancer screening (Z12.11) Active confirmed Problem Gastroesophageal reflux disease (570183462) Gastroesophageal reflux disease, unspecified whether esophagitis present (K21.9) Active confirmed Vital Signs Temperature 97.7 degrees Fahrenheit 03/23/2024 Blood pressure diastolic 00 mm Hg 03/23/2024 Height 70 in 03/23/2024 Blood pressure systolic 000 mm Hg 03/23/2024 Weight 173 lbs 03/23/2024 BMI 24.82 kg/m2 03/23/2024 Encounters Encounter Location Date Provider Diagnosis [facility] [address] [place] [address] 03/23/2024 Fernando Thao Jr Gastroesophageal reflux disease, [...] Insured Coverage Start Date Coverage End Date [facility] [address] [address] [place] [address] [id number] LYDIA FERGUSON Self - patient is the insured [employer] [address] [place] [address] [id number] FERGUSONLYDIA Self - patient is the insured Medical (General) History Medical History History ICD Code Colonoscopy 02/12, normal, five-year foll owup degenerative disc disease involving the neck colon cancer, status post right colectom y 2004 chemotherapy with Xeloda Hearing loss right ear Surgical History Surgery Date(Month/Year) inguinal hernia repair colectomy, partial both shoulder surgery carpal tunnel release-left
== END 2025-03-10 11:55 | disposition home or self-care (01) ==
LOC: HO.HGS 11:12
PROVIDERS: PCP Physician Assistant
DX: Z98.890 Other specified postprocedural states (principal); Z87.19 Personal history of other diseases of the digestive system
CPT/HCPCS: 99024

== ENCOUNTER → 2025-03-10 11:11 | Outpatient (BNVA) | payer MEDICARE, OTHER, SELFPAY | PROVIDERS: PCP Physician Assistant | DX: Z98.890 Other specified postprocedural states (principal); Z87.19 Personal history of other diseases of the digestive system | CPT/HCPCS: 99212 ==

== ENCOUNTER 2025-03-31 11:22 | Outpatient (AMB) | payer MEDICARE, OTHER, SELFPAY ==
--- NOTE | 2025-03-31 11:24 | A.OFFVIS_ITS ---
Vital Signs 03/31/25 11:30 Weight 167 lb BP 153/67 H Blood Pressure Location Rt radial Position Sitting Pulse 46 L Intake Visit Reasons: 3wk S/P RIH w/mesh Intake Note: Patient here for 2wk follow up from last office visit on 03-10-2025. S/p Repair of right inguinal hernia with mesh. Patient c/o: states incision site feels stiff. Denies oozing, redness, inflammation. Surgery (FM): 02-23-2025 Specialist Managers Required: No Accompanied by: Self / Same As Patient Allergies No Known Allergies Allergy (Verified 03/31/25 11:31) HPI HPI 3wk S/P RIH w/mesh: Details: Doing well. Does still get some sharp pulling pain with ambulation. Has been avoiding heavy lifting. No concerns has questions about returning to exercise as he was found to have trochanteric bursitis and has some exercise recommendations. [facility] Medical History SNHL (sensorineural hearing loss) Systolic murmur Sinus bradycardia DDD (degenerative disc disease), cervical Borderline high cholesterol BPPV (benign paroxysmal positional vertigo) Left anterior fascicular block (LAFB) GERD (gastroesophageal reflux disease) RBBB (right bundle branch block) Colon cancer Hypertension Chronic neck pain Chronic back pain Surgical History (Updated 03/10/25 @ 12:39 by London Guerra PA-C) Hx of right inguinal hernia repair (02/23/25) History of carpal tunnel release History of colonoscopy S/P excision of lipoma History of shoulder surgery H/O hemicolectomy History of hernia surgery Family History Father No problems noted. Mother Colon cancer Social History Housing: House Are you a primary nursing care attendant to a significant other at home: No Do you presently have visiting nurse or other home services: No Alcohol intake: former Comment: COUNTS CORRECT Patient Tobacco Use Status: Never used Tobacco e-Cigarette/Vaping Use: Never Used Second Hand Smoke Exposure: No service: Yes Current occupational status: retired Cognitive needs: No Hearing needs: No Vision needs: No Physical Exam Vital Signs: Last Vital Signs Pulse 46 L 03/31/25 11:30 BP 153/67 H 03/31/25 11:30 Const General: comfortable and no acute distress Orientation/consciousness: patient oriented x3 Resp Effort & Inspection: normal respiratory effort and able to speak in complete se ntences GI Other: Right inguinal hernia repair site intact, no recurrence on Valsalva. Nontender to palpation. no evidence of recurrence on Valsalva Neuro General: patient oriented x3 Assessment & Plan Assessment & Plan (1) S/P inguinal hernia repair: Comment: Right inguinal hernia repair with mesh (Dr. Norman 02/23/2025) Code(s): Z98.890 - Other specified postprocedural states; Z87.19 - Personal history of other diseases of the digestive system Category: Surgical Plan 72-year-old male s/p right inguinal hernia repair with Dr. Norman on 02/23/25 returning to the office for routine follow up. Patient doing well. He does have some pain with ambulation This is appropriate this stage, reassured him that this will improve with time. On exam the abdomen is soft and benign, incision site is clean dry and intact. No concern for infection. There was no recurrence on Valsalva. We will continue with activity restrictions no heavy lifting greater than 15-20 lb until 04/06/2025. We discussed the exercises that were recommended to him some of which involved core activation, recommended waiting until April 06 to begin these exercises. Patient is agreeable to this plan. He can follow up as needed with any concerns in the future Coding Level of Care Code Global (28351) Diagnoses S/P inguinal hernia repair Z98.890; Z87.19
[2025-03-31 11:30] VITALS: BP 153/67; PULSE 46
--- OUTSIDE RECORDS SUMMARY | 2025-03-31 13:55 | XMS_ITS | Clinical Summary ---
Author Organization [facility] Address [address] [place] [address] [place] [address] Phone Care Team Providers Care Contact Lens Blocker And Cutter Name Role Phone Jose Peñaloza Primary Care [...] topic Medical Devices Not on file Insurance [facility] MEDICARE REPLACEMENT MEDICARE PART A & B [facility] MEDICARE SUPPLEMENT [facility] Address: [id number] [place] [address] MEDICARE REPLACEMENT MEDICARE PART A & B [employer] MEDICARE SUPPLEMENT [facility] Address: [address] [address] MEDICARE REPLACEMENT MEDICARE PART A & B FOR LIFE MEDICARE SUPPLEMENT Member Subscriber Plan / Payer (Ef fective 2023-Present) Name:Shantanu Phillips Relation to Subscriber:Self Name:Shantanu Phillips Payer ID:[id number] (NAIC) Group ID:Not on file Type:O Address: [place] [id number] [facility] MEDICARE REPLACEMENT MEDICARE PART A & B [facility] MEDICARE SUPPLEMENT [facility] Address: [id number] [place] [address] [facility] MEDICARE REPLACEMENT [place] [id number] MEDICARE PART A & B FOR LIFE MEDICARE SUPPLEMENT [facility] Address: [address] [address] MEDICARE REPLACEMENT MEDICARE PART A & B [employer] MEDICARE SUPPLEMENT Care Teams Contact Lens Blocker And Cutter Relationship Specialty Start Date End Date Jose Peñaloza PA [address] [place] [address] PCP - General Physician Fisher [employer] 09/06/23 Additional Source Comments The information contained in this document represents components of the legal health record. It is not the complete legal health record.[facility]
== END 2025-03-31 12:21 | disposition home or self-care (01) ==
LOC: HO.HGS 11:23
PROVIDERS: PCP Physician Assistant
DX: Z98.890 Other specified postprocedural states (principal); Z87.19 Personal history of other diseases of the digestive system
CPT/HCPCS: 99024

== ENCOUNTER → 2025-03-31 11:22 | Outpatient (BNVA) | payer MEDICARE, OTHER, SELFPAY | PROVIDERS: PCP Physician Assistant | DX: Z98.890 Other specified postprocedural states (principal); Z87.19 Personal history of other diseases of the digestive system | CPT/HCPCS: 99212 ==

== ENCOUNTER 2025-04-14 11:13 | Outpatient (AMB) | payer MEDICARE, OTHER, SELFPAY ==
[2025-04-14 11:41] VITALS: BP 120/64; PULSE 64; BMI 24.0
--- NOTE | 2025-04-14 11:41 | MHC.OFFVIS ---
Vital Signs 04/14/25 11:41 Height 5 ft 10 in Weight 167 lb 8.821 oz BMI 24.0 BP 120/64 Blood Pressure Location Lt brachial Position Sitting Pulse 64 Pulse Source Pulse Oximeter Intake Visit Reasons: 1 yr follow up Intake Note: 2 mth f/up Home Health Occupational Therapist Required: No Accompanied by: Self / Same As Patient Allergies No Known Allergies Allergy (Verified 03/31/25 11:31) Medication List - Last Reconciled 04/14/25 by Raul Winter MD acetaminophen ER 650 mg PO Q12H cholecalciferol (vitamin D3) (Vitamin D3) 25 mcg PO DAILY glucosamine sulfate (Glucosamine) 500 mg PO DAILY ibuprofen 600 mg PO Q6H PRN losartan 50 mg PO BID 90 days magnesium oxide 400 mg PO BEDTIME multivitamin 1 tab PO DAILY zolpidem 10 mg PO BEDTIME PRN 15 days HPI Comments Details: 80-year-old gentleman who was seen for management of bradycardia. He said he has had slow heart rates all his life. His average heart rate is in 40s to 50s. He has been active and exercises regularly without any functional limitations. He has no exertional shortness of breath or chest discomfort. He has no dizziness episode with exertion. Recently he had a viral illness and while he was sick he had lightheadedness when changing his posture. This has improved and he does not have any further symptoms. 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 ECG 04/2019: Sinus bradycardia with first degree AV block, HR 41/min, LAFB. He was sent for a Holter monitor. Holter monitor showed underlying rhythm of sinus bradycardia with average heart rate of 48 beats per minute. 80% time his heart rate was under 60 beats per minute. 1.2 sec pause was noticed and 770 PVCs were noticed. Patient had no symptoms. 04/10/23: Today he returns for follow-up. He has no chest discomfort shortness of breath. Continues to be active without any exertional issues. In particular no dizziness or syncope. EKG in the office is showing heart rate of 36. With just leg raises for few seconds his heart rate went to 60s. Interestingly he has right bundle-branch block on the ECG along with left anterior fascicular block. 04/13/2024: He is here for follow-up. He had 7 day Holter monitor in 03/2023. He was noted to have frequent sinus bradycardia with 77% of time heart rate below 60 beats per minute without any significant pauses. He was completely asymptomatic throughout the 7 day period. He continues to be asymptomatic. No chest pain or shortness of breath. No syncope. He has some vertigo like feeling and also had some issue with his right ear and has lost hearing in that ear. 01/27/2025: He is here for follow-up. He recently went for hernia surgery and apparently was noticed to be bradycardic with heart rate of 39 beats per minute. The surgery was canceled and his primary care physician referred him to electrophysiology for further assessment and maybe pacemaker placement. He continues to be asymptomatic. He has been physically active and has no exertional issues. We did a exercise stress test on him where he was able to achieve 10.1 metabolic equivalents with appropriate rise in his heart rate to 117 beats per minute. He also had appropriate rise in blood pressure during stress testing. He did not have any chest discomfort shortness of breath. No fatigue. He is saying he is seeing Dr. Garcia today from electrophysiology at [facility]. 04/14/2025: He is here for follow-up. He has been doing well. No chest discomfort shortness of breath. He successfully underwent hernia repair without any issues. [facility] Medical History SNHL (sensorineural hearing loss) Systolic murmur Sinus bradycardia DDD (degenerative disc disease), cervical Borderline high cholesterol BPPV (benign paroxysmal positional vertigo) Left anterior fascicular block (LAFB) GERD (gastroesophageal reflux disease) RBBB (right bundle branch block) Colon cancer Hypertension Chronic neck pain Chronic back pain Surgical History Hx of right inguinal hernia repair (02/23/25) History of carpal tunnel release History of colonoscopy S/P excision of lipoma History of shoulder surgery H/O hemicolectomy History of hernia surgery Family History Father No problems noted. Mother Colon cancer Social History Housing: House Are you a primary career development associate to a significant other at home: No Do you presently have visiting nurse or other home services: No Alcohol intake: former Comment: COUNTS CORRECT Patient Tobacco Use Status: Never used Tobacco e-Cigarette/Vaping Use: Never Used Second Hand Smoke Exposure: No service: Yes Current occupational status: retired Cognitive needs: No Hearing needs: No Vision needs: No Review of Systems Const Denies chills, Denies fatigue, Denies fever(s), Denies frequent falls, Denies weakness, Denies weight gain and Denies weight loss ENT Denies dizziness Card Denies chest pain, Denies leg edema, Denies lightheadedness, Denies palpitations, Denies dyspnea and Denies dyspnea on exertion Resp Denies cough, Denies dyspnea and Denies dyspnea on exertion GI Denies hematochezia Musc Denies abnormal gait, Denies muscle weakness, Denies numbness, Denies radiating pain into limb and Denies tingling Neuro Denies abnormal gait, Denies dizziness, Denies frequent falls, Denies numbness, Denies tingling and Denies weakness Endo Denies fatigue and Denies palpitations Physical Exam Vital Signs: Last Vital Signs Pulse 64 04/14/25 11:41 BP 120/64 04/14/25 11:41 BMI result Body Mass Index 24.0 GENERAL APPEARANCE: in no acute distress, well developed, well nourished. NECK/THYROID: no carotid bruit, no jugular venous distention. SKIN: no suspicious lesions, warm and dry. HEART: no murmurs, regular rate.. LUNGS: clear to auscultation bilaterally. ABDOMEN: normal, bowel sounds present, soft, nontender, nondistended. EXTREMITIES: no clubbing, cyanosis, or edema. PERIPHERAL PULSES: equal. NEUROLOGIC: nonfocal, alert and oriented. PSYCH: mood/affect full range. Assessment & Plan Assessment & Plan (1) HTN (hypertension): Code(s): I10 - Essential (primary) hypertension Category: Medical Qualifiers: Hypertension type: primary hypertension Qualified Code(s): I10 - Essential (primary) hypertension (2) Sinus bradycardia: Code(s): R00.1 - Bradycardia, unspecified Category: Medical (3) Bifascicular block: Code(s): I45.2 - Bifascicular block Category: Medical Plan 80-year-old gentleman who is here for follow-up. He has chronic bifascicular block and sinus bradycardia which is asymptomatic. He is physically active and has no exertional symptoms. He successfully underwent hernia surgery. Previously it was canceled because of bradycardia but after we did exercise stress test where he was able to exercise to 10.1 metabolic equivalents and achieved heart rate of 117 beats per minute he underwent surgery successfully. Clinically doing well. Blood pressure well controlled. Follow up in 1 year. Thank you for allowing me to participate in the care of your patient. Please feel free to contact me if you have any questions. Coding Level of Care Code Est Pt Level 4 (49417) Diagnoses Primary hypertension I10 Hypertension type: primary hypertension Sinus bradycardia R00.1 Bifascicular block I45.2
--- OUTSIDE RECORDS SUMMARY | 2025-04-14 22:10 | XMS_ITS | Clinical Summary ---
Author Organization [facility] Address [address] [place] [address] [place] [phone] Phone Care Team Providers Care Health Equipment Servicer Name Role Phone Jose Peñaloza Primary Care [...] VACCINES (50+ years) (2 of 2 - PCV20 or PCV21) 06/26/2020 06/26/2019 INFLUENZA VACCINE (#1) 2024 , [...] on patient's age to complete this topic IPV VACCINES Aged Out No longer eligi ble based on patient's age to complete this topic MENINGOCOCCAL VACCINES (ACWY) Aged Out No longer eligible based on patient's age to complete this topic MENINGOCOCCAL VACCINES (B) Aged Out N o longer eligible based on patient's age to complete this topic Medical Devices Not on file Insurance [facility] MEDICARE REPLACEMENT [place] [id number] MEDICARE PART A & B [facility] MEDICARE [place] [address] [place] [address] MEDICARE REPLACEMENT MEDICARE PART A & B [employer] MEDICARE SUPPLEMENT MEDICARE REPLACEMENT MEDICARE PART A & B [employer] MEDICARE [place] [address] [place] [address] MEDICARE REPLACEMENT MEDICARE PART A & B [facility] MEDICARE [place]LE[place] [place] [address] MEDICARE REPLACEMENT MEDICARE PART A & B [facility] MEDICARE SUPPLEMENT MEDICARE REPLACEMENT MEDICARE PART A & B [employer] MEDICARE SUPPLEMENT Care Teams Health Equipment Servicer Relationship Specialty Start Date End Date Jose Peñaloza PA [address] [place] [address] PCP - General Physician Police Captain 09/06/23 Additional Source Comments The information contained in this document represents components of the legal health record. It is not the complete legal health record.[facility]
--- OUTSIDE RECORDS SUMMARY | 2025-04-14 22:10 | XMS_ITS | Patient Health Record ---
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 Problem Plantar fasciitis (767570156) Plantar Fasciitis (728.71) Active confirmed Plan Of Treatment No Information Insurance Providers Payer Name Payer Address Payer Phone Subscriber Number Group Number Insured Name Patient Relationship to Insured Coverage Start Date Coverage End Date Medicare [employer] [address] [place] [address] [id number] Shantanu Phillips Self - patient is the insured [id number] [address] [address] [place] [address] [id number] Shantanu Phillips Self - patient is the insured for Life [address] [place] [address] [id number] Shantanu Phillips Self - patient is the insured Medical (General) History Medical History History ICD Code back, hip, knee pain cancer measles chicken pox transfusions Surgical History Surgery Date(Month/Year) shoulder surgery colon
--- OUTSIDE RECORDS SUMMARY | 2025-04-14 22:10 | XMS_ITS | Patient Health Record ---
Author Organization [facility] Address [address] [place] [address] Care Team Providers Care Client Services Administrator Name Role Phone Jose Peñaloza Primary Care Provider UnavailFernando Falk Jr Unavailable Allergies No Known Allergies Reason For Referral No Information Medications Medication SIG (Take, Route, Frequency, Duration) Notes Start Date End Date Status Losartan Potassium 50 MG Tablet TAKE 1 TABLET BY MOUTH TWICE A DAY Oral; Duration: 90 Active Tylenol 8 Hour 650 MG Tablet Extended Release as needed Orally every 8 hrs/prn Active Glucosamine Chondr 1500 Complx - Capsule 1 capsule Orally BID Active Multi Vitamin/Minerals - Tablet as directed Orally once a day Active B Complex - Capsule 1/2 capsule Orally once a day Active Vitamin D 1000 UNIT Tablet 1 tablet Orally Once a day Active Ambien 10 MG Tablet 1/2 tablet at bedtim e as needed Orally prn as needed/rarely use it Active Soma 350 MG Tablet 1/2tablet as needed Orally as needed as needed/rarely use it Active Electrolyte SR - Tablet Extended Release as directed Orally Active Immunizations Vaccine Route Administration Date Status Comme nts Influenza Unknown 03/05/2018 Administered Influenza Unknown 02/25/2024 Administered Social History Social History Drugs/Alcohol: Social Info Question Answer Notes Alcohol Screen Did you have a drink containing alcohol in the past year? No Points 0 Interpretation Negative Additional Details Category Social Info Options Details Miscellaneous: Marital status: Occupation: retired Problems Problem Type SNOMED Code ICD Code Onset Dates Problem Status W/U Status Risk Notes Problem Colon cancer screening (014687164) Colon cancer screening (Z12.11) Active confirmed Problem Gastroesophageal reflux disease (390170362) Gastroesophageal reflux disease, unspecified whether esophagitis present (K21.9) Active confirmed Plan Of Treatment Future Test Test Name Order Date UPPER GI ENDOSCOPY 07/08/2013 COLONOSCOPY 07/08/2013 COLONOSCOPY 11/05/2018 UPPER GI ENDOSCOPY 03/23/2024 COLONOSCOPY 03/23/2024 Insurance Providers Payer Name Payer Address Payer Phone Subscriber Number Group Number Insured Name Patient Relationship to Insured Coverage Start Date Coverage End Date [facility] [address] [address] [place] [address] [id number] LYDIA FERGUSON Self - patient is the insured [employer] [address] [place] [address] [phone] [id number] LYDIA FERGUSON Self - patient is the [...]
== END 2025-04-14 12:13 | disposition home or self-care (01) ==
LOC: HO.HCS 11:14
PROVIDERS: PCP Physician Assistant; Visit Provider Internal Medicine Cardiovascular Disease
DX: I10 Essential (primary) hypertension (principal); R00.1 Bradycardia, unspecified; I45.2 Bifascicular block
CPT/HCPCS: 99214

== ENCOUNTER → 2025-04-14 11:13 | Outpatient (BNVA) | payer MEDICARE, OTHER, SELFPAY | PROVIDERS: PCP Physician Assistant; Visit Provider Internal Medicine Cardiovascular Disease | DX: I10 Essential (primary) hypertension (principal); R00.1 Bradycardia, unspecified; I45.2 Bifascicular block | CPT/HCPCS: 99212 ==